=== PATIENT | male | born 1995 | race American Indian/Alaskan Native ===

== ENCOUNTER 2017-07-11 17:33 | Emergency (ER) | payer MEDICAID ==
--- NOTE | 2017-07-11 18:36 | Emergency Department Report ---
- General Chief Complaint: Upper Respiratory Infection Stated Complaint: CONGESTION Source: patient Mode of arrival: Ambulatory Limitations: No Limitations - History of Present Illness Initial Comments: 21 y/o M with a PMHx of schizophrenia and long hx of sinus congestion presents to the ER today with recurrent sinus infection. Pt states that he feels as if this is the 30th sinus infection this year. Pt states that he was seen last 2 months ago at another hospital and was given Prednisone and Hydroxyzine with relief of his symptoms. pt states that this time he has been using flonase that helps some but not much. Pt denies any cough, fever, chills SOB, nausea,or vomtiing. Pt admits to a maxillary headache and reports to yellow nasal congestion. Pt denies any sick contacts. NKDA. CURTIS Complaint: rhinorrhea, nasal congestion, sinus pain -: week(s) (1) Severity: severe Severity scale (0 -10): 7 Consistency: constant Improves With: OTC nasal spray Worsens With: nothing Associated Symptoms: headache, rhinorrhea, nasal congestion Treatments Prior to Arrival: other (flonase) - Related Data Home Medications Medication Instructions Recorded Confirmed Last Taken Loratadine [Claritin] 10 mg PO DAILY PRN 07/26/15 07/26/15 Unknown Paliperidone Palmitate (Nf) 156 mg IM QMONTH 07/26/15 07/26/15 07/14/15 10:00 [Invega Sustenna (Nf)] Previous Rx's Medication Instructions Recorded Last Taken Type Triamcinolone 0.1% [Kenalog 0.1% 1 applic TP TID #1 tube 07/26/15 Unknown Rx CREAM] Amoxicillin/Potassium Clav 1 each PO BID #20 tablet 07/11/17 Unknown Rx [Augmentin 875-125 Tablet] Loratadine [Claritin] 10 mg PO DAILY #30 tablet 07/11/17 Unknown Rx predniSONE [Deltasone] 10 mg PO QDAY #3 tab 07/11/17 Unknown Rx Allergies Allergy/AdvReac Type Severity Reaction Status Date / Time peanut Allergy Swelling Verified 07/26/15 08:47 dairy AdvReac Swelling Uncoded 07/26/15 08:47 ED Review of Systems ROS: Stated complaint: CONGESTION Other details as noted in HPI Constitutional: denies: chills, fever Eyes: denies: eye pain, eye discharge, vision change ENT: congestion, other (nasal congestion, sinus pressure) Respiratory: denies: cough, shortness of breath, wheezing Cardiovascular: denies: chest pain, palpitations Gastrointestinal: denies: abdominal pain, nausea, diarrhea Skin: denies: rash, lesions Neurological: headache (sinus related). denies: weakness, paresthesias Psychiatric: denies: anxiety, depression ED Past Medical Hx - Past Medical History Previous Medical History?: Yes Hx Psychiatric Treatment: Yes (SCHIZOPHRENIA) Hx Asthma: Yes Additional medical history: ECZEMA - Surgical History Past Surgical History?: No - Social History Smoking Status: Never Smoker Substance Use Type: Prescribed - Medications Home Medications: Home Medications Medication Instructions Recorded Confirmed Last Taken Type Loratadine [Claritin] 10 mg PO DAILY PRN 07/26/15 07/26/15 Unknown History Paliperidone Palmitate (Nf) 156 mg IM QMONTH 07/26/15 07/26/15 07/14/15 10:00 History [Invega Sustenna (Nf)] Triamcinolone 0.1% [Kenalog 0.1% 1 applic TP TID #1 tube 07/26/15 Unknown Rx CREAM] Amoxicillin/Potassium Clav 1 each PO BID #20 tablet 07/11/17 Unknown Rx [Augmentin 875-125 Tablet] Loratadine [Claritin] 10 mg PO DAILY #30 tablet 07/11/17 Unknown Rx predniSONE [Deltasone] 10 mg PO QDAY #3 tab 07/11/17 Unknown Rx ED Physical Exam - General Limitations: No Limitations General appearance: alert, in no apparent distress, other (was observed blowing his nose multiple times throughout examination) - Head Head exam: Present: atraumatic, normocephalic, normal inspection (no maxillary or frontal ttp ), other - Eye Eye exam: Present: normal appearance, PERRL, EOMI Pupils: Present: normal accommodation - ENT ENT exam: Present: normal orophraynx (there was mild rhinorrhea note in b/l nostrils), mucous membranes moist, TM's normal bilaterally, other (there is mild PND, no pharyngitis or abscess, no muffled voice) - Expanded ENT Exam Expanded Ear exam: Present: normal external inspection Mouth exam: Present: normal external inspection Teeth exam: Present: normal inspection Throat exam: Positive: other (PND) - Neck Neck exam: Present: normal inspection, full ROM - Respiratory Respiratory exam: Present: normal lung sounds bilaterally. Absent: respiratory distress - Cardiovascular Cardiovascular Exam: Present: regular rate, normal rhythm. Absent: systolic murmur, diastolic murmur, rubs, gallop - Neurological Exam Neurological exam: Present: alert, oriented X3, normal gait - Psychiatric Psychiatric exam: Present: normal affect, normal mood - Skin Skin exam: Present: warm, dry, intact, normal color. Absent: rash ED Course Vital Signs 07/11/17 07/11/17 07/11/17 18:15 20:31 20:48 Temperature 97.5 F L 97.8 F Pulse Rate 96 H 72 Respiratory 20 16 Rate Blood Pressure 122/75 107/74 O2 Sat by Pulse 99 100 Oximetry ED Medical Decision Making - Medical Decision Making Pt has a hx of recurrent sinus infections he has been seen multiple times for this issue. hx seems consistent with sinusitis and some allergies. pt states that he has tolerated steriod shot and prednisone before with no issues with his invega medication, therefore, I have given him a shot of solu-edrol 40 mg in the ER. I have discharged him on prednisone 10 mg for 3 days and claritin daily. Pt was advised continue the flonase nasal spray. He has also been told to hold off on the antibiotic at this time and if symptoms progress or worsen such as: fever, chills, green mucus or other signs of infection/ or prolonging for about 5-7 days he may fill the antibiotic. Pt was also given referrals to an storekeeper steward as this has been a long ongoing issue. Pt was discharged in stable condition: alert and oriented, no resp distress and was speaking in full sentences. Vitals stable at discharge. Critical care attestation.: If time is entered above; I have spent that time in minutes in the direct care of this critically ill patient, excluding procedure time. ED Disposition Clinical Impression: Sinus congestion Disposition: DC-01 TO HOME OR SELFCARE Is pt being admited?: No Does the pt Need Aspirin: No Condition: Stable Instructions: Sinusitis (ED), Cold Symptoms (ED) Additional Instructions: Please start the oral prednisone tomorrow as you had the steriod shot today. Please follow-up with PCP within one week. I would advise nasal Flonase. Claritin during the day time. Please return to the ED immediately if your symptoms acutely worsening or progress. Prescriptions: Amoxicillin/Potassium Clav [Augmentin 875-125 Tablet] 1 each PO BID #20 tablet Loratadine [Claritin] 10 mg PO DAILY #30 tablet predniSONE [Deltasone] 10 mg PO QDAY #3 tab Referrals: [facility] [place] [Outside] - 3-5 Days [facility] [Outside] - 3-5 Days JIMENA WEBSTER MD [Referring] - 3-5 Days PRIMARY CAREMD [Primary Care Provider] - 3-5 Days Forms: Work/School Release Form(ED)
[2017-07-11 20:35] VITALS: BP 107/74
== END 2017-07-11 20:58 | disposition home or self-care (01) ==
LOC: ED 17:33
DX: R09.81 Nasal congestion (principal); J34.89 Other specified disorders of nose and nasal sinuses; R51 Headache; Z91.011 Allergy to milk products; Z91.010 Allergy to peanuts
CPT/HCPCS: 96372; 99282; J2920

== ENCOUNTER 2017-07-18 11:00 | Emergency (ER) | payer MEDICAID ==
[2017-07-18 11:17] VITALS: BP 129/74
--- NOTE | 2017-07-18 11:24 | Emergency Department Report ---
HPI - General Chief Complaint: Upper Respiratory Infection Time Seen by Provider: 07/18/17 11:24 - HPI HPI: Patient here reports stuffy nose mostly on the left side. He states that it's hard for him to breathe out of his nose sometimes. He said this has been ongoing. States that he was here 2 weeks ago and was given prescription medication but he did not finish it because it wasn't working. Patient was here on 07/11/2017 and treated for upper respiratory tract infection with Augmentin, Claritin and Deltasone. He said he stopped taking the medication because it wasn't working. Patient said he thinks he needs a different antibiotic. Patient has a history of asthma but he says that he doesn't take medication for it because it's controlled denies any shortness of breath or wheezing. Denies any coughing. He reports that he has nasal congestion with drainage and feels like his ears are clogged. Patient has a history of eczema and schizophrenia. He said he does have a primary care physician. Denies any fever or chills. Denies any nausea or vomiting. Pain is 0 out of 10 ED Past Medical Hx - Past Medical History Previous Medical History?: Yes Hx Psychiatric Treatment: Yes (SCHIZOPHRENIA) Hx Asthma: Yes Additional medical history: ECZEMA - Surgical History Past Surgical History?: No - Family History Family history: no significant - Social History Smoking Status: Never Smoker Substance Use Type: None Other Social History: single - Medications Home Medications: Home Medications Medication Instructions Recorded Confirmed Last Taken Type Loratadine [Claritin] 10 mg PO DAILY PRN 07/26/15 07/26/15 Unknown History Paliperidone Palmitate (Nf) 156 mg IM QMONTH 07/26/15 07/26/15 07/14/15 10:00 History [Invega Sustenna (Nf)] Triamcinolone 0.1% [Kenalog 0.1% 1 applic TP TID #1 tube 07/26/15 Unknown Rx CREAM] Amoxicillin/Potassium Clav 1 each PO BID #20 tablet 07/11/17 Unknown Rx [Augmentin 875-125 Tablet] Loratadine [Claritin] 10 mg PO DAILY #30 tablet 07/11/17 Unknown Rx predniSONE [Deltasone] 10 mg PO QDAY #3 tab 07/11/17 Unknown Rx Cefdinir 300 mg PO Q12H #20 capsule 07/18/17 Unknown Rx Cetirizine HCl [Zyrtec] 10 mg PO QAM #14 tablet 07/18/17 Unknown Rx ED Review of Systems ROS: Stated complaint: FLU LIKE SYMPTOMS Other details as noted in HPI Comment: All other systems reviewed and negative Constitutional: no symptoms reported ENT: congestion (congestion and drainage). denies: ear pain, throat pain, dental pain Respiratory: no symptoms reported Cardiovascular: denies: chest pain, palpitations, edema, syncope Gastrointestinal: denies: nausea, vomiting, diarrhea Musculoskeletal: denies: back pain, joint swelling, arthralgia, myalgia Skin: denies: rash Neurological: denies: headache, weakness, numbness, paresthesias, confusion, abnormal gait, vertigo Physical Exam - Physical Exam Vital Signs: Vital Signs 07/18/17 11:14 Temperature 98 F Pulse Rate 95 H Respiratory 16 Rate Blood Pressure 129/74 O2 Sat by Pulse 99 Oximetry General: This is a 21-year-old male well-nourished well-developed in no acute distress. Physical Exam: Head: Normocephalic atraumatic Ears: BIateral TM congested without erythema. [place] EAC without redness or swelling .NO DRAINAGE. No mastoid bone tenderness. Mouth: Moist, no pharyngeal erythema or exudates . . No tonsillar erythema or exudate. UVULA midline and oral airways patent. Tongue is normal Neck: Nontender to palpate, supple, normal range of motion. No adenopathy. No c- spine tenderness. Nose: Bilateral nasal mucosa congested with erythema and clear drainage. Maxillary and frontal sinuses nontender to palpate. Eyes: Sclerae and conjunctiva without injection. Bilateral pupils equal and reactive to light. Bilateral lids are normal. Normal accommodation.BEOMI Lungs: Clear to auscultate bilaterally, no rhonchi wheezes or rales. Normal work of breathing and no chest wall tenderness CV: S1, S2. Regular rate and rhythm negative murmur. Capillary refill is less than 3 seconds Skin: Clean dry and intact, no rashes or lesions PSYCH: Normal mood and behavior ED Course Vital Signs 07/18/17 11:14 Temperature 98 F Pulse Rate 95 H Respiratory 16 Rate Blood Pressure 129/74 O2 Sat by Pulse 99 Oximetry - Reevaluation(s) Reevaluation #1: 07/18/17 11:46 had uneventful ED stay ED Medical Decision Making - Medical Decision Making ED course: Patient reports that he is having nasal congestion and drainage and it's been ongoing for over 2 weeks. He was here on 07/11/2017 and was given Augmentin, Claritin and prednisone but he said that he did not need antibiotics because it wasn't working. Patient has Flonase at home that he is using any said that's not working. He did not follow-up with primary care physician as was instructed. Thus the patient that in order for antibiotic to work he will have to take all of the antibiotic prescribed and use nasal Flonase and Zyrtec for at least 14 days. She didn't report that he would like to try new antibiotic because he didn't think that one was strong enough. I discussed the patient that he has nasal sinusitis and it's been going on for over 2 weeks and will put him on Ceftin by headache, Zyrtec that he needs to take for 14 days once a day and he should continue Flonase as prescribed previously. I also instructed him that if he is having problems with recurrent nasal congestion and sinus issues that he needs to follow up with ear nose and throat which his primary care physician will refer him to. I told him that I will refer him back to his primary care physician on also to ENT doctor and that he should call and Thursday to schedule an appointment but if D do not take his insurance then he will need to call his insurance company to be referred to ENT doctor this covered by his insurance.Patient voiced understand of discharge instruction and treatment plan and discharged home with prescription for Zyrtec , Cefdinir to continue taking an Flonase. Critical care attestation.: If time is entered above; I have spent that time in minutes in the direct care of this critically ill patient, excluding procedure time. ED Disposition Clinical Impression: Sinusitis nasal Qualifiers: Sinusitis location: unspecified location Chronicity: subacute Qualified Code(s) : J01.90 - Acute sinusitis, unspecified Disposition: - TO HOME OR SELFCARE Is pt being admited?: No Does the pt Need Aspirin: No Condition: Stable Instructions: Sinusitis (ED) Additional Instructions: Please increase her fluid intake Flush nostrils with saline nasal saline wash take antibiotic as prescribed. He will need to take antibiotic as prescribed and completed your antibiotic. Take antibiotic with yogurt to prevent diarrhea F/U with primary care physician as instructed Follow-up with ENT doctor and referred discharge instruction paperwork for details Take Zyrtec and Flonase as instructed Prescriptions: Cefdinir 300 mg PO Q12H #20 capsule Cetirizine HCl [Zyrtec] 10 mg PO QAM #14 tablet Referrals: PAULINA CUETO MD [Staff Physician] - 3-5 Days your, primary care physician [Other] - 3-5 Days Forms: Work/School Release Form(ED)
== END 2017-07-18 11:59 | disposition home or self-care (01) ==
LOC: ED 11:00
DX: J01.90 Acute sinusitis, unspecified (principal); F20.9 Schizophrenia, unspecified; J45.909 Unspecified asthma, uncomplicated; Z91.013 Allergy to seafood
CPT/HCPCS: 99282

== ENCOUNTER 2017-08-18 15:52 | Emergency (ER) | payer MEDICARE, MEDICAID ==
--- NOTE | 2017-08-18 20:10 | Emergency Department Report ---
- General Chief Complaint: Upper Respiratory Infection Stated Complaint: NASAL CONGESTION Time Seen by Provider: 08/18/17 19:43 Source: patient Mode of arrival: Ambulatory Limitations: No Limitations - History of Present Illness Initial Comments: pt presents for recurrent sinusitis seeing ENT Dr. Brothers for same recently finished augmentin ni jun 2017, presents today for left maxillary sinus pressure yellow green discharge, post nasal drip, for past 2 weeks pt states unable to get in to ENT offfice, currently taking flonase and zyrtec without improvement, pt state noc fever last pm of 101 there is no ear pain no sore throat, MD Complaint: fever, rhinorrhea, nasal congestion, sinus pain Onset/Timin -: week(s) Severity: moderate Severity scale (0 -10): 5 Quality: other (pressure ) Consistency: intermittent Improves With: nothing Worsens With: activity, other (bending activity ) Context: other (chronic sinusitis) Associated Symptoms: fever, rhinorrhea, nasal congestion. denies: sore throat, stiff neck, cough, chest pain, shortness of breath, abdominal pain, nausea, vomiting, diarrhea, dysuria, rash, confusion, right sweats, weight loss, epistaxis, hoarseness, ear pain Treatments Prior to Arrival: none - Related Data Home Medications Medication Instructions Recorded Confirmed Last Taken Loratadine [Claritin] 10 mg PO DAILY PRN 07/26/15 07/26/15 Unknown Paliperidone Palmitate (Nf) 156 mg IM QMONTH 07/26/15 07/26/15 07/14/15 10:00 [Invega Sustenna (Nf)] Previous Rx's Medication Instructions Recorded Last Taken Type Triamcinolone 0.1% [Kenalog 0.1% 1 applic TP TID #1 tube 07/26/15 Unknown Rx CREAM] Amoxicillin/Potassium Clav 1 each PO BID #20 tablet 07/11/17 Unknown Rx [Augmentin 875-125 Tablet] Loratadine [Claritin] 10 mg PO DAILY #30 tablet 07/11/17 Unknown Rx predniSONE [Deltasone] 10 mg PO QDAY #3 tab 07/11/17 Unknown Rx Cefdinir 300 mg PO Q12H #20 capsule 07/18/17 Unknown Rx Cetirizine HCl [Zyrtec] 10 mg PO QAM #14 tablet 07/18/17 Unknown Rx Clindamycin [Clindamycin CAP] 300 mg PO Q6H #40 capsule 08/18/17 Unknown Rx Ibuprofen 800 mg PO QID PRN #30 tablet 08/18/17 Unknown Rx predniSONE [Deltasone] 20 mg PO QDAY #5 tab 08/18/17 Unknown Rx Allergies Allergy/AdvReac Type Severity Reaction Status Date / Time Fish Containing Products Allergy Rash Verified 07/18/17 11:14 peanut Allergy Swelling Verified 07/26/15 08:47 mometasone furoate AdvReac Unknown Verified 07/18/17 11:14 [From Nasonex] dairy AdvReac Swelling Uncoded 07/26/15 08:47 ED Review of Systems ROS: Stated complaint: NASAL CONGESTION Other details as noted in HPI Constitutional: fever. denies: chills, weakness Eyes: denies: eye pain, eye discharge, vision change ENT: congestion Respiratory: denies: cough, shortness of breath, wheezing Cardiovascular: denies: chest pain, palpitations Endocrine: no symptoms reported Gastrointestinal: denies: abdominal pain, nausea, diarrhea Genitourinary: denies: urgency, dysuria Musculoskeletal: denies: back pain, joint swelling, arthralgia Skin: denies: rash, lesions Neurological: denies: headache, weakness, paresthesias Psychiatric: denies: anxiety, depression Hematological/Lymphatic: denies: easy bleeding, easy bruising ED Past Medical Hx - Past Medical History Previous Medical History?: Yes Hx Psychiatric Treatment: Yes (SCHIZOPHRENIA) Hx Asthma: Yes Additional medical history: ECZEMA - Surgical History Past Surgical History?: No - Social History Smoking Status: Never Smoker Substance Use Type: Prescribed - Medications Home Medications: Home Medications Medication Instructions Recorded Confirmed Last Taken Type Loratadine [Claritin] 10 mg PO DAILY PRN 07/26/15 07/26/15 Unknown History Paliperidone Palmitate (Nf) 156 mg IM QMONTH 07/26/15 07/26/15 07/14/15 10:00 History [Invega Sustenna (Nf)] Triamcinolone 0.1% [Kenalog 0.1% 1 applic TP TID #1 tube 07/26/15 Unknown Rx CREAM] Amoxicillin/Potassium Clav 1 each PO BID #20 tablet 07/11/17 Unknown Rx [Augmentin 875-125 Tablet] Loratadine [Claritin] 10 mg PO DAILY #30 tablet 07/11/17 Unknown Rx predniSONE [Deltasone] 10 mg PO QDAY #3 tab 07/11/17 Unknown Rx Cefdinir 300 mg PO Q12H #20 capsule 07/18/17 Unknown Rx Cetirizine HCl [Zyrtec] 10 mg PO QAM #14 tablet 07/18/17 Unknown Rx Clindamycin [Clindamycin CAP] 300 mg PO Q6H #40 capsule 08/18/17 Unknown Rx Ibuprofen 800 mg PO QID PRN #30 tablet 08/18/17 Unknown Rx predniSONE [Deltasone] 20 mg PO QDAY #5 tab 08/18/17 Unknown Rx ED Physical Exam - General Limitations: No Limitations General appearance: alert, in no apparent distress - Head Head exam: Present: atraumatic - Eye Eye exam: Present: PERRL, EOMI Pupils: Present: normal accommodation - ENT ENT exam: Present: mucous membranes moist, TM's normal bilaterally, normal external ear exam - Expanded ENT Exam Expanded Ear exam: Present: normal external inspection, other (tms clear bilat ) Mouth exam: Present: other (pharynx eryrthema no exudate no lesions no stridor uvula midline , ) Throat exam: Positive: other (nose: bilat turbinate erythema no polyps no obstruction ). Negative: tonsillar erythema, tonsillomegaly, tonsillar exudate , R peritonsillar mass, L peritonsillar mass - Neck Neck exam: Present: normal inspection, full ROM. Absent: tenderness, lymphadenopathy, thyromegaly - Respiratory Respiratory exam: Present: normal lung sounds bilaterally. Absent: respiratory distress, wheezes, stridor, chest wall tenderness - Cardiovascular Cardiovascular Exam: Present: regular rate, normal rhythm, normal heart sounds. Absent: systolic murmur, diastolic murmur, rubs, gallop - GI/Abdominal GI/Abdominal exam: Present: soft, normal bowel sounds - Rectal Rectal exam: Present: deferred - Extremities Exam Extremities exam: Present: normal inspection, full ROM, normal capillary refill. Absent: tenderness, calf tenderness - Back Exam Back exam: Present: normal inspection, full ROM. Absent: tenderness - Neurological Exam Neurological exam: Present: alert, oriented X3 - Psychiatric Psychiatric exam: Present: normal affect, normal mood - Skin Skin exam: Present: warm, dry, intact, normal color. Absent: rash ED Course Vital Signs 08/18/17 15:53 Temperature 97.7 F Pulse Rate 108 H Respiratory 20 Rate Blood Pressure 115/65 O2 Sat by Pulse 95 Oximetry ED Medical Decision Making - Medical Decision Making pt presents for recurrent sinusitis seeing ENT Dr. Brothers for same recently finished augmentin ni jun 2017, presents today for left maxillary sinus pressure yellow green discharge, post nasal drip, for past 2 weeks pt states unable to get in to ENT offfice, currently taking flonase and zyrtec without improvement, pt state noc fever last pm of 101 there is no ear pain no sore throat, TMs clear bilat, nose: boggy yellow post nasal drip bilat maxillary tenderness, throat: no erythema no exudate no lesions, non stridor uvula midline , plan: clindamycin, ibuprofen, prednisone, continue flonase and zyrtec follow up with ENT in 2-3 days pt verbalized agreement and understanding with discharge plan. Critical care attestation.: If time is entered above; I have spent that time in minutes in the direct care of this critically ill patient, excluding procedure time. ED Disposition Clinical Impression: Sinusitis Qualifiers: Sinusitis location: maxillary Chronicity: acute Recurrence: recurrent Qualified Code(s): J01.01 - Acute recurrent maxillary sinusitis Disposition: TO HOME OR SELFCARE Is pt being admited?: No Does the pt Need Aspirin: No Condition: Good Instructions: Sinusitis (ED) Prescriptions: Clindamycin [Clindamycin CAP] 300 mg PO Q6H #40 capsule Ibuprofen 800 mg PO QID PRN #30 tablet PRN Reason: pain / fever predniSONE [Deltasone] 20 mg PO QDAY #5 tab Referrals: ALINA NUNEZ MD [Primary Care Provider] - 3-5 Days JAQUAN BROTHERS MD [Staff Physician] - 3-5 Days Forms: Work/School Release Form(ED) Time of Disposition: 20:23
[2017-08-19 01:01] VITALS: BP 117/69
== END 2017-08-18 20:37 | disposition home or self-care (01) ==
LOC: ED 15:52
DX: J01.01 Acute recurrent maxillary sinusitis (principal); F20.9 Schizophrenia, unspecified; J45.909 Unspecified asthma, uncomplicated; Z91.013 Allergy to seafood; Z91.010 Allergy to peanuts
CPT/HCPCS: 99282

== ENCOUNTER 2017-09-11 19:06 | Outpatient (CLI) | payer MEDICARE ==
--- NOTE | 2017-09-11 19:55 | Cat Scan Report ---
FINAL REPORT EXAM: CT SINUSES WO CON HISTORY: POLYP OF NASAL CAVITY TECHNIQUE: CT of the paranasal sinuses PRIORS: None. FINDINGS: There is complete opacification with mixed density present left maxillary sinus. Soft tissue density obstructs the ostiomeatal complex. There is marked opacity within the left anterior and posterior ethmoid air cells. There is opacity within left frontal sinus air cell. Mild right maxillary sinus mucosal thickening noted. There is some mild mucosal thickening at the antrum of the right ostiomeatal complex. Bony nasal septum is approximately midline there is some minimal deviation toward the right. No bony destructive changes are observed. IMPRESSION: Marked opacity with complete opacification left maxillary sinus extending throughout the left ethmoid air cells and into the frontal sinus on the left
== END 2017-09-11 19:07 | disposition home or self-care (01) ==
LOC: CT 19:06
PROVIDERS: ATTEND Otolaryngology
DX: J33.0 Polyp of nasal cavity (principal); J34.2 Deviated nasal septum; J34.89 Other specified disorders of nose and nasal sinuses; J45.909 Unspecified asthma, uncomplicated; F20.9 Schizophrenia, unspecified
CPT/HCPCS: 70486

== ENCOUNTER 2017-09-23 16:30 | Emergency (ER) | payer MEDICARE ==
[2017-09-23 17:12] VITALS: BP 105/72
--- NOTE | 2017-09-23 22:09 | Emergency Department Report ---
- General Chief Complaint: Upper Respiratory Infection Stated Complaint: CONGESTION Time Seen by Provider: 09/23/17 21:19 Source: patient Mode of arrival: Ambulatory Limitations: No Limitations - History of Present Illness Initial Comments: Patient is a 22-year-old -[place] male who presents today for recurrent sinusitis symptoms include sinus pain and pressure yellow-green postnasal drip intermittent cough and bilateral ear pain patient denies shortness of breath chest pain. MD Complaint: cough, rhinorrhea, nasal congestion, sinus pain Onset/Timin -: week(s) (is) Severity: moderate (G) Severity scale (0 -10): 4 Quality: aching, other (pressure ) Consistency: intermittent Worsens With: changing head position Context: sick contacts Associated Symptoms: myalgias, rhinorrhea, nasal congestion, cough, ear pain. denies: fever, chills, shortness of breath, nausea, vomiting, diarrhea, dysuria , rash, confusion, right sweats, weight loss, epistaxis, hoarseness Treatments Prior to Arrival: none - Related Data Home Medications Medication Instructions Recorded Confirmed Last Taken Loratadine [Claritin] 10 mg PO DAILY PRN 07/26/15 07/26/15 Unknown Paliperidone Palmitate (Nf) 156 mg IM QMONTH 07/26/15 07/26/15 07/14/15 10:00 [Invega Sustenna (Nf)] Previous Rx's Medication Instructions Recorded Last Taken Type Triamcinolone 0.1% [Kenalog 0.1% 1 applic TP TID #1 tube 07/26/15 Unknown Rx CREAM] Amoxicillin/Potassium Clav 1 each PO BID #20 tablet 07/11/17 Unknown Rx [Augmentin 875-125 Tablet] Loratadine [Claritin] 10 mg PO DAILY #30 tablet 07/11/17 Unknown Rx predniSONE [Deltasone] 10 mg PO QDAY #3 tab 07/11/17 Unknown Rx Cefdinir 300 mg PO Q12H #20 capsule 07/18/17 Unknown Rx Cetirizine HCl [Zyrtec] 10 mg PO QAM #14 tablet 07/18/17 Unknown Rx Clindamycin [Clindamycin CAP] 300 mg PO Q6H #40 capsule 08/18/17 Unknown Rx Ibuprofen 800 mg PO QID PRN #30 tablet 08/18/17 Unknown Rx predniSONE [Deltasone] 20 mg PO QDAY #5 tab 08/18/17 Unknown Rx Amoxicillin/Potassium Clav 1 each PO BID #20 tablet 09/23/17 Unknown Rx [Augmentin 875-125 Tablet] Guaifenesin/Pseudoephedrne HCl 1 tab PO BID #24 tab 09/23/17 Unknown Rx [Mucinex D ER 1,200-120 mg Tab] Ibuprofen 800 mg PO TID PRN #30 tablet 09/23/17 Unknown Rx Allergies Allergy/AdvReac Type Severity Reaction Status Date / Time Fish Containing Products Allergy Rash Verified 07/18/17 11:14 peanut Allergy Swelling Verified 07/26/15 08:47 mometasone furoate AdvReac Unknown Verified 07/18/17 11:14 [From Nasonex] dairy AdvReac Swelling Uncoded 07/26/15 08:47 ED Review of Systems ROS: Stated complaint: CONGESTION Other details as noted in HPI Constitutional: denies: chills, fever Eyes: denies: eye pain, eye discharge, vision change ENT: ear pain (it is alive), congestion Respiratory: cough. denies: orthopnea, shortness of breath, SOB with exertion, SOB at rest, wheezing Cardiovascular: denies: chest pain, palpitations Endocrine: no symptoms reported Gastrointestinal: denies: abdominal pain, nausea, diarrhea Genitourinary: denies: urgency, dysuria Musculoskeletal: denies: back pain, joint swelling, arthralgia Skin: denies: rash, lesions Neurological: denies: headache, weakness, paresthesias Psychiatric: denies: anxiety, depression Hematological/Lymphatic: denies: easy bleeding, easy bruising ED Past Medical Hx - Past Medical History Hx Psychiatric Treatment: Yes (SCHIZOPHRENIA) Hx Asthma: Yes Additional medical history: ECZEMA - Social History Smoking Status: Never Smoker Substance Use Type: Other - Medications Home Medications: Home Medications Medication Instructions Recorded Confirmed Last Taken Type Loratadine [Claritin] 10 mg PO DAILY PRN 07/26/15 07/26/15 Unknown History Paliperidone Palmitate (Nf) 156 mg IM QMONTH 07/26/15 07/26/15 07/14/15 10:00 History [Invega Sustenna (Nf)] Triamcinolone 0.1% [Kenalog 0.1% 1 applic TP TID #1 tube 07/26/15 Unknown Rx CREAM] Amoxicillin/Potassium Clav 1 each PO BID #20 tablet 07/11/17 Unknown Rx [Augmentin 875-125 Tablet] Loratadine [Claritin] 10 mg PO DAILY #30 tablet 07/11/17 Unknown Rx predniSONE [Deltasone] 10 mg PO QDAY #3 tab 07/11/17 Unknown Rx Cefdinir 300 mg PO Q12H #20 capsule 07/18/17 Unknown Rx Cetirizine HCl [Zyrtec] 10 mg PO QAM #14 tablet 07/18/17 Unknown Rx Clindamycin [Clindamycin CAP] 300 mg PO Q6H #40 capsule 08/18/17 Unknown Rx Ibuprofen 800 mg PO QID PRN #30 tablet 08/18/17 Unknown Rx predniSONE [Deltasone] 20 mg PO QDAY #5 tab 08/18/17 Unknown Rx Amoxicillin/Potassium Clav 1 each PO BID #20 tablet 09/23/17 Unknown Rx [Augmentin 875-125 Tablet] Guaifenesin/Pseudoephedrne HCl 1 tab PO BID #24 tab 09/23/17 Unknown Rx [Mucinex D ER 1,200-120 mg Tab] Ibuprofen 800 mg PO TID PRN #30 tablet 09/23/17 Unknown Rx ED Physical Exam - General Limitations: No Limitations General appearance: alert, in no apparent distress - Head Head exam: Present: atraumatic, normocephalic - Eye Eye exam: Present: normal appearance, PERRL, EOMI Pupils: Present: normal accommodation - ENT ENT exam: Present: mucous membranes moist - Expanded ENT Exam Expanded TM/Canal exam: Erythema: Right TM, Left TM, Canal Tenderness: Right TM, Left TM Mouth exam: Present: tongue normal, other (bilat maxillary sinus tendernes yellow post nasal drip bilat turbinater erythema edema boggy no polyps no obstruction ). Absent: trismus Throat exam: Positive: tonsillar erythema, tonsillomegaly. Negative: normal inspection, tonsillar exudate, R peritonsillar mass, L peritonsillar mass - Neck Neck exam: Present: normal inspection, full ROM. Absent: lymphadenopathy, thyromegaly - Respiratory Respiratory exam: Present: normal lung sounds bilaterally. Absent: respiratory distress, wheezes, rhonchi, chest wall tenderness, accessory muscle use - Cardiovascular Cardiovascular Exam: Present: regular rate, normal rhythm. Absent: systolic murmur, diastolic murmur, rubs, gallop - GI/Abdominal GI/Abdominal exam: Present: soft, normal bowel sounds. Absent: distended, tenderness, rebound, mass, bruit, pulsatile mass, hernia - Rectal Rectal exam: Present: deferred - Extremities Exam Extremities exam: Present: normal inspection, full ROM - Back Exam Back exam: Present: normal inspection, full ROM - Neurological Exam Neurological exam: Present: alert, oriented X3, CN II-XII intact, normal gait, reflexes normal - Psychiatric Psychiatric exam: Present: normal affect, normal mood - Skin Skin exam: Present: warm, dry, intact, normal color. Absent: rash ED Course Vital Signs 09/23/17 17:10 Temperature 98.5 F Pulse Rate 72 Respiratory 14 Rate Blood Pressure 105/72 O2 Sat by Pulse 100 Oximetry ED Medical Decision Making - Medical Decision Making pt is a 22 y/o aam who presents for recurrent sinusitis seen in ed for same x 3 this yr, pt has not follow up with primary care or ent as directed exam: bilat tm erythema , pain, sinus: bilat maxillary pain no swelling no erythema, pharynx : moderate erythema no lesions no exudate bilat tonsillarmegally no abscess no stridor, lungs clear bilat no wheezing. plan: tx for sinusitis, follow up with pcp in 2-3 days pt dirctected to follow up and take mediations as prescribed pt verbalized agreement and understanding of same. Critical care attestation.: If time is entered above; I have spent that time in minutes in the direct care of this critically ill patient, excluding procedure time. ED Disposition Clinical Impression: Sinusitis Qualifiers: Sinusitis location: maxillary Chronicity: acute Recurrence: non-recurrent Qualified Code(s): J01.00 - Acute maxillary sinusitis, unspecified Disposition: DC- TO HOME OR SELFCARE Is pt being admited?: No Does the pt Need Aspirin: No Condition: Good Instructions: Sinusitis (ED), Upper Respiratory Infection (ED) Prescriptions: Amoxicillin/Potassium Clav [Augmentin 875-125 Tablet] 1 each PO BID #20 tablet Guaifenesin/Pseudoephedrne HCl [Mucinex D ER 1,200-120 mg Tab] 1 tab PO BID #24 tab Ibuprofen 800 mg PO TID PRN #30 tablet PRN Reason: pain / fever Referrals: EVITA DICKINSON MD [Primary Care Provider] - 3-5 Days Forms: Work/School Release Form(ED) Time of Disposition: 22:20
== END 2017-09-23 22:25 | disposition home or self-care (01) ==
LOC: ED 16:30
DX: J01.00 Acute maxillary sinusitis, unspecified (principal); F20.9 Schizophrenia, unspecified; J45.909 Unspecified asthma, uncomplicated; Z91.013 Allergy to seafood; Z91.010 Allergy to peanuts; Z88.8 Allergy status to other drugs, medicaments and biological substances
CPT/HCPCS: 99282

== ENCOUNTER 2018-01-08 20:46 | Emergency (ER) | payer MEDICAID, MEDICARE ==
[2018-01-08] MEDS ORDERED: PROVENTIL IH ONE ×2 (21:37→21:49)
[2018-01-08 21:46] VITALS: BP 112/74
[2018-01-08] MEDS ORDERED: DELTASONE PO ONE (22:43)
--- NOTE | 2018-01-08 22:54 | Emergency Department Report ---
HPI - General Chief Complaint: Adult Asthma Time Seen by Provider: 01/08/18 22:23 - HPI HPI: 22-year-old male presents today stating that he has some tightness in the chest and thinks his asthma is flaring up. He states to some medications or inhaler for his asthma. He denies fever assess shows sinus nausea or vomiting shortness of breath, chest pain or any other symptoms. ED Past Medical Hx - Past Medical History Hx Psychiatric Treatment: Yes (SCHIZOPHRENIA) Hx Asthma: Yes Additional medical history: ECZEMA - Surgical History Past Surgical History?: No - Social History Smoking Status: Never Smoker Substance Use Type: None - Medications Home Medications: Home Medications Medication Instructions Recorded Confirmed Last Taken Type Loratadine [Claritin] 10 mg PO DAILY PRN 07/26/15 07/26/15 Unknown History Paliperidone Palmitate (Nf) 156 mg IM QMONTH 07/26/15 07/26/15 07/14/15 10:00 History [Minh Hatch (Nf)] Triamcinolone 0.1% [Kenalog 0.1% 1 applic TP TID #1 tube 07/26/15 Unknown Rx CREAM] Amoxicillin/Potassium Clav 1 each PO BID #20 tablet 07/11/17 Unknown Rx [Augmentin 875-125 Tablet] predniSONE [Deltasone] 10 mg PO QDAY #3 tab 07/11/17 Unknown Rx Cefdinir 300 mg PO Q12H #20 capsule 07/18/17 Unknown Rx Cetirizine HCl [Zyrtec] 10 mg PO QAM #14 tablet 07/18/17 Unknown Rx Clindamycin [Clindamycin CAP] 300 mg PO Q6H #40 capsule 08/18/17 Unknown Rx Ibuprofen 800 mg PO QID PRN #30 tablet 08/18/17 Unknown Rx predniSONE [Deltasone] 20 mg PO QDAY #5 tab 08/18/17 Unknown Rx Amoxicillin/Potassium Clav 1 each PO BID #20 tablet 09/23/17 Unknown Rx [Augmentin 875-125 Tablet] Guaifenesin/Pseudoephedrne HCl 1 tab PO BID #24 tab 09/23/17 Unknown Rx [Mucinex D ER 1,200-120 mg Tab] Ibuprofen 800 mg PO TID PRN #30 tablet 09/23/17 Unknown Rx ALBUTEROL Inhaler [ProAir HFA 2 puff IH QID PRN #1 inhalation 01/08/18 Unknown Rx Inhaler] Loratadine [Claritin] 10 mg PO DAILY #30 tablet 01/08/18 Unknown Rx ED Review of Systems ROS: Stated complaint: BREATHING PROBLEMS Other details as noted in HPI Constitutional: denies: chills, fever Eyes: denies: eye pain, eye discharge, vision change ENT: denies: ear pain, throat pain Respiratory: denies: cough, shortness of breath, wheezing Cardiovascular: denies: chest pain, palpitations Endocrine: no symptoms reported Gastrointestinal: denies: abdominal pain, nausea, diarrhea Genitourinary: denies: urgency, dysuria Musculoskeletal: denies: back pain, joint swelling, arthralgia Skin: denies: rash, lesions Neurological: denies: headache, weakness, paresthesias Psychiatric: denies: anxiety, depression Hematological/Lymphatic: denies: easy bleeding, easy bruising Physical Exam - Physical Exam Vital Signs: Vital Signs 01/08/18 21:33 Temperature 99.3 F Pulse Rate 108 H Respiratory 16 Rate Blood Pressure 112/74 O2 Sat by Pulse 99 Oximetry Physical Exam: GENERAL: Alert and oriented x3, no apparent distress, Normal Gait, atraumatic. HEAD: Head is normocephalic and a-traumatic. NOSE: Nose symetrical, Nontender,Nares appeared normal. MOUTH:Mouth is well hydrated and without lesions. Tonsils nonerythematous or swollen, Uvula midline, Tongue not elevated. Mucous membranes are moist. Posterior pharynx clear, no exudate or lesions. Patent airways. NECK: Supple. Non edematous, No carotid bruits. No lymphadenopathy or thyromegaly. No C-spine tenderness LUNGS: Symetrical with respiration, No wheezing, no rales or crackles, CTAB. HEART: S1, S2 present, regular rate and rhythm without murmur, no rubs, no gallops. Non tender to palpation BACK: Full range of motion, no spinal tenderness, nontender to palpation. SKIN: Warm and dry, No lesions, No ulceration or induration present. ED Course Vital Signs 01/08/18 21:33 Temperature 99.3 F Pulse Rate 108 H Respiratory 16 Rate Blood Pressure 112/74 O2 Sat by Pulse 99 Oximetry ED Medical Decision Making - Medical Decision Making 22-year-old male presents with asthma exacerbation ED course: Patient received breathing treatment and prednisone in the ED Post evaluation patient showed no sign of respiratory distress, no wheezing Resting comfortably needed. I discussed the patient will follow up with primary care physician Vital signs are normal patient is satting 99% oxygen on room air Critical care attestation.: If time is entered above; I have spent that time in minutes in the direct care of this critically ill patient, excluding procedure time. ED Disposition Clinical Impression: Asthma Qualifiers: Asthma severity: mild Asthma persistence: intermittent Asthma complication type : unspecified Qualified Code(s): J45.20 - Mild intermittent asthma, uncomplicated Disposition: - TO HOME OR SELFCARE Is pt being admited?: No Does the pt Need Aspirin: No Condition: Stable Instructions: Asthma (ED) Additional Instructions: Make sure to follow up with the primary care physician as discussed. Take all your medications as you've been prescribed. If you have any worsening symptoms or develop new symptoms please return to ED immediately. Prescriptions: ALBUTEROL Inhaler [ProAir HFA Inhaler] 2 puff IH QID PRN #1 inhalation PRN Reason: Shortness Of Breath Loratadine [Claritin] 10 mg PO DAILY #30 tablet Referrals: EVITA DICKINSON MD [Primary Care Provider] - 3-5 Days [facility] [Outside] - 3-5 Days [facility] [Outside] - 3-5 Days [facility] [Outside] - 3-5 Days Forms: Accompanied Note, Work/School Release Form(ED) Time of Disposition: 22:53
== END 2018-01-08 23:16 | disposition home or self-care (01) ==
LOC: ED 20:46
DX: J45.909 Unspecified asthma, uncomplicated (principal)
CPT/HCPCS: 99283; J7512

== ENCOUNTER 2018-01-09 09:13 | Emergency (ER) | payer MEDICARE ==
[2018-01-09 09:46] LABS: Basophils % (Auto) 0.2 % (0.0-1.8); Hematocrit 43.9 % (35.5-45.6); Hemoglobin 14.3 gm/dl (11.8-15.2); Lymphocytes # (Auto) 0.6 K/mm3 (1.2-5.4); Lymphocytes % (Auto) 17.3 % (13.4-35.0); Mean Corpuscular HGB Conc 33 % (32-34); Mean Corpuscular Hemoglobin 28 pg (28-32); Mean Corpuscular Volume 87 fl (84-94); Monocytes # (Auto) 0.1 K/mm3 (0.0-0.8); Monocytes % (Auto) 3.9 % (0.0-7.3); Platelet Count 248 K/mm3 (140-440); Red Blood Count 5.06 M/mm3 (3.65-5.03); Red Cell Distribution Width 13.7 % (13.2-15.2)
[2018-01-09 09:49] LABS: Bilirubin,Urine NEG (Negative); Blood,Urine NEG (Negative); Color,Urine Yellow (Yellow); Mucus,Urine FEW /HPF; Protein,Urine <15 mg/dL mg/dL (Negative); Urobilinogen,Urine < 2.0 mg/dL (<2.0)
[2018-01-09 09:50] LABS: WBC,Urine < 1.0 /HPF (0.0-6.0)
[2018-01-09 10:05] LABS: BUN/Creatinine Ratio 15; Blood Urea Nitrogen 12 mg/dL (9-20); Calcium 9.9 mg/dL (8.4-10.2); Hemolysis Index 13
[2018-01-09 10:16] LABS: Amphetamine Screen,Urine PRESUMPTIVE NEGATIVE; Benzodiazepines Screen,Urine PRESUMPTIVE NEGATIVE; Cannabinoid Screen,Urine PRESUMPTIVE NEGATIVE; Cocaine Screen,Urine PRESUMPTIVE NEGATIVE; Methadone Screen,Urine PRESUMPTIVE NEGATIVE; Opiate Screen,Urine PRESUMPTIVE NEGATIVE
--- NOTE | 2018-01-09 11:08 | Emergency Department Report ---
HPI - General Chief Complaint: Psych Time Seen by Provider: 01/09/18 09:47 - HPI HPI: The patient is a 22-year-old male who presents for evaluation of mental health. The patient reports constant severe sadness since last night, associated with suicidal ideations and homicidal ideations. He states that he has experienced on and off depression and thoughts of suicide for many months. The patient denies fever, headache, unexplained weight loss or weight gain, heat or cold intolerance, skin, hair, or nail changes, neuro deficits, or auditory or visual hallucinations. ED Past Medical Hx - Past Medical History Hx Psychiatric Treatment: Yes (SCHIZOPHRENIA) Hx Asthma: Yes Additional medical history: ECZEMA - Social History Smoking Status: Never Smoker Substance Use Type: None - Medications Home Medications: Home Medications Medication Instructions Recorded Confirmed Last Taken Type Loratadine [Claritin] 10 mg PO DAILY PRN 07/26/15 07/26/15 Unknown History Paliperidone Palmitate (Nf) 156 mg IM QMONTH 07/26/15 07/26/15 07/14/15 10:00 History [Invega Sustenna (Nf)] Triamcinolone 0.1% [Kenalog 0.1% 1 applic TP TID #1 tube 07/26/15 Unknown Rx CREAM] Amoxicillin/Potassium Clav 1 each PO BID #20 tablet 07/11/17 Unknown Rx [Augmentin 875-125 Tablet] predniSONE [Deltasone] 10 mg PO QDAY #3 tab 07/11/17 Unknown Rx Cefdinir 300 mg PO Q12H #20 capsule 07/18/17 Unknown Rx Cetirizine HCl [Zyrtec] 10 mg PO QAM #14 tablet 07/18/17 Unknown Rx Clindamycin [Clindamycin CAP] 300 mg PO Q6H #40 capsule 08/18/17 Unknown Rx Ibuprofen 800 mg PO QID PRN #30 tablet 08/18/17 Unknown Rx predniSONE [Deltasone] 20 mg PO QDAY #5 tab 08/18/17 Unknown Rx Amoxicillin/Potassium Clav 1 each PO BID #20 tablet 09/23/17 Unknown Rx [Augmentin 875-125 Tablet] Guaifenesin/Pseudoephedrne HCl 1 tab PO BID #24 tab 09/23/17 Unknown Rx [Mucinex D ER 1,200-120 mg Tab] Ibuprofen 800 mg PO TID PRN #30 tablet 09/23/17 Unknown Rx ALBUTEROL Inhaler [ProAir HFA 2 puff IH QID PRN #1 inhalation 01/08/18 Unknown Rx Inhaler] Loratadine [Claritin] 10 mg PO DAILY #30 tablet 01/08/18 Unknown Rx ED Review of Systems ROS: Stated complaint: MENTAL HEALTH EVALUATION Other details as noted in HPI Constitutional: denies: fever ENT: denies: throat or neck pain Respiratory: denies: cough, shortness of breath Cardiovascular: denies: chest pain Endocrine: denies unexplained weight loss or gain Gastrointestinal: denies: abdominal pain, nausea Genitourinary: denies: dysuria Musculoskeletal: denies: leg swelling Skin: denies: rash Neurological: denies: headache Hematological/Lymphatic: denies: easy bleeding or easy bruising Psych: reports sadness or hopelessness Physical Exam - Physical Exam Vital Signs: Vital Signs 01/09/18 09:16 Temperature 97.5 F L Pulse Rate 98 H Respiratory 16 Rate Blood Pressure 133/73 O2 Sat by Pulse 99 Oximetry Physical Exam: General: well-nourished, well-developed, no acute distress Head: Normocephalic, atraumatic Eyes: normal sclera ENT: Mucous membranes are pink and moist Neck: trachea midline, neck supple, No neck stiffness, no cervical adenopathy Respiratory: Breath sounds equal bilaterally, no wheezing, rales, or rhonchi Cardio: S1 and S2 present, no murmurs, rubs, gallops, capillary refill is brisk Abdomen: Normoactive bowel sounds, soft abdomen, no rigidity, no guarding or rebound tenderness Musc: No pitting edema Skin: No rash Neuro: no facial drooping, normal speech Psych: Flat affect, poor insight, depressed mood, positive suicidal ideation ED Course Vital Signs 01/09/18 09:16 Temperature 97.5 F L Pulse Rate 98 H Respiratory 16 Rate Blood Pressure 133/73 O2 Sat by Pulse 99 Oximetry ED Medical Decision Making - Lab Data Result diagrams: 01/09/18 09:29 01/09/18 09:29 - Medical Decision Making The patient was seen and examined by myself. The patient is placed on a nurse monitoring and continuous pulse ox. On initial evaluation, the patient was found to be in no distress. Labs are obtained. Lab results are grossly unremarkable. The patient is medically clear. Mental health is consulted. Mental health evaluates the patient and agrees that the patient is at risk of harm to self. A 1013 is completed. The patient will be admitted to a psychiatric facility once bed placement is obtained. Critical care attestation.: If time is entered above; I have spent that time in minutes in the direct care of this critically ill patient, excluding procedure time. ED Disposition Clinical Impression: Suicidal ideations Disposition: [id number]/TX-[id number] PS[facility] HOSP/PSY UNIT Is pt being admited?: No Does the pt Need Aspirin: No Condition: Stable Time of Disposition: 16:15
[2018-01-09] MEDS ORDERED: CLARITIN PO PRN (18:12)
[2018-01-09] MEDS ORDERED: TYLENOL PO PRN (18:12)
[2018-01-09] MEDS ORDERED: PROAIR IH PRN (18:12)
[2018-01-09] MEDS ORDERED: ALUM-MAG HYDROX-SIMETH 200-200-20MG/5ML PO PRN (18:12)
[2018-01-09] MEDS ORDERED: MILK OF MAGNESIA PO PRN (18:12)
[2018-01-09] MEDS ORDERED: HALDOL ONE (20:00)
[2018-01-09] MEDS ORDERED: HALDOL IM ONE (20:00)
[2018-01-09] MEDS ORDERED: ATIVAN ONE (20:00)
[2018-01-09] MEDS ORDERED: BENADRYL IM ONE (20:01)
[2018-01-09] MEDS ORDERED: ATIVAN IM ONE (20:05)
[2018-01-09 20:24] VITALS: BP 133/72
== END 2018-01-09 23:13 ==
LOC: ED 09:13
DX: R45.851 Suicidal ideations (principal); R45.850 Homicidal ideations; J45.909 Unspecified asthma, uncomplicated; F20.9 Schizophrenia, unspecified
CPT/HCPCS: 36415; 80048; 80307; 81001; 85025; 96372; 99285; G0480; J1630; J2060; 80320

== ENCOUNTER 2018-02-07 23:47 | Emergency (ER) | payer MEDICARE ==
[2018-02-08 00:04] VITALS: BP 123/81
--- NOTE | 2018-02-08 02:29 | Emergency Department Report ---
ED Rash HPI - HPI Chief Complaint: Skin Rash Stated Complaint: RASH Time Seen by Provider: 02/08/18 00:24 Duration: 1 week Location: Upper Extremities (bilateral upper extremities) Suspected Cause: Other (history of eczema) Rash Symptoms: Yes Itching, No Facial Swelling, No Tongue/Oral Swelling, No Breathing Difficulties, No Choking Sensation, No Wheezing/Dyspnea, No Peeling, No Blistering, No Fever, No Lightheaded, No Malaise, No Myalgias Severity: mild Other History: This is a 22-year-old -[place] male who presents with rash to bilateral arms for one week. Patient has a history of eczema, asthma, and schizophrenia. He is currently out triamcinolone cream. Dr. Ko Nunez is his primary care doctor and he is unsure of new location. He is requesting refills of triamcinolone cream. Denies difficulty swallowing, fever, redness, discharge, or recent injury. ED Review of Systems ROS: Stated complaint: RASH Other details as noted in HPI Constitutional: denies: chills, fever Respiratory: denies: cough, shortness of breath, wheezing Cardiovascular: denies: chest pain, palpitations Gastrointestinal: denies: abdominal pain, nausea, diarrhea Skin: lesions (rash to bilateral crease of arms.). denies: rash Neurological: denies: headache, weakness, numbness, paresthesias Psychiatric: as per HPI ED Past Medical Hx - Past Medical History Previous Medical History?: Yes Hx Psychiatric Treatment: Yes (SCHIZOPHRENIA) Hx Asthma: Yes Additional medical history: ECZEMA - Surgical History Past Surgical History?: No - Social History Smoking Status: Never Smoker Substance Use Type: None - Medications Home Medications: Home Medications Medication Instructions Recorded Confirmed Last Taken Type Cariprazine HCl [Vraylar] 3 mg PO DAILY 01/09/18 01/09/18 01/08/18 History Propranolol HCl 20 mg PO PRN PRN 01/09/18 01/09/18 01/08/18 History Triamcinolone 0.1% [Kenalog 0.1% 1 applic TP BID #60 gram 02/08/18 Unknown Rx CREAM] Rash Exam - Exam General: Vital signs noted. No distress. Alert and acting appropriately. HEENT: No Periorbital Edema, No Conjuctival Injection, No Chemosis, No Perioral Edema, No Tongue Edema, No Uvular Edema, No Compromised Airway, No Drooling Lungs: Yes Good Air Exchange (Normal Breath Sounds), No Wheezes, No Ronchi, No Stridor, No Cough, No Labored Respirations, No Retractions, No Use of Accessory Muscles, No Other Abnormal Lung Sounds Heart: Yes Regular, No Murmur Skin: Yes Maculopapular Rash (multiple 1 to 2 cm erthematous bilateral antecubital), No Urticarial Rash, No Morbilliform rash, No Bulla(e), No Excoriations, No Weeping, No Tenderness, No Erythema, No Edema, No Encrustations , No Other ED Course Vital Signs 02/07/18 23:58 Temperature 98.1 F Pulse Rate 101 H Respiratory 18 Rate Blood Pressure 123/81 O2 Sat by Pulse 99 Oximetry ED Medical Decision Making - Medical Decision Making This is a 22-year-old -[place] male who presents with rash to bilateral antecubital area. History of asthma, eczema, and schizophrenia. Patient examined by me. No distress noted. Vitals stable. Patient ran out of triamcinolone cream and requested refills. Refilled triamcinolone cream and f/ u with primary care provider in one week. Discussed plan with patient and he agreed to plan. Critical care attestation.: If time is entered above; I have spent that time in minutes in the direct care of this critically ill patient, excluding procedure time. ED Disposition Clinical Impression: Eczema of both upper extremities Disposition: - TO HOME OR SELFCARE Is pt being admited?: No Does the pt Need Aspirin: No Condition: Stable Instructions: Eczema (ED) Additional Instructions: Apply a thin layer of triamcinolone cream twice a day for 5-10 days. Wash area with soap and water daily. Follow up with primary care provider in one week. Prescriptions: Triamcinolone 0.1% [Kenalog 0.1% CREAM] 1 applic TP BID #60 gram Referrals: EVITA DICKINSON MD [Primary Care Provider] - 3-5 Days KO NUNEZ MD [Staff Physician] - 3-5 Days [facility] [Outside] - 3-5 Days Time of Disposition: 02:38 Print Language: BULGARIAN
== END 2018-02-08 02:45 | disposition home or self-care (01) ==
LOC: ED 23:47
DX: L30.9 Dermatitis, unspecified (principal); Z76.0 Encounter for issue of repeat prescription; F20.9 Schizophrenia, unspecified; J45.909 Unspecified asthma, uncomplicated; Z79.899 Other long term (current) drug therapy; Z91.010 Allergy to peanuts; Z88.8 Allergy status to other drugs, medicaments and biological substances; Z91.011 Allergy to milk products
CPT/HCPCS: 99282

== ENCOUNTER 2018-03-01 15:56 | Emergency (ER) | payer MEDICARE ==
[2018-03-01 16:26] VITALS: BP 102/74
[2018-03-01] MEDS ORDERED: DUONEB *Not for PRN Use IH ONE (19:49)
[2018-03-01] MEDS ORDERED: DELTASONE PO ONE (19:49)
--- NOTE | 2018-03-01 19:49 | Emergency Department Report ---
ED Asthma HPI - General Chief Complaint: Adult Asthma Stated Complaint: CHEST TIGHTNESS/ASTHMA Time Seen by Provider: 03/01/18 19:31 Source: patient Mode of arrival: Ambulatory Limitations: No Limitations - History of Present Illness Initial Comments: Patient reported that he is having some wheezing then and cough and runny nose and congestion over the last few days and he ran out of his asthma medication which is albuterol. Denies any fever or chills. Denies any chest pain. Denies any shortness of breath. Pain is 0-10. He doesn't have a primary care at present. Triage noted says the patient was having chest tightness with patient reports that he is wheezing. No medication taken prior to coming to the emergency room. MD Complaint: "asthma attack", wheezing, other (cough) Onset/Timin -: days(s) Asthma History: childhood onset, history of prior ED visit Severity: mild Context: recent URI, ran out of meds Associated Symptoms: dry cough Treatments Prior to Arrival: other (none, patient states that he ran out of his medication) - Related Data Current Asthma Therapy: inhaled bronchodilator Home Medications Medication Instructions Recorded Confirmed Last Taken Cariprazine HCl [Vraylar] 3 mg PO DAILY 01/09/18 01/09/18 01/08/18 Propranolol HCl 20 mg PO PRN PRN 01/09/18 01/09/18 01/08/18 Previous Rx's Medication Instructions Recorded Last Taken Type Triamcinolone 0.1% [Kenalog 0.1% 1 applic TP BID #60 gram 02/08/18 Unknown Rx CREAM] ALBUTEROL Inhaler [ProAir HFA 2 puff IH QID PRN #1 inhalation 03/01/18 Unknown Rx Inhaler] Cetirizine HCl [ZyrTEC] 10 mg PO QDAY 14 Days #14 capsule 03/01/18 Unknown Rx Prednisone [predniSONE 10 mg 10 mg PO .TAPER 6 Days #1 tab.ds.pk 03/01/18 Unknown Rx (6-Day Pack, 21 Tabs)] Allergies Allergy/AdvReac Type Severity Reaction Status Date / Time Fish Containing Products Allergy Rash Verified 01/09/18 09:16 peanut Allergy Swelling Verified 01/09/18 09:16 mometasone furoate AdvReac Unknown Verified 01/09/18 09:16 [From Nasonex] dairy AdvReac Swelling Uncoded 07/26/15 08:47 ED Review of Systems ROS: Stated complaint: CHEST TIGHTNESS/ASTHMA Other details as noted in HPI Constitutional: denies: chills, fever Eyes: denies: eye pain, eye discharge, vision change ENT: congestion. denies: ear pain, throat pain Respiratory: cough, wheezing. denies: orthopnea, shortness of breath, stridor Cardiovascular: denies: chest pain, palpitations, dyspnea on exertion, edema, syncope Gastrointestinal: diarrhea. denies: abdominal pain, nausea, vomiting Musculoskeletal: denies: back pain, joint swelling, arthralgia Skin: denies: rash, lesions Neurological: denies: headache, weakness ED Past Medical Hx - Past Medical History Previous Medical History?: Yes Hx Psychiatric Treatment: Yes (SCHIZOPHRENIA) Hx Asthma: Yes Additional medical history: ECZEMA - Surgical History Past Surgical History?: No - Family History Family history: hypertension - Social History Smoking Status: Never Smoker Substance Use Type: None - Medications Home Medications: Home Medications Medication Instructions Recorded Confirmed Last Taken Type Cariprazine HCl [Vraylar] 3 mg PO DAILY 01/09/18 01/09/18 01/08/18 History Propranolol HCl 20 mg PO PRN PRN 01/09/18 01/09/18 01/08/18 History Triamcinolone 0.1% [Kenalog 0.1% 1 applic TP BID #60 gram 02/08/18 Unknown Rx CREAM] ALBUTEROL Inhaler [ProAir HFA 2 puff IH QID PRN #1 inhalation 03/01/18 Unknown Rx Inhaler] Cetirizine HCl [ZyrTEC] 10 mg PO QDAY 14 Days #14 capsule 03/01/18 Unknown Rx Prednisone [predniSONE 10 mg 10 mg PO .TAPER 6 Days #1 tab.ds.pk 03/01/18 Unknown Rx (6-Day Pack, 21 Tabs)] ED Physical Exam - General Limitations: No Limitations General appearance: alert, in no apparent distress - Head Head exam: Present: atraumatic, normocephalic, normal inspection - Eye Eye exam: Present: normal appearance, PERRL, EOMI Pupils: Present: normal accommodation - ENT ENT exam: Present: normal orophraynx, mucous membranes moist, normal external ear exam, other (the lateral nasal mucosa pale and boggy with clear drainage). Absent: TM's normal bilaterally (bilateral TM congested without erythema) - Neck Neck exam: Present: normal inspection, full ROM. Absent: tenderness, lymphadenopathy - Respiratory Respiratory exam: Present: wheezes (scattered wheezes and upper lung real), other (dry cough). Absent: normal lung sounds bilaterally, respiratory distress , rales, rhonchi, stridor, chest wall tenderness, accessory muscle use, decreased breath sounds, prolonged expiratory - Cardiovascular Cardiovascular Exam: Present: regular rate, normal rhythm, normal heart sounds. Absent: systolic murmur, diastolic murmur - GI/Abdominal GI/Abdominal exam: Present: soft, normal bowel sounds. Absent: tenderness - Extremities Exam Extremities exam: Present: normal inspection, full ROM, normal capillary refill , other (no clubbing, cyanosis or edema. +2 pulses all extremities and no neurovascular compromise). Absent: tenderness, pedal edema, joint swelling, calf tenderness - Back Exam Back exam: Present: normal inspection, full ROM. Absent: tenderness - Neurological Exam Neurological exam: Present: alert, oriented X3, normal gait - Psychiatric Psychiatric exam: Present: normal affect, normal mood - Skin Skin exam: Present: warm, dry, intact, normal color. Absent: rash ED Course Vital Signs 03/01/18 16:22 Temperature 98.5 F Pulse Rate 80 Respiratory 18 Rate Blood Pressure 102/74 O2 Sat by Pulse 99 Oximetry - Reevaluation(s) Reevaluation #1: 03/01/18 21:07 She given Deltasone 60 mg by mouth and DuoNeb one nebulizer in emergency room. He said he felt better. Status post nebulizer treatment ,lung sounds reevaluated and lungs are clear. ED Medical Decision Making - Medical Decision Making ED course: This is a 22-year-old male here for asthma exacerbation which she said started off as upper respiratory now he is wheezing and coughing. He said he ran out of his medication and here to see if he can get refill. Patient was seen by myself and examined and he is stable after nebulizer treatments and steroid. Patient states that he is feeling better. I discussed diagnosis and treatment plan the patient and he voiced understanding. A/P 1: Acute exacerbation of asthma, mild-nebulizer treatment in emergency room to include DuoNeb 1 and prednisone 60 mg by mouth and will discharge home and prednisone and refill his albuterol 2: Upper respiratory with cough and congestion-sent home in Zyrtec Patient given prescription for Zyrtec, prednisone Dosepak and albuterol. Pt educated on diagnosis, medication, need to follow-up, and since he does not have a primary care physician and has access I will refer him to Dr. Aguilar primary care provider management of his chronic asthma Patient discharged home in stable condition to follow-up with primary care as referred. His vital signs are stable he's afebrile. He said he is feeling much better. I discussed with them to return to the emergency room if his symptoms turns and/or worsens and he voiced understanding Critical care attestation.: If time is entered above; I have spent that time in minutes in the direct care of this critically ill patient, excluding procedure time. ED Disposition Clinical Impression: URI with cough and congestion Acute asthma flare Qualifiers: Asthma severity: mild Asthma persistence: intermittent Qualified Code(s): J45.21 - Mild intermittent asthma with (acute) exacerbation Disposition: TO HOME OR SELFCARE Is pt being admited?: No Condition: Fair Instructions: Asthma (ED), Upper Respiratory Infection (ED) Additional Instructions: Please of a medication as prescribed The primary care referral in discharge instruction paperwork If Symptoms return please return and is not controlled by meds, return to the emergency room [facility] Prescriptions: ALBUTEROL Inhaler [ProAir HFA Inhaler] 2 puff IH QID PRN #1 inhalation PRN Reason: cough and wheezing Cetirizine HCl [ZyrTEC] 10 mg PO QDAY 14 Days #14 capsule Prednisone [predniSONE 10 mg (6-Day Pack, 21 Tabs)] 10 mg PO .TAPER 6 Days #1 tab.ds.pk Referrals: PRIMARY CAREMD [Primary Care Provider] - 2-3 Days [facility] [Outside] - 2-3 Days BHASKAR AGUILAR MD [Staff Physician] - 2-3 Days Forms: Work/School Release Form(ED)
== END 2018-03-01 21:30 | disposition home or self-care (01) ==
LOC: ED 15:56
DX: J45.901 Unspecified asthma with (acute) exacerbation (principal); J06.9 Acute upper respiratory infection, unspecified; F20.9 Schizophrenia, unspecified; Z91.013 Allergy to seafood; Z91.010 Allergy to peanuts; Z91.011 Allergy to milk products
CPT/HCPCS: 94640; 99283; J7512

== ENCOUNTER 2018-03-03 00:20 | Emergency (ER) | payer MEDICARE ==
[2018-03-03 01:17] VITALS: BP 117/87
[2018-03-03] MEDS ORDERED: ASPIRIN PO ONE (01:17)
[2018-03-03 03:00] LABS: BUN/Creatinine Ratio 14; Blood Urea Nitrogen 14 mg/dL (9-20); Calcium 10.1 mg/dL (8.4-10.2); Hemolysis Index 10
[2018-03-03 03:32] LABS: Basophils % (Auto) 0.5 % (0.0-1.8); Eosinophils % (Auto) 0.2 % (0.0-4.3); Hematocrit 45.9 % (35.5-45.6); Lymphocytes # (Auto) 2.4 K/mm3 (1.2-5.4); Lymphocytes % (Auto) 35.3 % (13.4-35.0); Mean Corpuscular HGB Conc 33 % (32-34); Mean Corpuscular Hemoglobin 28 pg (28-32); Mean Corpuscular Volume 86 fl (84-94); Monocytes # (Auto) 0.4 K/mm3 (0.0-0.8); Monocytes % (Auto) 6.1 % (0.0-7.3); Platelet Count 238 K/mm3 (140-440); Red Blood Count 5.36 M/mm3 (3.65-5.03)
== END 2018-03-03 02:30 | disposition left against medical advice (07) ==
LOC: ED 00:20
DX: R07.89 Other chest pain (principal); Z53.21 Procedure and treatment not carried out due to patient leaving prior to being seen by health care provider
CPT/HCPCS: 36415; 80048; 84484; 85025; 93005; 93010

== ENCOUNTER 2018-03-24 07:07 | Emergency (ER) | payer MEDICARE ==
[2018-03-24 07:25] VITALS: BP 120/88
--- NOTE | 2018-03-24 08:10 | Emergency Department Report ---
ED Chest Pain HPI - General Chief Complaint: Medical Clearance Stated Complaint: RUDY,CHEST TIGHTNESS Time Seen by Provider: 03/24/18 07:29 Source: patient Mode of arrival: Ambulatory Limitations: No Limitations - History of Present Illness Initial Comments: This is a 22-year-old male nontoxic, well nourished in appearance, no acute signs of distress presents to the ED with c/o of chest tightness and intermittent difficulty breathing. Patient stated he needs his medication refill of prednisone and albuterol as this helps his symptoms. Patient stated she does not want to be medically treated and just wants his medication refill only. Patient denies any radiation of pain. Patient describes pain as aching intermittently. Patient denies any upper respiratory symptoms. Patient denies any shortness of breath, hemoptysis, fever, chills, nausea, vomiting, headache, stiff neck, numbness, tingling, abdominal pain. Patient denies pleuritic chest pain. Patient denies any recent travels or long car rides. Patient denies any recent surgeries or any sick contacts. Patient denies any drug allergies. MD Complaint: chest pain Onset: during exertion Pain Location: substernal Pain Radiation: none Severity: mild Severity scale (0 -10): 8 Quality: tightness Improves With: nothing Worsens With: nothing re: denies: nausea, vomting, diaphoresis, dyspnea, sense of impending doom Other Symptoms: denies: cough, syncope, rash, acid taste in mouth, leg swelling , palpitations, burping Treatments Prior to Arrival: none Aspirin use within the Past 7 Days: (0) No - Related Data On Oral Contraceptives: No Home Medications Medication Instructions Recorded Confirmed Last Taken Cariprazine HCl [Vraylar] 3 mg PO DAILY 01/09/18 01/09/18 01/08/18 Propranolol HCl 20 mg PO PRN PRN 01/09/18 01/09/18 01/08/18 Previous Rx's Medication Instructions Recorded Last Taken Type Triamcinolone 0.1% [Kenalog 0.1% 1 applic TP BID #60 gram 02/08/18 Unknown Rx CREAM] ALBUTEROL Inhaler [ProAir HFA 2 puff IH QID PRN #1 inhalation 03/01/18 Unknown Rx Inhaler] Cetirizine HCl [ZyrTEC] 10 mg PO QDAY 14 Days #14 capsule 03/01/18 Unknown Rx Prednisone [predniSONE 10 mg 10 mg PO .TAPER 6 Days #1 tab.ds.pk 03/01/18 Unknown Rx (6-Day Pack, 21 Tabs)] ALBUTEROL Inhaler [ProAir HFA 2 puff IH QID PRN #1 inhalation 03/24/18 Unknown Rx Inhaler] Prednisone [predniSONE 10 mg 10 mg PO .TAPER #1 tab.ds.pk 03/24/18 Unknown Rx (6-Day Pack, 21 Tabs)] Allergies Allergy/AdvReac Type Severity Reaction Status Date / Time Fish Containing Products Allergy Rash Verified 01/09/18 09:16 peanut Allergy Swelling Verified 01/09/18 09:16 mometasone furoate AdvReac Unknown Verified 01/09/18 09:16 [From Nasonex] dairy AdvReac Swelling Uncoded 07/26/15 08:47 Heart Score - HEART Score History: Slightly suspicious EKG: Normal Age: < 45 Risk factors: No known risk factors Troponin: < normal limit HEART Score: 0 ED Review of Systems ROS: Stated complaint: RUDY,CHEST TIGHTNESS Other details as noted in HPI Constitutional: denies: chills, fever Eyes: denies: eye pain, eye discharge, vision change ENT: denies: ear pain, throat pain Respiratory: denies: cough, shortness of breath, wheezing Cardiovascular: denies: chest pain, palpitations Endocrine: no symptoms reported Gastrointestinal: denies: abdominal pain, nausea, diarrhea Genitourinary: denies: urgency, dysuria Musculoskeletal: denies: back pain, joint swelling, arthralgia Skin: denies: rash, lesions Neurological: denies: headache, weakness, paresthesias Psychiatric: denies: anxiety, depression Hematological/Lymphatic: denies: easy bleeding, easy bruising ED Past Medical Hx - Past Medical History Previous Medical History?: Yes Hx Psychiatric Treatment: Yes (SCHIZOPHRENIA) Hx Asthma: Yes Additional medical history: ECZEMA - Surgical History Past Surgical History?: No - Social History Smoking Status: Never Smoker Substance Use Type: Prescribed - Medications Home Medications: Home Medications Medication Instructions Recorded Confirmed Last Taken Type Cariprazine HCl [Vraylar] 3 mg PO DAILY 01/09/18 01/09/18 01/08/18 History Propranolol HCl 20 mg PO PRN PRN 01/09/18 01/09/18 01/08/18 History Triamcinolone 0.1% [Kenalog 0.1% 1 applic TP BID #60 gram 02/08/18 Unknown Rx CREAM] ALBUTEROL Inhaler [ProAir HFA 2 puff IH QID PRN #1 inhalation 03/01/18 Unknown Rx Inhaler] Cetirizine HCl [ZyrTEC] 10 mg PO QDAY 14 Days #14 capsule 03/01/18 Unknown Rx Prednisone [predniSONE 10 mg 10 mg PO .TAPER 6 Days #1 tab.ds.pk 03/01/18 Unknown Rx (6-Day Pack, 21 Tabs)] ALBUTEROL Inhaler [ProAir HFA 2 puff IH QID PRN #1 inhalation 03/24/18 Unknown Rx Inhaler] Prednisone [predniSONE 10 mg 10 mg PO .TAPER #1 tab.ds.pk 03/24/18 Unknown Rx (6-Day Pack, 21 Tabs)] ED Physical Exam - General Limitations: No Limitations General appearance: alert, in no apparent distress - Head Head exam: Present: atraumatic, normocephalic - Eye Eye exam: Present: normal appearance Pupils: Present: normal accommodation - ENT ENT exam: Present: normal exam, mucous membranes moist - Neck Neck exam: Present: normal inspection, full ROM - Respiratory Respiratory exam: Present: normal lung sounds bilaterally. Absent: respiratory distress, wheezes, rales, rhonchi, stridor, chest wall tenderness, accessory muscle use, decreased breath sounds, prolonged expiratory - Cardiovascular Cardiovascular Exam: Present: regular rate, normal rhythm, normal heart sounds. Absent: irregular rhythm, systolic murmur, diastolic murmur, rubs, gallop - GI/Abdominal GI/Abdominal exam: Present: soft, normal bowel sounds - Rectal Rectal exam: Present: deferred - Extremities Exam Extremities exam: Present: normal inspection, full ROM, normal capillary refill - Back Exam Back exam: Present: normal inspection, full ROM - Neurological Exam Neurological exam: Present: alert, oriented X3 - Psychiatric Psychiatric exam: Present: normal affect, normal mood - Skin Skin exam: Present: warm, dry, intact, normal color. Absent: rash ED Course Vital Signs 03/24/18 07:21 Temperature 98.1 F Pulse Rate 55 L Respiratory 20 Rate Blood Pressure 120/88 O2 Sat by Pulse 98 Oximetry - Reevaluation(s) Reevaluation #1: 06/27/18 08:07 Patient is speaking in full sentences with no signs of distress noted. ALEK score - Alek Score Age > 65: (0) No Aspirin use within the Past 7 Days: (0) No 3 or more CAD Risk Factors: (0) No 2 or more Angina events in past 24 hrs: (0) No Known CAD with more than 50% Stenosis: (0) No Elevated Cardiac Markers: (0) No ST Deviation Greater than 0.5mm: (0) No ALEK Score: 0 ED Medical Decision Making - Medical Decision Making This is a 22-year-old male that presents with chest pain. Patient is stable and was examined by me. ALEK and HEART score 0 pints. Wells criteria for DVT/ SVT/PE 0 points. Patient refused all labs, EKG, and chest x-ray. Patient stated he just wanted to be treated with prednisone and albuterol. Patient signed AMA form. Patient was educated of my concerns with chest pain and shortness of breath but patient still refused. Patient was instructed to Follow -up with a primary care/adventure guide doctor in 3-5 days or if symptoms worsen and continue return to emergency room as soon as possible. At time of signing AMA, the patient does not seem toxic or ill in appearance. No acute signs of distress noted. Patient agrees to treatment plan of care. No further questions noted by the patient. Critical care attestation.: If time is entered above; I have spent that time in minutes in the direct care of this critically ill patient, excluding procedure time. ED Disposition Clinical Impression: Shortness of breath Chest pain Qualifiers: Chest pain type: unspecified Qualified Code(s): R07.9 - Chest pain, unspecified Disposition: -07 LEFT AGAINST MED ADVICE Is pt being admited?: No Does the pt Need Aspirin: No Condition: Stable Instructions: Chest Pain (ED) Additional Instructions: Follow-up with a primary care/adventure guide doctor in 3-5 days or if symptoms worsen and continue return to emergency room as soon as possible. Prescriptions: ALBUTEROL Inhaler [ProAir HFA Inhaler] 2 puff IH QID PRN #1 inhalation PRN Reason: Shortness Of Breath Prednisone [predniSONE 10 mg (6-Day Pack, 21 Tabs)] 10 mg PO .TAPER #1 tab.ds.pk Referrals: PRIMARY CARE, [Primary Care Provider] - 3-5 Days BHASKAR AGUILAR MD [Staff Physician] - 3-5 Days GUILLE NARAYANAN MD [Staff Physician] - 3-5 Days [facility] [Outside] - 3-5 Days Forms: Work/School Release Form(ED), AMA Form
== END 2018-03-24 08:18 | disposition left against medical advice (07) ==
LOC: ED 07:07
DX: R07.89 Other chest pain (principal); R06.02 Shortness of breath; F20.9 Schizophrenia, unspecified; J45.909 Unspecified asthma, uncomplicated; Z91.013 Allergy to seafood; Z91.011 Allergy to milk products; Z91.010 Allergy to peanuts
CPT/HCPCS: 99282

== ENCOUNTER 2018-03-28 18:01 | Emergency (ER) | payer MEDICARE ==
[2018-03-28 18:12] VITALS: BP 111/87
--- NOTE | 2018-03-28 19:50 | Emergency Department Report ---
<CARLA GARCIA - Last Filed: 03/28/18 19:46> ED General Adult HPI - General Chief complaint: Dyspnea/Respdistress Stated complaint: CHEST TIGHTNESS Time Seen by Provider: 03/28/18 19:45 Source: patient Mode of arrival: Ambulatory Limitations: No Limitations - History of Present Illness Initial comments: Patient 22-year-old Afro-[place] male with history of asthma current treatment regimen is albuterol when necessary shortness breath prednisone Therapy on 03/01 and Again on 03/24 patient signed in today stating shortness of breath however he denies shortness of breath states he needed another prescription for prednisone as he will run out tomorrow he will not see his PCP for another week denies shortness of breath denies wheezing I have explained that he does not need oral prednisone daily and that he needs to follow up with his PCP for pulmonary function test for evaluation for long-term Laba versus po or inhailed steroid therapy such as Singulair Flovent. Again patient denies shortness of breath at this time Severity scale (0 -10): 0 Quality: other (intermittent sob ) Consistency: intermittent Improves with: none (prn albuterol ) Worsens with: none (environmental exposure ) Associated Symptoms: other (none at this time ) Treatments Prior to Arrival: none - Related Data Home Medications Medication Instructions Recorded Confirmed Last Taken Cariprazine HCl [Vraylar] 3 mg PO DAILY 01/09/18 01/09/18 01/08/18 Propranolol HCl 20 mg PO PRN PRN 01/09/18 01/09/18 01/08/18 Previous Rx's Medication Instructions Recorded Last Taken Type Triamcinolone 0.1% [Kenalog 0.1% 1 applic TP BID #60 gram 02/08/18 Unknown Rx CREAM] ALBUTEROL Inhaler [ProAir HFA 2 puff IH QID PRN #1 inhalation 03/01/18 Unknown Rx Inhaler] Cetirizine HCl [ZyrTEC] 10 mg PO QDAY 14 Days #14 capsule 03/01/18 Unknown Rx Prednisone [predniSONE 10 mg 10 mg PO .TAPER 6 Days #1 tab.ds.pk 03/01/18 Unknown Rx (6-Day Pack, 21 Tabs)] ALBUTEROL Inhaler [ProAir HFA 2 puff IH QID PRN #1 inhalation 03/24/18 Unknown Rx Inhaler] Prednisone [predniSONE 10 mg 10 mg PO .TAPER #1 tab.ds.pk 03/24/18 Unknown Rx (6-Day Pack, 21 Tabs)] Fluticasone [Flonase] 1 spray NS QDAY #1 bottle 03/28/18 Unknown Rx Loratadine 10 mg PO DAILY 30 Days #30 tablet 03/28/18 Unknown Rx Allergies Allergy/AdvReac Type Severity Reaction Status Date / Time Fish Containing Products Allergy Rash Verified 01/09/18 09:16 peanut Allergy Swelling Verified 01/09/18 09:16 mometasone furoate AdvReac Unknown Verified 01/09/18 09:16 [From Nasonex] dairy AdvReac Swelling Uncoded 07/26/15 08:47 ED Review of Systems ROS: Stated complaint: CHEST TIGHTNESS Other details as noted in HPI Constitutional: denies: chills, fever Eyes: denies: eye pain, eye discharge, vision change ENT: denies: ear pain, throat pain Respiratory: denies: cough, shortness of breath, wheezing Cardiovascular: denies: chest pain, palpitations Endocrine: no symptoms reported Gastrointestinal: denies: abdominal pain, nausea, diarrhea Genitourinary: denies: urgency, dysuria Musculoskeletal: denies: back pain, joint swelling, arthralgia Skin: denies: rash, lesions Neurological: denies: headache, weakness, paresthesias Psychiatric: denies: anxiety, depression Hematological/Lymphatic: denies: easy bleeding, easy bruising ED Past Medical Hx - Past Medical History Hx Psychiatric Treatment: Yes (SCHIZOPHRENIA) Hx Asthma: Yes Additional medical history: ECZEMA - Social History Smoking Status: Never Smoker Substance Use Type: None - Medications Home Medications: Home Medications Medication Instructions Recorded Confirmed Last Taken Type Cariprazine HCl [Vraylar] 3 mg PO DAILY 01/09/18 01/09/18 01/08/18 History Propranolol HCl 20 mg PO PRN PRN 01/09/18 01/09/18 01/08/18 History Triamcinolone 0.1% [Kenalog 0.1% 1 applic TP BID #60 gram 02/08/18 Unknown Rx CREAM] ALBUTEROL Inhaler [ProAir HFA 2 puff IH QID PRN #1 inhalation 03/01/18 Unknown Rx Inhaler] Cetirizine HCl [ZyrTEC] 10 mg PO QDAY 14 Days #14 capsule 03/01/18 Unknown Rx Prednisone [predniSONE 10 mg 10 mg PO .TAPER 6 Days #1 tab.ds.pk 03/01/18 Unknown Rx (6-Day Pack, 21 Tabs)] ALBUTEROL Inhaler [ProAir HFA 2 puff IH QID PRN #1 inhalation 03/24/18 Unknown Rx Inhaler] Prednisone [predniSONE 10 mg 10 mg PO .TAPER #1 tab.ds.pk 03/24/18 Unknown Rx (6-Day Pack, 21 Tabs)] Fluticasone [Flonase] 1 spray NS QDAY #1 bottle 03/28/18 Unknown Rx Loratadine 10 mg PO DAILY 30 Days #30 tablet 03/28/18 Unknown Rx ED Physical Exam - General Limitations: No Limitations General appearance: alert, in no apparent distress - Head Head exam: Present: atraumatic, normocephalic - Eye Eye exam: Present: normal appearance - ENT ENT exam: Present: normal exam, normal orophraynx, mucous membranes moist, TM's normal bilaterally, normal external ear exam - Expanded ENT Exam Expanded Mouth exam: Present: normal external inspection Throat exam: Positive: normal inspection - Neck Neck exam: Present: normal inspection - Respiratory Respiratory exam: Present: normal lung sounds bilaterally. Absent: respiratory distress, wheezes, rhonchi, stridor, chest wall tenderness, prolonged expiratory - Cardiovascular Cardiovascular Exam: Present: regular rate, normal rhythm. Absent: systolic murmur, diastolic murmur, rubs, gallop - GI/Abdominal GI/Abdominal exam: Present: soft, normal bowel sounds - Rectal Rectal exam: Present: deferred - Extremities Exam Extremities exam: Present: normal inspection - Back Exam Back exam: Present: normal inspection - Neurological Exam Neurological exam: Present: alert, oriented X3 - Psychiatric Psychiatric exam: Present: normal affect, normal mood - Skin Skin exam: Present: warm, dry, intact, normal color. Absent: rash ED Course Vital Signs 03/28/18 18:07 Temperature 98.2 F Pulse Rate 82 Respiratory 16 Rate Blood Pressure 111/87 O2 Sat by Pulse 97 Oximetry ED Medical Decision Making - Medical Decision Making Patient with no symptoms of acute asthma exacerbation at this time lung sounds are clear throughout wheezing or stridor no rhonchi no cough patient related from going around 80 and Bactrim without shortness of breath no wheezing patient appears well hydrated well-nourished with no acute distress plan Flonase and loratadine continue albuterol when necessary follow-up as such in the clinic as scheduled and return to ED if symptoms of shortness of breath or wheezing occur patient verbalizes understanding and agreement with discharge plan will be DC'd to home in stable condition at this time. Critical care attestation.: If time is entered above; I have spent that time in minutes in the direct care of this critically ill patient, excluding procedure time. ED Disposition Disposition: DC-01 TO HOME OR SELFCARE Is pt being admited?: No Does the pt Need Aspirin: No Condition: Good Instructions: Albuterol (By breathing), Asthma (ED) Prescriptions: Fluticasone [Flonase] 1 spray NS QDAY #1 bottle Loratadine 10 mg PO DAILY 30 Days #30 tablet Referrals: [facility] [Outside] - 3-5 Days Forms: Work/School Release Form(ED) Time of Disposition: 20:14 <ANA TOMLINSON - Last Filed: 03/29/18 12:24> ED Medical Decision Making - Medical Decision Making I was available for consultations at all times during the patient stay. I did not personally see and was not involved in the care of the patient.
== END 2018-03-28 20:19 | disposition home or self-care (01) ==
LOC: ED 18:01
DX: J45.909 Unspecified asthma, uncomplicated (principal); F20.9 Schizophrenia, unspecified; Z91.010 Allergy to peanuts; Z88.8 Allergy status to other drugs, medicaments and biological substances; Z91.011 Allergy to milk products; Z91.013 Allergy to seafood; Z76.0 Encounter for issue of repeat prescription
CPT/HCPCS: 99282

== ENCOUNTER 2018-03-29 23:41 | Emergency (ER) | payer MEDICARE ==
[2018-03-29 23:57] VITALS: BP 121/72
== END 2018-03-30 02:55 | disposition left against medical advice (07) ==
LOC: ED 23:41
DX: R07.89 Other chest pain (principal); Z53.21 Procedure and treatment not carried out due to patient leaving prior to being seen by health care provider

== ENCOUNTER 2018-03-31 18:28 | Emergency (ER) | payer MEDICARE ==
[2018-03-31 18:35] VITALS: BP 116/74
--- NOTE | 2018-03-31 19:11 | Emergency Department Report ---
<SOCORRO BLACKMAN - Last Filed: 03/31/18 19:06> ED Recheck HPI - General Chief Complaint: Medical Clearance Stated Complaint: CHEST TIGHTNESS/ASTHMA Time Seen by Provider: 03/31/18 18:46 Source: patient Mode of arrival: Ambulatory Limitations: No Limitations - History of Present Illness Initial Comments: This is a 22-year-old male nontoxic, well nourished in appearance, no acute signs of distress presents to the ED for a refill on prednisone. Patient stated that he wants "steroids" handy when he develops wheezing. Patient held in the ED is asymptomatic. Patient stated that "I feel great abdomen or I'm here but I want a prescription for prednisone". Patient denies any chest pain, short of breath, fever, chills, nausea, vomiting, headache, stiff neck, numbness or tingling. Patient denies any drug allergies us and give past medical history. MD Complaint: medication refill request Returns Today for: request for prescription Symptoms Since Prior Visit: no new symptoms Associated Symptoms: none. denies: fever, chills, chest pain, shortness of breath, rash, malaise, nasuea, abdominal pain - Related Data Home Medications Medication Instructions Recorded Confirmed Last Taken Cariprazine HCl [Vraylar] 3 mg PO DAILY 01/09/18 01/09/18 01/08/18 Propranolol HCl 20 mg PO PRN PRN 01/09/18 01/09/18 01/08/18 Previous Rx's Medication Instructions Recorded Last Taken Type Triamcinolone 0.1% [Kenalog 0.1% 1 applic TP BID #60 gram 02/08/18 Unknown Rx CREAM] ALBUTEROL Inhaler [ProAir HFA 2 puff IH QID PRN #1 inhalation 03/01/18 Unknown Rx Inhaler] Cetirizine HCl [ZyrTEC] 10 mg PO QDAY 14 Days #14 capsule 03/01/18 Unknown Rx Prednisone [predniSONE 10 mg 10 mg PO .TAPER 6 Days #1 tab.ds.pk 03/01/18 Unknown Rx (6-Day Pack, 21 Tabs)] ALBUTEROL Inhaler [ProAir HFA 2 puff IH QID PRN #1 inhalation 03/24/18 Unknown Rx Inhaler] Prednisone [predniSONE 10 mg 10 mg PO .TAPER #1 tab.ds.pk 03/24/18 Unknown Rx (6-Day Pack, 21 Tabs)] Fluticasone [Flonase] 1 spray NS QDAY #1 bottle 03/28/18 Unknown Rx Loratadine 10 mg PO DAILY 30 Days #30 tablet 03/28/18 Unknown Rx Allergies Allergy/AdvReac Type Severity Reaction Status Date / Time Fish Containing Products Allergy Rash Verified 03/29/18 23:49 peanut Allergy Swelling Verified 03/29/18 23:49 mometasone furoate AdvReac Unknown Verified 03/29/18 23:49 [From Nasonex] dairy AdvReac Swelling Uncoded 03/29/18 23:49 ED Review of Systems ROS: Stated complaint: CHEST TIGHTNESS/ASTHMA Other details as noted in HPI Constitutional: denies: chills, fever Eyes: denies: eye pain, eye discharge, vision change ENT: denies: ear pain, throat pain Respiratory: denies: cough, shortness of breath, wheezing Cardiovascular: denies: chest pain, palpitations Endocrine: no symptoms reported Gastrointestinal: denies: abdominal pain, nausea, diarrhea Genitourinary: denies: urgency, dysuria Musculoskeletal: denies: back pain, joint swelling, arthralgia Skin: denies: rash, lesions Neurological: denies: headache, weakness, paresthesias Psychiatric: denies: anxiety, depression Hematological/Lymphatic: denies: easy bleeding, easy bruising ED Past Medical Hx - Past Medical History Previous Medical History?: Yes Hx Psychiatric Treatment: Yes (SCHIZOPHRENIA) Hx Asthma: Yes Additional medical history: ECZEMA - Surgical History Past Surgical History?: No - Social History Smoking Status: Never Smoker Substance Use Type: None - Medications Home Medications: Home Medications Medication Instructions Recorded Confirmed Last Taken Type Cariprazine HCl [Vraylar] 3 mg PO DAILY 01/09/18 01/09/18 01/08/18 History Propranolol HCl 20 mg PO PRN PRN 01/09/18 01/09/18 01/08/18 History Triamcinolone 0.1% [Kenalog 0.1% 1 applic TP BID #60 gram 02/08/18 Unknown Rx CREAM] ALBUTEROL Inhaler [ProAir HFA 2 puff IH QID PRN #1 inhalation 03/01/18 Unknown Rx Inhaler] Cetirizine HCl [ZyrTEC] 10 mg PO QDAY 14 Days #14 capsule 03/01/18 Unknown Rx Prednisone [predniSONE 10 mg 10 mg PO .TAPER 6 Days #1 tab.ds.pk 03/01/18 Unknown Rx (6-Day Pack, 21 Tabs)] ALBUTEROL Inhaler [ProAir HFA 2 puff IH QID PRN #1 inhalation 03/24/18 Unknown Rx Inhaler] Prednisone [predniSONE 10 mg 10 mg PO .TAPER #1 tab.ds.pk 03/24/18 Unknown Rx (6-Day Pack, 21 Tabs)] Fluticasone [Flonase] 1 spray NS QDAY #1 bottle 03/28/18 Unknown Rx Loratadine 10 mg PO DAILY 30 Days #30 tablet 03/28/18 Unknown Rx ED Physical Exam - General Limitations: No Limitations General appearance: alert, in no apparent distress - Head Head exam: Present: atraumatic, normocephalic - Eye Eye exam: Present: normal appearance Pupils: Present: normal accommodation - ENT ENT exam: Present: normal exam, mucous membranes moist - Neck Neck exam: Present: normal inspection, full ROM. Absent: tenderness, meningismus, lymphadenopathy - Respiratory Respiratory exam: Present: normal lung sounds bilaterally. Absent: respiratory distress, wheezes, rales, rhonchi, stridor, chest wall tenderness, accessory muscle use, decreased breath sounds, prolonged expiratory - Cardiovascular Cardiovascular Exam: Present: regular rate, normal rhythm, normal heart sounds. Absent: bradycardia, tachycardia, irregular rhythm, systolic murmur, diastolic murmur, rubs, gallop - GI/Abdominal GI/Abdominal exam: Present: soft, normal bowel sounds. Absent: distended, tenderness, guarding, rebound, rigid, diminished bowel sounds - Rectal Rectal exam: Present: deferred - Extremities Exam Extremities exam: Present: normal inspection, full ROM, normal capillary refill. Absent: tenderness - Back Exam Back exam: Present: normal inspection, full ROM. Absent: tenderness, CVA tenderness (R), CVA tenderness (L), muscle spasm, paraspinal tenderness, vertebral tenderness, rash noted - Neurological Exam Neurological exam: Present: alert, oriented X3, normal gait - Psychiatric Psychiatric exam: Present: normal affect, normal mood - Skin Skin exam: Present: warm, dry, intact, normal color. Absent: rash ED Course Vital Signs 03/31/18 18:33 Temperature 97.8 F Pulse Rate 71 Respiratory 18 Rate Blood Pressure 116/74 O2 Sat by Pulse 97 Oximetry - Reevaluation(s) Reevaluation #1: 03/31/18 19:12 Patient is speaking in full sentences with no signs of distress noted. ED Recheck MDM - Medical Decision Making Patient was instructed that taking prednisone for asymptomatic patients there is contraindicated and could cause side effects. I think the patient that if he develops any symptoms of wheezing or short of breath and he must come to the emergency room for further evaluation and treatment. Patient stated that he still has a refill of his albuterol and does not need any refills on that. Patient was instructed to Follow-up with a primary care doctor in 3-5 days or if symptoms worsen and continue return to emergency room as soon as possible. At time of discharge, the patient does not seem toxic or ill in appearance. No acute signs of distress noted. Patient agrees to discharge treatment plan of care. No further questions noted by the patient. Critical care attestation.: If time is entered above; I have spent that time in minutes in the direct care of this critically ill patient, excluding procedure time. ED Disposition Disposition: DC-01 TO HOME OR SELFCARE Is pt being admited?: No Does the pt Need Aspirin: No Condition: Stable Instructions: Asthma (ED) Additional Instructions: Follow-up with a primary care doctor in 3-5 days or if symptoms worsen and continue return to emergency room as soon as possible. Referrals: PRIMARY CARE, [Primary Care Provider] - 3-5 Days BHASKAR AGUILAR MD [Staff Physician] - 3-[address] [facility] [Outside] - 3-5 Days [facility] [Outside] - 3-5 Days <ANA TOMLINSON - Last Filed: 04/01/18 19:11> ED Recheck MDM - Medical Decision Making I was available for consultations at all times during the patient stay. I did not personally see and was not involved in the care of the patient.
== END 2018-03-31 19:23 | disposition home or self-care (01) ==
LOC: ED 18:28
DX: Z76.0 Encounter for issue of repeat prescription (principal); F20.9 Schizophrenia, unspecified; J45.909 Unspecified asthma, uncomplicated; Z91.013 Allergy to seafood; Z91.010 Allergy to peanuts; Z91.011 Allergy to milk products
CPT/HCPCS: 99282

== ENCOUNTER 2018-04-14 03:09 | Emergency (ER) | payer MEDICARE ==
[2018-04-14 03:18] VITALS: BP 116/64
== END 2018-04-14 04:23 | disposition left against medical advice (07) ==
LOC: ED 03:09
DX: S61.411A Laceration without foreign body of right hand, initial encounter (principal); Z53.21 Procedure and treatment not carried out due to patient leaving prior to being seen by health care provider; W26.8XXA Contact with other sharp object(s), not elsewhere classified, initial encounter; Y93.89 Activity, other specified; Y92.89 Other specified places as the place of occurrence of the external cause; Y99.8 Other external cause status

== ENCOUNTER 2018-05-03 18:27 | Emergency (ER) | payer MEDICARE ==
[2018-05-03 19:00] VITALS: BP 118/71
[2018-05-03 20:28] LABS: Bilirubin,Urine NEG (Negative); Blood,Urine NEG (Negative); Color,Urine Yellow (Yellow); Mucus,Urine FEW /HPF; Protein,Urine <15 mg/dL mg/dL (Negative); Urobilinogen,Urine < 2.0 mg/dL (<2.0); WBC,Urine < 1.0 /HPF (0.0-6.0)
== END 2018-05-03 20:35 | disposition left against medical advice (07) ==
LOC: ED 18:27
DX: R35.0 Frequency of micturition (principal); Z53.21 Procedure and treatment not carried out due to patient leaving prior to being seen by health care provider
CPT/HCPCS: 81001

== ENCOUNTER 2018-05-04 21:32 | Emergency (ER) | payer MEDICARE ==
[2018-05-04 22:06] VITALS: BP 124/71
== END 2018-05-05 03:26 | disposition left against medical advice (07) ==
LOC: ED 21:32
DX: L30.9 Dermatitis, unspecified (principal); Z53.21 Procedure and treatment not carried out due to patient leaving prior to being seen by health care provider

== ENCOUNTER 2018-05-20 10:40 | Emergency (ER) | payer MEDICARE ==
[2018-05-20 12:09] LABS: Basophils % (Auto) 0.6 % (0.0-1.8); Eosinophils # (Auto) 0.1 K/mm3 (0.0-0.4); Eosinophils % (Auto) 0.8 % (0.0-4.3); Hematocrit 43.1 % (35.5-45.6); Hemoglobin 14.8 gm/dl (11.8-15.2); Lymphocytes # (Auto) 1.6 K/mm3 (1.2-5.4); Lymphocytes % (Auto) 23.5 % (13.4-35.0); Mean Corpuscular HGB Conc 35 % (32-34); Mean Corpuscular Hemoglobin 29 pg (28-32); Mean Corpuscular Volume 85 fl (84-94); Monocytes # (Auto) 0.4 K/mm3 (0.0-0.8); Monocytes % (Auto) 5.9 % (0.0-7.3); Platelet Count 243 K/mm3 (140-440); Red Blood Count 5.09 M/mm3 (3.65-5.03); Red Cell Distribution Width 14.6 % (13.2-15.2)
[2018-05-20 12:24] LABS: BUN/Creatinine Ratio 12; Blood Urea Nitrogen 13 mg/dL (9-20); Calcium 9.7 mg/dL (8.4-10.2); Hemolysis Index 3
[2018-05-20 12:45] LABS: Bilirubin,Urine NEG (Negative); Blood,Urine NEG (Negative); Calcium Oxalate Crystals,Urine 1+; Color,Urine Amber (Yellow); Mucus,Urine FEW /HPF; Protein,Urine <15 mg/dL mg/dL (Negative); Urobilinogen,Urine < 2.0 mg/dL (<2.0)
[2018-05-20 12:53] LABS: Amphetamine Screen,Urine PRESUMPTIVE NEGATIVE; Benzodiazepines Screen,Urine PRESUMPTIVE NEGATIVE; Cannabinoid Screen,Urine PRESUMPTIVE NEGATIVE; Cocaine Screen,Urine PRESUMPTIVE NEGATIVE; Methadone Screen,Urine PRESUMPTIVE NEGATIVE; Opiate Screen,Urine PRESUMPTIVE NEGATIVE
--- NOTE | 2018-05-20 14:44 | Emergency Department Report ---
ED Psych HPI - General Chief Complaint: Medical Clearance Stated Complaint: MENTAL EVALUATION Time Seen by Provider: 05/20/18 14:06 Source: patient Mode of arrival: Ambulatory - History of Present Illness Initial Comments: Patient is 22 years old male with history of schizophrenia. Patient stated that I just need some more to go. Patient reported goingg to [place] before coming to the ER. Patient reports he needs to be medically cleared so he can be admitted over there. Patient is currently denying any suicidal, homicidal ideation. No visual or auditory hallucination. - Related Data Home Medications Medication Instructions Recorded Confirmed Last Taken Cariprazine HCl [Vraylar] 3 mg PO DAILY 01/09/18 01/09/18 01/08/18 Propranolol HCl 20 mg PO PRN PRN 01/09/18 01/09/18 01/08/18 Previous Rx's Medication Instructions Recorded Last Taken Type Triamcinolone 0.1% [Kenalog 0.1% 1 applic TP BID #60 gram 02/08/18 Unknown Rx CREAM] ALBUTEROL Inhaler [ProAir HFA 2 puff IH QID PRN #1 inhalation 03/01/18 Unknown Rx Inhaler] Cetirizine HCl [ZyrTEC] 10 mg PO QDAY 14 Days #14 capsule 03/01/18 Unknown Rx Prednisone [predniSONE 10 mg 10 mg PO .TAPER 6 Days #1 tab.ds.pk 03/01/18 Unknown Rx (6-Day Pack, 21 Tabs)] ALBUTEROL Inhaler [ProAir HFA 2 puff IH QID PRN #1 inhalation 03/24/18 Unknown Rx Inhaler] Prednisone [predniSONE 10 mg 10 mg PO .TAPER #1 tab.ds.pk 03/24/18 Unknown Rx (6-Day Pack, 21 Tabs)] Fluticasone [Flonase] 1 spray NS QDAY #1 bottle 03/28/18 Unknown Rx Loratadine 10 mg PO DAILY 30 Days #30 tablet 03/28/18 Unknown Rx Allergies Allergy/AdvReac Type Severity Reaction Status Date / Time Fish Containing Products Allergy Rash Verified 03/29/18 23:49 peanut Allergy Swelling Verified 03/29/18 23:49 mometasone furoate AdvReac Unknown Verified 03/29/18 23:49 [From Nasonex] dairy AdvReac Swelling Uncoded 03/29/18 23:49 ED Review of Systems ROS: Stated complaint: MENTAL EVALUATION Other details as noted in HPI Comment: All other systems reviewed and negative Constitutional: denies: chills, fever Respiratory: denies: cough, orthopnea, shortness of breath, SOB with exertion, wheezing Cardiovascular: denies: chest pain, palpitations Gastrointestinal: denies: abdominal pain, nausea Genitourinary: denies: as per HPI ED Past Medical Hx - Past Medical History Previous Medical History?: Yes Hx Psychiatric Treatment: Yes (SCHIZOPHRENIA) Hx Asthma: Yes Additional medical history: ECZEMA - Surgical History Past Surgical History?: No - Social History Smoking Status: Never Smoker Substance Use Type: None - Medications Home Medications: Home Medications Medication Instructions Recorded Confirmed Last Taken Type Cariprazine HCl [Vraylar] 3 mg PO DAILY 01/09/18 01/09/18 01/08/18 History Propranolol HCl 20 mg PO PRN PRN 01/09/18 01/09/18 01/08/18 History Triamcinolone 0.1% [Kenalog 0.1% 1 applic TP BID #60 gram 02/08/18 Unknown Rx CREAM] ALBUTEROL Inhaler [ProAir HFA 2 puff IH QID PRN #1 inhalation 03/01/18 Unknown Rx Inhaler] Cetirizine HCl [ZyrTEC] 10 mg PO QDAY 14 Days #14 capsule 03/01/18 Unknown Rx Prednisone [predniSONE 10 mg 10 mg PO .TAPER 6 Days #1 tab.ds.pk 03/01/18 Unknown Rx (6-Day Pack, 21 Tabs)] ALBUTEROL Inhaler [ProAir HFA 2 puff IH QID PRN #1 inhalation 03/24/18 Unknown Rx Inhaler] Prednisone [predniSONE 10 mg 10 mg PO .TAPER #1 tab.ds.pk 03/24/18 Unknown Rx (6-Day Pack, 21 Tabs)] Fluticasone [Flonase] 1 spray NS QDAY #1 bottle 03/28/18 Unknown Rx Loratadine 10 mg PO DAILY 30 Days #30 tablet 03/28/18 Unknown Rx ED Physical Exam - General Limitations: No Limitations General appearance: alert, in no apparent distress - Head Head exam: Present: atraumatic, normocephalic, normal inspection - Eye Eye exam: Present: normal appearance, PERRL - ENT ENT exam: Present: normal exam, normal orophraynx, mucous membranes moist - Neck Neck exam: Present: normal inspection, full ROM. Absent: tenderness, meningismus, lymphadenopathy, thyromegaly - Respiratory Respiratory exam: Present: normal lung sounds bilaterally. Absent: respiratory distress, chest wall tenderness - Cardiovascular Cardiovascular Exam: Present: regular rate, normal rhythm, normal heart sounds - GI/Abdominal GI/Abdominal exam: Present: soft, normal bowel sounds. Absent: distended, tenderness, guarding, rebound, rigid, organomegaly, mass, bruit, pulsatile mass , hernia - Extremities Exam Extremities exam: Present: normal inspection, full ROM, normal capillary refill. Absent: pedal edema, calf tenderness - Back Exam Back exam: Present: normal inspection, full ROM. Absent: tenderness, CVA tenderness (R), CVA tenderness (L), muscle spasm, paraspinal tenderness, vertebral tenderness, rash noted - Neurological Exam Neurological exam: Present: alert, oriented X3, CN II-XII intact, normal gait, reflexes normal - Psychiatric Psychiatric exam: Present: normal mood, anxious. Absent: depressed, agitated, flat affect, manic, homicidal ideation, suicidal ideation - Skin Skin exam: Present: warm, intact, normal color ED Course Vital Signs 05/20/18 10:50 Temperature 97.5 F L Pulse Rate 101 H Respiratory 14 Rate Blood Pressure 130/82 O2 Sat by Pulse 97 Oximetry - Reevaluation(s) Reevaluation #1: 05/20/18 15:06 Patient informed the mental health care aide that evening he have to leave on the street he will start killing people. Patient immediately begun 1013 for inpatient psychiatric admission. ED Medical Decision Making - Lab Data Result diagrams: 05/20/18 11:32 05/20/18 11:32 Critical care attestation.: If time is entered above; I have spent that time in minutes in the direct care of this critically ill patient, excluding procedure time. ED Disposition Clinical Impression: Schizophrenia, Homicidal ideation Disposition: DC/TX-65 PSY HOSP/PSY UNIT Is pt being admited?: No Condition: Stable Instructions: Schizophrenia (ED) Referrals: PRIMARY CARE, [Primary Care Provider] - 3-5 Days
--- NOTE | 2018-05-21 15:20 | Consultation ---
History of Present Illness - Reason for Consult Consult date: 05/21/18 Reason for consult: Mental Health Evaluation Requesting physician: DUANE MAK - Chief Complaint Chief complaint: "I don't need to be homeless" - History of Present Psychiatric Illness 22 y.o. AA male presenting to the ER because he state that he is homeless. Today the patient is calm and cooperative, but disorganized during the assessment. He stated that he went the lodge locally, but was told that he must be medically cleared. He stated that he may hurt someone if he isn't placed. He was asked to elaborate more about his threat, he refused. He was asked about his mental health, the patient starter rambling about insignificant things that had nothing to do with the questions asked of him. He stated something like " [facility] [employer] runs this hospital." He denies SI's and AVH's. He acknowledged that he haven't gotten much sleep lately. He denies recreational drug use and alcohol consumption (etoh). Medications and Allergies Allergies Allergy/AdvReac Type Severity Reaction Status Date / Time Fish Containing Products Allergy Rash Verified 03/29/18 23:49 peanut Allergy Swelling Verified 03/29/18 23:49 mometasone furoate AdvReac Unknown Verified 03/29/18 23:49 [From Nasonex] dairy AdvReac Swelling Uncoded 03/29/18 23:49 Home Medications Medication Instructions Recorded Confirmed Last Taken Type Cariprazine HCl [Vraylar] 3 mg PO DAILY 01/09/18 01/09/18 01/08/18 History Propranolol HCl 20 mg PO PRN PRN 01/09/18 01/09/18 01/08/18 History Triamcinolone 0.1% [Kenalog 0.1% 1 applic TP BID #60 gram 02/08/18 Unknown Rx CREAM] ALBUTEROL Inhaler [ProAir HFA 2 puff IH QID PRN #1 inhalation 03/01/18 Unknown Rx Inhaler] Cetirizine HCl [ZyrTEC] 10 mg PO QDAY 14 Days #14 capsule 03/01/18 Unknown Rx Prednisone [predniSONE 10 mg 10 mg PO .TAPER 6 Days #1 tab.ds.pk 03/01/18 Unknown Rx (6-Day Pack, 21 Tabs)] ALBUTEROL Inhaler [ProAir HFA 2 puff IH QID PRN #1 inhalation 03/24/18 Unknown Rx Inhaler] Prednisone [predniSONE 10 mg 10 mg PO .TAPER #1 tab.ds.pk 03/24/18 Unknown Rx (6-Day Pack, 21 Tabs)] Fluticasone [Flonase] 1 spray NS QDAY #1 bottle 03/28/18 Unknown Rx Loratadine 10 mg PO DAILY 30 Days #30 tablet 03/28/18 Unknown Rx Past psychiatric history - Past Medical History Past Medical History: No medical history Past Surgical History: No surgical history - past Psychiatric treatment and history psychiatric treatment history: Several inpatient psy settings. Denies a fam psy hx. Mental Status Exam - Vital signs Last Vital Signs Temp 98.4 F 05/21/18 10:21 Pulse 95 H 05/21/18 10:21 Resp 14 05/21/18 10:21 BP 101/55 05/21/18 10:21 Pulse Ox 95 05/21/18 10:21 - Exam Narrative exam: MSE: Appearance: calm, cooperative Behavior: regular eye contact Speech: regular rate and tone Mood: "okay" Affect: congruent to mood Thought Process: tangential, disorganized Thought Content: denies SI/HI's and AVH's, delusional Motor Activity: ambulatory Cognition: A/O x 3 Insight: poor Judgment: poor Results Result Diagrams: 05/20/18 11:32 05/20/18 11:32 All other labs normal. Assessment and Plan Assessment and plan: Impression: Unspecified Mood DO with psy features. Today the patient is calm and cooperative, but disorganized during the assessment. UDS is negative. DDx: Bipolar DO with psychosis, R/O Schizophrenia Recommendation/Plan: Continue 1013 with placement to inpatient psy services. Start Zyprexa 5 mg PO HS for psychosis and Benadryl 25 mg PO HS PRN for sleep. Discussed possible metabolic side effects of Zyprexa with patient.
[2018-05-21] MEDS ORDERED: BENADRYL PO PRN (15:29)
[2018-05-21] MEDS ORDERED: TORADOL ONE (18:27)
[2018-05-21 20:54] VITALS: BP 113/67
== END 2018-05-22 04:18 ==
LOC: ED 10:40
DX: F20.9 Schizophrenia, unspecified (principal); R45.850 Homicidal ideations; J45.909 Unspecified asthma, uncomplicated; Z91.010 Allergy to peanuts; Z91.013 Allergy to seafood; Z88.8 Allergy status to other drugs, medicaments and biological substances
CPT/HCPCS: 36415; 80048; 80307; 81001; 85025; 99285; G0480; J1885; 80320

== ENCOUNTER 2018-07-19 17:15 | Emergency (ER) | payer MEDICARE ==
[2018-07-19 17:29] VITALS: BP 122/77
== END 2018-07-19 20:00 ==
LOC: ED 17:15
DX: L29.9 Pruritus, unspecified (principal); Z53.21 Procedure and treatment not carried out due to patient leaving prior to being seen by health care provider

== ENCOUNTER 2019-03-02 18:11 | Emergency (ER) | payer MEDICARE ==
[2019-03-02 18:17] VITALS: BP 105/65
--- NOTE | 2019-03-02 18:18 | Emergency Department Report ---
ED Rash HPI - HPI Chief Complaint: Skin Rash Stated Complaint: ECZEMA Time Seen by Provider: 03/02/19 18:14 Duration: 2 Days Location: Other (arms and legs) Suspected Cause: Unknown (exzema flare up) Rash Symptoms: Yes Itching, No Tongue/Oral Swelling, No Choking Sensation, No Peeling, No Blistering, No Lightheaded, No Malaise, No Myalgias Severity: mild ED Review of Systems ROS: Stated complaint: ECZEMA Other details as noted in HPI Constitutional: denies: chills, fever Eyes: denies: eye pain, eye discharge, vision change ENT: denies: ear pain, throat pain Respiratory: denies: cough, shortness of breath, wheezing Cardiovascular: denies: chest pain, palpitations Endocrine: no symptoms reported Gastrointestinal: denies: abdominal pain, nausea, diarrhea Genitourinary: denies: urgency, dysuria Musculoskeletal: denies: back pain, joint swelling, arthralgia Skin: rash. denies: lesions Neurological: denies: headache, weakness, paresthesias Psychiatric: denies: anxiety, depression Hematological/Lymphatic: denies: easy bleeding, easy bruising ED Past Medical Hx - Past Medical History Hx Psychiatric Treatment: Yes (SCHIZOPHRENIA) Hx Asthma: Yes Additional medical history: ECZEMA - Social History Smoking Status: Never Smoker Substance Use Type: None - Medications Home Medications: Home Medications Medication Instructions Recorded Confirmed Last Taken Type Cariprazine HCl [Vraylar] 3 mg PO DAILY 01/09/18 05/21/18 01/08/18 History Propranolol HCl 20 mg PO PRN PRN 01/09/18 05/21/18 01/08/18 History ALBUTEROL Inhaler (OR & NICU) 2 puff IH QID PRN #1 inhalation 03/24/18 05/21/18 Unknown Rx [ProAir HFA Inhaler] Fluticasone [Flonase] 1 spray NS QDAY #1 bottle 03/28/18 05/21/18 Unknown Rx Loratadine 10 mg PO DAILY 30 Days #30 tablet 03/28/18 05/21/18 Unknown Rx Triamcinolone 0.5% [Kenalog 0.5% 1 applic TP TID #3 tube 11/09/18 Unknown Rx CREAM] Prednisone [predniSONE 10 mg 10 mg PO .TAPER #1 tab.ds.pk 02/02/19 Unknown Rx (6-Day Pack, 21 Tabs)] Triamcinolone Aceton 0.1% (Nf) 1 applic TP BID 14 Days #1 tube 02/02/19 Unknown Rx [Kenalog (NF)] diphenhydrAMINE [Benadryl CAP] 25 mg PO Q6HR PRN #30 capsule 02/02/19 Unknown Rx Mometasone Furoate [Elocon] 45 gm TP BID #1 cream..g. 03/02/19 Unknown Rx predniSONE [Deltasone] 50 mg PO QDAY #5 tab 03/02/19 Unknown Rx Rash Exam - Exam General: Vital signs noted. No distress. Alert and acting appropriately. HEENT: No Periorbital Edema, No Conjuctival Injection, No Chemosis, No Perioral Edema, No Tongue Edema, No Uvular Edema, No Compromised Airway, No Drooling Lungs: Yes Good Air Exchange (Normal Breath Sounds), No Wheezes, No Ronchi, No Stridor, No Cough, No Labored Respirations, No Retractions, No Use of Accessory Muscles, No Other Abnormal Lung Sounds Heart: Yes Regular, No Murmur Skin: Yes Other (eczema rash to arms and legs. no bleeding or discharge) Other: Positive: Abdomen Normal, Neurologic Normal, Musculoskeletal Normal ED Course Vital Signs 03/02/19 18:15 Temperature 98.5 F Pulse Rate 94 H Respiratory 16 Rate Blood Pressure 105/65 [Left] O2 Sat by Pulse 98 Oximetry Critical care attestation.: If time is entered above; I have spent that time in minutes in the direct care of this critically ill patient, excluding procedure time. ED Disposition Clinical Impression: Eczema Disposition: DC- TO HOME OR SELFCARE Is pt being admited?: No Does the pt Need Aspirin: No Condition: Stable Instructions: Eczema (ED) Prescriptions: predniSONE [Deltasone] 50 mg PO QDAY #5 tab Mometasone Furoate [Elocon] 45 gm TP BID #1 cream..g. Referrals: [facility] [Provider Group] - 3-5 Days
== END 2019-03-02 18:30 | disposition home or self-care (01) ==
LOC: ED 18:11
DX: L30.9 Dermatitis, unspecified (principal); J45.909 Unspecified asthma, uncomplicated; F20.9 Schizophrenia, unspecified
CPT/HCPCS: 99281

== ENCOUNTER 2019-05-11 00:54 | Emergency (ER) | payer MEDICARE ==
--- NOTE | 2019-05-11 04:21 | Emergency Department Report ---
ED General Adult HPI - General Chief complaint: Medical Clearance Stated complaint: ECZEMA Source: patient Mode of arrival: Ambulatory Limitations: No Limitations - History of Present Illness Initial comments: Patient is a 23-year-old Russian male with a history of chronic eczema present to the ED with acute exacerbation of his chronic eczematous rashes diffusely for the last 1 week. Patient states that he ran out of his terms in a dream like a refill of the same. Patient denies fever, chills, nausea, vomiting, chest pain, shortness of breath, dizziness, cough, nasal and sinus congestion, abdominal pain or headache. MD Complaint: itching; chronic eczema -: month(s) (3) Location: chest, upper extremity, lower extremity Radiation: non-radiation Severity scale (0 -10): 3 Quality: burning, aching, other (itching) Consistency: intermittent Improves with: none Worsens with: none Associated Symptoms: denies other symptoms, rash. denies: confusion, chest pain, cough, fever/chills, headaches, malaise, nausea/vomiting, seizure, shortness of breath, syncope, weakness Treatments Prior to Arrival: none - Related Data Home Medications Medication Instructions Recorded Confirmed Last Taken Cariprazine HCl [Vraylar] 3 mg PO DAILY 01/09/18 05/21/18 01/08/18 Propranolol HCl 20 mg PO PRN PRN 01/09/18 05/21/18 01/08/18 Previous Rx's Medication Instructions Recorded Last Taken Type ALBUTEROL Inhaler (OR & NICU) 2 puff IH QID PRN #1 inhalation 03/24/18 Unknown Rx [ProAir HFA Inhaler] Fluticasone [Flonase] 1 spray NS QDAY #1 bottle 03/28/18 Unknown Rx Loratadine 10 mg PO DAILY 30 Days #30 tablet 03/28/18 Unknown Rx Prednisone [predniSONE 10 mg 10 mg PO .TAPER #1 tab.ds.pk 02/02/19 Unknown Rx (6-Day Pack, 21 Tabs)] Triamcinolone Aceton 0.1% (Nf) 1 applic TP BID 14 Days #1 tube 02/02/19 Unknown Rx [Kenalog (NF)] diphenhydrAMINE [Benadryl CAP] 25 mg PO Q6HR PRN #30 capsule 02/02/19 Unknown Rx Mometasone Furoate [Elocon] 45 gm TP BID #1 cream..g. 03/02/19 Unknown Rx predniSONE [Deltasone] 50 mg PO QDAY #5 tab 03/02/19 Unknown Rx Triamcinolone 0.5% [Kenalog 0.5% 1 applic TP TID #3 tube 05/11/19 Unknown Rx CREAM] diphenhydrAMINE [Benadryl CAP] 25 mg PO QHS PRN #30 capsule 05/11/19 Unknown Rx Allergies Allergy/AdvReac Type Severity Reaction Status Date / Time Fish Containing Products Allergy Rash Verified 03/02/19 18:13 peanut Allergy Swelling Verified 03/02/19 18:13 mometasone furoate AdvReac Unknown Verified 03/02/19 18:13 [From Nasonex] dairy AdvReac Swelling Uncoded 03/29/18 23:49 ED Review of Systems ROS: Stated complaint: ECZEMA Other details as noted in HPI Constitutional: denies: chills, fever Eyes: denies: eye pain, eye discharge, vision change ENT: denies: ear pain, throat pain Respiratory: denies: cough, shortness of breath, wheezing Cardiovascular: denies: chest pain, palpitations Endocrine: no symptoms reported Gastrointestinal: denies: abdominal pain, nausea, diarrhea Genitourinary: denies: urgency, dysuria Musculoskeletal: denies: back pain, joint swelling, arthralgia Skin: rash (diffuse itchy dry scaly erythematous rashes), change in color, pruritus. denies: lesions Neurological: denies: headache, weakness, paresthesias Psychiatric: denies: anxiety, depression Hematological/Lymphatic: denies: easy bleeding, easy bruising ED Past Medical Hx - Past Medical History Hx Psychiatric Treatment: Yes (SCHIZOPHRENIA) Hx Asthma: Yes Additional medical history: ECZEMA - Social History Smoking Status: Never Smoker Substance Use Type: None - Medications Home Medications: Home Medications Medication Instructions Recorded Confirmed Last Taken Type Cariprazine HCl [Vraylar] 3 mg PO DAILY 01/09/18 05/21/18 01/08/18 History Propranolol HCl 20 mg PO PRN PRN 01/09/18 05/21/18 01/08/18 History ALBUTEROL Inhaler (OR & NICU) 2 puff IH QID PRN #1 inhalation 03/24/18 05/21/18 Unknown Rx [ProAir HFA Inhaler] Fluticasone [Flonase] 1 spray NS QDAY #1 bottle 03/28/18 05/21/18 Unknown Rx Loratadine 10 mg PO DAILY 30 Days #30 tablet 03/28/18 05/21/18 Unknown Rx Prednisone [predniSONE 10 mg 10 mg PO .TAPER #1 tab.ds.pk 02/02/19 Unknown Rx (6-Day Pack, 21 Tabs)] Triamcinolone Aceton 0.1% (Nf) 1 applic TP BID 14 Days #1 tube 02/02/19 Unknown Rx [Kenalog (NF)] diphenhydrAMINE [Benadryl CAP] 25 mg PO Q6HR PRN #30 capsule 02/02/19 Unknown Rx Mometasone Furoate [Elocon] 45 gm TP BID #1 cream..g. 03/02/19 Unknown Rx predniSONE [Deltasone] 50 mg PO QDAY #5 tab 03/02/19 Unknown Rx Triamcinolone 0.5% [Kenalog 0.5% 1 applic TP TID #3 tube 05/11/19 Unknown Rx CREAM] diphenhydrAMINE [Benadryl CAP] 25 mg PO QHS PRN #30 capsule 05/11/19 Unknown Rx ED Physical Exam - General Limitations: No Limitations General appearance: alert, in no apparent distress - Head Head exam: Present: atraumatic, normocephalic, normal inspection - Eye Eye exam: Present: normal appearance, PERRL, EOMI Pupils: Present: normal accommodation - ENT ENT exam: Present: normal exam, normal orophraynx, mucous membranes moist, TM's normal bilaterally, normal external ear exam - Neck Neck exam: Present: normal inspection, full ROM - Respiratory Respiratory exam: Present: normal lung sounds bilaterally. Absent: respiratory distress, wheezes, rales, rhonchi, chest wall tenderness, accessory muscle use, decreased breath sounds - Cardiovascular Cardiovascular Exam: Present: regular rate, normal rhythm, normal heart sounds. Absent: systolic murmur, diastolic murmur, rubs, gallop - GI/Abdominal GI/Abdominal exam: Present: soft, normal bowel sounds. Absent: tenderness, guarding, rebound, hyperactive bowel sounds, hypoactive bowel sounds, organomegaly, mass - Rectal Rectal exam: Present: deferred - Extremities Exam Extremities exam: Present: normal inspection, full ROM, normal capillary refill - Back Exam Back exam: Present: normal inspection, full ROM. Absent: tenderness, CVA tenderness (R), CVA tenderness (L), muscle spasm, paraspinal tenderness, vertebral tenderness - Neurological Exam Neurological exam: Present: alert, oriented X3, CN II-XII intact, normal gait, reflexes normal - Psychiatric Psychiatric exam: Present: normal affect, normal mood - Skin Skin exam: Present: warm, dry, intact, normal color, rash (diffuse mildly erythematous dry scaly rashes) ED Course Vital Signs 05/11/19 01:01 Temperature 98.4 F Pulse Rate 75 Respiratory 18 Rate Blood Pressure 109/57 O2 Sat by Pulse 98 Oximetry - Reevaluation(s) Reevaluation #1: 05/11/19 04:25 This is a 23-year-old -Russian male with a history of chronic eczema presents to the ED with acute exacerbation of eczematous rashes. In the ED, patient is alert and oriented 3 and is not in distress with normal vital signs. Patient was discharged home on prescription for triamcinolone and Benadryl and advised to follow-up with his primary care physician in 7-10 days for reevaluation or return to the ED immediately if symptoms get worse. ED Medical Decision Making - Medical Decision Making This is a 23-year-old -Russian male with a history of chronic eczema presents to the ED with acute exacerbation of eczematous rashes. In the ED, patient is alert and oriented 3 and is not in distress with normal vital signs. Patient was discharged home on prescription for triamcinolone and Benadryl and advised to follow-up with his primary care physician in 7-10 days for reevaluation or return to the ED immediately if symptoms get worse. - Differential Diagnosis chronic eczema; itching with irritation Critical care attestation.: If time is entered above; I have spent that time in minutes in the direct care of this critically ill patient, excluding procedure time. ED Disposition Clinical Impression: Chronic eczema, Itching with irritation Disposition: -01 TO HOME OR SELFCARE Is pt being admited?: No Does the pt Need Aspirin: No Condition: Stable Instructions: Eczema (ED), Itchy Skin (ED) Additional Instructions: Take medications with food, drink plenty of fluids and follow-up with your primary care physician in 7-10 days for reevaluation. Return to the ED immediately if symptoms worsen. Prescriptions: diphenhydrAMINE [Benadryl CAP] 25 mg PO QHS PRN #30 capsule PRN Reason: Itching Triamcinolone 0.5% [Kenalog 0.5% CREAM] 1 applic TP TID #3 tube Referrals: VIPIN WU MD [Primary Care Provider] - 3-5 Days Time of Disposition: 04:20 Print Language: [place]
[2019-05-11 04:41] VITALS: BP 110/55
== END 2019-05-11 04:41 | disposition home or self-care (01) ==
LOC: ED 00:54
DX: L30.9 Dermatitis, unspecified (principal); F20.9 Schizophrenia, unspecified; J45.909 Unspecified asthma, uncomplicated; Z79.899 Other long term (current) drug therapy; Z88.8 Allergy status to other drugs, medicaments and biological substances; Z91.011 Allergy to milk products; Z91.010 Allergy to peanuts; Z91.013 Allergy to seafood
CPT/HCPCS: 99282

== ENCOUNTER 2019-07-09 04:45 | Emergency (ER) | payer MEDICARE ==
[2019-07-09 04:56] VITALS: BP 122/75
--- NOTE | 2019-07-09 06:02 | Emergency Department Report ---
ED General Adult HPI - General Chief complaint: Extremity Injury, Upper Stated complaint: ARM PAIN Source: patient Mode of arrival: Ambulatory Limitations: No Limitations - History of Present Illness Initial comments: Patient is a 23-year-old -[place] male with a history of schizophrenia who presents to the ED with complaint of "my right forearm feels funny" for the last 2 days. Patient denies chest pain, shortness of breath, traumatic injury, fall, heavy lifting, chest pain, shortness of breath, dizziness, headache, fever, chills, abdominal pain, or neck pain. MD Complaint: right forearm pain -: Sudden, days(s) (2) Location: upper extremity (right forearm) Radiation: non-radiation Quality: aching, dull Consistency: intermittent Improves with: none Worsens with: none Associated Symptoms: denies other symptoms. denies: confusion, chest pain, cough, diaphoresis, fever/chills, headaches, malaise, nausea/vomiting, seizure, shortness of breath, syncope, weakness Treatments Prior to Arrival: none - Related Data Home Medications Medication Instructions Recorded Confirmed Last Taken Cariprazine HCl [Vraylar] 3 mg PO DAILY 01/09/18 05/21/18 01/08/18 Propranolol HCl 20 mg PO PRN PRN 01/09/18 05/21/18 01/08/18 Previous Rx's Medication Instructions Recorded Last Taken Type ALBUTEROL Inhaler (OR & NICU) 2 puff IH QID PRN #1 inhalation 03/24/18 Unknown Rx [ProAir HFA Inhaler] Fluticasone [Flonase] 1 spray NS QDAY #1 bottle 03/28/18 Unknown Rx Loratadine 10 mg PO DAILY 30 Days #30 tablet 03/28/18 Unknown Rx Prednisone [predniSONE 10 mg 10 mg PO .TAPER #1 tab.ds.pk 02/02/19 Unknown Rx (6-Day Pack, 21 Tabs)] Triamcinolone Aceton 0.1% (Nf) 1 applic TP BID 14 Days #1 tube 02/02/19 Unknown Rx [Kenalog (NF)] diphenhydrAMINE [Benadryl CAP] 25 mg PO Q6HR PRN #30 capsule 02/02/19 Unknown Rx Mometasone Furoate [Elocon] 45 gm TP BID #1 cream..g. 03/02/19 Unknown Rx predniSONE [Deltasone] 50 mg PO QDAY #5 tab 03/02/19 Unknown Rx Triamcinolone 0.5% [Kenalog 0.5% 1 applic TP TID #3 tube 05/11/19 Unknown Rx CREAM] diphenhydrAMINE [Benadryl CAP] 25 mg PO QHS PRN #30 capsule 05/11/19 Unknown Rx Allergies Allergy/AdvReac Type Severity Reaction Status Date / Time Fish Containing Products Allergy Rash Verified 03/02/19 18:13 peanut Allergy Swelling Verified 03/02/19 18:13 mometasone furoate AdvReac Unknown Verified 03/02/19 18:13 [From Nasonex] dairy AdvReac Swelling Uncoded 03/29/18 23:49 ED Review of Systems ROS: Stated complaint: ARM PAIN Other details as noted in HPI Constitutional: denies: chills, fever Eyes: denies: eye pain, eye discharge, vision change ENT: denies: ear pain, throat pain Respiratory: denies: cough, shortness of breath, wheezing Cardiovascular: denies: chest pain, palpitations Endocrine: no symptoms reported Gastrointestinal: denies: abdominal pain, nausea, diarrhea Genitourinary: denies: urgency, dysuria Musculoskeletal: arthralgia (right arm discomfort). denies: back pain, joint swelling Skin: denies: rash, lesions Neurological: denies: headache, weakness, paresthesias Psychiatric: denies: anxiety, depression Hematological/Lymphatic: denies: easy bleeding, easy bruising ED Past Medical Hx - Past Medical History Previous Medical History?: Yes Hx Psychiatric Treatment: Yes (SCHIZOPHRENIA) Hx Asthma: Yes Additional medical history: ECZEMA - Surgical History Past Surgical History?: No - Social History Smoking Status: Never Smoker Substance Use Type: None - Medications Home Medications: Home Medications Medication Instructions Recorded Confirmed Last Taken Type Cariprazine HCl [Vraylar] 3 mg PO DAILY 01/09/18 05/21/18 01/08/18 History Propranolol HCl 20 mg PO PRN PRN 01/09/18 05/21/18 01/08/18 History ALBUTEROL Inhaler (OR & NICU) 2 puff IH QID PRN #1 inhalation 03/24/18 05/21/18 Unknown Rx [ProAir HFA Inhaler] Fluticasone [Flonase] 1 spray NS QDAY #1 bottle 03/28/18 05/21/18 Unknown Rx Loratadine 10 mg PO DAILY 30 Days #30 tablet 03/28/18 05/21/18 Unknown Rx Prednisone [predniSONE 10 mg 10 mg PO .TAPER #1 tab.ds.pk 02/02/19 Unknown Rx (6-Day Pack, 21 Tabs)] Triamcinolone Aceton 0.1% (Nf) 1 applic TP BID 14 Days #1 tube 02/02/19 Unknown Rx [Kenalog (NF)] diphenhydrAMINE [Benadryl CAP] 25 mg PO Q6HR PRN #30 capsule 02/02/19 Unknown Rx Mometasone Furoate [Elocon] 45 gm TP BID #1 cream..g. 03/02/19 Unknown Rx predniSONE [Deltasone] 50 mg PO QDAY #5 tab 03/02/19 Unknown Rx Triamcinolone 0.5% [Kenalog 0.5% 1 applic TP TID #3 tube 05/11/19 Unknown Rx CREAM] diphenhydrAMINE [Benadryl CAP] 25 mg PO QHS PRN #30 capsule 05/11/19 Unknown Rx ED Physical Exam - General Limitations: No Limitations General appearance: alert, in no apparent distress - Head Head exam: Present: atraumatic, normocephalic, normal inspection - Eye Eye exam: Present: normal appearance, PERRL, EOMI Pupils: Present: normal accommodation - ENT ENT exam: Present: normal exam, normal orophraynx, mucous membranes moist, TM's normal bilaterally, normal external ear exam - Neck Neck exam: Present: normal inspection, full ROM - Respiratory Respiratory exam: Present: normal lung sounds bilaterally. Absent: respiratory distress, wheezes, rales, rhonchi, chest wall tenderness, accessory muscle use, decreased breath sounds, prolonged expiratory - Cardiovascular Cardiovascular Exam: Present: regular rate, normal rhythm, normal heart sounds. Absent: systolic murmur, diastolic murmur, rubs, gallop - GI/Abdominal GI/Abdominal exam: Present: soft, normal bowel sounds. Absent: tenderness, guarding, rebound - Rectal Rectal exam: Present: deferred - Extremities Exam Extremities exam: Present: normal inspection, full ROM, normal capillary refill - Back Exam Back exam: Present: normal inspection, full ROM. Absent: tenderness, CVA tenderness (L), muscle spasm, paraspinal tenderness, vertebral tenderness - Neurological Exam Neurological exam: Present: alert, oriented X3, CN II-XII intact, normal gait, reflexes normal - Psychiatric Psychiatric exam: Present: normal affect, normal mood - Skin Skin exam: Present: warm, dry, intact, normal color. Absent: rash ED Course Vital Signs 07/09/19 04:52 Temperature 98.1 F Pulse Rate 76 Respiratory 18 Rate Blood Pressure 122/75 O2 Sat by Pulse 98 Oximetry - Reevaluation(s) Reevaluation #1: 07/09/19 05:59 This is a 23-year-old male who presented to the ED with right arm discomfort for 2 days. In the ED, patient is alert and oriented 3 and is not in any distress. Physical exam is unremarkable. Patient was discharged home and advised to follow-up with his primary care physician in 7-10 days for reevaluation or return to the ED immediately if symptoms get worse. ED Medical Decision Making - Medical Decision Making This is a 23-year-old male who presented to the ED with right arm discomfort for 2 days. In the ED, patient is alert and oriented 3 and is not in any distress. Physical exam is unremarkable. Patient was discharged home and advised to follow-up with his primary care physician in 7-10 days for reevaluation or return to the ED immediately if symptoms get worse. - Differential Diagnosis arm muscle spasm; muscle strain Critical care attestation.: If time is entered above; I have spent that time in minutes in the direct care of this critically ill patient, excluding procedure time. ED Disposition Clinical Impression: Muscle strain of right forearm Qualifiers: Encounter type: initial encounter Qualified Code(s): S56.911A - Strain of unspecified muscles, fascia and tendons at forearm level, right arm, initial encounter Disposition: - TO HOME OR SELFCARE Is pt being admited?: No Does the pt Need Aspirin: No Condition: Stable Instructions: Muscle Strain (ED) Additional Instructions: Follow-up with your primary care physician in 7-10 days for reevaluation or return to the ED immediately if symptoms get worse. Take [id number] pain medication as needed. Time of Disposition: 06:02 Print Language: [id number]
== END 2019-07-09 06:19 | disposition home or self-care (01) ==
LOC: ED 04:45
DX: S56.911A Strain of unspecified muscles, fascia and tendons at forearm level, right arm, initial encounter (principal); F20.9 Schizophrenia, unspecified; J45.909 Unspecified asthma, uncomplicated; Z91.013 Allergy to seafood; Z91.010 Allergy to peanuts; Z88.8 Allergy status to other drugs, medicaments and biological substances; Z91.011 Allergy to milk products; X58.XXXA Exposure to other specified factors, initial encounter; Y93.89 Activity, other specified; Y92.89 Other specified places as the place of occurrence of the external cause; Y99.8 Other external cause status

== ENCOUNTER 2019-08-16 21:08 | Emergency (ER) | payer MEDICARE ==
[2019-08-16 22:43] VITALS: BP 104/55
--- NOTE | 2019-08-16 22:48 | Emergency Department Report ---
Chief Complaint: Skin Rash Stated Complaint: RASH Time Seen by Provider: 08/16/19 22:44 - HPI History of Present Illness: 23 y/o male comes in refill for his triamcinolone cream for his eczema. He has been out for several weeks. - Exam Vital Signs: Vital Signs 08/16/19 21:54 Temperature 98.3 F Pulse Rate 93 H Respiratory 18 Rate Blood Pressure 104/55 O2 Sat by Pulse 98 Oximetry Physical Exam: AxO times 3 skin hyperpigment area at the bend of both arms. MSE screening note: Focused history and physical exam performed. Due to findings the following was ordered: 23 y/o male comes in refill for his triamcinolone cream for his eczema. He has been out for several weeks. Recommend to f/o with a primary care provider or cco. ED Disposition for MSE Condition: Stable
== END 2019-08-16 23:42 | disposition left against medical advice (07) ==
LOC: ED 21:08
DX: R21 Rash and other nonspecific skin eruption (principal); Z53.21 Procedure and treatment not carried out due to patient leaving prior to being seen by health care provider

== ENCOUNTER 2019-12-26 20:38 | Emergency (ER) | payer MEDICARE | END 2019-12-26 20:39 | disposition left against medical advice (07) | LOC: ED 20:38 | DX: L30.9 Dermatitis, unspecified (principal); Z53.21 Procedure and treatment not carried out due to patient leaving prior to being seen by health care provider ==

== ENCOUNTER 2019-12-28 13:58 | Emergency (ER) | payer MEDICARE ==
[2019-12-28 14:15] VITALS: BP 103/76
[2019-12-28 15:20] LABS: BUN/Creatinine Ratio 12; Blood Urea Nitrogen 11 mg/dL (9-20); Calcium 9.8 mg/dL (8.4-10.2); Hemolysis Index 14
[2019-12-28 15:24] LABS: Hematocrit 41.6 % (35.5-45.6); Hemoglobin 13.6 gm/dl (11.8-15.2); Mean Corpuscular HGB Conc 33 % (32-34); Mean Corpuscular Volume 89 fl (84-94); Platelet Count 186 K/mm3 (140-440); Red Blood Count 4.69 M/mm3 (3.65-5.03); Red Cell Distribution Width 14.1 % (13.2-15.2)
[2019-12-28 15:25] LABS: Basophils % (Auto) 0.7 % (0.0-1.8); Eosinophils % (Auto) 8.8 % (0.0-4.3); Lymphocytes % (Auto) 40.9 % (13.4-35.0); Monocytes % (Auto) 5.7 % (0.0-7.3)
[2019-12-28 15:26] LABS: Lymphocytes # (Auto) 1.3 K/mm3 (1.2-5.4); Monocytes # (Auto) 0.2 K/mm3 (0.0-0.8)
[2019-12-28 15:27] LABS: Eosinophils # (Auto) 0.3 K/mm3 (0.0-0.4)
--- NOTE | 2019-12-28 16:41 | Emergency Department Report ---
ED Psych HPI - General Chief Complaint: Psych Stated Complaint: SUICIDAL THOUGHTS Time Seen by Provider: 12/28/19 14:50 Source: patient Mode of arrival: Ambulatory - History of Present Illness Initial Comments: 24-year-old male with a past medical history of schizophrenia and eczema presents to the hospital planing of chronic eczema and suicidal ideation. Patient has been feeling suicidal because he has not taken his medications. He has a prescription but states he cannot afford it. He denies previous suicide attempt or having an active plan currently. He denies auditory visual hallucinations. He denies pain. Denies homicidal ideation - Related Data Home Medications Medication Instructions Recorded Confirmed Last Taken Cariprazine HCl [Vraylar] 3 mg PO DAILY 01/09/18 05/21/18 01/08/18 Propranolol HCl 20 mg PO PRN PRN 01/09/18 05/21/18 01/08/18 Previous Rx's Medication Instructions Recorded Last Taken Type Albuterol INH(or & Nicu Only) 2 puff IH QID PRN #1 inhalation 03/24/18 Unknown R x [ProAir HFA Inhaler] Fluticasone [Flonase] 1 spray NS QDAY #1 bottle 03/28/18 Unknown Rx Loratadine 10 mg PO DAILY 30 Days #30 tablet 03/28/18 Unknown Rx Prednisone [predniSONE 10 mg 10 mg PO .TAPER #1 tab.ds.pk 02/02/19 Unknown Rx (6-Day Pack, 21 Tabs)] Triamcinolone Aceton 0.1% (Nf) 1 applic TP BID 14 Days #1 tube 02/02/19 Unknown Rx [Kenalog (NF)] diphenhydrAMINE [Benadryl CAP] 25 mg PO Q6HR PRN #30 capsule 02/02/19 Unknown Rx Mometasone Furoate [Elocon] 45 gm TP BID #1 cream..g. 03/02/19 Unknown Rx predniSONE [Deltasone] 50 mg PO QDAY #5 tab 03/02/19 Unknown Rx Triamcinolone 0.5% [Kenalog 0.5% 1 applic TP TID #3 tube 05/11/19 Unknown Rx CREAM] diphenhydrAMINE [Benadryl CAP] 25 mg PO QHS PRN #30 capsule 05/11/19 Unknown Rx Mineral Oil/Hydrophil Petrolat 1 applicatio TP BID #1 tube 12/28/19 Unknown Rx [Aquaphor Healing Ointment] Allergies Allergy/AdvReac Type Severity Reaction Status Date / Time Fish Containing Products Allergy Rash Verified 12/28/19 14:09 peanut Allergy Swelling Verified 12/28/19 14:09 pork derived (porcine) Allergy Hives Verified 12/28/19 14:09 mometasone furoate AdvReac Unknown Verified 12/28/19 14:09 [From Nasonex] dairy AdvReac Swelling Uncoded 12/28/19 14:09 ED Review of Systems ROS: Stated complaint: SUICIDAL THOUGHTS Other details as noted in HPI Comment: All other systems reviewed and negative ED Past Medical Hx - Past Medical History Hx Psychiatric Treatment: Yes (SCHIZOPHRENIA) Hx Asthma: Yes Additional medical history: ECZEMA - Surgical History Past Surgical History?: No - Social History Smoking Status: Never Smoker Substance Use Type: None - Medications Home Medications: Home Medications Medication Instructions Recorded Confirmed Last Taken Type Cariprazine HCl [Vraylar] 3 mg PO DAILY 01/09/18 05/21/18 01/08/18 History Propranolol HCl 20 mg PO PRN PRN 01/09/18 05/21/18 01/08/18 History Albuterol INH(or & Nicu Only) 2 puff IH QID PRN #1 inhalation 03/24/18 05/21/18 Unknown Rx [ProAir HFA Inhaler] Fluticasone [Flonase] 1 spray NS QDAY #1 bottle 03/28/18 05/21/18 Unknown Rx Loratadine 10 mg PO DAILY 30 Days #30 tablet 03/28/18 05/21/18 Unknown Rx Prednisone [predniSONE 10 mg 10 mg PO .TAPER #1 tab.ds.pk 02/02/19 Unknown Rx (6-Day Pack, 21 Tabs)] Triamcinolone Aceton 0.1% (Nf) 1 applic TP BID 14 Days #1 tube 02/02/19 Unknown Rx [Kenalog (NF)] diphenhydrAMINE [Benadryl CAP] 25 mg PO Q6HR PRN #30 capsule 02/02/19 Unknown Rx Mometasone Furoate [Elocon] 45 gm TP BID #1 cream..g. 03/02/19 Unknown Rx predniSONE [Deltasone] 50 mg PO QDAY #5 tab 03/02/19 Unknown Rx Triamcinolone 0.5% [Kenalog 0.5% 1 applic TP TID #3 tube 05/11/19 Unknown Rx CREAM] diphenhydrAMINE [Benadryl CAP] 25 mg PO QHS PRN #30 capsule 05/11/19 Unknown Rx Mineral Oil/Hydrophil Petrolat 1 applicatio TP BID #1 tube 12/28/19 Unknown Rx [Aquaphor Healing Ointment] ED Physical Exam - General Limitations: No Limitations - Other Other exam information: General: No acute distress Head: Atraumatic Eyes: normal appearance ENT: Moist mucous membranes Neck: Normal appearance, no midline tenderness Chest: Clear to auscultation bilaterally CV: Regular rate and rhythm Abdomen: Soft, normal bowel sounds, nontender, nondistended, no rebound or guarding Back: Normal inspection Extremity: Normal inspection, full range of motion Neuro: Alert O x 3, no facial asymmetry, speech clear, no gross motor sensory deficit Psych: Appropriate behavior Skin: Mild eczematous rash to volar surface of wrist ED Course Vital Signs 12/28/19 14:09 Temperature 97.8 F Pulse Rate 76 Respiratory 18 Rate Blood Pressure 103/76 O2 Sat by Pulse 96 Oximetry - Consultations Consultation #1: 12/28/19 18:32 As per mental health protective signal operator note Pt is a 24 yo AA male presenting to ED for initial complaints of a rash, then reported SI. During ax, pt presented as cooperative, with calm mood and lucid thought process. Pt is alert and oriented x 4. Pt reports that he was suicidal because he could not get his prescription. Pt is denying active SI and plan. Pt denies hx of attempts. Pt informed protective signal operator that prescription cost is $3, and his family will not assist with purchasing. Pt denies HI. Pt denies A/V H. Pt reports a dx of Schizophrenia with hx of frequent IP hospitalizations, with last admission being 2 weeks ago. Pt reports connection to Ko Nunez MD for OP tx and compliance with tx. Recommendations: Home Service Demonstrator recommending discharge with f/u OP, as pt does not present in acute crisis and appears to have primary concerns of finances for medication prescription. Home Service Demonstrator attempted to explore solutions for identified barrier of purchasing medication. Per pt, he can go to his fathers home and ask for the money for prescription. ED Medical Decision Making - Lab Data Result diagrams: 12/28/19 14:18 12/28/19 14:18 Lab Results 12/28/19 12/28/19 12/28/19 Range/Units 14:18 14:18 14:18 WBC (4.5-11.0) K/mm3 RBC (3.65-5.03) M/mm3 Hgb (11.8-15.2) gm/dl Hct (35.5-45.6) % MCV (84-94) fl MCH (28-32) pg MCHC (32-34) % RDW (13.2-15.2) % Plt Count (140-440) K/mm3 Lymph % (Auto) (13.4-35.0) % [place] % (Auto) (0.0-7.3) % Eos % (Auto) (0.0-4.3) % Baso % (Auto) (0.0-1.8) % Lymph # (1.2-5.4) K/mm3 [place] # (0.0-0.8) K/mm3 Eos # (0.0-0.4) K/mm3 Baso # (0.0-0.1) K/mm3 Seg Neutrophils % (40.0-70.0) % Seg Neutrophils # (1.8-7.7) K/mm3 Sodium 139 (137-145) mmol/L Potassium 4.2 (3.6-5.0) mmol/L Chloride 101.6 (98-107) mmol/L Carbon Dioxide 24 (22-30) mmol/L Anion Gap 18 mmol/L BUN 11 (9-20) mg/dL Creatinine 0.9 (0.8-1.5) mg/dL Estimated GFR > 60 ml/min BUN/Creatinine Ratio 12 % Glucose 84 (75-100) mg/dL Calcium 9.8 (8.4-10.2) mg/dL Salicylates < 0.3 L (2.8-20.0) mg/dL Acetaminophen < 5.0 L (10.0-30.0) ug/mL Plasma/Serum Alcohol (0-0.07) % 12/28/19 12/28/19 Range/Units 14:18 14:18 WBC 3.2 L (4.5-11.0) K/mm3 RBC 4.69 (3.65-5.03) M/mm3 Hgb 13.6 (11.8-15.2) gm/dl Hct 41.6 (35.5-45.6) % MCV 89 (84-94) fl MCH 29 (28-32) pg MCHC 33 (32-34) % RDW 14.1 (13.2-15.2) % Plt Count 186 (140-440) K/mm3 Lymph % (Auto) 40.9 H (13.4-35.0) % [place] % (Auto) 5.7 (0.0-7.3) % Eos % (Auto) 8.8 H (0.0-4.3) % Baso % (Auto) 0.7 (0.0-1.8) % Lymph # 1.3 (1.2-5.4) K/mm3 [place] # 0.2 (0.0-0.8) K/mm3 Eos # 0.3 (0.0-0.4) K/mm3 Baso # 0.0 (0.0-0.1) K/mm3 Seg Neutrophils % 43.9 (40.0-70.0) % Seg Neutrophils # 1.4 L (1.8-7.7) K/mm3 Sodium (137-145) mmol/L Potassium (3.6-5.0) mmol/L Chloride (98-107) mmol/L Carbon Dioxide (22-30) mmol/L Anion Gap mmol/L BUN (9-20) mg/dL Creatinine (0.8-1.5) mg/dL Estimated GFR ml/min BUN/Creatinine Ratio % Glucose (75-100) mg/dL Calcium (8.4-10.2) mg/dL Salicylates (2.8-20.0) mg/dL Acetaminophen (10.0-30.0) ug/mL Plasma/Serum Alcohol < 0.01 (0-0.07) % - Medical Decision Making pt was seen by and deemed low risk cleared for d/c his meds cost $3. . . pt was asking for free meds. Informed to ask friends and family to assist with costs. I informed pt we do not give out meds pt will be d/catalina back with family cream will also be prescribed for chronic eczema - Differential Diagnosis noncompliance, hi, si, schizophrenia Critical Care Time: No Critical care attestation.: If time is entered above; I have spent that time in minutes in the direct care of this critically ill patient, excluding procedure time. ED Disposition Clinical Impression: Schizophrenia, Eczema Disposition: - TO HOME OR SELFCARE Is pt being admited?: No Does the pt Need Aspirin: No Condition: Stable Instructions: Schizophrenia (ED), Eczema (ED) Additional Instructions: Take the medication as prescribed. Follow-up with your doctor or doctor/clinic provided. Return if symptoms worsen as indicated by your discharge instructions. Prescriptions: Mineral Oil/Hydrophil Petrolat [Aquaphor Healing Ointment] 1 applicatio TP BID #1 tube Referrals: PRIMARY CAREMD [Primary Care Provider] - 3-5 Days KO NUNEZ MD [Staff Physician] - 3-5 Days [facility] [Outside] - 3-5 Days Time of Disposition: 18:44
== END 2019-12-28 19:10 | disposition home or self-care (01) ==
LOC: ED 13:58
DX: F20.9 Schizophrenia, unspecified (principal); L30.9 Dermatitis, unspecified; J45.909 Unspecified asthma, uncomplicated
CPT/HCPCS: 36415; 80048; 80320; 85025; 99284; G0480

== ENCOUNTER 2019-12-31 04:08 | Emergency (ER) | payer MEDICARE ==
[2019-12-31 05:09] LABS: Bilirubin,Urine NEG (Negative); Blood,Urine NEG (Negative); Color,Urine Straw (Yellow); Mucus,Urine FEW /HPF; Protein,Urine <15 mg/dL mg/dL (Negative); Urobilinogen,Urine < 2.0 mg/dL (<2.0); WBC,Urine < 1.0 /HPF (0.0-6.0)
[2019-12-31 05:15] LABS: Amphetamine Screen,Urine PRESUMPTIVE NEGATIVE; Benzodiazepines Screen,Urine PRESUMPTIVE NEGATIVE; Cannabinoid Screen,Urine PRESUMPTIVE NEGATIVE; Cocaine Screen,Urine PRESUMPTIVE NEGATIVE; Methadone Screen,Urine PRESUMPTIVE NEGATIVE; Opiate Screen,Urine PRESUMPTIVE NEGATIVE
[2019-12-31 05:55] LABS: Basophils % (Auto) 0.6 % (0.0-1.8); Eosinophils # (Auto) 0.3 K/mm3 (0.0-0.4); Eosinophils % (Auto) 7.1 % (0.0-4.3); Hematocrit 40.6 % (35.5-45.6); Hemoglobin 13.5 gm/dl (11.8-15.2); Lymphocytes # (Auto) 1.7 K/mm3 (1.2-5.4); Lymphocytes % (Auto) 39.7 % (13.4-35.0); Mean Corpuscular HGB Conc 33 % (32-34); Mean Corpuscular Volume 86 fl (84-94); Monocytes # (Auto) 0.3 K/mm3 (0.0-0.8); Monocytes % (Auto) 7.4 % (0.0-7.3); Platelet Count 187 K/mm3 (140-440); Red Blood Count 4.73 M/mm3 (3.65-5.03); Red Cell Distribution Width 13.7 % (13.2-15.2)
[2019-12-31 06:07] LABS: BUN/Creatinine Ratio 12; Blood Urea Nitrogen 14 mg/dL (9-20); Calcium 9.3 mg/dL (8.4-10.2); Hemolysis Index 11
[2019-12-31 07:42] VITALS: BP 127/73
--- NOTE | 2019-12-31 09:15 | Emergency Department Report ---
ED General Adult HPI - General Chief complaint: Psych Stated complaint: NASAL CONGESTION SUICIDAL THOUGHTS Time Seen by Provider: 12/31/19 08:56 Source: patient Mode of arrival: Ambulatory Limitations: No Limitations - History of Present Illness Initial comments: This is a 24-year-old male who states that he just wants an antibiotic because he has nasal congestion. He states that he was placed on an antibiotic "a while ago" but has not taken any medication [id number]. He states he is living with his grandmother and he is not homeless. He states he can go back to reside with his grandmother. He denies fever. He complains of nasal congestion and clear runny nose. He denied any psychiatric history. However he must have a history of bipolar 1 disorder as he has been treated with respective medication. He states there is no reason why he did not go to the supermarket to attempt to get any medication. He states he is here just to get an antibiotic. I asked the patient multiple times if he did not get any medication for his nasal congestion would he kill himself. His answer was repeatedly no. He is not having any suicidal ideation at this time. He did tell triage she had "suicidal thoughts". He denies this to me now. He does not meet criteria for involuntary confinement. -: Gradual, days(s) Severity scale (0 -10): 0 Consistency: intermittent Improves with: none Worsens with: none Associated Symptoms: denies other symptoms Treatments Prior to Arrival: none - Related Data Home Medications Medication Instructions Recorded Confirmed Last Taken Cariprazine HCl [Vraylar] 3 mg PO DAILY 01/09/18 05/21/18 01/08/18 Propranolol HCl 20 mg PO PRN PRN 01/09/18 05/21/18 01/08/18 Previous Rx's Medication Instructions Recorded Last Taken Type Albuterol INH(or & Nicu Only) 2 puff IH QID PRN #1 inhalation 03/24/18 Unknown Rx [ProAir HFA Inhaler] Fluticasone [Flonase] 1 spray NS QDAY #1 bottle 03/28/18 Unknown Rx Prednisone [predniSONE 10 mg 10 mg PO .TAPER #1 tab.ds.pk 02/02/19 Unknown Rx (6-Day Pack, 21 Tabs)] Triamcinolone Aceton 0.1% (Nf) 1 applic TP BID 14 Days #1 tube 02/02/19 Unknown Rx [Kenalog (NF)] diphenhydrAMINE [Benadryl CAP] 25 mg PO Q6HR PRN #30 capsule 02/02/19 Unknown Rx Mometasone Furoate [Elocon] 45 gm TP BID #1 cream..g. 03/02/19 Unknown Rx predniSONE [Deltasone] 50 mg PO QDAY #5 tab 03/02/19 Unknown Rx Triamcinolone 0.5% [Kenalog 0.5% 1 applic TP TID #3 tube 05/11/19 Unknown Rx CREAM] diphenhydrAMINE [Benadryl CAP] 25 mg PO QHS PRN #30 capsule 05/11/19 Unknown Rx Mineral Oil/Hydrophil Petrolat 1 applicatio TP BID #1 tube 12/28/19 Unknown Rx [Aquaphor Healing Ointment] Amoxicillin [Trimox CAP] 500 mg PO Q8H #30 capsule 12/31/19 Unknown Rx Loratadine 10 mg PO DAILY 30 Days #30 tablet 12/31/19 Unknown Rx Allergies Allergy/AdvReac Type Severity Reaction Status Date / Time Fish Containing Products Allergy Rash Verified 12/28/19 14:09 peanut Allergy Swelling Verified 12/28/19 14:09 pork derived (porcine) Allergy Hives Verified 12/28/19 14:09 mometasone furoate AdvReac Unknown Verified 12/28/19 14:09 [From Nasonex] dairy AdvReac Swelling Uncoded 12/28/19 14:09 ED Review of Systems ROS: Stated complaint: NASAL CONGESTION SUICIDAL THOUGHTS Other details as noted in HPI Constitutional: denies: chills, fever Eyes: denies: eye pain, eye discharge, vision change ENT: as per HPI, congestion. denies: ear pain, throat pain Respiratory: denies: cough, shortness of breath, wheezing Cardiovascular: denies: chest pain, palpitations Endocrine: no symptoms reported Gastrointestinal: denies: abdominal pain, nausea, diarrhea Genitourinary: denies: urgency, dysuria Musculoskeletal: denies: back pain, joint swelling, arthralgia Skin: denies: rash, lesions Neurological: denies: headache, weakness, paresthesias Psychiatric: denies: anxiety, depression Hematological/Lymphatic: denies: easy bleeding, easy bruising ED Past Medical Hx - Past Medical History Previous Medical History?: Yes Hx Psychiatric Treatment: Yes (SCHIZOPHRENIA) Hx Asthma: Yes Additional medical history: ECZEMA - Surgical History Past Surgical History?: Yes - Social History Smoking Status: Never Smoker Substance Use Type: None - Medications Home Medications: Home Medications Medication Instructions Recorded Confirmed Last Taken Type Cariprazine HCl [Vraylar] 3 mg PO DAILY 01/09/18 05/21/18 01/08/18 History Propranolol HCl 20 mg PO PRN PRN 01/09/18 05/21/18 01/08/18 History Albuterol INH(or & Nicu Only) 2 puff IH QID PRN #1 inhalation 03/24/18 05/21/18 Unknown Rx [ProAir HFA Inhaler] Fluticasone [Flonase] 1 spray NS QDAY #1 bottle 03/28/18 05/21/18 Unknown Rx Prednisone [predniSONE 10 mg 10 mg PO .TAPER #1 tab.ds.pk 02/02/19 Unknown Rx (6-Day Pack, 21 Tabs)] Triamcinolone Aceton 0.1% (Nf) 1 applic TP BID 14 Days #1 tube 02/02/19 Unknown Rx [Kenalog (NF)] diphenhydrAMINE [Benadryl CAP] 25 mg PO Q6HR PRN #30 capsule 02/02/19 Unknown Rx Mometasone Furoate [Elocon] 45 gm TP BID #1 cream..g. 03/02/19 Unknown Rx predniSONE [Deltasone] 50 mg PO QDAY #5 tab 03/02/19 Unknown Rx Triamcinolone 0.5% [Kenalog 0.5% 1 applic TP TID #3 tube 05/11/19 Unknown Rx CREAM] diphenhydrAMINE [Benadryl CAP] 25 mg PO QHS PRN #30 capsule 05/11/19 Unknown Rx Mineral Oil/Hydrophil Petrolat 1 applicatio TP BID #1 tube 12/28/19 Unknown Rx [Aquaphor Healing Ointment] Amoxicillin [Trimox CAP] 500 mg PO Q8H #30 capsule 12/31/19 Unknown Rx Loratadine 10 mg PO DAILY 30 Days #30 tablet 12/31/19 Unknown Rx ED Physical Exam - General Limitations: No Limitations General appearance: alert, in no apparent distress - Head Head exam: Present: atraumatic, normocephalic - Eye Eye exam: Present: normal appearance, conjunctival injection, other (No sinus pressure on palpation or tenderness. No gross nasal discharge). Absent: scleral icterus - ENT ENT exam: Present: mucous membranes moist - Neck Neck exam: Present: normal inspection - Respiratory Respiratory exam: Present: normal lung sounds bilaterally. Absent: respiratory distress - Cardiovascular Cardiovascular Exam: Present: regular rate, normal rhythm. Absent: systolic murmur, diastolic murmur, rubs, gallop - GI/Abdominal GI/Abdominal exam: Present: soft, normal bowel sounds. Absent: distended, tenderness, guarding, rebound, rigid - Rectal Rectal exam: Present: deferred - Extremities Exam Extremities exam: Present: normal inspection - Back Exam Back exam: Present: normal inspection - Neurological Exam Neurological exam: Present: alert, oriented X3 - Psychiatric Psychiatric exam: Present: normal affect, normal mood - Skin Skin exam: Present: warm, dry, intact, normal color. Absent: rash ED Course Vital Signs 12/31/19 12/31/19 04:29 07:41 Temperature 97.7 F 97.6 F Pulse Rate 73 83 Respiratory 18 20 Rate Blood Pressure 99/53 Blood Pressure 127/73 [Right] O2 Sat by Pulse 97 99 Oximetry - Reevaluation(s) Reevaluation #1: Apparently this patient has a history of schizophrenia/bipolar disorder. He does not meet criteria for involuntary confinement. He states quite clearly he is here for his ENT problem. He has been treated for this before. I do not see the value of further psychiatric evaluation at this time. He is apparently noncompliant with his medication. He will be referred to [facility] and the [place] [facility]. He is quite able to perform his activities of daily living. He is not hallucinating. He is not delusional. His behavior at triage was inappropriate RE: Suicidal ideation which he does repeatedly deny. However, this is not criteria for involuntary confinement. 12/31/19 09:17 ED Medical Decision Making - Lab Data Result diagrams: 12/31/19 05:35 12/31/19 05:35 Critical care attestation.: If time is entered above; I have spent that time in minutes in the direct care of this critically ill patient, excluding procedure time. ED Disposition Clinical Impression: Sinusitis Qualifiers: Sinusitis location: unspecified location Chronicity: acute Recurrence: recurrent Qualified Code(s): J01.91 - Acute recurrent sinusitis, unspecified Bipolar disorder Qualifiers: Active/Remission status: remission status unspecified Qualified Code(s): F31.9 - Bipolar disorder, unspecified Disposition: DC-01 TO HOME OR SELFCARE Is pt being admited?: No Does the pt Need Aspirin: No Condition: Stable Instructions: Sinusitis (ED), Bipolar Disorder (ED), Suicide Prevention for Adults (ED) Additional Instructions: Follow-up on your mental health problem. See referral. Rx as directed for your sinus problem. Prescriptions: Loratadine 10 mg PO DAILY 30 Days #30 tablet Amoxicillin [Trimox CAP] 500 mg PO Q8H #30 capsule Referrals: PRIMARY CARE, [Primary Care Provider] - 3-5 Days Time of Disposition: 09:20
== END 2019-12-31 10:23 | disposition home or self-care (01) ==
LOC: EEVIPCON 04:08 → ED 04:08
DX: J32.9 Chronic sinusitis, unspecified (principal); F31.9 Bipolar disorder, unspecified; F20.9 Schizophrenia, unspecified; J45.909 Unspecified asthma, uncomplicated
CPT/HCPCS: 36415; 80048; 80307; 80320; 81001; 85025; 99284; G0480

== ENCOUNTER 2020-01-12 01:08 | Emergency (ER) | payer MEDICARE ==
[2020-01-12] MEDS ORDERED: ACETAMINOPHEN 325 MG TAB PO ONE (01:42)
--- NOTE | 2020-01-12 01:45 | Emergency Department Report ---
ED Psych HPI - General Chief Complaint: Psych Stated Complaint: SUICIDAL Time Seen by Provider: 01/12/20 01:42 Source: patient Mode of arrival: Ambulatory - History of Present Illness Initial Comments: Patient is a 24-year-old male presents emergency room with complaints of SI that began yesterday. He denies any specific plan. He denies ever harming himself in the past. He states that he has been to multiple psychiatric facilities before. He denies any HI or visual or auditory hallucinations. He states that he also has a headache since yesterday. He states that somebody distracted him while he was walking and he accidentally hit his head against the wall. He denies any loss of consciousness, vomiting, numbness, weakness, bowel or bladder incontinence, vision changes, neck pain, any other injury. He has been ambulatory without any difficulty. He has not taken anything for his headache. He states he has a past medical history of eczema, asthma and anxiety. He states that he takes propanolol for anxiety per patient. He denies any allergies to medications. - Related Data Home Medications Medication Instructions Recorded Confirmed Last Taken Cariprazine HCl [Vraylar] 3 mg PO DAILY 01/09/18 01/12/20 01/08/18 Propranolol HCl 20 mg PO PRN PRN 01/09/18 01/12/20 01/08/18 Previous Rx's Medication Instructions Recorded Last Taken Type Mometasone Furoate [Elocon] 45 gm TP BID #1 cream..g. 03/02/19 Unknown Rx Allergies Allergy/AdvReac Type Severity Reaction Status Date / Time Fish Containing Products Allergy Rash Verified 12/28/19 14:09 peanut Allergy Swelling Verified 12/28/19 14:09 pork derived (porcine) Allergy Hives Verified 12/28/19 14:09 mometasone furoate AdvReac Unknown Verified 12/28/19 14:09 [From Nasonex] dairy AdvReac Swelling Uncoded 12/28/19 14:09 ED Review of Systems ROS: Stated complaint: SUICIDAL Other details as noted in HPI Comment: All other systems reviewed and negative ED Past Medical Hx - Past Medical History Hx Psychiatric Treatment: Yes (SCHIZOPHRENIA/anxiety) Hx Asthma: Yes Additional medical history: ECZEMA - Social History Smoking Status: Current Every Day Smoker Substance Use Type: None - Medications Home Medications: Home Medications Medication Instructions Recorded Confirmed Last Taken Type Cariprazine HCl [Vraylar] 3 mg PO DAILY 01/09/18 01/12/20 01/08/18 History Propranolol HCl 20 mg PO PRN PRN 01/09/18 01/12/20 01/08/18 History Mometasone Furoate [Elocon] 45 gm TP BID #1 cream..g. 03/02/19 01/12/20 Unknown Rx ED Physical Exam - General Limitations: No Limitations General appearance: alert, in no apparent distress - Head Head exam: Present: atraumatic, normocephalic - Eye Eye exam: Present: normal appearance, PERRL, EOMI - ENT ENT exam: Present: mucous membranes moist - Neck Neck exam: Present: normal inspection, full ROM. Absent: tenderness - Respiratory Respiratory exam: Present: normal lung sounds bilaterally. Absent: respiratory distress, wheezes, rales, rhonchi, stridor, chest wall tenderness, accessory muscle use, decreased breath sounds, prolonged expiratory - Cardiovascular Cardiovascular Exam: Present: regular rate, normal rhythm, normal heart sounds. Absent: systolic murmur, diastolic murmur, rubs, gallop - Neurological Exam Neurological exam: Present: alert, oriented X3, CN II-XII intact, normal gait. Absent: motor sensory deficit - Psychiatric Psychiatric exam: Present: suicidal ideation - Skin Skin exam: Present: warm, dry ED Course Vital Signs 01/12/20 01/12/20 01/12/20 01:12 01:46 02:27 Temperature 97.6 F 98.0 F Pulse Rate 84 73 Respiratory 18 18 18 Rate Blood Pressure 106/69 Blood Pressure 95/55 [Left] O2 Sat by Pulse 96 98 98 Oximetry 01/12/20 03:38 Temperature Pulse Rate Respiratory 18 Rate Blood Pressure Blood Pressure [Left] O2 Sat by Pulse Oximetry ED Medical Decision Making - Lab Data Result diagrams: 01/12/20 01:41 01/12/20 01:41 Lab Results 01/12/20 01/12/20 01/12/20 Range/Units 01:41 01:41 01:41 WBC 4.3 L (4.5-11.0) K/mm3 RBC 4.73 (3.65-5.03) M/mm3 Hgb 13.6 (11.8-15.2) gm/dl Hct 40.8 (35.5-45.6) % MCV 86 (84-94) fl MCH 29 (28-32) pg MCHC 33 (32-34) % RDW 13.5 (13.2-15.2) % Plt Count 215 (140-440) K/mm3 Lymph % (Auto) 42.3 H (13.4-35.0) % [place] % (Auto) 6.7 (0.0-7.3) % Eos % (Auto) 3.1 (0.0-4.3) % Baso % (Auto) 0.8 (0.0-1.8) % Lymph # 1.8 (1.2-5.4) K/mm3 [place] # 0.3 (0.0-0.8) K/mm3 Eos # 0.1 (0.0-0.4) K/mm3 Baso # 0.0 (0.0-0.1) K/mm3 Seg Neutrophils % 47.1 (40.0-70.0) % Seg Neutrophils # 2.0 (1.8-7.7) K/mm3 Sodium (137-145) mmol/L Potassium (3.6-5.0) mmol/L Chloride (98-107) mmol/L Carbon Dioxide (22-30) mmol/L Anion Gap mmol/L BUN (9-20) mg/dL Creatinine (0.8-1.5) mg/dL Estimated GFR ml/min BUN/Creatinine Ratio % Glucose (75-100) mg/dL Calcium (8.4-10.2) mg/dL Total Bilirubin (0.1-1.2) mg/dL AST (5-40) units/L ALT (7-56) units/L Alkaline Phosphatase (35-129) units/L Total Creatine Kinase (55-170) units/L Total Protein (6.3-8.2) g/dL Albumin (3.9-5) g/dL Albumin/Globulin Ratio % Urine Color (Yellow) Urine Turbidity (Clear) Urine pH (5.0-7.0) Ur Specific [place] (1.003-1.030) Urine Protein (Negative) mg/dL Urine Glucose (UA) (Negative) mg/dL Urine Ketones (Negative) mg/dL Urine Blood (Negative) Urine Nitrite (Negative) Urine Bilirubin (Negative) Urine Urobilinogen (<2.0) mg/dL Ur Leukocyte Esterase (Negative) Urine WBC (Auto) (0.0-6.0) /HPF Urine RBC (Auto) (0.0-6.0) /HPF Urine Mucus /HPF Salicylates < 0.3 L (2.8-20.0) mg/dL Urine Opiates Screen Urine Methadone Screen Acetaminophen < 5.0 L (10.0-30.0) ug/mL Ur Barbiturates Screen Ur Phencyclidine Scrn Ur Amphetamines Screen U Benzodiazepines Scrn Urine Cocaine Screen U Marijuana (THC) Screen Drugs of Abuse Note Plasma/Serum Alcohol (0-0.07) % 01/12/20 01/12/20 01/12/20 Range/Units 01:41 01:41 03:30 WBC (4.5-11.0) K/mm3 RBC (3.65-5.03) M/mm3 Hgb (11.8-15.2) gm/dl Hct (35.5-45.6) % MCV (84-94) fl MCH (28-32) pg MCHC (32-34) % RDW (13.2-15.2) % Plt Count (140-440) K/mm3 Lymph % (Auto) (13.4-35.0) % [place] % (Auto) (0.0-7.3) % Eos % (Auto) (0.0-4.3) % Baso % (Auto) (0.0-1.8) % Lymph # (1.2-5.4) K/mm3 [place] # (0.0-0.8) K/mm3 Eos # (0.0-0.4) K/mm3 Baso # (0.0-0.1) K/mm3 Seg Neutrophils % (40.0-70.0) % Seg Neutrophils # (1.8-7.7) K/mm3 Sodium 136 L (137-145) mmol/L Potassium 3.5 L (3.6-5.0) mmol/L Chloride 102.7 (98-107) mmol/L Carbon Dioxide 24 (22-30) mmol/L Anion Gap 13 mmol/L BUN 11 (9-20) mg/dL Creatinine 0.9 (0.8-1.5) mg/dL Estimated GFR > 60 ml/min BUN/Creatinine Ratio 12 % Glucose 150 H (75-100) mg/dL Calcium 9.3 (8.4-10.2) mg/dL Total Bilirubin 0.40 (0.1-1.2) mg/dL AST 16 (5-40) units/L ALT 14 (7-56) units/L Alkaline Phosphatase 66 (35-129) units/L Total Creatine Kinase 222 H (55-170) units/L Total Protein 7.5 (6.3-8.2) g/dL Albumin 4.6 (3.9-5) g/dL Albumin/Globulin Ratio 1.6 % Urine Color Yellow (Yellow) Urine Turbidity Clear (Clear) Urine pH 5.0 (5.0-7.0) Ur Specific [place] 1.030 (1.003-1.030) Urine Protein <15 mg/dl (Negative) mg/dL Urine Glucose (UA) Neg (Negative) mg/dL Urine Ketones Neg (Negative) mg/dL Urine Blood Neg (Negative) Urine Nitrite Neg (Negative) Urine Bilirubin Neg (Negative) Urine Urobilinogen 2.0 (<2.0) mg/dL Ur Leukocyte Esterase Neg (Negative) Urine WBC (Auto) < 1.0 (0.0-6.0) /HPF Urine RBC (Auto) 5.0 (0.0-6.0) /HPF Urine Mucus 3+ /HPF Salicylates (2.8-20.0) mg/dL Urine Opiates Screen Urine Methadone Screen Acetaminophen (10.0-30.0) ug/mL Ur Barbiturates Screen Ur Phencyclidine Scrn Ur Amphetamines Screen U Benzodiazepines Scrn Urine Cocaine Screen U Marijuana (THC) Screen Drugs of Abuse Note Plasma/Serum Alcohol < 0.01 (0-0.07) % 01/12/20 Range/Units 03:30 WBC (4.5-11.0) K/mm3 RBC (3.65-5.03) M/mm3 Hgb (11.8-15.2) gm/dl Hct (35.5-45.6) % MCV (84-94) fl MCH (28-32) pg MCHC (32-34) % RDW (13.2-15.2) % Plt Count (140-440) K/mm3 Lymph % (Auto) (13.4-35.0) % [place] % (Auto) (0.0-7.3) % Eos % (Auto) (0.0-4.3) % Baso % (Auto) (0.0-1.8) % Lymph # (1.2-5.4) K/mm3 [place] # (0.0-0.8) K/mm3 Eos # (0.0-0.4) K/mm3 Baso # (0.0-0.1) K/mm3 Seg Neutrophils % (40.0-70.0) % Seg Neutrophils # (1.8-7.7) K/mm3 Sodium (137-145) mmol/L Potassium (3.6-5.0) mmol/L Chloride (98-107) mmol/L Carbon Dioxide (22-30) mmol/L Anion Gap mmol/L BUN (9-20) mg/dL Creatinine (0.8-1.5) mg/dL Estimated GFR ml/min BUN/Creatinine Ratio % Glucose (75-100) mg/dL Calcium (8.4-10.2) mg/dL Total Bilirubin (0.1-1.2) mg/dL AST (5-40) units/L ALT (7-56) units/L Alkaline Phosphatase (35-129) units/L Total Creatine Kinase (55-170) units/L Total Protein (6.3-8.2) g/dL Albumin (3.9-5) g/dL Albumin/Globulin Ratio % Urine Color (Yellow) Urine Turbidity (Clear) Urine pH (5.0-7.0) Ur Specific [place] (1.003-1.030) Urine Protein (Negative) mg/dL Urine Glucose (UA) (Negative) mg/dL Urine Ketones (Negative) mg/dL Urine Blood (Negative) Urine Nitrite (Negative) Urine Bilirubin (Negative) Urine Urobilinogen (<2.0) mg/dL Ur Leukocyte Esterase (Negative) Urine WBC (Auto) (0.0-6.0) /HPF Urine RBC (Auto) (0.0-6.0) /HPF Urine Mucus /HPF Salicylates (2.8-20.0) mg/dL Urine Opiates Screen Presumptive negative Urine Methadone Screen Presumptive negative Acetaminophen (10.0-30.0) ug/mL Ur Barbiturates Screen Presumptive negative Ur Phencyclidine Scrn Presumptive negative Ur Amphetamines Screen Presumptive negative U Benzodiazepines Scrn Presumptive negative Urine Cocaine Screen Presumptive negative U Marijuana (THC) Screen Presumptive negative Drugs of Abuse Note Disclamer Plasma/Serum Alcohol (0-0.07) % - Medical Decision Making Patient is a 24-year-old male presents emergency room with complaints of SI that began yesterday. He denies any specific plan. He denies ever harming himself in the past. He states that he has been to multiple psychiatric facilities before. He denies any HI or visual or auditory hallucinations. He states that he also has a headache since yesterday. He states that somebody distracted him while he was walking and he accidentally hit his head against the wall. He denies any loss of consciousness, vomiting, numbness, weakness, bowel or bladder incontinence, vision changes, neck pain, any other injury. He has been a mbulatory without any difficulty. He has not taken anything for his headache. He states he has a past medical history of eczema, asthma and anxiety. He states that he takes propanolol for anxiety per patient. He denies any allergies to medications. Vitals are normal. Labs are stable. UDS is n egative. UA is within normal limits. Patient given Tylenol for headache and improved. Tatums CT head rule is 0, CT head imaging is not recommended. Patient does not have a medical emergency at this time preventing psychiatric consultation and/or transfer to a psychiatric facility as deemed appropriate by mental health personnel Critical care attestation.: If time is entered above; I have spent that time in minutes in the direct care of this critically ill patient, excluding procedure time. ED Disposition Clinical Impression: Suicidal ideation Headache Qualifiers: Headache type: unspecified Headache chronicity pattern: acute headache Intractability: not intractable Qualified Code(s): R51 - Headache Condition: Stable Referrals: PRIMARY CARE, [Primary Care Provider] - 3-5 Days
[2020-01-12 01:57] LABS: Basophils % (Auto) 0.8 % (0.0-1.8); Eosinophils # (Auto) 0.1 K/mm3 (0.0-0.4); Eosinophils % (Auto) 3.1 % (0.0-4.3); Hematocrit 40.8 % (35.5-45.6); Hemoglobin 13.6 gm/dl (11.8-15.2); Lymphocytes # (Auto) 1.8 K/mm3 (1.2-5.4); Lymphocytes % (Auto) 42.3 % (13.4-35.0); Mean Corpuscular HGB Conc 33 % (32-34); Mean Corpuscular Volume 86 fl (84-94); Monocytes # (Auto) 0.3 K/mm3 (0.0-0.8); Monocytes % (Auto) 6.7 % (0.0-7.3); Platelet Count 215 K/mm3 (140-440); Red Blood Count 4.73 M/mm3 (3.65-5.03); Red Cell Distribution Width 13.5 % (13.2-15.2)
[2020-01-12 02:14] LABS: Alanine Aminotransferase 14 units/L (7-56); Albumin 4.6 g/dL (3.9-5); BUN/Creatinine Ratio 12; Blood Urea Nitrogen 11 mg/dL (9-20); Calcium 9.3 mg/dL (8.4-10.2); Hemolysis Index 5
[2020-01-12 04:00] LABS: Bilirubin,Urine NEG (Negative); Blood,Urine NEG (Negative); Color,Urine Yellow (Yellow); Mucus,Urine 3+ /HPF; Protein,Urine <15 mg/dL mg/dL (Negative); WBC,Urine < 1.0 /HPF (0.0-6.0)
[2020-01-12 04:11] LABS: Amphetamine Screen,Urine PRESUMPTIVE NEGATIVE; Benzodiazepines Screen,Urine PRESUMPTIVE NEGATIVE; Cannabinoid Screen,Urine PRESUMPTIVE NEGATIVE; Cocaine Screen,Urine PRESUMPTIVE NEGATIVE; Methadone Screen,Urine PRESUMPTIVE NEGATIVE; Opiate Screen,Urine PRESUMPTIVE NEGATIVE
[2020-01-12 07:49] VITALS: BP 111/64
== END 2020-01-12 13:30 ==
LOC: ED 01:08 → EEVIPCON 01:08 → ED 13:30
DX: R45.851 Suicidal ideations (principal); R51 Headache; F17.200 Nicotine dependence, unspecified, uncomplicated; J45.909 Unspecified asthma, uncomplicated; Z79.899 Other long term (current) drug therapy; Z91.013 Allergy to seafood; Z91.010 Allergy to peanuts; Z91.018 Allergy to other foods
CPT/HCPCS: 36415; 80053; 80307; 80320; 81001; 82550; 85025; G0480

== ENCOUNTER 2020-01-22 21:28 | Emergency (ER) | payer MEDICARE ==
[2020-01-22 22:34] LABS: Basophils % (Auto) 0.4 % (0.0-1.8); Eosinophils # (Auto) 0.3 K/mm3 (0.0-0.4); Eosinophils % (Auto) 5.1 % (0.0-4.3); Hematocrit 41.3 % (35.5-45.6); Hemoglobin 13.7 gm/dl (11.8-15.2); Lymphocytes # (Auto) 1.9 K/mm3 (1.2-5.4); Lymphocytes % (Auto) 33.9 % (13.4-35.0); Mean Corpuscular HGB Conc 33 % (32-34); Mean Corpuscular Volume 87 fl (84-94); Monocytes # (Auto) 0.4 K/mm3 (0.0-0.8); Monocytes % (Auto) 6.5 % (0.0-7.3); Platelet Count 201 K/mm3 (140-440); Red Blood Count 4.76 M/mm3 (3.65-5.03); Red Cell Distribution Width 13.3 % (13.2-15.2)
[2020-01-22] MEDS ORDERED: HALOPERIDOL LACTATE 5 MG/1 ML INJ IM PRN (22:49)
[2020-01-22] MEDS ORDERED: ALPRAZolam 0.5 MG TAB PO PRN (22:49)
[2020-01-22] MEDS ORDERED: LORazepam 2 MG/ML VIAL IM PRN (22:49)
--- NOTE | 2020-01-22 22:50 | Emergency Department Report ---
<EVITA LANDON - Last Filed: 01/23/20 00:37> ED General Adult HPI - General Chief complaint: Psych Stated complaint: MH Time Seen by Provider: 01/22/20 22:26 Source: patient, RN notes reviewed, old records reviewed Mode of arrival: Ambulatory Limitations: No Limitations - History of Present Illness Initial comments: Patient is a 24-year-old gentleman with a history of psychiatric disease, who presents to the ER today with a complaint of painless suicidality. He denies fever, cough, exposure to coronavirus, denies overdose, denies physical pain. He has no additional complaints at this time. 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 " Patient indicates no exacerbating or relieving factors and he denies radiation. No additional complaints at this time. Quality: other Consistency: other Improves with: other Worsens with: other Associated Symptoms: other - Related Data Home Medications Medication Instructions Recorded Confirmed Last Taken Cariprazine HCl [Vraylar] 3 mg PO DAILY 01/09/18 01/12/20 01/08/18 Propranolol HCl 20 mg PO PRN PRN 01/09/18 01/12/20 01/08/18 Previous Rx's Medication Instructions Recorded Last Taken Type Mometasone Furoate [Elocon] 45 gm TP BID #1 cream..g. 03/02/19 Unknown Rx Allergies Allergy/AdvReac Type Severity Reaction Status Date / Time Fish Containing Products Allergy Rash Verified 12/28/19 14:09 peanut Allergy Swelling Verified 12/28/19 14:09 pork derived (porcine) Allergy Hives Verified 12/28/19 14:09 mometasone furoate AdvReac Unknown Verified 12/28/19 14:09 [From Nasonex] dairy AdvReac Swelling Uncoded 12/28/19 14:09 ED Review of Systems Comment: See history of present illness for review of systems. Patient endorses no additional complaints. ED Past Medical Hx - Past Medical History Previous Medical History?: Yes Hx Psychiatric Treatment: Yes (SCHIZOPHRENIA/anxiety) Hx Asthma: Yes Additional medical history: ECZEMA - Surgical History Past Surgical History?: No - Social History Smoking Status: Never Smoker Substance Use Type: None - Medications Home Medications: Home Medications Medication Instructions Recorded Confirmed Last Taken Type Cariprazine HCl [Vraylar] 3 mg PO DAILY 01/09/18 01/12/20 01/08/18 History Propranolol HCl 20 mg PO PRN PRN 01/09/18 01/12/20 01/08/18 History Mometasone Furoate [Elocon] 45 gm TP BID #1 cream..g. 03/02/19 01/12/20 Unknown Rx ED Physical Exam - General Limitations: No Limitations General appearance: alert, in no apparent distress - Head Head exam: Present: atraumatic, normocephalic - Eye Eye exam: Present: normal appearance, PERRL, EOMI, other (Visual acuity intact to finger counting, color perception, reading at a close distance). Absent: nystagmus - ENT ENT exam: Present: normal exam (Visual acuity intact to finger counting, color perception, reading at a close distance), normal orophraynx, mucous membranes moist, other - Neck Neck exam: Present: normal inspection, full ROM. Absent: tenderness, meningismus - Respiratory Respiratory exam: Present: normal lung sounds bilaterally. Absent: respiratory distress - Cardiovascular Cardiovascular Exam: Present: regular rate, normal rhythm, normal heart sounds. Absent: bradycardia, tachycardia, irregular rhythm, systolic murmur, diastolic murmur, rubs, gallop - GI/Abdominal GI/Abdominal exam: Present: soft. Absent: distended, tenderness, guarding, rebound, rigid, pulsatile mass - Rectal Rectal exam: Present: deferred - Extremities Exam Extremities exam: Present: normal inspection, full ROM, other (2+ pulses noted in the bilateral upper and lower extremities. There is no palpable cord. negative Homans sign. Muscular compartments are soft. The pelvis is stable.). Absent: pedal edema, calf tenderness - Back Exam Back exam: Present: normal inspection, full ROM. Absent: tenderness, CVA tenderness (R), CVA tenderness (L), paraspinal tenderness, vertebral tenderness - Neurological Exam Neurological exam: Present: alert, oriented X3, normal gait, other (No facial droop. Tongue midline. Extraocular movements intact bilaterally. Facial sensation intact to light touch in V1, V2, V3 distribution bilaterally. 5 and a 5 strength in 4 extremities. Sensation intact to light touch in 4 extremities.). Absent: motor sensory deficit - Psychiatric Psychiatric exam: Present: flat affect, suicidal ideation - Skin Skin exam: Present: warm, dry, intact, normal color. Absent: rash ED Course - Reevaluation(s) Reevaluation #1: 01/23/20 00:41 Differential diagnosis, including but not limited to: Suicidality, depression, dysthymia, psychosis, medical clearance for psychiatric placement Assessment and plan: 24-year-old gentleman, who is pleasant, calm and cooperative, in no acute distress, with an unremarkable physical examination, unremarkable neurologic examination, denies fever, cough, coronavirus exposure, presenting with suicidality and depression. He is placed on emergency room hold. Psychiatric consultation is requested. At this point in time, the patient does not appear to have an immediate medical contraindication to psychiatric admission, evaluation, consultation and placement. Vital Signs 01/22/20 01/22/20 21:57 22:55 Temperature 98.2 F Pulse Rate 99 H Respiratory 18 18 Rate Blood Pressure 134/74 O2 Sat by Pulse 98 98 Oximetry ED Medical Decision Making - Lab Data Result diagrams: 01/22/20 22:16 01/22/20 22:16 Vital Signs 01/22/20 22:55 Respiratory 18 Rate O2 Sat by Pulse 98 Oximetry Lab Results 01/22/20 01/22/20 01/22/20 Range/Units 22:16 22:16 22:16 WBC (4.5-11.0) K/mm3 RBC (3.65-5.03) M/mm3 Hgb (11.8-15.2) gm/dl Hct (35.5-45.6) % MCV (84-94) fl MCH (28-32) pg MCHC (32-34) % RDW (13.2-15.2) % Plt Count (140-440) K/mm3 Lymph % (Auto) (13.4-35.0) % [place] % (Auto) (0.0-7.3) % Eos % (Auto) (0.0-4.3) % Baso % (Auto) (0.0-1.8) % Lymph # (1.2-5.4) K/mm3 [place] # (0.0-0.8) K/mm3 Eos # (0.0-0.4) K/mm3 Baso # (0.0-0.1) K/mm3 Seg Neutrophils % (40.0-70.0) % Seg Neutrophils # (1.8-7.7) K/mm3 Sodium 138 (137-145) mmol/L Potassium 3.8 (3.6-5.0) mmol/L Chloride 102.1 (98-107) mmol/L Carbon Dioxide 23 (22-30) mmol/L Anion Gap 17 mmol/L BUN 16 (9-20) mg/dL Creatinine 1.0 (0.8-1.5) mg/dL Estimated GFR > 60 ml/min BUN/Creatinine Ratio 16 % Glucose 83 (75-100) mg/dL Calcium 9.3 (8.4-10.2) mg/dL Magnesium (1.7-2.3) mg/dL Total Creatine Kinase (55-170) units/L Urine Color (Yellow) Urine Turbidity (Clear) Urine pH (5.0-7.0) Ur Specific [place] (1.003-1.030) Urine Protein (Negative) mg/dL Urine Glucose (UA) (Negative) mg/dL Urine Ketones (Negative) mg/dL Urine Blood (Negative) Urine Nitrite (Negative) Urine Bilirubin (Negative) Urine Urobilinogen (<2.0) mg/dL Ur Leukocyte Esterase (Negative) Urine WBC (Auto) (0.0-6.0) /HPF Urine RBC (Auto) (0.0-6.0) /HPF Salicylates < 0.3 L (2.8-20.0) mg/dL Urine Opiates Screen Urine Methadone Screen Acetaminophen < 5.0 L (10.0-30.0) ug/mL Ur Barbiturates Screen Ur Phencyclidine Scrn Ur Amphetamines Screen U Benzodiazepines Scrn Urine Cocaine Screen U Marijuana (THC) Screen Drugs of Abuse Note Plasma/Serum Alcohol (0-0.07) % 01/22/20 01/22/20 01/22/20 Range/Units 22:16 22:16 22:16 WBC 5.6 (4.5-11.0) K/mm3 RBC 4.76 (3.65-5.03) M/mm3 Hgb 13.7 (11.8-15.2) gm/dl Hct 41.3 (35.5-45.6) % MCV 87 (84-94) fl MCH 29 (28-32) pg MCHC 33 (32-34) % RDW 13.3 (13.2-15.2) % Plt Count 201 (140-440) K/mm3 Lymph % (Auto) 33.9 (13.4-35.0) % [place] % (Auto) 6.5 (0.0-7.3) % Eos % (Auto) 5.1 H (0.0-4.3) % Baso % (Auto) 0.4 (0.0-1.8) % Lymph # 1.9 (1.2-5.4) K/mm3 [place] # 0.4 (0.0-0.8) K/mm3 Eos # 0.3 (0.0-0.4) K/mm3 Baso # 0.0 (0.0-0.1) K/mm3 Seg Neutrophils % 54.1 (40.0-70.0) % Seg Neutrophils # 3.0 (1.8-7.7) K/mm3 Sodium (137-145) mmol/L Potassium (3.6-5.0) mmol/L Chloride (98-107) mmol/L Carbon Dioxide (22-30) mmol/L Anion Gap mmol/L BUN (9-20) mg/dL Creatinine (0.8-1.5) mg/dL Estimated GFR ml/min BUN/Creatinine Ratio % Glucose (75-100) mg/dL Calcium (8.4-10.2) mg/dL Magnesium 2.00 (1.7-2.3) mg/dL Total Creatine Kinase 320 H (55-170) units/L Urine Color (Yellow) Urine Turbidity (Clear) Urine pH (5.0-7.0) Ur Specific [place] (1.003-1.030) Urine Protein (Negative) mg/dL Urine Glucose (UA) (Negative) mg/dL Urine Ketones (Negative) mg/dL Urine Blood (Negative) Urine Nitrite (Negative) Urine Bilirubin (Negative) Urine Urobilinogen (<2.0) mg/dL Ur Leukocyte Esterase (Negative) Urine WBC (Auto) (0.0-6.0) /HPF Urine RBC (Auto) (0.0-6.0) /HPF Salicylates (2.8-20.0) mg/dL Urine Opiates Screen Urine Methadone Screen Acetaminophen (10.0-30.0) ug/mL Ur Barbiturates Screen Ur Phencyclidine Scrn Ur Amphetamines Screen U Benzodiazepines Scrn Urine Cocaine Screen U Marijuana (THC) Screen Drugs of Abuse Note Plasma/Serum Alcohol < 0.01 (0-0.07) % 01/22/20 01/22/20 Range/Units 23:00 23:00 WBC (4.5-11.0) K/mm3 RBC (3.65-5.03) M/mm3 Hgb (11.8-15.2) gm/dl Hct (35.5-45.6) % MCV (84-94) fl MCH (28-32) pg MCHC (32-34) % RDW (13.2-15.2) % Plt Count (140-440) K/mm3 Lymph % (Auto) (13.4-35.0) % [place] % (Auto) (0.0-7.3) % Eos % (Auto) (0.0-4.3) % Baso % (Auto) (0.0-1.8) % Lymph # (1.2-5.4) K/mm3 [place] # (0.0-0.8) K/mm3 Eos # (0.0-0.4) K/mm3 Baso # (0.0-0.1) K/mm3 Seg Neutrophils % (40.0-70.0) % Seg Neutrophils # (1.8-7.7) K/mm3 Sodium (137-145) mmol/L Potassium (3.6-5.0) mmol/L Chloride (98-107) mmol/L Carbon Dioxide (22-30) mmol/L Anion Gap mmol/L BUN (9-20) mg/dL Creatinine (0.8-1.5) mg/dL Estimated GFR ml/min BUN/Creatinine Ratio % Glucose (75-100) mg/dL Calcium (8.4-10.2) mg/dL Magnesium (1.7-2.3) mg/dL Total Creatine Kinase (55-170) units/L Urine Color Yellow (Yellow) Urine Turbidity Clear (Clear) Urine pH 6.0 (5.0-7.0) Ur Specific [place] 1.019 (1.003-1.030) Urine Protein <15 mg/dl (Negative) mg/dL Urine Glucose (UA) Neg (Negative) mg/dL Urine Ketones Neg (Negative) mg/dL Urine Blood Neg (Negative) Urine Nitrite Neg (Negative) Urine Bilirubin Neg (Negative) Urine Urobilinogen 4.0 (<2.0) mg/dL Ur Leukocyte Esterase Neg (Negative) Urine WBC (Auto) 0.0 (0.0-6.0) /HPF Urine RBC (Auto) 2.0 (0.0-6.0) /HPF Salicylates (2.8-20.0) mg/dL Urine Opiates Screen Presumptive negative Urine Methadone Screen Presumptive negative Acetaminophen (10.0-30.0) ug/mL Ur Barbiturates Screen Presumptive negative Ur Phencyclidine Scrn Presumptive negative Ur Amphetamines Screen Presumptive negative U Benzodiazepines Scrn Presumptive negative Urine Cocaine Screen Presumptive negative U Marijuana (THC) Screen Presumptive negative Drugs of Abuse Note Disclamer Plasma/Serum Alcohol (0-0.07) % ED Disposition Clinical Impression: Schizophrenia Qualifiers: Schizophrenia type: other Qualified Code(s): F20.89 - Other schizophrenia; F20.8 - Other schizophrenia Disposition: DC-01 TO HOME OR SELFCARE Is pt being admited?: No Does the pt Need Aspirin: No Condition: Good Referrals: PRIMARY CAREMD [Primary Care Provider] - 3-5 Days <ROMIE TAPIA - Last Filed: 01/23/20 13:00> ED Review of Systems ROS: Stated complaint: MH Other details as noted in HPI ED Course Vital Signs 01/22/20 01/22/20 01/23/20 21:57 22:55 07:35 Temperature 98.2 F 97.5 F L Pulse Rate 99 H 70 Respiratory 18 18 20 Rate Blood Pressure 134/74 Blood Pressure 114/83 [Left] O2 Sat by Pulse 98 98 100 Oximetry 01/23/20 08:00 Temperature Pulse Rate Respiratory 20 Rate Blood Pressure Blood Pressure [Left] O2 Sat by Pulse 100 Oximetry - Reevaluation(s) Reevaluation #2: 01/23/20 13:00 IAN SAL Male : 1995 MedRec# [id number] 01/23/20 11:40 - Property Field Adjuster's Note by RADHAMES QUEVEDO Acct Num: [id number] : 1995 Patient Age: 24 Pt is a 24 yo AA male presenting to ED for reported SI with no plan. Pt is known to [facility] ED and was last seen 01/11 with an admission to [facility] for acute psychosis stabilization. During ax, pt presented as anxious, with congruent affect and exit seeking behaviors. Pt presents as grandiose, informing warehouse specialist that he does not have an emergency contact because no one is as intelligent or can speak as well as him. Pt appears to be in denial, as he is informing warehouse specialist that he no longer has Schizophrenia and that medication is not effective. Pt was recently stabilized and discharged from [facility] within the past 7 days. Pt is denying SI/HI and A/V H. Pt reports coming to the hospital because he had a conflict with "light skinned [place]." Pt then informed warehouse specialist that he is no longer upset and plans to discharge back home to [place]. Pt reports residing with grandmother. Pt receives monthly disability for Schizophrenia. Pt reports pending legal issues for assault. Pt denies issues with sleep and appetite. Recommendations: Pt is denying SI/HI and was recently discharged from stabilization within the past 7 days. Property Field Adjuster is recommending discharge, with f/u OP tx. Initialized on 01/23/20 11:40 - END OF NOTE Reevaluation #3: 01/23/20 13:00 Patient was seen by our mental health assessors and myself. Patient states he is no longer having any suicidal thoughts. He states he has a breeze card and is going to go to his grandmother's house in [place]. Patient was discharged home. ED Medical Decision Making - Lab Data Result diagrams: 01/22/20 22:16 01/22/20 22:16 Critical care attestation.: If time is entered above; I have spent that time in minutes in the direct care of this critically ill patient, excluding procedure time. ED Disposition Is pt being admited?: No Does the pt Need Aspirin: No Time of Disposition: 13:00
[2020-01-22 22:51] LABS: BUN/Creatinine Ratio 16; Blood Urea Nitrogen 16 mg/dL (9-20); Calcium 9.3 mg/dL (8.4-10.2); Hemolysis Index 10
[2020-01-22 23:17] LABS: Bilirubin,Urine NEG (Negative); Blood,Urine NEG (Negative); Color,Urine Yellow (Yellow); Protein,Urine <15 mg/dL mg/dL (Negative)
[2020-01-22 23:25] LABS: Amphetamine Screen,Urine PRESUMPTIVE NEGATIVE; Benzodiazepines Screen,Urine PRESUMPTIVE NEGATIVE; Cannabinoid Screen,Urine PRESUMPTIVE NEGATIVE; Cocaine Screen,Urine PRESUMPTIVE NEGATIVE; Methadone Screen,Urine PRESUMPTIVE NEGATIVE; Opiate Screen,Urine PRESUMPTIVE NEGATIVE
[2020-01-23 07:37] VITALS: BP 114/83
== END 2020-01-23 13:34 | disposition home or self-care (01) ==
LOC: ED 21:28 → EEVIPCON 21:28 → ED 01-23 13:34
DX: F20.9 Schizophrenia, unspecified (principal); R45.851 Suicidal ideations; J45.909 Unspecified asthma, uncomplicated
CPT/HCPCS: 36415; 80048; 80307; 80320; 81001; 82550; 83735; 85025; G0480

== ENCOUNTER 2020-03-15 00:03 | Emergency (ER) | payer MEDICARE ==
[2020-03-15] MEDS ORDERED: IBUPROFEN 600 MG TAB PO ONE (03:44)
--- NOTE | 2020-03-15 04:05 | Emergency Department Report ---
ED General Adult HPI - General Chief complaint: Headache Stated complaint: HEAD PAIN Time Seen by Provider: 03/15/20 03:29 Source: patient Mode of arrival: Ambulatory Limitations: No Limitations - History of Present Illness Initial comments: Patient is a 24-year-old male who presents emergency room with complaints of "left-sided head pain" that began tonight. He has not taken anything for the discomfort. he states he does not "have a headache just mild head pain." he denies any fall or injury or hitting his head. He denies any nausea, vomiting, diarrhea, vision changes, numbness, weakness, fever, neck stiffness. He states the pain is just mild. He denies any medication allergies. - Related Data Home Medications Medication Instructions Recorded Confirmed Last Taken Cariprazine HCl [Vraylar] 3 mg PO DAILY 01/09/18 01/12/20 01/08/18 Propranolol HCl 20 mg PO PRN PRN 01/09/18 01/12/20 01/08/18 Previous Rx's Medication Instructions Recorded Last Taken Type Mometasone Furoate [Elocon] 45 gm TP BID #1 cream..g. 03/02/19 Unknown Rx Allergies Allergy/AdvReac Type Severity Reaction Status Date / Time Fish Containing Products Allergy Rash Verified 12/28/19 14:09 peanut Allergy Swelling Verified 12/28/19 14:09 pork derived (porcine) Allergy Hives Verified 12/28/19 14:09 mometasone furoate AdvReac Unknown Verified 12/28/19 14:09 [From Nasonex] dairy AdvReac Swelling Uncoded 12/28/19 14:09 ED Review of Systems ROS: Stated complaint: HEAD PAIN Other details as noted in HPI Comment: All other systems reviewed and negative ED Past Medical Hx - Past Medical History Previous Medical History?: Yes Hx Psychiatric Treatment: Yes (SCHIZOPHRENIA/anxiety) Hx Asthma: Yes Additional medical history: ECZEMA - Surgical History Past Surgical History?: No - Social History Smoking Status: Never Smoker Substance Use Type: None - Medications Home Medications: Home Medications Medication Instructions Recorded Confirmed Last Taken Type Cariprazine HCl [Vraylar] 3 mg PO DAILY 01/09/18 01/12/20 01/08/18 History Propranolol HCl 20 mg PO PRN PRN 01/09/18 01/12/20 01/08/18 History Mometasone Furoate [Elocon] 45 gm TP BID #1 cream..g. 03/02/19 01/12/20 Unknown Rx ED Physical Exam - General Limitations: No Limitations General appearance: alert, in no apparent distress - Head Head exam: Present: atraumatic, normocephalic - Eye Eye exam: Present: normal appearance, PERRL, EOMI. Absent: periorbital swelling, periorbital tenderness Pupils: Present: normal accommodation - ENT ENT exam: Present: mucous membranes moist - Respiratory Respiratory exam: Present: normal lung sounds bilaterally. Absent: respiratory distress, wheezes, rales, rhonchi, stridor, chest wall tenderness, accessory muscle use, decreased breath sounds, prolonged expiratory - Cardiovascular Cardiovascular Exam: Present: regular rate, normal rhythm, normal heart sounds. Absent: systolic murmur, diastolic murmur, rubs, gallop - Neurological Exam Neurological exam: Present: alert, oriented X3, CN II-XII intact, normal gait. Absent: motor sensory deficit - Psychiatric Psychiatric exam: Present: normal affect, normal mood - Skin Skin exam: Present: warm, dry, intact ED Course Vital Signs 03/15/20 03/15/20 00:45 01:15 Temperature 99 F 98.7 F Pulse Rate 76 89 Respiratory 18 17 Rate Blood Pressure 132/77 105/59 [Right] O2 Sat by Pulse 98 97 Oximetry ED Medical Decision Making - Medical Decision Making Patient is a 24-year-old male who presents emergency room with complaints of "left-sided head pain" that began tonight. He has not taken anything for the discomfort. he states he does not "have a headache just mild head pain." he denies any fall or injury or hitting his head. He denies any nausea, vomiting, diarrhea, vision changes, numbness, weakness, fever, neck stiffness. He states the pain is just mild. He denies any medication allergies. Vitals are stable. No neurological deficits on exam. Patient given ibuprofen and he states that his pain is better and he is ready to go home. Patient is walking through the emergency department hallway. Advised patient strict return precautions. Advised patient to return to emergency room for any new or worsening symptoms. Patient is alert and oriented x4, no focal neuro deficits, no meningismus, vitals are stable He does not have any clinical signs of emergent intracranial condition his mucous membranes are moist, he appears well-hydrated Patient states he was feeling better after ibuprofen Medical screening examination performed and there is no threat to life or limb at this time Critical care attestation.: If time is entered above; I have spent that time in minutes in the direct care of this critically ill patient, excluding procedure time. ED Disposition Clinical Impression: Headache Qualifiers: Headache type: unspecified Headache chronicity pattern: acute headache Intractability: not intractable Qualified Code(s): R51 - Headache Disposition: MED SCREENING EXAM-LEFT Is pt being admited?: No Does the pt Need Aspirin: No Condition: Stable Instructions: Acute Headache (ED) Referrals: VIPIN WU MD [Staff Physician] - 3-5 Days [facility] [Provider Group] - 3-5 Days [facility] [Outside] - 3-5 Days Time of Disposition: 04:33 Print Language: SOUTH KOREAN
[2020-03-15 04:45] VITALS: BP 105/59
== END 2020-03-15 04:04 | disposition left against medical advice (07) ==
LOC: ED 00:03
DX: R05 Cough (principal); F20.9 Schizophrenia, unspecified; J45.909 Unspecified asthma, uncomplicated; Z79.899 Other long term (current) drug therapy; Z88.0 Allergy status to penicillin; Z91.010 Allergy to peanuts; Z91.013 Allergy to seafood; Z88.8 Allergy status to other drugs, medicaments and biological substances; Z53.21 Procedure and treatment not carried out due to patient leaving prior to being seen by health care provider

== ENCOUNTER 2020-03-27 01:06 | Emergency (ER) | payer MEDICARE ==
[2020-03-27 01:41] VITALS: BP 113/67
--- NOTE | 2020-03-27 04:05 | Emergency Department Report ---
Chief Complaint: Pain General Stated Complaint: BODY PAIN Time Seen by Provider: 03/27/20 03:53 - HPI History of Present Illness: 24-year-old -[place] male with a past medical history of schizophrenia anxiety and eczema presents to the emergency room for generalized body pains started several hours ago. Patient is taken nothing for his pain denies any cough fever no chills. - Exam Vital Signs: Vital Signs 03/27/20 01:10 Temperature 97.8 F Pulse Rate 87 Respiratory 18 Rate Blood Pressure 113/67 O2 Sat by Pulse 98 Oximetry Physical Exam: Patient is alert and oriented x3 no acute distress nontoxic in appearance Patient's vital signs are stable Amatory without difficulty MSE screening note: Focused history and physical exam performed. Due to findings the following was ordered: 24-year-old -[place]is[place] male with a past medical history of schizophrenia anxiety and eczema presents to the emergency room for generalized body pains st arted several hours ago. Patient is taken nothing for his pain denies any cough fever no chills. Recommend to take [id number] Tylenol or ibuprofen for pain management. Follow-up with the primary care provider. ED Disposition for [facility] [place] Disposition: Z-07 MED SCREENING EXAM-LEFT Is pt being admited?: No Does the pt Need Aspirin: No Condition: Stable Additional Instructions: Recommend to take [id number] Tylenol or ibuprofen for pain management. Follow-up with the primary care provider. Referrals: PRIMARY MD CELIA [Primary Care Provider] - 3-5 Days [facility] [Provider Group] - 3-5 Days
== END 2020-03-27 04:39 | disposition left against medical advice (07) ==
LOC: ED 01:06
DX: M79.10 Myalgia, unspecified site (principal); Z53.21 Procedure and treatment not carried out due to patient leaving prior to being seen by health care provider

== ENCOUNTER 2020-04-03 02:32 | Emergency (ER) | payer MEDICARE ==
[2020-04-03 03:25] LABS: Basophils % (Auto) 0.6 % (0.0-1.8); Eosinophils # (Auto) 0.3 K/mm3 (0.0-0.4); Eosinophils % (Auto) 6.5 % (0.0-4.3); Hematocrit 37.9 % (35.5-45.6); Hemoglobin 12.7 gm/dl (11.8-15.2); Lymphocytes # (Auto) 1.7 K/mm3 (1.2-5.4); Lymphocytes % (Auto) 40.9 % (13.4-35.0); Mean Corpuscular HGB Conc 33 % (32-34); Mean Corpuscular Volume 87 fl (84-94); Monocytes # (Auto) 0.2 K/mm3 (0.0-0.8); Monocytes % (Auto) 5.5 % (0.0-7.3); Platelet Count 196 K/mm3 (140-440); Red Blood Count 4.33 M/mm3 (3.65-5.03); Red Cell Distribution Width 13.4 % (13.2-15.2)
[2020-04-03 03:41] LABS: BUN/Creatinine Ratio 13; Blood Urea Nitrogen 10 mg/dL (9-20); Calcium 8.9 mg/dL (8.4-10.2); Hemolysis Index 5
[2020-04-03 03:53] LABS: Bilirubin,Urine NEG (Negative); Blood,Urine NEG (Negative); Color,Urine Yellow (Yellow); Mucus,Urine FEW /HPF; Protein,Urine <15 mg/dL mg/dL (Negative)
[2020-04-03 04:03] LABS: Amphetamine Screen,Urine PRESUMPTIVE NEGATIVE; Benzodiazepines Screen,Urine PRESUMPTIVE NEGATIVE; Cannabinoid Screen,Urine PRESUMPTIVE NEGATIVE; Cocaine Screen,Urine PRESUMPTIVE NEGATIVE; Methadone Screen,Urine PRESUMPTIVE NEGATIVE; Opiate Screen,Urine PRESUMPTIVE NEGATIVE
--- NOTE | 2020-04-03 05:14 | Emergency Department Report ---
<SANAM LUJANJim - Last Filed: 04/03/20 05:11> ED Psych HPI - General Chief Complaint: Psych Stated Complaint: ECZEMA Time Seen by Provider: 04/03/20 03:22 Source: patient Mode of arrival: Ambulatory - History of Present Illness Initial Comments: 24-year-old male with history of schizophrenia initially presented to ED requesting medication for his eczema. Patient then informed the triage nurse that he was having suicidal ideations while sitting in the waiting room. Patient denies any homicidal ideations or hallucinations. Patient does not have a plan for suicide. MD Complaint: suicidal ideation -: This morning Associated Psychiatric Symptoms: suicidal ideation History of same: Yes Improves With: none Worsens With: none Associated Symptoms: denies other symptoms Treatments Prior to Arrival: none If Self Harm: admits thoughts of - Related Data Home Medications Medication Instructions Recorded Confirmed Last Taken Cariprazine HCl [Vraylar] 3 mg PO DAILY 01/09/18 01/12/20 01/08/18 Propranolol HCl 20 mg PO PRN PRN 01/09/18 01/12/20 01/08/18 Previous Rx's Medication Instructions Recorded Last Taken Type Mometasone Furoate [Elocon] 45 gm TP BID #1 cream..g. 03/02/19 Unknown Rx Famotidine [Pepcid] 20 mg PO BID #20 tablet 03/23/20 Unknown Rx Ondansetron [Zofran ODT TAB] 8 mg PO Q8HR #10 tab.rapdis 03/23/20 Unknown Rx Allergies Allergy/AdvReac Type Severity Reaction Status Date / Time Fish Containing Products Allergy Rash Verified 12/28/19 14:09 peanut Allergy Swelling Verified 12/28/19 14:09 pork derived (porcine) Allergy Hives Verified 12/28/19 14:09 dairy AdvReac Swelling Uncoded 12/28/19 14:09 ED Review of Systems Comment: All other systems reviewed and negative Skin: rash Psychiatric: suicidal thoughts. denies: auditory hallucinations, visual hallucinations, homicidal thoughts ED Past Medical Hx - Past Medical History Previous Medical History?: Yes Hx Psychiatric Treatment: Yes (SCHIZOPHRENIA/anxiety) Hx Asthma: Yes Additional medical history: ECZEMA - Surgical History Past Surgical History?: No - Social History Smoking Status: Never Smoker Substance Use Type: None - Medications Home Medications: Home Medications Medication Instructions Recorded Confirmed Last Taken Type Cariprazine HCl [Vraylar] 3 mg PO DAILY 01/09/18 01/12/20 01/08/18 History Propranolol HCl 20 mg PO PRN PRN 01/09/18 01/12/20 01/08/18 History Mometasone Furoate [Elocon] 45 gm TP BID #1 cream..g. 03/02/19 01/12/20 Unknown Rx Famotidine [Pepcid] 20 mg PO BID #20 tablet 03/23/20 Unknown Rx Ondansetron [Zofran ODT TAB] 8 mg PO Q8HR #10 tab.rapdis 03/23/20 Unknown Rx ED Physical Exam - General Limitations: No Limitations General appearance: alert, in no apparent distress - Head Head exam: Present: atraumatic, normocephalic - Eye Eye exam: Present: normal appearance, EOMI - ENT ENT exam: Present: mucous membranes moist - Neck Neck exam: Present: normal inspection - Respiratory Respiratory exam: Present: normal lung sounds bilaterally. Absent: respiratory distress - Cardiovascular Cardiovascular Exam: Present: regular rate, normal rhythm - GI/Abdominal GI/Abdominal exam: Absent: distended - Extremities Exam Extremities exam: Present: normal inspection - Neurological Exam Neurological exam: Present: alert, oriented X3 - Psychiatric Psychiatric exam: Present: suicidal ideation - Skin Skin exam: Present: warm, dry, intact, normal color. Absent: rash ED Medical Decision Making - Lab Data Result diagrams: 04/03/20 03:06 04/03/20 03:06 ED Disposition Clinical Impression: Schizophrenia, Suicidal ideation Disposition: DC-01 TO HOME OR SELFCARE Condition: Stable Instructions: Suicide Prevention for Adults (ED) Additional Instructions: OUTPATIENT MENTAL HEALTH RESOURCES [facility], [facility] David French MD: [address] [place] [address] [place], [place] [id number] [facility]: [facility] [address] [place] [address] [place] [address] [phone] [facility]: [facility] Healthcare: [address] [place] [address] [address] [place] [address] [place] [address] [place] [address] [facility]: Lokesh Gutierrez MD: [address] [place], [place] [id number] [facility]: [address] [place] [address] [phone] IN CRISIS AND ACCESS LINE: Referrals: PRIMARY CARE, [Primary Care Provider] - 3-5 Days <DUANE MAK - Last Filed: 04/03/20 15:45> ED Review of Systems ROS: Stated complaint: ECZEMA Other details as noted in HPI ED Course Vital Signs 04/03/20 04/03/20 04/03/20 02:37 07:00 07:51 Temperature 98.3 F 98.3 F Pulse Rate 74 70 Respiratory 16 16 16 Rate Blood Pressure 107/68 Blood Pressure 125/76 [Left] O2 Sat by Pulse 98 98 98 Oximetry ED Medical Decision Making - Lab Data Result diagrams: 04/03/20 03:06 04/03/20 03:06 - Medical Decision Making Patient has been assessed by our psychiatric team. Psychiatric team advised patient to be discharged and follow-up as an outpatient. Patient currently denying any suicidal or homicidal ideation. No visual auditory hallucination. Patient is medically and psychiatrically stable for discharge. Critical care attestation.: If time is entered above; I have spent that time in minutes in the direct care of this critically ill patient, excluding procedure time. ED Disposition Is pt being admited?: No
[2020-04-03 11:13] VITALS: BP 125/76
== END 2020-04-03 16:11 | disposition home or self-care (01) ==
LOC: ED 02:32
DX: F20.9 Schizophrenia, unspecified (principal); F41.9 Anxiety disorder, unspecified; J45.909 Unspecified asthma, uncomplicated; Z79.899 Other long term (current) drug therapy; Z91.013 Allergy to seafood; Z91.010 Allergy to peanuts; Z91.011 Allergy to milk products; Z91.018 Allergy to other foods
CPT/HCPCS: 36415; 80048; 80307; 80320; 81001; 85025; G0480

== ENCOUNTER 2020-05-12 00:27 | Emergency (ER) | payer MEDICARE ==
[2020-05-12 00:32] VITALS: BP 97/58
== END 2020-05-12 05:10 | disposition left against medical advice (07) ==
LOC: ED 00:27
DX: M79.10 Myalgia, unspecified site (principal); Z53.21 Procedure and treatment not carried out due to patient leaving prior to being seen by health care provider

== ENCOUNTER 2020-05-23 09:36 | Emergency (ER) | payer MEDICARE ==
--- NOTE | 2020-05-23 11:14 | Emergency Department Report ---
HPI - General Chief Complaint: Psych Time Seen by Provider: 05/23/20 11:08 - [facility] HPI: Room 12 The patient is a 24-year-old male present with a chief complaint of suicidal ideation. The patient states since yesterday he is felt suicidal and has had auditory and visual hallucinations. The patient denies having a plan to harm himself or making any attempt. The patient states he has been off his psychiatric medications for several months. Patient states his auditory hallucinations are voices telling him to hurt people and his visual hallucinations include seeing things that are "annoying" to him. The patient will not go into details about these visual hallucinations. ED Past Medical Hx - Past Medical History Hx Psychiatric Treatment: Yes (SCHIZOPHRENIA/anxiety) Hx Asthma: Yes Additional medical history: ECZEMA - Surgical History Past Surgical History?: No - Family History Family history: no significant - Social History Smoking Status: Never Smoker Substance Use Type: None (Denies illicit drug use) - Medications Home Medications: Home Medications Medication Instructions Recorded Confirmed Last Taken Type Propranolol HCl 20 mg PO PRN PRN 01/09/18 05/23/20 01/08/18 History Famotidine [Pepcid] 20 mg PO BID #20 tablet 03/23/20 05/23/20 Unknown Rx ED Review of Systems ROS: Stated complaint: SUICIDAL THOUGHTS Other details as noted in HPI Constitutional: no symptoms reported Respiratory: no symptoms reported Endocrine: no symptoms reported Psychiatric: auditory hallucinations, visual hallucinations, suicidal thoughts Physical Exam - Physical Exam Vital Signs: Vital Signs 05/23/20 10:38 Temperature 97.5 F L Pulse Rate 69 Respiratory 16 Rate Blood Pressure 113/78 O2 Sat by Pulse 100 Oximetry Physical Exam: GENERAL: The patient is well-developed well-nourished male lying on chair not appearing to be in acute distress. [] HEENT: Normocephalic. Atraumatic. Extraocular motions are intact. Patient has moist mucous membranes. NECK: Supple. Trachea midline CHEST/LUNGS: Clear to auscultation. There is no respiratory distress noted. HEART/CARDIOVASCULAR: Regular. There is no tachycardia. There is no gallop rub or murmur. ABDOMEN: Abdomen is soft, nontender. Patient has normal bowel sounds. There is no abdominal distention. SKIN: There is no rash. There is no diaphoresis. NEURO: The patient is awake, alert, and oriented. The patient is cooperative. The patient has normal speech MUSCULOSKELETAL: There is no evidence of acute injury. ED Course Vital Signs 05/23/20 10:38 Temperature 97.5 F L Pulse Rate 69 Respiratory 16 Rate Blood Pressure 113/78 O2 Sat by Pulse 100 Oximetry ED Medical Decision Making - Lab Data Result diagrams: 05/23/20 12:03 05/23/20 12:03 Laboratory Tests 05/23/20 05/23/20 05/23/20 12:00 12:00 12:03 WBC RBC Hgb Hct MCV MCH MCHC RDW Plt Count Lymph % (Auto) [place] % (Auto) Eos % (Auto) Baso % (Auto) Lymph # [place] # Eos # Baso # Seg Neutrophils % Seg Neutrophils # Sodium Potassium Chloride Carbon Dioxide Anion Gap BUN Creatinine Estimated GFR BUN/Creatinine Ratio Glucose Calcium Urine Color Yellow Urine Turbidity Clear Urine pH 5.0 Ur Specific [place] 1.030 Urine Protein <15 mg/dl Urine Glucose (UA) Neg Urine Ketones Neg Urine Blood Neg Urine Nitrite Neg Urine Bilirubin Neg Urine Urobilinogen < 2.0 Ur Leukocyte Esterase Neg Urine WBC (Auto) 1.0 Urine RBC (Auto) 4.0 U Epithel Cells (Auto) < 1.0 Calcium Oxalate Crystal 1+ Urine Mucus 1+ Salicylates < 0.3 L Urine Opiates Screen Negative Urine Methadone Screen Negative Acetaminophen Ur Barbiturates Screen Negative Ur Phencyclidine Scrn Negative Ur Amphetamines Screen Negative U Benzodiazepines Scrn Negative Urine Cocaine Screen Negative U Marijuana (THC) Screen Negative Drugs of Abuse Note Disclamer Plasma/Serum Alcohol 05/23/20 05/23/20 05/23/20 12:03 12:03 12:03 WBC RBC Hgb Hct MCV MCH MCHC RDW Plt Count Lymph % (Auto) [place] % (Auto) Eos % (Auto) Baso % (Auto) Lymph # [place] # Eos # Baso # Seg Neutrophils % Seg Neutrophils # Sodium 140 Potassium 4.4 Chloride 102.0 Carbon Dioxide 25 Anion Gap 17 BUN 16 Creatinine 1.0 Estimated GFR > 60 BUN/Creatinine Ratio 16 Glucose 87 Calcium 9.6 Urine Color Urine Turbidity Urine pH Ur Specific [place] Urine Protein Urine Glucose (UA) Urine Ketones Urine Blood Urine Nitrite Urine Bilirubin Urine Urobilinogen Ur Leukocyte Esterase Urine WBC (Auto) Urine RBC (Auto) U Epithel Cells (Auto) Calcium Oxalate Crystal Urine Mucus Salicylates Urine Opiates Screen Urine Methadone Screen Acetaminophen < 5.0 L Ur Barbiturates Screen Ur Phencyclidine Scrn Ur Amphetamines Screen U Benzodiazepines Scrn Urine Cocaine Screen U Marijuana (THC) Screen Drugs of Abuse Note Plasma/Serum Alcohol < 0.01 05/23/20 12:03 WBC 3.7 L RBC 5.12 H Hgb 14.7 Hct 45.6 MCV 89 MCH 29 MCHC 32 RDW 13.7 Plt Count 167 Lymph % (Auto) Perianesthesia Rn [place] % (Auto) Perianesthesia Rn Eos % (Auto) Perianesthesia Rn Baso % (Auto) Perianesthesia Rn Lymph # Perianesthesia Rn [place] # Perianesthesia Rn Eos # Perianesthesia Rn Baso # Perianesthesia Rn Seg Neutrophils % Perianesthesia Rn Seg Neutrophils # Perianesthesia Rn Sodium Potassium Chloride Carbon Dioxide Anion Gap BUN Creatinine Estimated GFR BUN/Creatinine Ratio Glucose Calcium Urine Color Urine Turbidity Urine pH Ur Specific Pand[place] Urine Protein Urine Glucose (UA) Urine Ketones Urine Blood Urine Nitrite Urine Bilirubin Urine Urobilinogen Ur Leukocyte Esterase Urine WBC (Auto) Urine RBC (Auto) U Epithel Cells (Auto) Calcium Oxalate Crystal Urine Mucus Salicylates Urine Opiates Screen Urine Methadone Screen Acetaminophen Ur Barbiturates Screen Ur Phencyclidine Scrn Ur Amphetamines Screen U Benzodiazepines Scrn Urine Cocaine Screen U Marijuana (THC) Screen Drugs of Abuse Note Plasma/Serum Alcohol - Differential Diagnosis Suicidal ideation, schizophrenia Critical care attestation.: If time is entered above; I have spent that time in minutes in the direct care of this critically ill patient, excluding procedure time. ED Disposition Clinical Impression: Schizophrenia, Suicidal ideation Disposition: DC/TX-65 PSY HOSP/PSY UNIT Is pt being admited?: No Does the pt Need Aspirin: No Condition: Stable Referrals: PRIMARY CARE, [Primary Care Provider] - 3-5 Days Time of Disposition: 15:27 (Awaiting placement)
[2020-05-23 12:18] LABS: Bilirubin,Urine NEG (Negative); Blood,Urine NEG (Negative); Calcium Oxalate Crystals,Urine 1+; Color,Urine Yellow (Yellow); Mucus,Urine 1+ /HPF; Protein,Urine <15 mg/dL mg/dL (Negative); Urobilinogen,Urine < 2.0 mg/dL (<2.0)
[2020-05-23 12:27] LABS: Amphetamine Screen,Urine Negative; Benzodiazepines Screen,Urine Negative; Cannabinoid Screen,Urine Negative; Cocaine Screen,Urine Negative; Methadone Screen,Urine Negative; Opiate Screen,Urine Negative
[2020-05-23 12:31] LABS: Hematocrit 45.6 % (35.5-45.6); Hemoglobin 14.7 gm/dl (11.8-15.2); Mean Corpuscular HGB Conc 32 % (32-34); Mean Corpuscular Volume 89 fl (84-94); Platelet Count 167 K/mm3 (140-440); Red Blood Count 5.12 M/mm3 (3.65-5.03); Red Cell Distribution Width 13.7 % (13.2-15.2)
[2020-05-23 12:39] LABS: BUN/Creatinine Ratio 16; Blood Urea Nitrogen 16 mg/dL (9-20); Calcium 9.6 mg/dL (8.4-10.2); Hemolysis Index 39
[2020-05-24 08:38] VITALS: BP 110/61
== END 2020-05-24 18:08 ==
LOC: ED 09:36
DX: F20.9 Schizophrenia, unspecified (principal); Z79.899 Other long term (current) drug therapy; Z91.013 Allergy to seafood; Z88.8 Allergy status to other drugs, medicaments and biological substances
CPT/HCPCS: 36415; 80048; 80307; 80320; 81001; 85025; G0480

== ENCOUNTER 2020-06-05 00:41 | Emergency (ER) | payer MEDICARE ==
[2020-06-05] MEDS ORDERED: ACETAMINOPHEN 500 MG TAB PO ONE (01:59)
[2020-06-05 02:36] VITALS: BP 124/83
--- NOTE | 2020-06-05 02:39 | Emergency Department Report ---
ED General Adult HPI - General Chief complaint: Pain General Stated complaint: BODY PAIN Source: patient Mode of arrival: Ambulatory Limitations: No Limitations - History of Present Illness Initial comments: Patient is a 24-year-old -Irish male with a history of asthma and schizophrenia, anxiety and depression who presents to the ED with complaint of diffuse body aches and pains with joint pains for the last 12 hours after walking for a long time and a long distance. Patient states that he has not taken any medication before coming to the ED and would like to take some medication for pain. Patient denies fall, traumatic injury, headache, dizziness, syncope, chest pain, lightheadedness, nausea and vomiting, shortness of breath, fever and chills or traumatic injury and heavy lifting. MD Complaint: diffuse joint and body aches -: Sudden, hour(s) (12) Location: back, upper extremity, lower extremity Radiation: non-radiation Severity scale (0 -10): 5 Quality: aching, sharp Consistency: constant Improves with: none Worsens with: movement Associated Symptoms: denies: denies other symptoms, confusion, chest pain, cough, diaphoresis, headaches, loss of appetite, malaise, nausea/vomiting, rash, shortness of breath, syncope, weakness Treatments Prior to Arrival: none - Related Data Home Medications Medication Instructions Recorded Confirmed Last Taken Propranolol HCl 20 mg PO PRN PRN 01/09/18 05/23/20 01/08/18 Previous Rx's Medication Instructions Recorded Last Taken Type Famotidine [Pepcid] 20 mg PO BID #20 tablet 03/23/20 Unknown Rx Ketorolac [Toradol] 10 mg PO Q6H PRN #20 tablet 06/01/20 Unknown Rx Acetaminophen [Tylenol] 500 mg PO Q6HR PRN #20 tablet 06/05/20 Unknown Rx Allergies Allergy/AdvReac Type Severity Reaction Status Date / Time Fish Containing Products Allergy Rash Verified 05/23/20 12:04 peanut Allergy Swelling Verified 05/23/20 12:04 pork derived (porcine) Allergy Hives Verified 05/23/20 12:04 dairy AdvReac Swelling Uncoded 05/23/20 12:04 ED Review of Systems ROS: Stated complaint: BODY PAIN Other details as noted in HPI Constitutional: denies: chills, fever Eyes: denies: eye pain, eye discharge, vision change ENT: denies: ear pain, throat pain Respiratory: denies: cough, shortness of breath, wheezing Cardiovascular: denies: chest pain, palpitations Endocrine: no symptoms reported Gastrointestinal: denies: abdominal pain, nausea, diarrhea Genitourinary: denies: urgency, dysuria Musculoskeletal: back pain, arthralgia, myalgia. denies: joint swelling Skin: denies: rash, lesions Neurological: denies: headache, weakness, paresthesias Psychiatric: denies: anxiety, depression Hematological/Lymphatic: denies: easy bleeding, easy bruising ED Past Medical Hx - Past Medical History Previous Medical History?: Yes Hx Psychiatric Treatment: Yes (SCHIZOPHRENIA/anxiety) Hx Asthma: Yes Additional medical history: ECZEMA - Surgical History Past Surgical History?: No - Social History Smoking Status: Never Smoker Substance Use Type: None - Medications Home Medications: Home Medications Medication Instructions Recorded Confirmed Last Taken Type Propranolol HCl 20 mg PO PRN PRN 01/09/18 05/23/20 01/08/18 History Famotidine [Pepcid] 20 mg PO BID #20 tablet 03/23/20 05/23/20 Unknown Rx Ketorolac [Toradol] 10 mg PO Q6H PRN #20 tablet 06/01/20 Unknown Rx Acetaminophen [Tylenol] 500 mg PO Q6HR PRN #20 tablet 06/05/20 Unknown Rx ED Physical Exam - General Limitations: No Limitations General appearance: alert, in no apparent distress - Head Head exam: Present: atraumatic, normocephalic, normal inspection - Eye Eye exam: Present: normal appearance, PERRL, EOMI Pupils: Present: normal accommodation - ENT ENT exam: Present: normal exam, normal orophraynx, mucous membranes moist, TM's normal bilaterally, normal external ear exam - Neck Neck exam: Present: normal inspection, full ROM - Respiratory Respiratory exam: Present: normal lung sounds bilaterally. Absent: respiratory distress, wheezes, rales, chest wall tenderness, accessory muscle use, decreased breath sounds - Cardiovascular Cardiovascular Exam: Present: normal rhythm, tachycardia, normal heart sounds. Absent: systolic murmur, diastolic murmur, rubs, gallop - GI/Abdominal GI/Abdominal exam: Present: soft, normal bowel sounds. Absent: tenderness, guarding, rebound, hyperactive bowel sounds, hypoactive bowel sounds - Extremities Exam Extremities exam: Present: normal inspection, full ROM, normal capillary refill - Back Exam Back exam: Present: normal inspection, full ROM. Absent: tenderness, CVA tenderness (R), CVA tenderness (L), muscle spasm, vertebral tenderness - Neurological Exam Neurological exam: Present: alert, oriented X3, CN II-XII intact, normal gait, reflexes normal - Psychiatric Psychiatric exam: Present: normal affect, normal mood - Skin Skin exam: Present: warm, dry, intact, normal color. Absent: rash ED Medical Decision Making - Medical Decision Making This is a 24-year-old -Irish male with a history of asthma and schizophrenia, anxiety and depression who presents to the ED with complaint of diffuse body aches and pains with joint pains for the last 12 hours after walking for a long time and a long distance. Patient states that he has not taken any medication before coming to the ED and would like to take some medication for pain. In the ED, patient is alert and oriented x3 and is not in distress. Patient was treated for pain in the ED and discharged home on medications for pain as needed. Patient was advised to take ibuprofen as needed for pain. Patient was advised return to the ED immediately if symptoms get worse, otherwise follow-up with his primary care physician as needed. - Differential Diagnosis Muscle spasm; muscle strains; Muscle aches Critical care attestation.: If time is entered above; I have spent that time in minutes in the direct care of this critically ill patient, excluding procedure time. ED Disposition Clinical Impression: Muscle strain, Generalized muscle ache Disposition: DC-01 TO HOME OR SELFCARE Is pt being admited?: No Does the pt Need Aspirin: No Condition: Stable Instructions: Muscle Strain (ED), Arthralgia (ED) Additional Instructions: Take stis-you-sdtxccb pain medications like ibuprofen or Tylenol as needed. Follow-up with your primary care physician as needed. Return to the ED immediately if symptoms get worse. Prescriptions: Acetaminophen [Tylenol] 500 mg PO Q6HR PRN #20 tablet PRN Reason: Pain , Severe (7-10) Referrals: [facility] [Outside] - 3-5 Days Time of Disposition: 02:39 Print Language: JORDANIAN
== END 2020-06-05 03:10 | disposition home or self-care (01) ==
LOC: ED 00:41
DX: T14.8XXA Other injury of unspecified body region, initial encounter (principal); F20.9 Schizophrenia, unspecified; J45.909 Unspecified asthma, uncomplicated; Z98.890 Other specified postprocedural states; Z79.899 Other long term (current) drug therapy; Z91.013 Allergy to seafood; Z91.010 Allergy to peanuts; Z88.8 Allergy status to other drugs, medicaments and biological substances; X58.XXXA Exposure to other specified factors, initial encounter; Y93.89 Activity, other specified; Y92.89 Other specified places as the place of occurrence of the external cause; Y99.8 Other external cause status
CPT/HCPCS: 99282

== ENCOUNTER 2020-06-06 23:50 | Emergency (ER) | payer MEDICARE ==
[2020-06-07 05:55] VITALS: BP 113/60
== END 2020-06-07 08:20 | disposition left against medical advice (07) ==
LOC: ED 23:50
DX: R52 Pain, unspecified (principal); Z53.21 Procedure and treatment not carried out due to patient leaving prior to being seen by health care provider

== ENCOUNTER 2020-06-28 09:36 | Emergency (ER) | payer MEDICARE ==
[2020-06-28 10:50] LABS: Bilirubin,Urine NEG (Negative); Blood,Urine NEG (Negative); Color,Urine Yellow (Yellow); Mucus,Urine FEW /HPF; Protein,Urine <15 mg/dL mg/dL (Negative); RBC,Urine < 1.0 /HPF (0.0-6.0); Urobilinogen,Urine < 2.0 mg/dL (<2.0)
[2020-06-28 10:56] LABS: WBC,Urine < 1.0 /HPF (0.0-6.0)
[2020-06-28 10:58] LABS: Amphetamine Screen,Urine Negative; Benzodiazepines Screen,Urine Negative; Cannabinoid Screen,Urine Negative; Cocaine Screen,Urine Negative; Methadone Screen,Urine Negative; Opiate Screen,Urine Negative
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
[2020-06-28 11:08] LABS: Basophils % (Auto) 0.2 % (0.0-1.8); Eosinophils % (Auto) 0.5 % (0.0-4.3); Hematocrit 42.5 % (35.5-45.6); Hemoglobin 14.1 gm/dl (11.8-15.2); Lymphocytes # (Auto) 0.9 K/mm3 (1.2-5.4); Lymphocytes % (Auto) 15.6 % (13.4-35.0); Mean Corpuscular HGB Conc 33 % (32-34); Mean Corpuscular Volume 88 fl (84-94); Monocytes # (Auto) 0.2 K/mm3 (0.0-0.8); Monocytes % (Auto) 3.4 % (0.0-7.3); Platelet Count 190 K/mm3 (140-440); Red Blood Count 4.84 M/mm3 (3.65-5.03); Red Cell Distribution Width 13.5 % (13.2-15.2)
[2020-06-28 11:21] LABS: BUN/Creatinine Ratio 12; Blood Urea Nitrogen 11 mg/dL (9-20); Calcium 10.2 mg/dL (8.4-10.2); Hemolysis Index 1
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
[2020-06-29 08:09] VITALS: BP 103/63
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
== END 2020-06-29 10:03 ==
LOC: ED 09:36
DX: R45.851 Suicidal ideations (principal); R45.850 Homicidal ideations; F20.9 Schizophrenia, unspecified; J45.909 Unspecified asthma, uncomplicated; S09.90XA Unspecified injury of head, initial encounter; Z79.899 Other long term (current) drug therapy; Z91.013 Allergy to seafood; Z91.010 Allergy to peanuts; Z91.011 Allergy to milk products; Z91.018 Allergy to other foods; Z20.828 Contact with and (suspected) exposure to other viral communicable diseases
CPT/HCPCS: 36415; 70450; 80048; 80307; 81001; 85025; 99285; U0003; 80320; G0480

== ENCOUNTER 2020-07-06 21:55 | Emergency (ER) | payer MEDICARE ==
[2020-07-06 23:15] LABS: Hematocrit 41.9 % (35.5-45.6); Hemoglobin 14.1 gm/dl (11.8-15.2); Mean Corpuscular HGB Conc 34 % (32-34); Mean Corpuscular Volume 87 fl (84-94); Platelet Count 206 K/mm3 (140-440); Red Blood Count 4.83 M/mm3 (3.65-5.03); Red Cell Distribution Width 13.6 % (13.2-15.2)
--- NOTE | 2020-07-06 23:30 | Emergency Department Report ---
ED Psych HPI - General Chief Complaint: Psych Stated Complaint: SI Time Seen by Provider: 07/06/20 23:19 Source: patient Mode of arrival: Ambulatory Limitations: No Limitations - History of Present Illness Initial Comments: 24-year old male with a past medical history of schizophrenia, anxiety, and asthma presents to the hospital with complains of suicidal homicidal ideation x1 day. Patient states people are getting on his nerves but does not mention anyone in particular. Currently is at his grandmother. Patient has a plan to shoot himself and others. He denies plan to kill his grandmother. He has hearing voices telling him to shoot himself and other people. Denies history of previous suicidal attempt. Denies access to a gun. He has been noncompliant with his psychiatric medications x1 to 2 weeks because they "do not work". Denies physical complaints. He denies alcohol or drug abuse - Related Data Home Medications Medication Instructions Recorded Confirmed Last Taken Propranolol HCl 20 mg PO PRN PRN 01/09/18 06/16/20 01/08/18 traZODone [Desyrel] 50 mg PO QHS 06/16/20 06/16/20 Unknown Allergies Allergy/AdvReac Type Severity Reaction Status Date / Time Fish Containing Products Allergy Rash Verified 05/23/20 12:04 peanut Allergy Swelling Verified 05/23/20 12:04 pork derived (porcine) Allergy Hives Verified 05/23/20 12:04 dairy AdvReac Swelling Uncoded 05/23/20 12:04 ED Review of Systems ROS: Stated complaint: SI Other details as noted in HPI Comment: All other systems reviewed and negative ED Past Medical Hx - Past Medical History Previous Medical History?: Yes Hx Psychiatric Treatment: Yes (SCHIZOPHRENIA/anxiety) Hx Asthma: Yes Additional medical history: ECZEMA - Surgical History Past Surgical History?: No - Social History Smoking Status: Never Smoker Substance Use Type: None - Medications Home Medications: Home Medications Medication Instructions Recorded Confirmed Last Taken Type Propranolol HCl 20 mg PO PRN PRN 01/09/18 06/16/20 01/08/18 History traZODone [Desyrel] 50 mg PO QHS 06/16/20 06/16/20 Unknown History ED Physical Exam - General Limitations: No Limitations - Other Other exam information: General: No acute distress Head: Atraumatic Eyes: normal appearance ENT: Moist mucous membranes Neck: Normal appearance, no midline tenderness Chest: Clear to auscultation bilaterally CV: Regular rate and rhythm Abdomen: Soft, normal bowel sounds, nontender, nondistended, no rebound or guarding Back: Normal inspection Extremity: Normal inspection, full range of motion Neuro: Alert O x 3, no facial asymmetry, speech clear, no gross motor sensory d eficit Psych: Appropriate behavior Skin: No rash ED Course Vital Signs 07/06/20 07/06/20 07/07/20 22:51 22:56 02:44 Temperature 98.4 F 97.4 F L Pulse Rate 102 H 84 Respiratory 16 18 Rate Blood Pressure 106/70 Blood Pressure 100/48 [Left] O2 Sat by Pulse 96 100 Oximetry ED Medical Decision Making - Lab Data Result diagrams: 07/06/20 23:00 07/06/20 23:00 Lab Results 07/06/20 07/06/20 07/06/20 Range/Units 23:00 23:00 23:00 WBC (4.5-11.0) K/mm3 RBC (3.65-5.03) M/mm3 Hgb (11.8-15.2) gm/dl Hct (35.5-45.6) % MCV (84-94) fl MCH (28-32) pg MCHC (32-34) % RDW (13.2-15.2) % Plt Count (140-440) K/mm3 Add Manual Diff Total Counted Seg Neuts % (Manual) (40.0-70.0) % Band Neutrophils % % Lymphocytes % (Manual) (13.4-35.0) % Reactive Lymphs % (Man) % Monocytes % (Manual) (0.0-7.3) % Eosinophils % (Manual) (0.0-4.3) % Basophils % (Manual) (0.0-1.8) % Metamyelocytes % % Myelocytes % % Promyelocytes % % Blast Cells % % Nucleated RBC % Seg Neutrophils # Man (1.8-7.7) K/mm3 Band Neutrophils # K/mm3 Lymphocytes # (Manual) (1.2-5.4) K/mm3 Abs React Lymphs (Man) K/mm3 Monocytes # (Manual) (0.0-0.8) K/mm3 Eosinophils # (Manual) (0.0-0.4) K/mm3 Basophils # (Manual) (0.0-0.1) K/mm3 Metamyelocytes # K/mm3 Myelocytes # K/mm3 Promyelocytes # K/mm3 Blast Cells # K/mm3 WBC Morphology Hypersegmented Neuts Hyposegmented Neuts Hypogranular Neuts Smudge Cells Toxic Granulation Toxic Vacuolation Dohle Bodies Pelger-Huet Anomaly [place] Rods Platelet Estimate Clumped Platelets Plt Clumps, EDTA Large Platelets Giant Platelets Platelet Satelliting Plt Morphology Comment RBC Morphology Dimorphic RBCs Polychromasia Hypochromasia Poikilocytosis Anisocytosis Microcytosis Macrocytosis Spherocytes Pappenheimer Bodies Sickle Cells Target Cells Tear Drop Cells Ovalocytes Helmet Cells [place] Bodies [place] Rings Crista Cells Bite Cells Crenated Cell Elliptocytes Acanthocytes (Spur) Rouleaux Hemoglobin C Crystals Schistocytes Malaria parasites [place] Bodies Hem Pathologist Commnt Sodium 139 (137-145) mmol/L Potassium 3.7 (3.6-5.0) mmol/L Chloride 96.8 L (98-107) mmol/L Carbon Dioxide 26 (22-30) mmol/L Anion Gap 20 mmol/L BUN 16 (9-20) mg/dL Creatinine 0.9 (0.8-1.3) mg/dL Estimated GFR > 60 ml/min BUN/Creatinine Ratio 18 % Glucose 140 H (75-100) mg/dL Calcium 9.7 (8.4-10.2) mg/dL Urine Color (Yellow) Urine Turbidity (Clear) Urine pH (5.0-7.0) Ur Specific [place] (1.003-1.030) Urine Protein (Negative) mg/dL Urine Glucose (UA) (Negative) mg/dL Urine Ketones (Negative) mg/dL Urine Blood (Negative) Urine Nitrite (Negative) Urine Bilirubin (Negative) Urine Urobilinogen (<2.0) mg/dL Ur Leukocyte Esterase (Negative) Urine WBC (Auto) (0.0-6.0) /HPF Urine RBC (Auto) (0.0-6.0) /HPF Urine Mucus /HPF Salicylates < 0.3 L (2.8-20.0) mg/dL Urine Opiates Screen Urine Methadone Screen Acetaminophen 5.0 L (10.0-30.0) ug/mL Ur Barbiturates Screen Ur Phencyclidine Scrn Ur Amphetamines Screen U Benzodiazepines Scrn Urine Cocaine Screen U Marijuana (THC) Screen Drugs of Abuse Note Plasma/Serum Alcohol (0-0.07) % 07/06/20 07/06/20 07/06/20 Range/Units 23:00 23:00 23:05 WBC 5.8 (4.5-11.0) K/mm3 RBC 4.83 (3.65-5.03) M/mm3 Hgb 14.1 (11.8-15.2) gm/dl Hct 41.9 (35.5-45.6) % MCV 87 (84-94) fl MCH 29 (28-32) pg MCHC 34 (32-34) % RDW 13.6 (13.2-15.2) % Plt Count 206 (140-440) K/mm3 Add Manual Diff Complete Total Counted 100 Seg Neuts % (Manual) 81.0 H (40.0-70.0) % Band Neutrophils % 0 % Lymphocytes % (Manual) 9.0 L (13.4-35.0) % Reactive Lymphs % (Man) 0 % Monocytes % (Manual) 3.0 (0.0-7.3) % Eosinophils % (Manual) 7.0 H (0.0-4.3) % Basophils % (Manual) 0 (0.0-1.8) % Metamyelocytes % 0 % Myelocytes % 0 % Promyelocytes % 0 % Blast Cells % 0 % Nucleated RBC % Not Reportable Seg Neutrophils # Man 4.7 (1.8-7.7) K/mm3 Band Neutrophils # 0.0 K/mm3 Lymphocytes # (Manual) 0.5 L (1.2-5.4) K/mm3 Abs React Lymphs (Man) 0.0 K/mm3 Monocytes # (Manual) 0.2 (0.0-0.8) K/mm3 Eosinophils # (Manual) 0.4 (0.0-0.4) K/mm3 Basophils # (Manual) 0.0 (0.0-0.1) K/mm3 Metamyelocytes # 0.0 K/mm3 Myelocytes # 0.0 K/mm3 Promyelocytes # 0.0 K/mm3 Blast Cells # 0.0 K/mm3 WBC Morphology Not Reportable Hypersegmented Neuts Not Reportable Hyposegmented Neuts Not Reportable Hypogranular Neuts Not Reportable Smudge Cells Not Reportable Toxic Granulation Not Reportable Toxic Vacuolation Not Reportable Dohle Bodies Not Reportable Pelger-Huet Anomaly Not Reportable [place] Rods Not Reportable Platelet Estimate Consistent w auto Clumped Platelets Not Reportable Plt Clumps, EDTA Not Reportable Large Platelets Not Reportable Giant Platelets Not Reportable Platelet Satelliting Not Reportable Plt Morphology Comment Not Reportable RBC Morphology Not Reportable Dimorphic RBCs Not Reportable Polychromasia Not Reportable Hypochromasia Not Reportable Poikilocytosis Not Reportable Anisocytosis Not Reportable Microcytosis Not Reportable Macrocytosis Not Reportable Spherocytes Not Reportable Pappenheimer Bodies Not Reportable Sickle Cells Not Reportable Target Cells Not Reportable Tear Drop Cells Not Reportable Ovalocytes Not Reportable Helmet Cells Not Reportable [place] Bodies Not Reportable [place] Rings Not Reportable Crista Cells Not Reportable Bite Cells Not Reportable Crenated Cell Not Reportable Elliptocytes Not Reportable Acanthocytes (Spur) Not Reportable Rouleaux Not Reportable Hemoglobin C Crystals Not Reportable Schistocytes Not Reportable Malaria parasites Not Reportable [place] Bodies Not Reportable Hem Pathologist Commnt No Sodium (137-145) mmol/L Potassium (3.6-5.0) mmol/L Chloride (98-107) mmol/L Carbon Dioxide (22-30) mmol/L Anion Gap mmol/L BUN (9-20) mg/dL Creatinine (0.8-1.3) mg/dL Estimated GFR ml/min BUN/Creatinine Ratio % Glucose (75-100) mg/dL Calcium (8.4-10.2) mg/dL Urine Color Yellow (Yellow) Urine Turbidity Clear (Clear) Urine pH 5.0 (5.0-7.0) Ur Specific [place] 1.028 (1.003-1.030) Urine Protein <15 mg/dl (Negative) mg/dL Urine Glucose (UA) Neg (Negative) mg/dL Urine Ketones Neg (Negative) mg/dL Urine Blood Neg (Negative) Urine Nitrite Neg (Negative) Urine Bilirubin Neg (Negative) Urine Urobilinogen < 2.0 (<2.0) mg/dL Ur Leukocyte Esterase Neg (Negative) Urine WBC (Auto) 1.0 (0.0-6.0) /HPF Urine RBC (Auto) 1.0 (0.0-6.0) /HPF Urine Mucus 1+ /HPF Salicylates (2.8-20.0) mg/dL Urine Opiates Screen Urine Methadone Screen Acetaminophen (10.0-30.0) ug/mL Ur Barbiturates Screen Ur Phencyclidine Scrn Ur Amphetamines Screen U Benzodiazepines Scrn Urine Cocaine Screen U Marijuana (THC) Screen Drugs of Abuse Note Plasma/Serum Alcohol < 0.01 (0-0.07) % 07/06/20 Range/Units 23:05 WBC (4.5-11.0) K/mm3 RBC (3.65-5.03) M/mm3 Hgb (11.8-15.2) gm/dl Hct (35.5-45.6) % MCV (84-94) fl MCH (28-32) pg MCHC (32-34) % RDW (13.2-15.2) % Plt Count (140-440) K/mm3 Add Manual Diff Total Counted Seg Neuts % (Manual) (40.0-70.0) % Band Neutrophils % % Lymphocytes % (Manual) (13.4-35.0) % Reactive Lymphs % (Man) % Monocytes % (Manual) (0.0-7.3) % Eosinophils % (Manual) (0.0-4.3) % Basophils % (Manual) (0.0-1.8) % Metamyelocytes % % Myelocytes % % Promyelocytes % % Blast Cells % % Nucleated RBC % Seg Neutrophils # Man (1.8-7.7) K/mm3 Band Neutrophils # K/mm3 Lymphocytes # (Manual) (1.2-5.4) K/mm3 Abs React Lymphs (Man) K/mm3 Monocytes # (Manual) (0.0-0.8) K/mm3 Eosinophils # (Manual) (0.0-0.4) K/mm3 Basophils # (Manual) (0.0-0.1) K/mm3 Metamyelocytes # K/mm3 Myelocytes # K/mm3 Promyelocytes # K/mm3 Blast Cells # K/mm3 WBC Morphology Hypersegmented Neuts Hyposegmented Neuts Hypogranular Neuts Smudge Cells Toxic Granulation Toxic Vacuolation Dohle Bodies Pelger-Huet Anomaly [place] Rods Platelet Estimate Clumped Platelets Plt Clumps, EDTA Large Platelets Giant Platelets Platelet Satelliting Plt Morphology Comment RBC Morphology Dimorphic RBCs Polychromasia Hypochromasia Poikilocytosis Anisocytosis Microcytosis Macrocytosis Spherocytes Pappenheimer Bodies Sickle Cells Target Cells Tear Drop Cells Ovalocytes Helmet Cells [place] Bodies [place] Rings [place] Cells Bite Cells Crenated Cell Elliptocytes Acanthocytes (Spur) Rouleaux Hemoglobin C Crystals Schistocytes Malaria parasites [place] Bodies Hem Pathologist Commnt Sodium (137-145) mmol/L Potassium (3.6-5.0) mmol/L Chloride (98-107) mmol/L Carbon Dioxide (22-30) mmol/L Anion Gap mmol/L BUN (9-20) mg/dL Creatinine (0.8-1.3) mg/dL Estimated GFR ml/min BUN/Creatinine Ratio % Glucose (75-100) mg/dL Calcium (8.4-10.2) mg/dL Urine Color (Yellow) Urine Turbidity (Clear) Urine pH (5.0-7.0) Ur Specific [place] (1.003-1.030) Urine Protein (Negative) mg/dL Urine Glucose (UA) (Negative) mg/dL Urine Ketones (Negative) mg/dL Urine Blood (Negative) Urine Nitrite (Negative) Urine Bilirubin (Negative) Urine Urobilinogen (<2.0) mg/dL Ur Leukocyte Esterase (Negative) Urine WBC (Auto) (0.0-6.0) /HPF Urine RBC (Auto) (0.0-6.0) /HPF Urine Mucus /HPF Salicylates (2.8-20.0) mg/dL Urine Opiates Screen Presumptive negative Urine Methadone Screen Presumptive negative Acetaminophen (10.0-30.0) ug/mL Ur Barbiturates Screen Presumptive negative Ur Phencyclidine Scrn Presumptive negative Ur Amphetamines Screen Presumptive negative U Benzodiazepines Scrn Presumptive negative Urine Cocaine Screen Presumptive negative U Marijuana (THC) Screen Presumptive negative Drugs of Abuse Note Disclamer Plasma/Serum Alcohol (0-0.07) % - Medical Decision Making Patient with a history of schizophrenia presents to the hospital with complaints of psychosis medication noncompliance, and suicidal ideation with plan. 1013 signed. Patient medically cleared. Awaiting psychiatric consultation Critical Care Time: No Critical care attestation.: If time is entered above; I have spent that time in minutes in the direct care of this critically ill patient, excluding procedure time. ED Disposition Clinical Impression: Schizophrenia, Suicidal ideation, Noncompliance with medication regimen, Medical clearance for psychiatric admission Disposition: [id number]/[id number] PSY HOSP/PSY UNIT Is pt being admited?: No Condition: Stable
[2020-07-06 23:37] LABS: BUN/Creatinine Ratio 18; Blood Urea Nitrogen 16 mg/dL (9-20); Calcium 9.7 mg/dL (8.4-10.2); Hemolysis Index 6
[2020-07-06 23:44] LABS: Amphetamine Screen,Urine PRESUMPTIVE NEGATIVE; Benzodiazepines Screen,Urine PRESUMPTIVE NEGATIVE; Bilirubin,Urine NEG (Negative); Blood,Urine NEG (Negative); Cannabinoid Screen,Urine PRESUMPTIVE NEGATIVE; Cocaine Screen,Urine PRESUMPTIVE NEGATIVE; Color,Urine Yellow (Yellow); Methadone Screen,Urine PRESUMPTIVE NEGATIVE; Mucus,Urine 1+ /HPF; Opiate Screen,Urine PRESUMPTIVE NEGATIVE; Protein,Urine <15 mg/dL mg/dL (Negative); Urobilinogen,Urine < 2.0 mg/dL (<2.0)
[2020-07-07 02:45] VITALS: BP 100/48
[2020-07-07 03:02] LABS: Basophils % (Manual) 0 % (0.0-1.8); Platelet Estimate Consistent w Auto; Total Cells Counted 100
--- NOTE | 2020-07-07 10:58 | Consultation ---
History of Present Illness - Reason for Consult Consult date: 07/07/20 Reason for consult: MHE Requesting physician: RAMÓN TOMLINSON - History of Present Psychiatric Illness Per ED Provider: 24-year old male with a past medical history of schizophrenia, anxiety, and asthma presents to the hospital with complains of suicidal homicid al ideation x1 day. Patient states people are getting on his nerves but does not mention anyone in particular. Currently is at his grandmother. Patient has a plan to shoot himself and others. He denies plan to kill his grandmother. He has hearing voices telling him to shoot himself and other people. Denies history of previous suicidal attempt. Denies access to a gun. He has been noncompliant with his psychiatric medications x1 to 2 weeks because they "do not work". Denies physical complaints. He denies alcohol or drug abuse PSYCH HPI Patient is a 24 year old unemployed, single and homeless Male with Past Medical Histoy of Schizophrenia who presents today with complaints of Suicidal accompanied by command hallucination who is well known me from multiple . Patient reports he has problem staying outside and that triggers is mental health. This patient has had mutilpe ED visits with subsequent placement to mental health facility as shown in records, he contniues to be non complaint with meds, no outpt psychiatrist and no personal motivation to beecome stable outside mental health facility PAST PSYCHIATRIC HISTORY Diagnoses: Schizophrenia Suicide attempts or Self-harm behavior: None reported Prior psychiatric hospitalizations: yes Substance Abuse history: none reported Previous psychiatric medications tried: yes Outpatient treatment: none reported PAST MEDICAL HISTORY: unknown Family Psychiatric History: None reported or documented SOCIAL HISTORY Marital Status: single Living Arrangements: homeless partially Employment Status: unemployed Access to guns/weapons: none reported Education: High school History of Abuse: none Legal History: none reported REVIEW OF SYSTEMS Constitutional: Negative for weight loss ENT: Negative for stridor Respiratory: Negative for cough or hemoptysis All other systems reviewed and are negative MENTAL STATUS EXAMINATION General Appearance and Behavior: Age appropriate, good hygiene, wearing appropriate clothes,, good eye contact, cooperative polite with questioning. Cooperation: Participating/engaged, Psychomotor Behavior: unremarkable and within normal limits Mood: so-so Affect and affective range: constricted, decreased range Thought Process: Illogical, Thought Content: illofical Speech: Normal volume, Regular rate and rhythm, Intellectual Functioning: Average Suicidal Ideation: Suicidal Homicidal Ideation: Homicidal Impulse Control: Impaired Insight and Judgment: Limited insight and judgment Memory: Normal Attention: Normal, Distractible, Sustained attention intact, Sustained attention impaired, Divided attention intact and Divided attention impaired Orientation: Alert, oriented, Assessment and Plan - Psychiatric problem (1) Malingering Current Visit: Yes Status: Acute (2) History of schizoaffective disorder Current Visit: Yes Status: Acute (3) Medication nonadherence due to psychosocial problem Current Visit: Yes Status: Acute This patient has had mutilpe ED visits with subsequent placement to mental health facility as shown in records, he contniues to be non complaint with meds, no outpt psychiatrist and no personal motivation to become stable outside mental health facility. This patient was laced to mental health facility on 05/24, again on 06/17 and again on 06/29 barely a week ago. In my professional opinion, patient has achieved the maximum benefit of inpatient management at this time, given history, continuing this recommendation behavior would reinforce maladaptive behavior has patient is homeless and seeking inpatient for assisted and food. Post inpatient facility discharge, patient has yet to follow up outpt with his psychiatrist Treatment Plan Accepted at facility MEDICATIONS: Patient has multiple rx scripts from inpt visits Risks, benefits and alternatives of medications discussed with the patient, questions answered and consent obtained from patient. PSYCHOTHERAPY: Supportive psychotherapy provided MEDICAL: Per primary team DELIRIUM PRECAUTIONS: Please re-orient patient frequently, keep lights on during the day, and minimize benzodiazepines and opiates as these medications could worsen patient's confusion. LOAN REPRESENTATIVE: DISPOSITION: DO not ecommend acute inpatient psychiatric hospitalization at this time. Safety discharge LEGAL STATUS: 1013 rescinded FOLLOW-UP: Will sign off Thank you for the consult. Please contact with any questions and/or concerns. Medications and Allergies Allergies Allergy/AdvReac Type Severity Reaction Status Date / Time Fish Containing Products Allergy Rash Verified 05/23/20 12:04 peanut Allergy Swelling Verified 05/23/20 12:04 pork derived (porcine) Allergy Hives Verified 05/23/20 12:04 dairy AdvReac Swelling Uncoded 05/23/20 12:04 Home Medications Medication Instructions Recorded Confirmed Last Taken Type Propranolol HCl 20 mg PO PRN PRN 01/09/18 06/16/20 01/08/18 History traZODone [Desyrel] 50 mg PO QHS 06/16/20 06/16/20 Unknown History Mental Status Exam - Vital signs Last Vital Signs Temp 97.4 F L 07/07/20 02:44 Pulse 84 07/07/20 02:44 Resp 18 07/07/20 02:44 BP 100/48 07/07/20 02:44 Pulse Ox 100 07/07/20 02:44 Results Result Diagrams: 07/06/20 23:00 07/06/20 23:00 Abnormal lab results 07/06/20 07/06/20 07/06/20 Range/Units 23:00 23:00 23:00 Seg Neuts % (Manual) (40.0-70.0) % Lymphocytes % (Manual) (13.4-35.0) % Eosinophils % (Manual) (0.0-4.3) % Lymphocytes # (Manual) (1.2-5.4) K/mm3 Chloride 96.8 L (98-107) mmol/L Glucose 140 H (75-100) mg/dL Salicylates < 0.3 L (2.8-20.0) mg/dL Acetaminophen 5.0 L (10.0-30.0) ug/mL 07/06/20 Range/Units 23:00 Seg Neuts % (Manual) 81.0 H (40.0-70.0) % Lymphocytes % (Manual) 9.0 L (13.4-35.0) % Eosinophils % (Manual) 7.0 H (0.0-4.3) % Lymphocytes # (Manual) 0.5 L (1.2-5.4) K/mm3 Chloride (98-107) mmol/L Glucose (75-100) mg/dL Salicylates (2.8-20.0) mg/dL Acetaminophen (10.0-30.0) ug/mL All other labs normal. Assessment and Plan - Psychiatric problem (1) Malingering Current Visit: Yes Status: Acute (2) History of schizoaffective disorder Current Visit: Yes Status: Acute (3) Medication nonadherence due to psychosocial problem Current Visit: Yes Status: Acute
== END 2020-07-07 12:02 ==
LOC: ED 21:55
DX: F20.89 Other schizophrenia (principal); J45.909 Unspecified asthma, uncomplicated; Z91.018 Allergy to other foods; Z91.010 Allergy to peanuts; Z91.013 Allergy to seafood
CPT/HCPCS: 36415; 80048; 80307; 80320; 81001; 85007; 85025; G0480

== ENCOUNTER 2020-08-29 19:01 | Emergency (ER) | payer MEDICARE ==
--- NOTE | 2020-08-29 20:15 | Emergency Department Report ---
HPI - General Chief Complaint: Psych Time Seen by Provider: 08/29/20 19:30 - HPI HPI: This is a 24-year-old male who presents to the emergency department with a complaint of depression, suicidal ideations and "my mind aint right." Patient says that he has a history of schizophrenia but is not necessarily compliant with his medications. He does not have any particular plan as to how he would harm himself. He has been feeling depressed and suicidal over the past week because "life just seems to be rough." He denies any auditory or visual hallucinations, or any homicidal ideations. He denies any past medical history. He denies any tobacco, illicit drug use, or alcohol abuse. ED Past Medical Hx - Past Medical History Previous Medical History?: Yes Hx Psychiatric Treatment: Yes (SCHIZOPHRENIA/anxiety) Hx Asthma: Yes Additional medical history: ECZEMA - Surgical History Past Surgical History?: No - Social History Smoking Status: Never Smoker Substance Use Type: None - Medications Home Medications: Home Medications Medication Instructions Recorded Confirmed Last Taken Type Propranolol HCl 20 mg PO PRN PRN 01/09/18 06/16/20 01/08/18 History traZODone [Desyrel] 50 mg PO QHS 06/16/20 06/16/20 Unknown History ED Review of Systems ROS: Stated complaint: SI Other details as noted in HPI Comment: All other systems reviewed and negative Constitutional: denies: chills, fever Respiratory: denies: cough, shortness of breath Cardiovascular: denies: chest pain, palpitations Gastrointestinal: denies: abdominal pain Musculoskeletal: denies: back pain, arthralgia Neurological: denies: headache, weakness Psychiatric: depression, suicidal thoughts. denies: auditory hallucinations, visual hallucinations, homicidal thoughts Physical Exam - Physical Exam Vital Signs: Vital Signs 08/29/20 19:20 Temperature 98.1 F Pulse Rate 100 H Respiratory 18 Rate Blood Pressure 127/71 Blood Pressure 127/71 [Left] O2 Sat by Pulse 99 Oximetry Physical Exam: GENERAL: The patient is well-developed well-nourished. HENT: Normocephalic. Atraumatic. Patient has moist mucous membranes. EYES: Extraocular motions are intact. NECK: Supple. Trachea is midline. CHEST/LUNGS: Clear to auscultation. There is no respiratory distress noted. HEART/CARDIOVASCULAR: Regular. There is no tachycardia. There is no murmur. ABDOMEN: Abdomen is soft, nontender. Patient has normal bowel sounds. SKIN: Skin is warm and dry. NEURO: The patient is awake, alert, and oriented. The patient is cooperative. Normal speech. MUSCULOSKELETAL: There is no tenderness or deformity. There is no limitation range of motion. ED Course Vital Signs 08/29/20 19:20 Temperature 98.1 F Pulse Rate 100 H Respiratory 18 Rate Blood Pressure 127/71 Blood Pressure 127/71 [Left] O2 Sat by Pulse 99 Oximetry - Reevaluation(s) Reevaluation #1: 08/29/20 23:37 Lab Results 08/29/20 08/29/20 08/29/20 Range/Units 20:17 20:17 20:25 WBC 4.9 (4.5-11.0) K/mm3 RBC 4.60 (3.65-5.03) M/mm3 Hgb 13.0 (11.8-15.2) gm/dl Hct 39.7 (35.5-45.6) % MCV 86 (84-94) fl MCH 28 (28-32) pg MCHC 33 (32-34) % RDW 14.1 (13.2-15.2) % Plt Count 229 (140-440) K/mm3 Lymph % (Auto) 33.0 (13.4-35.0) % [place] % (Auto) 8.9 H (0.0-7.3) % Eos % (Auto) 4.4 H (0.0-4.3) % Baso % (Auto) 0.8 (0.0-1.8) % Lymph # (Auto) 1.6 (1.2-5.4) K/mm3 [place] # (Auto) 0.4 (0.0-0.8) K/mm3 Eos # (Auto) 0.2 (0.0-0.4) K/mm3 Baso # (Auto) 0.0 (0.0-0.1) K/mm3 Seg Neutrophils % 52.9 (40.0-70.0) % Seg Neutrophils # 2.6 (1.8-7.7) K/mm3 Sodium (137-145) mmol/L Potassium (3.6-5.0) mmol/L Chloride (98-107) mmol/L Carbon Dioxide (22-30) mmol/L Anion Gap mmol/L BUN (9-20) mg/dL Creatinine (0.8-1.3) mg/dL Estimated GFR ml/min BUN/Creatinine Ratio % Glucose (75-100) mg/dL Calcium (8.4-10.2) mg/dL Urine Color Yellow (Yellow) Urine Turbidity Clear (Clear) Urine pH 7.0 (5.0-7.0) Ur Specific [place] 1.019 (1.003-1.030) Urine Protein <15 mg/dl (Negative) mg/dL Urine Glucose (UA) Neg (Negative) mg/dL Urine Ketones Neg (Negative) mg/dL Urine Blood Neg (Negative) Urine Nitrite Neg (Negative) Urine Bilirubin Neg (Negative) Urine Urobilinogen < 2.0 (<2.0) mg/dL Ur Leukocyte Esterase Neg (Negative) Urine WBC (Auto) 1.0 (0.0-6.0) /HPF Urine RBC (Auto) 4.0 (0.0-6.0) /HPF Urine Mucus Few /HPF Urine Yeast (Budding) 1+ /HPF Urine Opiates Screen Presumptive negative Urine Methadone Screen Presumptive negative Ur Barbiturates Screen Presumptive negative Ur Phencyclidine Scrn Presumptive negative Ur Amphetamines Screen Presumptive negative U Benzodiazepines Scrn Presumptive negative Urine Cocaine Screen Presumptive negative U Marijuana (THC) Screen Presumptive negative Drugs of Abuse Note Disclamer Plasma/Serum Alcohol (0-0.07) % 08/29/20 08/29/20 Range/Units 20:25 20:25 WBC (4.5-11.0) K/mm3 RBC (3.65-5.03) M/mm3 Hgb (11.8-15.2) gm/dl Hct (35.5-45.6) % MCV (84-94) fl MCH (28-32) pg MCHC (32-34) % RDW (13.2-15.2) % Plt Count (140-440) K/mm3 Lymph % (Auto) (13.4-35.0) % [place] % (Auto) (0.0-7.3) % Eos % (Auto) (0.0-4.3) % Baso % (Auto) (0.0-1.8) % Lymph # (Auto) (1.2-5.4) K/mm3 [place] # (Auto) (0.0-0.8) K/mm3 Eos # (Auto) (0.0-0.4) K/mm3 Baso # (Auto) (0.0-0.1) K/mm3 Seg Neutrophils % (40.0-70.0) % Seg Neutrophils # (1.8-7.7) K/mm3 Sodium 138 (137-145) mmol/L Potassium 4.2 (3.6-5.0) mmol/L Chloride 100.3 (98-107) mmol/L Carbon Dioxide 27 (22-30) mmol/L Anion Gap 15 mmol/L BUN 10 (9-20) mg/dL Creatinine 0.9 (0.8-1.3) mg/dL Estimated GFR > 60 ml/min BUN/Creatinine Ratio 11 % Glucose 95 (75-100) mg/dL Calcium 9.8 (8.4-10.2) mg/dL Urine Color (Yellow) Urine Turbidity (Clear) Urine pH (5.0-7.0) Ur Specific [place] (1.003-1.030) Urine Protein (Negative) mg/dL Urine Glucose (UA) (Negative) mg/dL Urine Ketones (Negative) mg/dL Urine Blood (Negative) Urine Nitrite (Negative) Urine Bilirubin (Negative) Urine Urobilinogen (<2.0) mg/dL Ur Leukocyte Esterase (Negative) Urine WBC (Auto) (0.0-6.0) /HPF Urine RBC (Auto) (0.0-6.0) /HPF Urine Mucus /HPF Urine Yeast (Budding) /HPF Urine Opiates Screen Urine Methadone Screen Ur Barbiturates Screen Ur Phencyclidine Scrn Ur Amphetamines Screen U Benzodiazepines Scrn Urine Cocaine Screen U Marijuana (THC) Screen Drugs of Abuse Note Plasma/Serum Alcohol < 0.01 (0-0.07) % ED Medical Decision Making - Lab Data Result diagrams: 08/29/20 20:25 08/29/20 20:25 - Medical Decision Making This patient presents to the emergency department with a complaint of depression, suicidal ideations without a plan. For this reason he has been made a 1013. It appears that the patient has been noncompliant with his medication for the past few days. Vital signs have been reassuring throughout his ED course thus far. Labs have been unremarkable including CBC, metabolic panel, blood alcohol level, urinalysis and UDS. He was seen by the psychiatric it technical specialist who agrees with the plan for a 1013 and inpatient stabilization. Patient is medically cleared for psychiatric placement. Critical Care Time: No Critical care attestation.: If time is entered above; I have spent that time in minutes in the direct care of this critically ill patient, excluding procedure time. ED Disposition Clinical Impression: Suicidal ideations Disposition: DC/TX-65 PSY HOSP/PSY UNIT Is pt being admited?: No Condition: Stable Time of Disposition: 23:38
[2020-08-29 20:54] LABS: BUN/Creatinine Ratio 11; Blood Urea Nitrogen 10 mg/dL (9-20); Calcium 9.8 mg/dL (8.4-10.2); Hemolysis Index 10
[2020-08-29 21:09] LABS: Basophils % (Auto) 0.8 % (0.0-1.8); Eosinophils # (Auto) 0.2 K/mm3 (0.0-0.4); Eosinophils % (Auto) 4.4 % (0.0-4.3); Hematocrit 39.7 % (35.5-45.6); Lymphocytes # (Auto) 1.6 K/mm3 (1.2-5.4); Mean Corpuscular HGB Conc 33 % (32-34); Mean Corpuscular Volume 86 fl (84-94); Monocytes # (Auto) 0.4 K/mm3 (0.0-0.8); Monocytes % (Auto) 8.9 % (0.0-7.3); Platelet Count 229 K/mm3 (140-440); Red Cell Distribution Width 14.1 % (13.2-15.2)
[2020-08-29 23:04] LABS: Bilirubin,Urine NEG (Negative); Blood,Urine NEG (Negative); Color,Urine Yellow (Yellow); Mucus,Urine FEW /HPF; Protein,Urine <15 mg/dL mg/dL (Negative); Urobilinogen,Urine < 2.0 mg/dL (<2.0)
[2020-08-29 23:07] LABS: Amphetamine Screen,Urine PRESUMPTIVE NEGATIVE; Benzodiazepines Screen,Urine PRESUMPTIVE NEGATIVE; Cannabinoid Screen,Urine PRESUMPTIVE NEGATIVE; Cocaine Screen,Urine PRESUMPTIVE NEGATIVE; Methadone Screen,Urine PRESUMPTIVE NEGATIVE; Opiate Screen,Urine PRESUMPTIVE NEGATIVE
[2020-08-30] MEDS ORDERED: DEXTROSE 50% IN WATER (25GM) 50 ML SYRINGE IV ONE (04:07)
--- NOTE | 2020-08-30 08:58 | Consultation ---
History of Present Illness - Reason for Consult Consult date: 08/30/20 Reason for consult: MHE Requesting physician: NESSA MAHAN - History of Present Psychiatric Illness PSYCH HPI Patient is a 24 year old unemployed currently on SSI, single Male who currently resides with grandma with Past psychiatric history of Schizophrenia who presents to ED with complaints of Suicidal accompanied by HI and hallucinations. Patient is known to me from prior encounters, today patient reported he has been out of his medication, yesterday he was feeling very weak feeling SI HI and when the system started becoming worse he decided to come to the ER for medical evaluation and to be restarted on his medication. Patient reports since being here it feels so much better, denies SI HI auditory visual estimation at this moment. Patient also wishes to be sent home with his medication that he currently takes Risperdal and Cogentin. PAST PSYCHIATRIC HISTORY Diagnoses: Schizophrenia Suicide attempts or Self-harm behavior: None reported Prior psychiatric hospitalizations: yes Substance Abuse history: none reported Previous psychiatric medications tried: yes Outpatient treatment: none reported PAST MEDICAL HISTORY: unknown Family Psychiatric History: None reported or documented SOCIAL HISTORY Marital Status: single Living Arrangements: Lives with grandma Employment Status: On [employer] Access to guns/weapons: none reported Education: High school History of Abuse: none Legal History: none reported REVIEW OF SYSTEMS Constitutional: Negative for weight loss ENT: Negative for stridor Respiratory: Negative for cough or hemoptysis All other systems reviewed and are negative MENTAL STATUS EXAMINATION General Appearance and Behavior: Age appropriate, good hygiene, wearing approp riate clothes, good eye contact, cooperative polite with questioning. Cooperation: Participating/engaged Psychomotor Behavior: unremarkable and within normal limits Mood: Good Affect and affective range: congruent with mood Thought Process: Fluent/Logical, Thought Content: Within reality, Speech: Normal volume, Regular rate and rhythm, Intellectual Functioning: Average Suicidal Ideation: Denies SI Homicidal Ideation: Denies HI Impulse Control: Unimpaired Insight and Judgment: Normal insight and judgment, Memory: Normal, Attention: Normal, Orientation: Alert, oriented, Assessment and Plan - Psychiatric problem (1) History of schizoaffective disorder Current Visit: Yes Status: Acute (2) Medication nonadherence due to psychosocial problem Current Visit: Yes Status: Acute Treatment Plan We will renew patient current medications. She denies any acute symptoms at this time. MEDICATIONS: Risks, benefits and alternatives of medications discussed with the patient, questions answered and consent obtained from patient. PSYCHOTHERAPY: Supportive psychotherapy provided MEDICAL: Per primary team DELIRIUM PRECAUTIONS: Please re-orient patient frequently, keep lights on during the day, and minimize benzodiazepines and opiates as these medications could worsen patient's confusion. VISUAL EDUCATION DIRECTOR: DISPOSITION: DO not recommend acute inpatient psychiatric hospitalization at this time. Safety discharge LEGAL STATUS: 1013 rescinded FOLLOW-UP: Will sign off Thank you for the consult. Please contact with any questions and/or concerns. Medications and Allergies Allergies Allergy/AdvReac Type Severity Reaction Status Date / Time Fish Containing Products Allergy Rash Verified 05/23/20 12:04 peanut Allergy Swelling Verified 05/23/20 12:04 pork derived (porcine) Allergy Hives Verified 05/23/20 12:04 dairy AdvReac Swelling Uncoded 05/23/20 12:04 Home Medications Medication Instructions Recorded Confirmed Last Taken Type Propranolol HCl 20 mg PO PRN PRN 01/09/18 06/16/20 01/08/18 History traZODone [Desyrel] 50 mg PO QHS 06/16/20 06/16/20 Unknown History Benztropine [Cogentin] 0.5 mg PO DAILY #30 tab 08/30/20 Unknown Rx risperiDONE [RisperDAL] 3 mg PO BID #60 tablet 08/30/20 Unknown Rx Mental Status Exam - Vital signs Last Vital Signs Temp 98.6 F 08/30/20 02:36 Pulse 88 08/30/20 02:36 Resp 18 08/30/20 02:36 BP 127/69 08/30/20 02:36 Pulse Ox 98 08/30/20 02:36 Results Result Diagrams: 08/29/20 20:25 08/29/20 20:25 Abnormal lab results 08/29/20 Range/Units 20:25 [place] % (Auto) 8.9 H (0.0-7.3) % Eos % (Auto) 4.4 H (0.0-4.3) % All other labs normal.
[2020-08-30 09:17] VITALS: BP 116/65
--- NOTE | 2020-08-30 13:46 | Event Note ---
Date: 08/30/20 The patient was evaluated in the emergency department for symptoms described in the history of present illness. He/she was evaluated in the context of the global COVID-19 pandemic, which necessitated consideration that the patient might be at risk for infection with the virus that causes COVID-19. Institutional protocols and algorithms that pertain to the evaluation of patients at risk for COVID-19 are in a state of rapid change based on information released by regulatory bodies including the CDC and federal and state organizations. These policies and algorithms were followed during the patient's care in the emergency department. Please note that these policies, procedures and recommendations changed on a rapid basis. This patient was medically cleared yesterday. His 1013 was discontinued by the psychiatry team yesterday. His laboratory studies and vital signs are reviewed appreciated. He does not appear to be in any acute distress at this time. We will discharge with outpatient follow-up. Vital Signs 08/29/20 08/30/20 08/30/20 19:20 02:36 09:16 Temperature 98.1 F 98.6 F 98.3 F Pulse Rate 100 H 88 91 H Respiratory 18 18 19 Rate Blood Pressure 127/71 Blood Pressure 127/71 127/69 116/65 [Left] O2 Sat by Pulse 99 98 100 Oximetry Lab Results 08/29/20 08/29/20 08/29/20 Range/Units 20:17 20:17 20:25 WBC 4.9 (4.5-11.0) K/mm3 RBC 4.60 (3.65-5.03) M/mm3 Hgb 13.0 (11.8-15.2) gm/dl Hct 39.7 (35.5-45.6) % MCV 86 (84-94) fl MCH 28 (28-32) pg MCHC 33 (32-34) % RDW 14.1 (13.2-15.2) % Plt Count 229 (140-440) K/mm3 Lymph % (Auto) 33.0 (13.4-35.0) % [place] % (Auto) 8.9 H (0.0-7.3) % Eos % (Auto) 4.4 H (0.0-4.3) % Baso % (Auto) 0.8 (0.0-1.8) % Lymph # (Auto) 1.6 (1.2-5.4) K/mm3 [place] # (Auto) 0.4 (0.0-0.8) K/mm3 Eos # (Auto) 0.2 (0.0-0.4) K/mm3 Baso # (Auto) 0.0 (0.0-0.1) K/mm3 Seg Neutrophils % 52.9 (40.0-70.0) % Seg Neutrophils # 2.6 (1.8-7.7) K/mm3 Sodium (137-145) mmol/L Potassium (3.6-5.0) mmol/L Chloride (98-107) mmol/L Carbon Dioxide (22-30) mmol/L Anion Gap mmol/L BUN (9-20) mg/dL Creatinine (0.8-1.3) mg/dL Estimated GFR ml/min BUN/Creatinine Ratio % Glucose (75-100) mg/dL Calcium (8.4-10.2) mg/dL Urine Color Yellow (Yellow) Urine Turbidity Clear (Clear) Urine pH 7.0 (5.0-7.0) Ur Specific [place] 1.019 (1.003-1.030) Urine Protein <15 mg/dl (Negative) mg/dL Urine Glucose (UA) Neg (Negative) mg/dL Urine Ketones Neg (Negative) mg/dL Urine Blood Neg (Negative) Urine Nitrite Neg (Negative) Urine Bilirubin Neg (Negative) Urine Urobilinogen < 2.0 (<2.0) mg/dL Ur Leukocyte Esterase Neg (Negative) Urine WBC (Auto) 1.0 (0.0-6.0) /HPF Urine RBC (Auto) 4.0 (0.0-6.0) /HPF Urine Mucus Few /HPF Urine Yeast (Budding) 1+ /HPF Urine Opiates Screen Presumptive negative Urine Methadone Screen Presumptive negative Ur Barbiturates Screen Presumptive negative Ur Phencyclidine Scrn Presumptive negative Ur Amphetamines Screen Presumptive negative U Benzodiazepines Scrn Presumptive negative Urine Cocaine Screen Presumptive negative U Marijuana (THC) Screen Presumptive negative Drugs of Abuse Note Disclamer Plasma/Serum Alcohol (0-0.07) % 08/29/20 08/29/20 Range/Units 20:25 20:25 WBC (4.5-11.0) K/mm3 RBC (3.65-5.03) M/mm3 Hgb (11.8-15.2) gm/dl Hct (35.5-45.6) % MCV (84-94) fl MCH (28-32) pg MCHC (32-34) % RDW (13.2-15.2) % Plt Count (140-440) K/mm3 Lymph % (Auto) (13.4-35.0) % [place] % (Auto) (0.0-7.3) % Eos % (Auto) (0.0-4.3) % Baso % (Auto) (0.0-1.8) % Lymph # (Auto) (1.2-5.4) K/mm3 [place] # (Auto) (0.0-0.8) K/mm3 Eos # (Auto) (0.0-0.4) K/mm3 Baso # (Auto) (0.0-0.1) K/mm3 Seg Neutrophils % (40.0-70.0) % Seg Neutrophils # (1.8-7.7) K/mm3 Sodium 138 (137-145) mmol/L Potassium 4.2 (3.6-5.0) mmol/L Chloride 100.3 (98-107) mmol/L Carbon Dioxide 27 (22-30) mmol/L Anion Gap 15 mmol/L BUN 10 (9-20) mg/dL Creatinine 0.9 (0.8-1.3) mg/dL Estimated GFR > 60 ml/min BUN/Creatinine Ratio 11 % Glucose 95 (75-100) mg/dL Calcium 9.8 (8.4-10.2) mg/dL Urine Color (Yellow) Urine Turbidity (Clear) Urine pH (5.0-7.0) Ur Specific [place] (1.003-1.030) Urine Protein (Negative) mg/dL Urine Glucose (UA) (Negative) mg/dL Urine Ketones (Negative) mg/dL Urine Blood (Negative) Urine Nitrite (Negative) Urine Bilirubin (Negative) Urine Urobilinogen (<2.0) mg/dL Ur Leukocyte Esterase (Negative) Urine WBC (Auto) (0.0-6.0) /HPF Urine RBC (Auto) (0.0-6.0) /HPF Urine Mucus /HPF Urine Yeast (Budding) /HPF Urine Opiates Screen Urine Methadone Screen Ur Barbiturates Screen Ur Phencyclidine Scrn Ur Amphetamines Screen U Benzodiazepines Scrn Urine Cocaine Screen U Marijuana (THC) Screen Drugs of Abuse Note Plasma/Serum Alcohol < 0.01 (0-0.07) %
== END 2020-08-30 14:13 | disposition home or self-care (01) ==
LOC: EEVIPCON 19:01 → ED 19:01
DX: R45.851 Suicidal ideations (principal); F32.9 Major depressive disorder, single episode, unspecified; F20.9 Schizophrenia, unspecified; J45.909 Unspecified asthma, uncomplicated; Z79.899 Other long term (current) drug therapy; Z91.010 Allergy to peanuts; Z91.013 Allergy to seafood; Z91.018 Allergy to other foods; Z91.011 Allergy to milk products
CPT/HCPCS: 36415; 80048; 80307; 80320; 81001; 85025; G0480

== ENCOUNTER 2021-01-08 20:53 | Emergency (ER) | payer MEDICARE ==
[2021-01-08 22:35] VITALS: BP 125/70
== END 2021-01-08 23:35 | disposition left against medical advice (07) ==
LOC: ED 20:53
DX: R09.81 Nasal congestion (principal); Z53.21 Procedure and treatment not carried out due to patient leaving prior to being seen by health care provider

== ENCOUNTER 2021-01-12 23:03 | Emergency (ER) | payer MEDICARE ==
[2021-01-13 00:43] LABS: Basophils % (Auto) 0.6 % (0.0-1.8); Eosinophils # (Auto) 0.1 K/mm3 (0.0-0.4); Eosinophils % (Auto) 2.8 % (0.0-4.3); Hematocrit 38.5 % (35.5-45.6); Hemoglobin 12.8 gm/dl (11.8-15.2); Lymphocytes # (Auto) 1.3 K/mm3 (1.2-5.4); Mean Corpuscular HGB Conc 33 % (32-34); Mean Corpuscular Volume 87 fl (84-94); Monocytes # (Auto) 0.2 K/mm3 (0.0-0.8); Monocytes % (Auto) 5.3 % (0.0-7.3); Platelet Count 229 K/mm3 (140-440); Red Blood Count 4.45 M/mm3 (3.65-5.03); Red Cell Distribution Width 13.9 % (13.2-15.2)
[2021-01-13] MEDS ORDERED: MAGNESIUM HYDROXIDE (MOM) ORAL LIQD UDC PO PRN (00:55)
[2021-01-13] MEDS ORDERED: ALUM-MAG HYDROXIDE-SIMETHICONE 200-200-20MG/5ML ORAL LIQD 30 ML PO PRN (00:55)
[2021-01-13] MEDS ORDERED: ACETAMINOPHEN 325 MG TAB PO PRN (00:55)
[2021-01-13 01:01] LABS: Bilirubin,Urine NEG (Negative); Blood,Urine NEG (Negative); Color,Urine Yellow (Yellow); Mucus,Urine FEW /HPF; Protein,Urine <15 mg/dL mg/dL (Negative); RBC,Urine < 1.0 /HPF (0.0-6.0)
[2021-01-13 01:19] LABS: BUN/Creatinine Ratio 11; Blood Urea Nitrogen 12 mg/dL (9-20); Calcium 8.9 mg/dL (8.4-10.2); Hemolysis Index 5
[2021-01-13 01:22] LABS: Amphetamine Screen,Urine PRESUMPTIVE NEGATIVE; Benzodiazepines Screen,Urine PRESUMPTIVE NEGATIVE; Cannabinoid Screen,Urine PRESUMPTIVE NEGATIVE; Cocaine Screen,Urine PRESUMPTIVE NEGATIVE; Methadone Screen,Urine PRESUMPTIVE NEGATIVE; Opiate Screen,Urine PRESUMPTIVE NEGATIVE
--- NOTE | 2021-01-13 02:27 | Emergency Department Report ---
ED Psych HPI - General Chief Complaint: Psych Stated Complaint: PYSCH EVALUATION Time Seen by Provider: 01/13/21 00:45 Source: patient Mode of arrival: Ambulatory - History of Present Illness Initial Comments: CC: verbal argument with sister, not taking medications HPI: Saadia is a 25 yo male with hx of schizophrenia and asthma who presents to the ED for mental health evaluation. Mr. Hanley does not take his psychiatric medications because he explains "they do not work for me". He denies SI/HI/hallucinations. He denies physical complaints. MD Complaint: other (verbal altercation toward sister) -: This afternoon Associated Psychiatric Symptoms: other (verbal altercation with sister) Quality: resolved prior to arrival Context: not taking psychiatric Associated Symptoms: denies other symptoms Treatments Prior to Arrival: none - Related Data Home Medications Medication Instructions Recorded Confirmed Last Taken Propranolol HCl 20 mg PO PRN PRN 01/09/18 01/14/21 01/08/18 traZODone [Desyrel] 50 mg PO QHS 06/16/20 01/14/21 Unknown Previous Rx's Medication Instructions Recorded Last Taken Type Benztropine [Cogentin] 0.5 mg PO DAILY #30 tab 08/30/20 Unknown Rx risperiDONE [RisperDAL] 3 mg PO BID #60 tablet 08/30/20 Unknown Rx Allergies Allergy/AdvReac Type Severity Reaction Status Date / Time Fish Containing Products Allergy Rash Verified 05/23/20 12:04 peanut Allergy Swelling Verified 05/23/20 12:04 pork derived (porcine) Allergy Hives Verified 05/23/20 12:04 dairy AdvReac Swelling Uncoded 05/23/20 12:04 ED Review of Systems ROS: Stated complaint: PYSCH EVALUATION Other details as noted in HPI Comment: All other systems reviewed and negative Constitutional: denies: fever, malaise Respiratory: denies: cough, shortness of breath Gastrointestinal: denies: abdominal pain, nausea, vomiting Neurological: denies: headache Psychiatric: denies: anxiety, depression, auditory hallucinations, visual hallucinations, homicidal thoughts, suicidal thoughts ED Past Medical Hx - Past Medical History Previous Medical History?: Yes Hx Psychiatric Treatment: Yes (SCHIZOPHRENIA/anxiety) Hx Asthma: Yes Additional medical history: ECZEMA - Surgical History Past Surgical History?: No - Social History Smoking Status: Never Smoker Substance Use Type: None - Medications Home Medications: Home Medications Medication Instructions Recorded Confirmed Last Taken Type Propranolol HCl 20 mg PO PRN PRN 01/09/18 01/14/21 01/08/18 History traZODone [Desyrel] 50 mg PO QHS 06/16/20 01/14/21 Unknown History Benztropine [Cogentin] 0.5 mg PO DAILY #30 tab 08/30/20 01/14/21 Unknown Rx risperiDONE [RisperDAL] 3 mg PO BID #60 tablet 08/30/20 01/14/21 Unknown Rx ED Physical Exam - General Limitations: No Limitations General appearance: alert, in no apparent distress, other (calm cooperative) - Head Head exam: Present: atraumatic, normocephalic - Eye Eye exam: Present: normal appearance - ENT ENT exam: Present: mucous membranes moist - Neck Neck exam: Present: normal inspection, full ROM - Respiratory Respiratory exam: Present: normal lung sounds bilaterally. Absent: respiratory distress, wheezes, rales, rhonchi - Cardiovascular Cardiovascular Exam: Present: regular rate, normal rhythm, normal heart sounds. Absent: systolic murmur, diastolic murmur, rubs, gallop - GI/Abdominal GI/Abdominal exam: Present: soft, normal bowel sounds. Absent: distended, tenderness, guarding, rebound - Rectal Rectal exam: Present: deferred - Extremities Exam Extremities exam: Present: normal inspection - Back Exam Back exam: Present: normal inspection - Neurological Exam Neurological exam: Present: alert, oriented X3 - Psychiatric Psychiatric exam: Present: normal mood, flat affect. Absent: anxious, manic, homicidal ideation, suicidal ideation - Skin Skin exam: Present: warm, dry, intact, normal color. Absent: rash ED Course Vital Signs 01/12/21 01/13/21 01/13/21 23:53 02:46 09:58 Temperature 97.9 F 97.9 F 97.8 F Pulse Rate 86 75 100 H Respiratory 20 16 20 Rate Blood Pressure 98/57 Blood Pressure 92/58 96/50 [Right] O2 Sat by Pulse 99 99 100 Oximetry 01/13/21 01/13/21 01/14/21 17:04 20:30 09:04 Temperature 97.8 F 97 F L 98.3 F Pulse Rate 67 65 60 Respiratory 18 16 18 Rate Blood Pressure Blood Pressure 96/50 106/63 98/60 [Right] O2 Sat by Pulse 99 100 99 Oximetry ED Medical Decision Making - Lab Data Result diagrams: 01/13/21 00:21 01/13/21 00:21 Laboratory Results - last 24 hr 01/13/21 01/13/21 01/13/21 00:21 00:21 00:21 WBC RBC Hgb Hct MCV MCH MCHC RDW Plt Count Lymph % (Auto) [place] % (Auto) Eos % (Auto) Baso % (Auto) Lymph # (Auto) [place] # (Auto) Eos # (Auto) Baso # (Auto) Seg Neutrophils % Seg Neutrophils # Sodium 140 Potassium 3.6 Chloride 104.7 Carbon Dioxide 27 Anion Gap 12 BUN 12 Creatinine 1.1 Estimated GFR > 60 BUN/Creatinine Ratio 11 Glucose 96 Calcium 8.9 Urine Color Urine Turbidity Urine pH Ur Specific [place] Urine Protein Urine Glucose (UA) Urine Ketones Urine Blood Urine Nitrite Urine Bilirubin Urine Urobilinogen Ur Leukocyte Esterase Urine WBC (Auto) Urine RBC (Auto) Urine Mucus Salicylates < 0.3 L Urine Opiates Screen Urine Methadone Screen Acetaminophen 5.0 L Ur Barbiturates Screen Ur Phencyclidine Scrn Ur Amphetamines Screen U Benzodiazepines Scrn Urine Cocaine Screen U Marijuana (THC) Screen Drugs of Abuse Note Plasma/Serum Alcohol 01/13/21 01/13/21 01/13/21 00:21 00:21 00:40 WBC 4.4 L RBC 4.45 Hgb 12.8 Hct 38.5 MCV 87 MCH 29 MCHC 33 RDW 13.9 Plt Count 229 Lymph % (Auto) 30.0 [place] % (Auto) 5.3 Eos % (Auto) 2.8 Baso % (Auto) 0.6 Lymph # (Auto) 1.3 [place] # (Auto) 0.2 Eos # (Auto) 0.1 Baso # (Auto) 0.0 Seg Neutrophils % 61.3 Seg Neutrophils # 2.7 Sodium Potassium Chloride Carbon Dioxide Anion Gap BUN Creatinine Estimated GFR BUN/Creatinine Ratio Glucose Calcium Urine Color Yellow Urine Turbidity Clear Urine pH 6.0 Ur Specific [place] 1.028 Urine Protein <15 mg/dl Urine Glucose (UA) Neg Urine Ketones Neg Urine Blood Neg Urine Nitrite Neg Urine Bilirubin Neg Urine Urobilinogen 4.0 Ur Leukocyte Esterase Neg Urine WBC (Auto) 1.0 Urine RBC (Auto) < 1.0 Urine Mucus Few Salicylates Urine Opiates Screen Urine Methadone Screen Acetaminophen Ur Barbiturates Screen Ur Phencyclidine Scrn Ur Amphetamines Screen U Benzodiazepines Scrn Urine Cocaine Screen U Marijuana (THC) Screen Drugs of Abuse Note Plasma/Serum Alcohol < 0.01 01/13/21 00:40 WBC RBC Hgb Hct MCV MCH MCHC RDW Plt Count Lymph % (Auto) [place] % (Auto) Eos % (Auto) Baso % (Auto) Lymph # (Auto) [place] # (Auto) Eos # (Auto) Baso # (Auto) Seg Neutrophils % Seg Neutrophils # Sodium Potassium Chloride Carbon Dioxide Anion Gap BUN Creatinine Estimated GFR BUN/Creatinine Ratio Glucose Calcium Urine Color Urine Turbidity Urine pH Ur Specific [place] Urine Protein Urine Glucose (UA) Urine Ketones Urine Blood Urine Nitrite Urine Bilirubin Urine Urobilinogen Ur Leukocyte Esterase Urine WBC (Auto) Urine RBC (Auto) Urine Mucus Salicylates Urine Opiates Screen Presumptive negative Urine Methadone Screen Presumptive negative Acetaminophen Ur Barbiturates Screen Presumptive negative Ur Phencyclidine Scrn Presumptive negative Ur Amphetamines Screen Presumptive negative U Benzodiazepines Scrn Presumptive negative Urine Cocaine Screen Presumptive negative U Marijuana (THC) Screen Presumptive negative Drugs of Abuse Note Disclamer Plasma/Serum Alcohol - Radiology Data Radiology results: report reviewed - Medical Decision Making Mr. Hanley is a 25 yo male with hx of schizophrenia who presents after verbal altercation with sisters. Mr. Hanley denies SI/HI/hallucinations. He does admit to noncompliance with psychiatric medications because "they do not work". I have reviewed labs. All labs are within normal limits including negative UDS. Mr. Hanley is medically clear. ED hold order in place until Mr. Hanley is evaluated by MH team. He does not appear to be a harm to himself or others at this time. Patient transferred to [facility]. Critical care attestation.: If time is entered above; I have spent that time in minutes in the direct care of this critically ill patient, excluding procedure time. ED Disposition Clinical Impression: Schizophrenia Disposition: [id number]/TX-65 PSY HOSP/PSY UNIT Is pt being admited?: No Does the pt Need Aspirin: No Condition: Stable
--- NOTE | 2021-01-13 11:46 | Consultation ---
History of Present Illness - Reason for Consult Consult date: 01/13/21 Reason for consult: MHE Requesting physician: BINDU TAPIA - History of Present Psychiatric Illness Per ED Provider: HPI: Saadia is a 25 yo male with hx of schizophrenia and asthma who presents to the ED for mental health evaluation. Mr. Hanley does not take his psychiatric medications because he explains "they do not work for me". He denies SI/HI/hallucinations. He denies physical complaints. PSYCH HPI Patient is a 24 year old unemployed currently on SSI, single Male who currently resides with grandma with Past psychiatric history of Schizophrenia who presents to ED with complaints of Suicidal accompanied by HI and hallucinations. Patient is known to me from prior encounters, was brought to the ED due to verbal altercation with sister. Patient states he does not have mental health history and does not need to take medications. PAST PSYCHIATRIC HISTORY Diagnoses: Schizophrenia Suicide attempts or Self-harm behavior: None reported Prior psychiatric hospitalizations: yes Substance Abuse history: none reported Previous psychiatric medications tried: yes Outpatient treatment: none reported PAST MEDICAL HISTORY: unknown Family Psychiatric History: None reported or documented SOCIAL HISTORY Marital Status: single Living Arrangements: Lives with grandma Employment Status: On SSI Access to guns/weapons: none reported Education: High school History of Abuse: none Legal History: none reported REVIEW OF SYSTEMS Constitutional: Negative for weight loss ENT: Negative for stridor Respiratory: Negative for cough or hemoptysis All other systems reviewed and are negative MENTAL STATUS EXAMINATION General Appearance and Behavior: Age appropriate, good hygiene, wearing appropriate clothes, good eye contact, cooperative polite with questioning. Cooperation: Participating/engaged Psychomotor Behavior: unremarkable and within normal limits Mood: Good Affect and affective range: congruent with mood Thought Process: Fluent/Logical, Thought Content: Within reality, Speech: Normal volume, Regular rate and rhythm, Intellectual Functioning: Average Suicidal Ideation: Denies SI Homicidal Ideation: Denies HI Impulse Control: Unimpaired Insight and Judgment: Normal insight and judgment, Memory: Normal, Attention: Normal, Orientation: Alert, oriented, Assessment and Plan - Psychiatric problem (1) History of schizoaffective disorder Current Visit: Yes Status: Acute (2) Medication nonadherence due to psychosocial problem Current Visit: Yes Status: Acute Treatment Plan Patient noncompliant with outpatient treatment, increase aggressive behavior recommended patient. Med restarted MEDICATIONS: Risks, benefits and alternatives of medications discussed with the patient, questions answered and consent obtained from patient. PSYCHOTHERAPY: Supportive psychotherapy provided MEDICAL: Per primary team DELIRIUM PRECAUTIONS: Please re-orient patient frequently, keep lights on during the day, and minimize benzodiazepines and opiates as these medications could worsen patient's confusion. PASTE MIXER LIQUID: DISPOSITION: DO recommend acute inpatient psychiatric hospitalization at this time. Safety discharge LEGAL STATUS: 1013 FOLLOW-UP: Will follow Thank you for the consult. Please contact with any questions and/or concerns. Medications and Allergies Allergies Allergy/AdvReac Type Severity Reaction Status Date / Time Fish Containing Products Allergy Rash Verified 05/23/20 12:04 peanut Allergy Swelling Verified 05/23/20 12:04 pork derived (porcine) Allergy Hives Verified 05/23/20 12:04 dairy AdvReac Swelling Uncoded 05/23/20 12:04 Home Medications Medication Instructions Recorded Confirmed Last Taken Type Propranolol HCl 20 mg PO PRN PRN 01/09/18 06/16/20 01/08/18 History traZODone [Desyrel] 50 mg PO QHS 06/16/20 06/16/20 Unknown History Benztropine [Cogentin] 0.5 mg PO DAILY #30 tab 08/30/20 Unknown Rx risperiDONE [RisperDAL] 3 mg PO BID #60 tablet 08/30/20 Unknown Rx Active Meds: Active Medications Acetaminophen (Acetaminophen 325 Mg Tab) 650 mg PO Q4HR PRN PRN Reason: Pain MILD(1-3)/Fever >100.5/LANZA Al Hydrox/Mg Hydrox/Simethicone (Alum-Mag Hydroxide-Simethicone 535-068-45we/5ml Oral Liqd 30 Ml) 30 ml PO Q4HR PRN PRN Reason: Indigestion Magnesium Hydroxide (Magnesium Hydroxide (Mom) Oral Liqd Udc) 30 ml PO Q12HR PRN PRN Reason: Constipation Mental Status Exam - Vital signs Last Vital Signs Temp 97.8 F 01/13/21 09:58 Pulse 100 H 01/13/21 09:58 Resp 20 01/13/21 09:58 BP 96/50 01/13/21 09:58 Pulse Ox 100 01/13/21 09:58 Results Result Diagrams: 01/13/21 00:21 01/13/21 00:21 Abnormal lab results 01/13/21 01/13/21 01/13/21 Range/Units 00:21 00:21 00:21 WBC 4.4 L (4.5-11.0) K/mm3 Salicylates < 0.3 L (2.8-20.0) mg/dL Acetaminophen 5.0 L (10.0-30.0) ug/mL All other labs normal.
[2021-01-13] MEDS: risperiDONE 3 MG TAB PO SCH ×2 (12:29→22:48)
[2021-01-13] MEDS: BENZTROPINE 0.5 MG TAB PO SCH (12:29)
[2021-01-13] MEDS ORDERED: traZODone 50 MG TAB PO SCH (22:00)
[2021-01-14 09:06] VITALS: BP 98/60
--- NOTE | 2021-01-14 09:11 | Progress Note ---
Subjective Date of service: 01/14/21 Principal diagnosis: schizoaffective disorder Subjective Comment: Psych Progress REVIEW OF SYSTEMS Constitutional: Negative for weight loss ENT: Negative for stridor Respiratory: Negative for cough or hemoptysis All other systems reviewed and are negative MENTAL STATUS EXAMINATION General Appearance and Behavior: Age appropriate, good hygiene, wearing appropriate clothes, good eye contact, cooperative polite with questioning. Cooperation: Participating/engaged Psychomotor Behavior: unremarkable and within normal limits Mood: Good Affect and affective range: congruent with mood Thought Process: Fluent/Logical, Thought Content: Within reality, Speech: Normal volume, Regular rate and rhythm, Intellectual Functioning: Average Suicidal Ideation: Denies SI Homicidal Ideation: Denies HI Impulse Control: Unimpaired Insight and Judgment: Normal insight and judgment, Memory: Normal, Attention: Normal, Orientation: Alert, oriented, Assessment and Plan - Psychiatric problem (1) History of schizoaffective disorder Current Visit: Yes Status: Acute (2) Medication nonadherence due to psychosocial problem Current Visit: Yes Status: Acute Treatment Plan Patient noncompliant with outpatient treatment, increase aggressive behavior recommended patient. Med restarted MEDICATIONS: Risks, benefits and alternatives of medications discussed with the patient, questions answered and consent obtained from patient. PSYCHOTHERAPY: Supportive psychotherapy provided MEDICAL: Per primary team DELIRIUM PRECAUTIONS: Please re-orient patient frequently, keep lights on during the day, and minimize benzodiazepines and opiates as these medications could worsen patient's confusion. HEALTH SERVICES RN: DISPOSITION: DO recommend acute inpatient psychiatric hospitalization at this time. Safety discharge LEGAL STATUS: 1013 FOLLOW-UP: Will follow Thank you for the consult. Please contact with any questions and/or concerns. Medications and Allergies Allergies Allergy/AdvReac Type Severity Reaction Status Date / Time Fish Containing Products Allergy Rash Verified 05/23/20 12:04 peanut Allergy Swelling Verified 05/23/20 12:04 pork derived (porcine) Allergy Hives Verified 05/23/20 12:04 dairy AdvReac Swelling Uncoded 05/23/20 12:04 Home Medications Medication Instructions Recorded Confirmed Last Taken Type Propranolol HCl 20 mg PO PRN PRN 01/09/18 06/16/20 01/08/18 History traZODone [Desyrel] 50 mg PO QHS 06/16/20 06/16/20 Unknown History Benztropine [Cogentin] 0.5 mg PO DAILY #30 tab 08/30/20 Unknown Rx risperiDONE [RisperDAL] 3 mg PO BID #60 tablet 08/30/20 Unknown Rx Active Meds: Active Medications Acetaminophen (Acetaminophen 325 Mg Tab) 650 mg PO Q4HR PRN PRN Reason: Pain MILD(1-3)/Fever >100.5/LANZA Al Hydrox/Mg Hydrox/Simethicone (Alum-Mag Hydroxide-Simethicone [phone]/5ml Oral Liqd 30 Ml) 30 ml PO Q4HR PRN PRN Reason: Indigestion Benztropine Mesylate (Benztropine 0.5 Mg Tab) 0.5 mg PO DAILY [facility] Last Admin: 01/13/21 12:29 Dose: Not Given Documented by: Magnesium Hydroxide (Magnesium Hydroxide (Mom) Oral Liqd Udc) 30 ml PO Q12HR PRN PRN Reason: Constipation Risperidone (Risperidone 3 Mg Tab) 3 mg PO BID [facility] Last Admin: 01/13/21 22:48 Dose: Not Given Documented by: Trazodone HCl (Trazodone 50 Mg Tab) 50 mg PO QHS [facility] Last Admin: 01/13/21 22:48 Dose: 50 mg Documented by: Results - Results Labs/Vitals: Laboratory Last Values WBC 4.4 K/mm3 (4.5-11.0) L 01/13/21 00:21 RBC 4.45 M/mm3 (3.65-5.03) 01/13/21 00:21 Hgb 12.8 gm/dl (11.8-15.2) 01/13/21 00:21 Hct 38.5 % (35.5-45.6) 01/13/21 00:21 MCV 87 fl (84-94) 01/13/21 00:21 MCH 29 pg (28-32) 01/13/21 00:21 MCHC 33 % (32-34) 01/13/21 00:21 RDW 13.9 % (13.2-15.2) 01/13/21 00:21 Plt Count 229 K/mm3 (140-440) 01/13/21 00:21 Lymph % (Auto) 30.0 % (13.4-35.0) 01/13/21 00:21 [place] % (Auto) 5.3 % (0.0-7.3) 01/13/21 00:21 Eos % (Auto) 2.8 % (0.0-4.3) 01/13/21 00:21 Baso % (Auto) 0.6 % (0.0-1.8) 01/13/21 00:21 Lymph # (Auto) 1.3 K/mm3 (1.2-5.4) 01/13/21 00:21 [place] # (Auto) 0.2 K/mm3 (0.0-0.8) 01/13/21 00:21 Eos # (Auto) 0.1 K/mm3 (0.0-0.4) 01/13/21 00:21 Baso # (Auto) 0.0 K/mm3 (0.0-0.1) 01/13/21 00:21 Seg Neutrophils % 61.3 % (40.0-70.0) 01/13/21 00: Seg Neutrophils # 2.7 K/mm3 (1.8-7.7) 01/13/21 00:21 Sodium 140 mmol/L (137-145) 01/13/21 00:21 Potassium 3.6 mmol/L (3.6-5.0) 01/13/21 00:21 Chloride 104.7 mmol/L (98-107) 01/13/21 00:21 Carbon Dioxide 27 mmol/L (22-30) 01/13/21 00:21 Anion Gap 12 mmol/L 01/13/21 00:21 BUN 12 mg/dL (9-20) 01/13/21 00:21 Creatinine 1.1 mg/dL (0.8-1.3) 01/13/21 00: Estimated GFR > 60 ml/min 01/13/21 00:21 BUN/Creatinine Ratio 11 % 01/13/21 00:21 Glucose 96 mg/dL (75-100) 01/13/21 00:21 Calcium 8.9 mg/dL (8.4-10.2) 01/13/21 00:21 Urine Color Yellow (Yellow) 01/13/21 00:40 Urine Turbidity Clear (Clear) 01/13/21 00:40 Urine pH 6.0 (5.0-7.0) 01/13/21 00:40 Ur Specific [place] 1.028 (1.003-1.030) 01/13/21 00:40 Urine Protein <15 mg/dl mg/dL (Negative) 01/13/21 00:40 Urine Glucose (UA) Neg mg/dL (Negative) 01/13/21 00:40 Urine Ketones Neg mg/dL (Negative) 01/13/21 00:40 Urine Blood Neg (Negative) 01/13/21 00:40 Urine Nitrite Neg (Negative) 01/13/21 00:40 Urine Bilirubin Neg (Negative) 01/13/21 00:40 Urine Urobilinogen 4.0 mg/dL (<2.0) 01/13/21 00:40 Ur Leukocyte Esterase Neg (Negative) 01/13/21 00:40 Urine WBC (Auto) 1.0 /HPF (0.0-6.0) 01/13/21 00:40 Urine RBC (Auto) < 1.0 /HPF (0.0-6.0) 01/13/21 00:40 Urine Mucus Few /HPF 01/13/21 00:40 Salicylates < 0.3 mg/dL (2.8-20.0) L 01/13/21 00:21 Urine Opiates Screen Presumptive negative 01/13/21 00:40 Urine Methadone Screen Presumptive negative 01/13/21 00:40 Acetaminophen 5.0 ug/mL (10.0-30.0) L 01/13/21 00:21 Ur Barbiturates Screen Presumptive negative 01/13/21 00:40 Ur Phencyclidine Scrn Presumptive negative 01/13/21 00:40 Ur Amphetamines Screen Presumptive negative 01/13/21 00:40 U Benzodiazepines Scrn Presumptive negative 01/13/21 00:40 Urine Cocaine Screen Presumptive negative 01/13/21 00:40 U Marijuana (THC) Screen Presumptive negative 01/13/21 00:40 Drugs of Abuse Note Disclamer 01/13/21 00:40 Plasma/Serum Alcohol < 0.01 % (0-0.07) 01/13/21 00:21 Coronavirus (PCR) Negative (Negative) 01/13/21 Unknown Last Vital Signs Temp 98.3 F 01/14/21 09:04 Pulse 60 01/14/21 09:04 Resp 18 01/14/21 09:04 BP 98/60 01/14/21 09:04 Pulse Ox 99 01/14/21 09:04
--- NOTE | 2021-01-14 09:13 | Progress Note ---
Subjective - Reason for Consult Consult date: 01/14/21 Reason for consult: schizoaffective disorder Requesting physician: BINDU TAPIA - Chief Complaint Chief complaint: Psych Progress Patient seen today, states he wont take medications and refused medications because they dont work for him. Patient states he will hurt someone if sent out to a facility because he does not want to go. REVIEW OF SYSTEMS Constitutional: Negative for weight loss ENT: Negative for stridor Respiratory: Negative for cough or hemoptysis All other systems reviewed and are negative MENTAL STATUS EXAMINATION General Appearance and Behavior: Age appropriate, good hygiene, wearing appropriate clothes, good eye contact, cooperative polite with questioning. Cooperation: Participating/engaged Psychomotor Behavior: agitated Mood: not Good Affect and affective range: dysthymic Thought Process:illogical, Thought Content: Within reality, Speech: Normal volume, Regular rate and rhythm, Intellectual Functioning: Average Suicidal Ideation: Denies SI Homicidal Ideation: Denies HI Impulse Control: impaired Insight and Judgment: impaired insight and judgment, Memory: Normal, Attention: Normal, Orientation: Alert, oriented, Assessment and Plan - Psychiatric problem (1) History of schizoaffective disorder Current Visit: Yes Status: Acute (2) Medication nonadherence due to psychosocial problem Current Visit: Yes Status: Acute Treatment Plan Patient noncompliant with outpatient treatment, increase aggressive behavior recommended patient. Med restarted MEDICATIONS: Risks, benefits and alternatives of medications discussed with the patient, questions answered and consent obtained from patient. PSYCHOTHERAPY: Supportive psychotherapy provided MEDICAL: Per primary team DELIRIUM PRECAUTIONS: Please re-orient patient frequently, keep lights on during the day, and minimize benzodiazepines and opiates as these medications could worsen patient's confusion. PULMONARY FUNCTION TECHNICIAN: DISPOSITION: DO recommend acute inpatient psychiatric hospitalization at this time. Safety discharge LEGAL STATUS: 1013 FOLLOW-UP: Will follow Thank you for the consult. Please contact with any questions and/or concerns. Mental Status Exam - Vital signs Last Vital Signs Temp 98.3 F 01/14/21 09:04 Pulse 60 01/14/21 09:04 Resp 18 01/14/21 09:04 BP 98/60 01/14/21 09:04 Pulse Ox 99 01/14/21 09:04
[2021-01-14] MEDS: BENZTROPINE 0.5 MG TAB PO SCH (15:35)
[2021-01-14] MEDS: risperiDONE 3 MG TAB PO SCH (15:35)
== END 2021-01-14 15:30 ==
LOC: ED 23:03
DX: F20.9 Schizophrenia, unspecified (principal); Z20.822 Contact with and (suspected) exposure to COVID-19; J45.909 Unspecified asthma, uncomplicated; Z79.899 Other long term (current) drug therapy; Z91.013 Allergy to seafood; Z91.010 Allergy to peanuts; Z88.8 Allergy status to other drugs, medicaments and biological substances

== ENCOUNTER 2021-02-08 14:40 | Emergency (ER) | payer MEDICARE | END 2021-02-08 15:00 | disposition left against medical advice (07) | LOC: ED 14:40 | DX: L29.9 Pruritus, unspecified (principal); Z53.21 Procedure and treatment not carried out due to patient leaving prior to being seen by health care provider ==

== ENCOUNTER 2021-03-05 00:03 | Emergency (ER) | payer MEDICARE | END 2021-03-05 01:30 | disposition left against medical advice (07) | LOC: ED 00:03 | DX: L29.9 Pruritus, unspecified (principal); Z53.21 Procedure and treatment not carried out due to patient leaving prior to being seen by health care provider ==

== ENCOUNTER 2021-05-19 05:59 | Emergency (ER) | payer MEDICARE | END 2021-05-19 06:30 | LOC: ED 05:59 | DX: L29.9 Pruritus, unspecified (principal); Z53.21 Procedure and treatment not carried out due to patient leaving prior to being seen by health care provider ==

== ENCOUNTER 2021-05-21 14:57 | Emergency (ER) | payer MEDICARE | END 2021-05-21 19:30 | LOC: ED 14:57 | DX: L29.9 Pruritus, unspecified (principal); Z53.21 Procedure and treatment not carried out due to patient leaving prior to being seen by health care provider ==

== ENCOUNTER 2021-05-22 12:02 | Emergency (ER) | payer MEDICARE ==
[2021-05-22 13:01] VITALS: BP 96/58
== END 2021-05-22 14:00 | disposition left against medical advice (07) ==
LOC: ED 12:02
DX: R07.9 Chest pain, unspecified (principal); Z53.21 Procedure and treatment not carried out due to patient leaving prior to being seen by health care provider

== ENCOUNTER 2021-05-26 06:14 | Emergency (ER) | payer MEDICARE | END 2021-05-26 08:16 | disposition left against medical advice (07) | LOC: ED 06:14 | DX: L29.9 Pruritus, unspecified (principal); Z53.21 Procedure and treatment not carried out due to patient leaving prior to being seen by health care provider ==

== ENCOUNTER 2021-05-27 10:41 | Emergency (ER) | payer MEDICARE ==
[2021-05-27 11:04] VITALS: BP 103/59
== END 2021-05-27 12:40 | disposition home or self-care (01) ==
LOC: ED 10:41
DX: L29.9 Pruritus, unspecified (principal); Z53.21 Procedure and treatment not carried out due to patient leaving prior to being seen by health care provider

== ENCOUNTER 2021-06-17 16:24 | Emergency (ER) | payer MEDICARE ==
[2021-06-17] MEDS ORDERED: SODIUM CHLORIDE 0.9% 1000 ML 1,000 ML IV ONE (17:19)
--- NOTE | 2021-06-17 17:24 | Emergency Department Report ---
ED General Adult HPI - General Chief complaint: Arrhythmia/Palpitations Stated complaint: IRREGULAR HEART RATE Time Seen by Provider: 06/17/21 17:05 - History of Present Illness Initial comments: 25-year-old male patient presents to the emergency department with complaints of sudden onset palpitations and diffuse body aches starting approximately 2 hours ago. Patient states he cannot recall exactly what he was doing when his s ymptoms began but he was "not doing anything out of the ordinary." No preceding fall, trauma, or injury. No new medications. No recent drug or alcohol use. No history of similar symptoms. No recent caffeine/energy drink consumption. Denies fever, chills, cough, chest pain, shortness of breath, vomiting, syncope, seizure. Denies all other complaints at this time. - Related Data Home Medications Medication Instructions Recorded Confirmed Last Taken Propranolol HCl 20 mg PO PRN PRN 01/09/18 01/14/21 01/08/18 traZODone [Desyrel] 50 mg PO QHS 06/16/20 01/14/21 Unknown Previous Rx's Medication Instructions Recorded Last Taken Type Benztropine [Cogentin] 0.5 mg PO DAILY #30 tab 08/30/20 Unknown Rx risperiDONE [RisperDAL] 3 mg PO BID #60 tablet 08/30/20 Unknown Rx Allergies Allergy/AdvReac Type Severity Reaction Status Date / Time peanut Allergy Swelling Verified 05/27/21 11:05 pork derived (porcine) Allergy Hives Verified 05/27/21 11:05 shellfish derived AdvReac Unknown Verified 05/27/21 11:05 dairy AdvReac Swelling Uncoded 05/27/21 11:05 ED Review of Systems ROS: Stated complaint: IRREGULAR HEART RATE Other details as noted in HPI Other: GENERAL: Negative for fever, chills, weight change, anorexia, fatigue. ENT: Negative for ear pain, difficulty hearing, sore throat, nasal congestion, epistaxis. CARDIOVASCULAR: Positive for palpitations. PULMONARY: Negative for cough, dyspnea, wheezing, orthopnea, cyanosis. GASTROINTESTINAL: Negative for abdominal pain, nausea, vomiting, diarrhea, constipation. MUSCULOSKELETAL: Positive for body aches. NEUROLOGICAL: Negative for headache, seizure, syncope, paresthesias, weakness. INTEGUMENTARY: Negative for erythema, rash, diaphoresis, laceration, ecchymosis. HEMATOLOGICAL: Negative for hemoptysis, hematemesis, hematochezia, hematuria. PSYCHIATRIC: Negative for hallucinations, suicidal ideation, homicidal ideation, anxiety, depression. ED Past Medical Hx - Past Medical History Hx Psychiatric Treatment: Yes (SCHIZOPHRENIA/anxiety) Hx Asthma: Yes Additional medical history: ECZEMA - Social History Smoking Status: Never Smoker Substance Use Type: None - Medications Home Medications: Home Medications Medication Instructions Recorded Confirmed Last Taken Type Propranolol HCl 20 mg PO PRN PRN 01/09/18 01/14/21 01/08/18 History traZODone [Desyrel] 50 mg PO QHS 06/16/20 01/14/21 Unknown History Benztropine [Cogentin] 0.5 mg PO DAILY #30 tab 08/30/20 01/14/21 Unknown Rx risperiDONE [RisperDAL] 3 mg PO BID #60 tablet 08/30/20 01/14/21 Unknown Rx ED Physical Exam - Other Other exam information: General: Awake and alert. No acute distress. Head: Atraumatic, normocephalic. Eyes: EOMI. Pupils are equal and round, reactive to light, no nystagmus. Normal sclera and conjunctiva. ENT: Oral mucosa is moist. Normal pharyngeal exam. Neck: Supple. No lymphadenopathy. Pulmonary: No respiratory distress. Clear to auscultation bilaterally. Cardiac: Tachycardic. Pulses are palpable and equal bilaterally. No lower extremity cyanosis or edema. Skin: Warm and dry. No rashes. Abdomen: Soft, non-tender, non-protuberant. No guarding, rigidity, or rebound. Bowel sounds are normal. No organomegaly or masses noted. Back: Normal alignment. No CVA tenderness. Extremities: Symmetrical. Full range of motion intact. Neurological: Alert and oriented, appropriately interactive, no focal deficits. Psych: Cooperative. Appropriate mood and affect. Speech is evenly metered. Thoughts are logically construed. ED Course Vital Signs 06/17/21 06/18/21 18:15 00:05 Temperature 97.9 F Pulse Rate 84 78 Respiratory 18 17 Rate Blood Pressure 104/67 O2 Sat by Pulse 99 99 Oximetry ED Medical Decision Making - Lab Data Result diagrams: 06/17/21 18:08 06/17/21 18:08 - EKG Data 06/17/21 17:43 EKG shows normal sinus rhythm with a ventricular rate of 79 bpm. Normal axis. Normal HI interval. Normal QT interval. Good R wave progression. No ST segment changes. Over read by attending emergency physician, who agrees with this interpretation - Medical Decision Making Differential diagnosis including but not limited to: cardiac arrhythmia, dehydration, electrolyte abnormality, hypoglycemia, anemia, toxic ingestion, rhabdomyolysis, thyroid storm, substance withdrawal On reevaluation, patient is resting comfortably. States he is feeling better. EKG without evidence of cardiac arrhythmia. Labs show minimally elevated CPK. Given IV fluids. Care of patient transferred to Jono Andrade PA-C for final disposition pending urinalysis and repeat vital signs. Anticipate discharge home. Critical care attestation.: If time is entered above; I have spent that time in minutes in the direct care of this critically ill patient, excluding procedure time. ED Disposition Clinical Impression: Mild dehydration Disposition: 01 HOME / SELF CARE / HOMELESS Is pt being admited?: No Additional Instructions: Rest. Drink plenty of fluids. Follow-up with primary care provider this week. Call tomorrow to schedule an appointment. See referral information below. Return to the emergency department immediately for new or worsening symptoms. Referrals: VIPIN WU MD [Staff Physician] - 3-5 Days [facility] [Provider Group] - 3-5 Days
--- NOTE | 2021-06-17 17:56 | XRay Report ---
CHEST 2 VIEWS INDICATION / CLINICAL INFORMATION: palpitations. COMPARISON: 04/23/2020 FINDINGS: SUPPORT DEVICES: None. HEART / MEDIASTINUM: No significant abnormality. LUNGS / PLEURA: No significant pulmonary or pleural abnormality. No pneumothorax. ADDITIONAL FINDINGS: No significant additional findings. IMPRESSION: 1. No acute findings. Signer Name: Jeffery Mcguire MD Signed: 06/17/2021 5:52 PM Workstation Name: [id number]
[2021-06-17 18:19] VITALS: BP 104/67
[2021-06-17 18:29] LABS: Basophils % (Auto) 0.3 % (0.0-1.8); Eosinophils % (Auto) 0.6 % (0.0-4.3); Hematocrit 41.3 % (35.5-45.6); Hemoglobin 13.8 gm/dl (11.8-15.2); Lymphocytes # (Auto) 1.2 K/mm3 (1.2-5.4); Lymphocytes % (Auto) 22.4 % (13.4-35.0); Mean Corpuscular HGB Conc 34 % (32-34); Mean Corpuscular Volume 88 fl (84-94); Monocytes # (Auto) 0.2 K/mm3 (0.0-0.8); Monocytes % (Auto) 4.4 % (0.0-7.3); Platelet Count 207 K/mm3 (140-440); Red Blood Count 4.72 M/mm3 (3.65-5.03); Red Cell Distribution Width 14.1 % (13.2-15.2)
[2021-06-17 18:45] LABS: Alanine Aminotransferase 24 units/L (7-56); Albumin 4.7 g/dL (3.9-5); BUN/Creatinine Ratio 10; Blood Urea Nitrogen 11 mg/dL (9-20); Hemolysis Index 6
--- NOTE | 2021-06-18 11:41 | Electrocardiograph Report ---
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
== END 2021-06-18 00:05 | disposition home or self-care (01) ==
LOC: ED 16:24
DX: E86.0 Dehydration (principal); R00.2 Palpitations; M79.18 Myalgia, other site; J45.909 Unspecified asthma, uncomplicated; Z91.013 Allergy to seafood; Z91.018 Allergy to other foods; Z91.011 Allergy to milk products; Z91.010 Allergy to peanuts; Z79.899 Other long term (current) drug therapy
CPT/HCPCS: 36415; 71046; 80053; 82550; 83735; 84443; 85025; 93005; 96360; 99284; J7030

== ENCOUNTER 2021-06-29 01:03 | Emergency (ER) | payer MEDICARE ==
[2021-06-29 01:21] VITALS: BP 109/75
--- NOTE | 2021-06-29 02:21 | Emergency Department Report ---
ED Palpitations HPI - General Chief Complaint: Pain General Stated Complaint: RAPID HEARTBEAT Time Seen by Provider: 06/29/21 01:44 Source: patient Mode of arrival: Ambulatory Limitations: No Limitations - History of Present Illness Initial Comments: Patient is a 25-year-old male who presents emergency room with complaints of palpitations. Patient also complains of muscle cramps. Patient states that his muscle cramps have resolved. Patient states he went on for an hour earlier today at 10 AM. Patient states that his palpitations came approximate hour ago but are resolved. Patient dates he has not noticed any more palpitations. Patient states he want to be checked out. Patient denies chest pain. Patient denies shortness of breath. Patient denies recent travel. Patient denies recent international travel. Patient denies exposure to the novel coronavirus. Patient denies sick contacts. Patient denies fever and chills. Patient denies cough. Patient denies diarrhea. Patient denies coming in contact with anybody with symptoms of the novel coronavirus. MD Complaint: rapid heart beat, palpitations -: Sudden Context: occured during exertion Associated Symptoms: denies other symptoms. denies: chest pain, shortness of breath, syncope, near-syncope, nausea/vomiting, diaphoresis, cough, parasthesias, feeling of impending doom - Related Data Home Medications Medication Instructions Recorded Confirmed Last Taken Propranolol HCl 20 mg PO PRN PRN 01/09/18 01/14/21 01/08/18 traZODone [Desyrel] 50 mg PO QHS 06/16/20 01/14/21 Unknown Previous Rx's Medication Instructions Recorded Last Taken Type Benztropine [Cogentin] 0.5 mg PO DAILY #30 tab 08/30/20 Unknown Rx risperiDONE [RisperDAL] 3 mg PO BID #60 tablet 08/30/20 Unknown Rx Allergies Allergy/AdvReac Type Severity Reaction Status Date / Time peanut Allergy Swelling Verified 05/27/21 11:05 pork derived (porcine) Allergy Hives Verified 05/27/21 11:05 shellfish derived AdvReac Unknown Verified 05/27/21 11:05 dairy AdvReac Swelling Uncoded 05/27/21 11:05 ED Review of Systems ROS: Stated complaint: RAPID HEARTBEAT Other details as noted in HPI Constitutional: denies: chills, fever Eyes: denies: eye pain, eye discharge, vision change ENT: denies: ear pain, throat pain Respiratory: denies: cough, shortness of breath, wheezing Cardiovascular: palpitations. denies: chest pain Endocrine: no symptoms reported Gastrointestinal: denies: abdominal pain, nausea, diarrhea Genitourinary: denies: urgency, dysuria Musculoskeletal: denies: back pain, joint swelling, arthralgia Skin: denies: rash, lesions Neurological: denies: headache, weakness, paresthesias, abnormal gait Psychiatric: denies: anxiety, depression, auditory hallucinations, visual hallucinations, homicidal thoughts, suicidal thoughts Hematological/Lymphatic: denies: easy bleeding, easy bruising ED Past Medical Hx - Past Medical History Previous Medical History?: Yes Hx Psychiatric Treatment: Yes (SCHIZOPHRENIA/anxiety) Hx Asthma: Yes Additional medical history: ECZEMA - Surgical History Past Surgical History?: No - Family History Family history: no significant - Social History Smoking Status: Never Smoker Substance Use Type: None - Medications Home Medications: Home Medications Medication Instructions Recorded Confirmed Last Taken Type Propranolol HCl 20 mg PO PRN PRN 01/09/18 01/14/21 01/08/18 History traZODone [Desyrel] 50 mg PO QHS 06/16/20 01/14/21 Unknown History Benztropine [Cogentin] 0.5 mg PO DAILY #30 tab 08/30/20 01/14/21 Unknown Rx risperiDONE [RisperDAL] 3 mg PO BID #60 tablet 08/30/20 01/14/21 Unknown Rx ED Physical Exam - General Limitations: No Limitations General appearance: alert, in no apparent distress - Head Head exam: Present: atraumatic, normocephalic - Eye Eye exam: Present: normal appearance - ENT ENT exam: Present: mucous membranes moist - Neck Neck exam: Present: normal inspection - Respiratory Respiratory exam: Present: normal lung sounds bilaterally. Absent: respiratory distress, wheezes, rales - Cardiovascular Cardiovascular Exam: Present: regular rate, normal rhythm. Absent: systolic murmur, diastolic murmur, rubs, gallop - GI/Abdominal GI/Abdominal exam: Present: soft, normal bowel sounds. Absent: distended, tenderness, guarding - Rectal Rectal exam: Present: deferred - Extremities Exam Extremities exam: Present: normal inspection, full ROM. Absent: tenderness, normal capillary refill, pedal edema, joint swelling, calf tenderness - Back Exam Back exam: Present: normal inspection, full ROM. Absent: tenderness, CVA tenderness (R), CVA tenderness (L), muscle spasm, paraspinal tenderness, vertebral tenderness - Neurological Exam Neurological exam: Present: alert, oriented X3 - Psychiatric Psychiatric exam: Present: normal affect, normal mood - Skin Skin exam: Present: warm, dry, intact, normal color. Absent: rash ED Course Vital Signs 06/29/21 01:20 Temperature 97.8 F Pulse Rate 85 Respiratory 18 Rate Blood Pressure 109/75 [Right] O2 Sat by Pulse 100 Oximetry - Reevaluation(s) Reevaluation #1: I discussed all results and clinical findings with patient. I discussed plan of care with patient. Patient agrees with plan of care. Patient is stable for discharge. Patient will be discharged home. Patient given discharge instructions. Patient voiced understanding of discharge instructions. 06/29/21 02:23 ED Medical Decision Making - Medical Decision Making Patient is a 25-year-old male who presents emergency room with complaints of palpitations and muscle cramps. Patient palpitations happen 1 time an hour prior to arrival. Patient's muscle cramps have. 10 hours prior to arrival and now resolved. Patient has reassuring vital signs. Patient not require any further emergency medical service. Patient is not tachycardic. Patient not require inpatient service. Patient can be managed as an outpatient. Patient had a medical clearing exam done. Patient stable for discharge. Patient discharged home. Patient referred to a senior business objects developer and back to his primary care. I discussed all results and clinical findings with patient. I discussed plan of care with patient. Patient agrees with plan of care. Patient is stable for discharge. Patient will be discharged home. Patient given discharge instructions. Patient voiced understanding of discharge instructions. - Differential Diagnosis Palpitations, dehydration, Critical care attestation.: If time is entered above; I have spent that time in minutes in the direct care of this critically ill patient, excluding procedure time. ED Disposition Clinical Impression: Palpitations Disposition: 01 HOME / SELF CARE / HOMELESS Is pt being admited?: No Does the pt Need Aspirin: No Condition: Stable Instructions: Palpitations, [facility] Additional Instructions: Patient to follow-up with primary care in 2 to 3 days. Patient to follow-up with senior business objects developer in 2 to 3 days. Patient to rest. Patient to increase water. Patient to avoid strenuous exercise or heavy lifting until cleared by senior business objects developer and primary care. Patient to take Tylenol or ibuprofen as needed for pain. Patient to return to the ER if condition worsens, changes or new symptoms arise. Referrals: VIPIN WU MD [Staff Physician] - 2-3 Days GUILLE NARAYANAN MD [Staff Physician] - 2-3 Days Time of Disposition: 02:27
[2021-06-29] MEDS ORDERED: methylPREDNISolone Sod Succinate 125 MG/2 ML INJ ONE (02:50)
[2021-06-29] MEDS ORDERED: diphenhydrAMINE 50 MG/ML VIAL ONE (02:50)
[2021-06-29] MEDS ORDERED: FAMOTIDINE 20 MG/2 ML INJ IV ONE (02:56)
== END 2021-06-29 03:05 | disposition home or self-care (01) ==
LOC: ED 01:03
DX: R00.2 Palpitations (principal); F20.9 Schizophrenia, unspecified; F41.9 Anxiety disorder, unspecified; L30.9 Dermatitis, unspecified; J45.909 Unspecified asthma, uncomplicated; Z91.010 Allergy to peanuts; Z91.011 Allergy to milk products; Z91.013 Allergy to seafood; Z91.018 Allergy to other foods
CPT/HCPCS: 99282; J1200; J2930

== ENCOUNTER 2021-07-05 16:41 | Emergency (ER) | payer MEDICARE | END 2021-07-05 17:20 | disposition left against medical advice (07) | LOC: ED 16:41 | DX: L29.9 Pruritus, unspecified (principal); Z53.21 Procedure and treatment not carried out due to patient leaving prior to being seen by health care provider ==

== ENCOUNTER 2021-08-05 14:05 | Emergency (ER) | payer MEDICARE ==
[2021-08-05] MEDS ORDERED: ACETAMINOPHEN 500 MG TAB PO ONE (14:49)
--- NOTE | 2021-08-05 14:49 | Emergency Department Report ---
ED General Adult HPI - General Chief complaint: Arrhythmia/Palpitations Stated complaint: HEART ATTACK ISSUES Time Seen by Provider: 08/05/21 14:28 Source: patient Mode of arrival: Ambulatory Limitations: No Limitations - Related Data Home Medications Medication Instructions Recorded Confirmed Last Taken Propranolol HCl 20 mg PO PRN PRN 01/09/18 01/14/21 01/08/18 traZODone [Desyrel] 50 mg PO QHS 06/16/20 01/14/21 Unknown Previous Rx's Medication Instructions Recorded Last Taken Type Benztropine [Cogentin] 0.5 mg PO DAILY #30 tab 08/30/20 Unknown Rx risperiDONE [RisperDAL] 3 mg PO BID #60 tablet 08/30/20 Unknown Rx Allergies Allergy/AdvReac Type Severity Reaction Status Date / Time peanut Allergy Swelling Verified 05/27/21 11:05 pork derived (porcine) Allergy Hives Verified 05/27/21 11:05 shellfish derived AdvReac Unknown Verified 05/27/21 11:05 dairy AdvReac Swelling Uncoded 05/27/21 11:05 ED Review of Systems ROS: Stated complaint: HEART ATTACK ISSUES Other details as noted in HPI Comment: All other systems reviewed and negative ED Past Medical Hx - Past Medical History Previous Medical History?: Yes Hx Psychiatric Treatment: Yes (SCHIZOPHRENIA/anxiety) Hx Asthma: Yes Additional medical history: ECZEMA - Surgical History Past Surgical History?: No - Family History Family history: no significant - Social History Smoking Status: Never Smoker Substance Use Type: None - Medications Home Medications: Home Medications Medication Instructions Recorded Confirmed Last Taken Type Propranolol HCl 20 mg PO PRN PRN 01/09/18 01/14/21 01/08/18 History traZODone [Desyrel] 50 mg PO QHS 06/16/20 01/14/21 Unknown History Benztropine [Cogentin] 0.5 mg PO DAILY #30 tab 08/30/20 01/14/21 Unknown Rx risperiDONE [RisperDAL] 3 mg PO BID #60 tablet 08/30/20 01/14/21 Unknown Rx ED Physical Exam - General Limitations: No Limitations General appearance: alert, in no apparent distress - Head Head exam: Present: atraumatic, normocephalic - Eye Eye exam: Present: normal appearance - ENT ENT exam: Present: mucous membranes moist - Neck Neck exam: Present: normal inspection - Respiratory Respiratory exam: Present: normal lung sounds bilaterally. Absent: respiratory distress - Cardiovascular Cardiovascular Exam: Present: regular rate, normal rhythm. Absent: systolic murmur, diastolic murmur, rubs, gallop - GI/Abdominal GI/Abdominal exam: Present: soft, normal bowel sounds - Rectal Rectal exam: Present: deferred - Extremities Exam Extremities exam: Present: normal inspection - Back Exam Back exam: Present: normal inspection - Neurological Exam Neurological exam: Present: alert, oriented X3 - Psychiatric Psychiatric exam: Present: normal affect, normal mood - Skin Skin exam: Present: warm, dry, intact, normal color. Absent: rash ED Medical Decision Making - EKG Data EKG shows normal: sinus rhythm Rate: normal - EKG Data When compared to previous EKG there are: no significant change Interpretation: no acute changes Critical care attestation.: If time is entered above; I have spent that time in minutes in the direct care of this critically ill patient, excluding procedure time. ED Disposition Clinical Impression: Malingering, Eczema, History of schizoaffective disorder, Medication nonadherence due to psychosocial problem Disposition: 01 HOME / SELF CARE / HOMELESS Is pt being admited?: No Does the pt Need Aspirin: No Condition: Stable Additional Instructions: follow up with MD below Referrals: VIPIN WU MD [Staff Physician] - 3-5 Days GUILLE NARAYANAN MD [Staff Physician] - 3-5 Days Time of Disposition: 14:52
--- NOTE | 2021-08-06 11:19 | Electrocardiograph Report ---
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
== END 2021-08-05 15:26 | disposition home or self-care (01) ==
LOC: ED 14:05
DX: R00.2 Palpitations (principal); F25.9 Schizoaffective disorder, unspecified; Z76.5 Malingerer [conscious simulation]; L30.9 Dermatitis, unspecified; Z91.14 Patient's other noncompliance with medication regimen; J45.909 Unspecified asthma, uncomplicated; Z91.010 Allergy to peanuts; Z91.018 Allergy to other foods; Z91.013 Allergy to seafood; Z91.011 Allergy to milk products
CPT/HCPCS: 93005; 99282

== ENCOUNTER 2021-08-21 08:34 | Emergency (ER) | payer MEDICARE ==
[2021-08-21 08:43] VITALS: BP 118/72
--- NOTE | 2021-08-21 09:24 | Emergency Department Report ---
ED General Adult HPI - General Chief complaint: Psych Stated complaint: I need medication for this body pain of my mine PUI?: No Time Seen by Provider: 08/21/21 09:01 Source: patient, RN notes reviewed, old records reviewed Mode of arrival: Ambulatory Limitations: Other (The patient is psychotic. The patient is disorganized.) - History of Present Illness Initial comments: The patient is a 25-year-old gentleman. He has a history of psychiatric disease. He presents to the ER today with a complaint of total body pain, and homicidality, suicidality. When I interviewed the patient, he tells me that he is not homicidal suicidal. However, he is very hesitant. He told the triage nurse that he was homicidal and suicidal. He also complains of total body pain to myself. He denies headache, neck pain, chest pain, abdominal pain, cough, vomiting, shortness of breath, hallucinations, urinary symptoms. The patient states he is not accompanied by friends or family at this time for collateral information. The patient states he lives with his sister. He does not want to provide contact information for his sister. He is also asking for food to eat. Severity scale (0 -10): 5 - Related Data Home Medications Medication Instructions Recorded Confirmed Last Taken Propranolol HCl 20 mg PO PRN PRN 01/09/18 01/14/21 01/08/18 traZODone [Desyrel] 50 mg PO QHS 06/16/20 01/14/21 Unknown Previous Rx's Medication Instructions Recorded Last Taken Type Benztropine [Cogentin] 0.5 mg PO DAILY #30 tab 08/30/20 Unknown Rx risperiDONE [RisperDAL] 3 mg PO BID #60 tablet 08/30/20 Unknown Rx Allergies Allergy/AdvReac Type Severity Reaction Status Date / Time peanut Allergy Swelling Verified 05/27/21 11:05 pork derived (porcine) Allergy Hives Verified 05/27/21 11:05 shellfish derived AdvReac Unknown Verified 05/27/21 11:05 dairy AdvReac Swelling Uncoded 05/27/21 11:05 ED Review of Systems ROS: Stated complaint: Suicidal/Homicidal Other details as noted in HPI Constitutional: denies: fever Eyes: denies: eye discharge ENT: denies: epistaxis Respiratory: denies: cough Cardiovascular: denies: chest pain Gastrointestinal: denies: abdominal pain Genitourinary: denies: dysuria Musculoskeletal: arthralgia, myalgia Neurological: denies: headache Psychiatric: anxiety, other (First admitted to homicidality and suicidality.). denies: homicidal thoughts, suicidal thoughts ED Past Medical Hx - Past Medical History Hx Psychiatric Treatment: Yes (SCHIZOPHRENIA/anxiety) Hx Asthma: Yes Additional medical history: ECZEMA - Social History Smoking Status: Never Smoker Substance Use Type: None - Medications Home Medications: Home Medications Medication Instructions Recorded Confirmed Last Taken Type Propranolol HCl 20 mg PO PRN PRN 01/09/18 01/14/21 01/08/18 History traZODone [Desyrel] 50 mg PO QHS 06/16/20 01/14/21 Unknown History Benztropine [Cogentin] 0.5 mg PO DAILY #30 tab 08/30/20 01/14/21 Unknown Rx risperiDONE [RisperDAL] 3 mg PO BID #60 tablet 08/30/20 01/14/21 Unknown Rx ED Physical Exam - General Limitations: Other (Patient is psychotic. Appears to responding to internal stimuli) General appearance: alert, anxious - Head Head exam: Present: atraumatic, normocephalic - Eye Eye exam: Present: normal appearance, EOMI. Absent: nystagmus - ENT ENT exam: Present: normal exam, normal orophraynx, mucous membranes moist, norm al external ear exam - Neck Neck exam: Present: normal inspection, full ROM. Absent: tenderness, meningismus - Respiratory Respiratory exam: Present: normal lung sounds bilaterally. Absent: respiratory distress, wheezes, rales, rhonchi, stridor, decreased breath sounds - Cardiovascular Cardiovascular Exam: Present: regular rate, normal rhythm, normal heart sounds. Absent: bradycardia, tachycardia, irregular rhythm, systolic murmur, diastolic murmur, rubs, gallop - GI/Abdominal GI/Abdominal exam: Present: soft. Absent: distended, tenderness, guarding, rebound, rigid, pulsatile mass - Rectal Rectal exam: Present: deferred - Extremities Exam Extremities exam: Present: normal inspection, full ROM, other (2+ pulses noted in the bilateral upper and lower extremities. There is no palpable cord. negative Homans sign. Muscular compartments are soft. The pelvis is stable.). Absent: pedal edema, calf tenderness - Back Exam Back exam: Present: normal inspection, full ROM. Absent: tenderness, CVA tenderness (R), CVA tenderness (L), paraspinal tenderness, vertebral tenderness - Neurological Exam Neurological exam: Present: alert, normal gait, other (No facial droop. Tongue midline. Extraocular movements intact bilaterally. Facial sensation intact to light touch in V1, V2, V3 distribution bilaterally. 5 and a 5 strength in 4 extremities. Sensation intact to light touch in 4 extremities.). Absent: motor sensory deficit - Psychiatric Psychiatric exam: Present: agitated, anxious, flat affect - Skin Skin exam: Present: warm, dry, intact, normal color. Absent: rash ED Course Vital Signs 08/21/21 08:41 Temperature 97.5 F L Pulse Rate 85 Respiratory 15 Rate Blood Pressure 118/72 [Right] O2 Sat by Pulse 100 Oximetry - Reevaluation(s) Reevaluation #1: 08/21/21 10:43 Differential diagnosis, including but not limited to: Psychosis, suicidality, homicidality, elevated CK, electrolyte derangement, medical clearance for psychiatric placement Assessment and plan: 25-year-old gentleman, with an initially articulated complaint of homicidality and suicidality. When I speak to the patient, he is not forthcoming, and hesitates when I asked him questions about whether or not he is feeling homicidal or suicidal. He appears to be responding to internal stimuli, and appears to be psychotic on my examination. He meets criteria for 1013 initiation. As needed medications ordered. Appropriate laboratory studies ordered. Muscular compartments soft. Saturating well on room air. Lung sounds clear. He denies Covid exposure. 08/21/21 14:59 Glucose is acceptable at this time. Psychiatric team have recommended discontinuation of 1013. They have advised that this patient does not meet criteria for 1013 hold or involuntary hold. The patient was medically cleared during his initial ER evaluation. He can take [id number] Tylenol and Motrin for his physical pain. ED Medical Decision Making - Lab Data Result diagrams: 08/21/21 10:11 08/21/21 10:11 Vital Signs 08/21/21 08:41 Temperature 97.5 F L Pulse Rate 85 Respiratory 15 Rate Blood Pressure 118/72 [Right] O2 Sat by Pulse 100 Oximetry Lab Results 08/21/21 08/21/21 08/21/21 Range/Units 10:11 10:11 10:11 Sodium 138 (137-145) mmol/L Potassium 4.0 (3.6-5.0) mmol/L Chloride 101.3 (98-107) mmol/L Carbon Dioxide 25 (22-30) mmol/L Anion Gap 16 mmol/L BUN 15 (9-20) mg/dL Creatinine 0.9 (0.8-1.3) mg/dL Estimated GFR > 60 ml/min BUN/Creatinine Ratio 17 % Glucose 64 L (75-100) mg/dL Calcium 9.2 (8.4-10.2) mg/dL Total Creatine Kinase (55-170) units/L Troponin T (0.00-0.029) ng/mL TSH 1.600 (0.270-4.200) mlU/mL Salicylates < 0.3 L (2.8-20.0) mg/dL Acetaminophen (10.0-30.0) ug/mL Plasma/Serum Alcohol (0-0.07) % 08/21/21 08/21/21 08/21/21 Range/Units 10:11 10:11 10:11 Sodium (137-145) mmol/L Potassium (3.6-5.0) mmol/L Chloride (98-107) mmol/L Carbon Dioxide (22-30) mmol/L Anion Gap mmol/L BUN (9-20) mg/dL Creatinine (0.8-1.3) mg/dL Estimated GFR ml/min BUN/Creatinine Ratio % Glucose (75-100) mg/dL Calcium (8.4-10.2) mg/dL Total Creatine Kinase 657 H (55-170) units/L Troponin T < 0.010 (0.00-0.029) ng/mL TSH (0.270-4.200) mlU/mL Salicylates (2.8-20.0) mg/dL Acetaminophen 5.0 L (10.0-30.0) ug/mL Plasma/Serum Alcohol < 0.01 (0-0.07) % - EKG Data -: EKG Interpreted by Ma EKG shows normal: sinus rhythm Rate: normal - EKG Data 08/21/21 10:43 The EKG is interpreted at 10: 30 Sinus rhythm, 64 bpm. Normal axis. Normal P wave axis. High left ventricular voltage. Motion artifact. Abnormal EKG. Not a STEMI Critical care attestation.: If time is entered above; I have spent that time in minutes in the direct care of this critically ill patient, excluding procedure time. ED Disposition Clinical Impression: Schizophrenia, Myalgia, Medical clearance for psychiatric admission Disposition: HOME / SELF CARE / HOMELESS Is pt being admited?: No Does the pt Need Aspirin: No Condition: Good Additional Instructions: Please continue current outpatient medications. Patient may take [id number] Tylenol and/or Motrin as needed for physical pain. Rest, avoid heavy lifting and strenuous physical activity. Follow-up with outpatient resources that have been provided to the patient. Please return to the emergency room right away with new pain, worsened pain, migration of pain, projectile vomiting, change in mental status, confusion, inability tolerate liquid feeds, new, worsened or different symptoms not present on the initial emergency room evaluation Professional and Agency Contacts To help Resolve Crises(20/04) [place] Crisis Line: Suicide Prevention Line: Crisis Text Line: Text START to 190465 Emergency: 911 Outpatient [facility] Behavioral Health Resources: [facility]: [facility] [address] [place], [place] [address] [facility] [address] [place] [address] [facility] - [address] [place] [address] Thursday thru Thursday - 8am - 5pm [facility] Address: [address] [place] [address] DAY: [facility] Address: [address] [place], [place] [address]Thursday thru Thursday- 7am-2pm [facility] Address: [address] [place] [address] Thursday thru Thursday: 8:30AM-5PM Referrals: [facility] [Provider Group] - 3-5 Days [facility] [Outside] - 3-5 Days [facility] - [facility]-5 Days
[2021-08-21] MEDS ORDERED: LORazepam 2 MG/ML VIAL IM PRN (09:32)
[2021-08-21] MEDS ORDERED: HALOPERIDOL LACTATE 5 MG/1 ML INJ IM PRN (09:32)
[2021-08-21 10:54] LABS: BUN/Creatinine Ratio 17; Blood Urea Nitrogen 15 mg/dL (9-20); Calcium 9.2 mg/dL (8.4-10.2); Hemolysis Index 34
[2021-08-21] MEDS ORDERED: ACETAMINOPHEN 325 MG TAB PO PRN (11:12)
[2021-08-21] MEDS ORDERED: IBUPROFEN 600 MG TAB PO PRN (11:12)
[2021-08-21] MEDS ORDERED: diphenhydrAMINE 25 MG CAP PO PRN (11:12)
[2021-08-21 11:13] LABS: Bilirubin,Urine NEG (Negative); Blood,Urine NEG (Negative); Color,Urine Straw (Yellow); Mucus,Urine FEW /HPF; Protein,Urine <15 mg/dL mg/dL (Negative); Urobilinogen,Urine < 2.0 mg/dL (<2.0)
[2021-08-21 11:21] LABS: Amphetamine Screen,Urine Negative; Benzodiazepines Screen,Urine Negative; Cannabinoid Screen,Urine Negative; Cocaine Screen,Urine Negative; Methadone Screen,Urine Negative; Opiate Screen,Urine Negative
[2021-08-21 11:27] LABS: Basophils % (Auto) 1.1 % (0.0-1.8); Eosinophils # (Auto) 0.1 K/mm3 (0.0-0.4); Eosinophils % (Auto) 4.1 % (0.0-4.3); Hematocrit 44.6 % (35.5-45.6); Hemoglobin 14.2 gm/dl (11.8-15.2); Lymphocytes # (Auto) 1.3 K/mm3 (1.2-5.4); Lymphocytes % (Auto) 44.5 % (13.4-35.0); Mean Corpuscular HGB Conc 32 % (32-34); Mean Corpuscular Volume 89 fl (84-94); Monocytes # (Auto) 0.2 K/mm3 (0.0-0.8); Monocytes % (Auto) 6.1 % (0.0-7.3); Platelet Count 238 K/mm3 (140-440); Red Blood Count 5.02 M/mm3 (3.65-5.03); Red Cell Distribution Width 14.2 % (13.2-15.2)
[2021-08-21 11:27] LABS: WBC,Urine < 1.0 /HPF (0.0-6.0)
--- NOTE | 2021-08-21 11:36 | Consultation ---
History of Present Illness - Reason for Consult Consult date: 08/21/21 Reason for consult: SI/HI - History of Present Psychiatric Illness The patient was seen today. He is a 25y/o male patient who presented to the ER for SI/HI. During my evaluation the patient was lying down with linen over his head. He pulls it down to talk to me. He greets me. He makes good eye contact. The patient says "I'm suicidal and homicidal, but if I can get something for pain it will go away." The patient says "I told the crystal cutter I felt suicidal and homicidal, but I really just need something for pain. I tried to tell them that's what I wanted." The patient says he's "in pain all over." When asking the patient where did the pain come from, he says "I'm just in a lot of pain." He de nies SI/HI at present, and also denies hallucinations of any kind. The patient denies any past psych history, although it is documented that he's has some. He denies being on any psychiatric medications. The patient denies any illicit drug use, alcohol or nicotine. The patient says he lives with his sister. I asked the patient if I could call his sister, he says "for what. I'm good." PAST PSYCHIATRIC HISTORY Diagnoses: Denies, but documented Schizophrenia Suicide attempts or Self-harm behavior: None reported Prior psychiatric hospitalizations: Denies Substance Abuse history: none reported Previous psychiatric medications tried: Denies, but has been on meds in the past Outpatient treatment: none reported PAST MEDICAL HISTORY: unknown Family Psychiatric History: None reported or documented SOCIAL HISTORY Marital Status: single Living Arrangements: Lives with sister Employment Status: On [employer] Access to guns/weapons: none reported Education: High school History of Abuse: none Legal History: none reported REVIEW OF SYSTEMS Constitutional: Negative for weight loss ENT: Negative for stridor Respiratory: Negative for cough or hemoptysis All other systems reviewed and are negative MENTAL STATUS EXAMINATION General Appearance and Behavior: Age appropriate, good hygiene, wearing appropriate clothes, good eye contact, cooperative polite with questioning. Cooperation: Participating/engaged Psychomotor Behavior: unremarkable and within normal limits Mood: Good now Affect and affective range: congruent with mood Thought Process: goal directed Thought Content: Within reality, Speech: Normal volume, Regular rate and rhythm, Intellectual Functioning: Average Suicidal Ideation: Denies SI Homicidal Ideation: Denies HI Hallucinations: Denies Delusions: None elicited Impulse Control: Unimpaired Insight and Judgment: Limited insight and judgment, Memory: Attentive Orientation: Alert, oriented, Assessment and Plan (1) History of schizophrenia Current Visit: Yes Status: Acute Treatment Plan d/c 1013 Patient noncompliant with outpatient treatment, increase aggressive behavior recommended patient. Risks, benefits and alternatives of medications discussed with the patient, questions answered and consent obtained from patient. PSYCHOTHERAPY: Supportive psychotherapy provided MEDICAL: Per primary team DELIRIUM PRECAUTIONS: Please re-orient patient frequently, keep lights on during the day, and minimize benzodiazepines and opiates as these medications could worsen patient's confusion. 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 Safety discharge FOLLOW-UP: Will sign off Thank you for the consult. Please contact with any questions and/or concerns. Case Staffed with Dr. Bruno Medications and Allergies Allergies Allergy/AdvReac Type Severity Reaction Status Date / Time peanut Allergy Swelling Verified 05/27/21 11:05 pork derived (porcine) Allergy Hives Verified 05/27/21 11:05 shellfish derived AdvReac Unknown Verified 05/27/21 11:05 dairy AdvReac Swelling Uncoded 05/27/21 11:05 Home Medications Medication Instructions Recorded Confirmed Last Taken Type Propranolol HCl 20 mg PO PRN PRN 01/09/18 01/14/21 01/08/18 History traZODone [Desyrel] 50 mg PO QHS 06/16/20 01/14/21 Unknown History Benztropine [Cogentin] 0.5 mg PO DAILY #30 tab 08/30/20 01/14/21 Unknown Rx risperiDONE [RisperDAL] 3 mg PO BID #60 tablet 08/30/20 01/14/21 Unknown Rx Active Meds: Active Medications Acetaminophen (Acetaminophen 325 Mg Tab) 650 mg PO Q6HR PRN PRN Reason: PAIN Diphenhydramine HCl (Diphenhydramine 25 Mg Cap) 50 mg PO QHS PRN PRN Reason: Insomnia Haloperidol Lactate (Haloperidol Lactate 5 Mg/1 Ml Inj) 5 mg IM Q6HR PRN PRN Reason: Agitation Ibuprofen (Ibuprofen 600 Mg Tab) 600 mg PO Q6HR PRN PRN Reason: Pain , Severe (7-10) Lorazepam (Lorazepam 2 Mg/Ml Vial) 2 mg IM Q4HR PRN PRN Reason: Agitation Mental Status Exam - Vital signs Last Vital Signs Temp 97.5 F L 08/21/21 08:41 Pulse 85 08/21/21 08:41 Resp 15 08/21/21 08:41 BP 118/72 08/21/21 08:41 Pulse Ox 100 08/21/21 08:41 Results Result Diagrams: 08/21/21 10:11 08/21/21 10:11 Abnormal lab results 08/21/21 08/21/21 08/21/21 Range/Units 10:11 10:11 10:11 WBC 3.0 L (4.5-11.0) K/mm3 Lymph % (Auto) 44.5 H (13.4-35.0) % Seg Neutrophils # 1.3 L (1.8-7.7) K/mm3 Glucose 64 L (75-100) mg/dL Total Creatine Kinase (55-170) units/L Salicylates < 0.3 L (2.8-20.0) mg/dL Acetaminophen (10.0-30.0) ug/mL 08/21/21 08/21/21 Range/Units 10:11 10:11 WBC (4.5-11.0) K/mm3 Lymph % (Auto) (13.4-35.0) % Seg Neutrophils # (1.8-7.7) K/mm3 Glucose (75-100) mg/dL Total Creatine Kinase 657 H (55-170) units/L Salicylates (2.8-20.0) mg/dL Acetaminophen 5.0 L (10.0-30.0) ug/mL All other labs normal.
[2021-08-21] MEDS ORDERED: DEXTROSE 50% IN WATER (25GM) 50 ML SYRINGE IV PRN (12:05)
--- NOTE | 2021-08-21 14:44 | Electrocardiograph Report ---
[facility] Test Date: 2021-08-21 Test Time: 10:31:40 Pat Name: IAN SAL Department: Room: Gender: M Clinical Psychology Teacher: ROGELIO : 1995 Requested By: EVITA LANDON Order Number: [id number] Reading MD: Miranda Curry Measurements Intervals [place] Rate: 67 P: 54 OK: 139 QRS: 56 QRSD: 98 T: 46 QT: 392 QTc: 414 Interpretive Statements Sinus rhythm Probable left atrial enlargement Compared to ECG 08/05/2021 15:11:09 No significant changes Electronically Signed On 08-21-2021 14:43:35 EST by Miranda Curry
== END 2021-08-21 16:29 | disposition home or self-care (01) ==
LOC: ED 08:34
DX: F20.9 Schizophrenia, unspecified (principal); M79.18 Myalgia, other site; J45.909 Unspecified asthma, uncomplicated; Z20.822 Contact with and (suspected) exposure to COVID-19; Z91.013 Allergy to seafood; Z91.018 Allergy to other foods
CPT/HCPCS: 36415; 80048; 80307; 81001; 82550; 84443; 84484; 85025; 93005; 99283; U0003; 80320; G0480

== ENCOUNTER 2021-08-25 00:20 | Emergency (ER) | payer MEDICARE ==
[2021-08-25 01:24] LABS: Bilirubin,Urine NEG (Negative); Blood,Urine NEG (Negative); Color,Urine Yellow (Yellow); Mucus,Urine FEW /HPF; Protein,Urine <15 mg/dL mg/dL (Negative); RBC,Urine < 1.0 /HPF (0.0-6.0); Urobilinogen,Urine < 2.0 mg/dL (<2.0)
[2021-08-25 01:33] LABS: Benzodiazepines Screen,Urine PRESUMPTIVE NEGATIVE; Cannabinoid Screen,Urine PRESUMPTIVE NEGATIVE; Cocaine Screen,Urine PRESUMPTIVE NEGATIVE; Methadone Screen,Urine PRESUMPTIVE NEGATIVE; Opiate Screen,Urine PRESUMPTIVE NEGATIVE
[2021-08-25 01:35] LABS: Amphetamine Screen,Urine PRESUMPTIVE NEGATIVE
--- NOTE | 2021-08-25 01:39 | Emergency Department Report ---
ED Psych HPI - General Chief Complaint: Psych Stated Complaint: HI/SI Time Seen by Provider: 08/25/21 01:04 Source: patient Mode of arrival: Ambulatory - History of Present Illness Initial Comments: 25-year-old male, schizoaffective disorder, presents to ED for mental health evaluation. Patient is reporting suicidal and homicidal ideations. Patient states he is homicidal against "certain people." Patient is not forthcoming with any persons in particular. Patient has no plan for suicide or homicide. He denies any hallucinations. MD Complaint: suicidal ideation -: This evening Associated Psychiatric Symptoms: suicidal ideation, homicidal ideation Quality: constant Improves With: none Worsens With: none Associated Symptoms: other (Heart palpitations) Treatments Prior to Arrival: none If Self Harm: admits thoughts of - Related Data Home Medications Medication Instructions Recorded Confirmed Last Taken Propranolol HCl 20 mg PO PRN PRN 01/09/18 01/14/21 01/08/18 traZODone [Desyrel] 50 mg PO QHS 06/16/20 01/14/21 Unknown Previous Rx's Medication Instructions Recorded Last Taken Type Benztropine [Cogentin] 0.5 mg PO DAILY #30 tab 08/30/20 Unknown Rx risperiDONE [RisperDAL] 3 mg PO BID #60 tablet 08/30/20 Unknown Rx risperiDONE [RisperDAL] 1 mg PO QHS 30 Days #30 tablet 08/25/21 Unknown Rx Allergies Allergy/AdvReac Type Severity Reaction Status Date / Time peanut Allergy Swelling Verified 05/27/21 11:05 pork derived (porcine) Allergy Hives Verified 05/27/21 11:05 shellfish derived AdvReac Unknown Verified 05/27/21 11:05 dairy AdvReac Swelling Uncoded 05/27/21 11:05 ED Review of Systems ROS: Stated complaint: HI/SI Other details as noted in HPI Comment: All other systems reviewed and negative Psychiatric: homicidal thoughts, suicidal thoughts. denies: auditory hallucinations, visual hallucinations ED Past Medical Hx - Past Medical History Hx Psychiatric Treatment: Yes (SCHIZOPHRENIA/anxiety) Hx Asthma: Yes Additional medical history: ECZEMA - Social History Smoking Status: Never Smoker Substance Use Type: None - Medications Home Medications: Home Medications Medication Instructions Recorded Confirmed Last Taken Type Propranolol HCl 20 mg PO PRN PRN 01/09/18 01/14/21 01/08/18 History traZODone [Desyrel] 50 mg PO QHS 06/16/20 01/14/21 Unknown History Benztropine [Cogentin] 0.5 mg PO DAILY #30 tab 08/30/20 01/14/21 Unknown Rx risperiDONE [RisperDAL] 3 mg PO BID #60 tablet 08/30/20 01/14/21 Unknown Rx risperiDONE [RisperDAL] 1 mg PO QHS 30 Days #30 tablet 08/25/21 Unknown Rx ED Physical Exam - General Limitations: No Limitations General appearance: alert, in no apparent distress - Head Head exam: Present: atraumatic, normocephalic - Eye Eye exam: Present: normal appearance, EOMI - ENT ENT exam: Present: mucous membranes moist - Neck Neck exam: Present: normal inspection - Respiratory Respiratory exam: Present: normal lung sounds bilaterally. Absent: respiratory distress - Cardiovascular Cardiovascular Exam: Present: regular rate, normal rhythm - GI/Abdominal GI/Abdominal exam: Absent: distended - Extremities Exam Extremities exam: Present: normal inspection - Neurological Exam Neurological exam: Present: alert, oriented X3 - Psychiatric Psychiatric exam: Present: anxious, homicidal ideation, suicidal ideation - Skin Skin exam: Present: warm, dry, intact, normal color ED Course Vital Signs 08/25/21 08/25/21 08/25/21 00:24 08:40 09:30 Temperature 97.7 F 98.2 F Pulse Rate 84 70 Respiratory 16 15 Rate Blood Pressure 113/63 110/64 [Right] O2 Sat by Pulse 97 99 99 Oximetry ED Medical Decision Making - Lab Data Result diagrams: 08/25/21 01:39 08/25/21 01:39 - EKG Data -: EKG Interpreted by [facility] EKG shows normal: sinus rhythm, axis, intervals, QRS complexes, ST-T waves Rate: normal - EKG Data Interpretation: no acute changes - Medical Decision Making Patient is medically clear for mental health evaluation. Will dispo per psych. Critical care attestation.: If time is entered above; I have spent that time in minutes in the direct care of this critically ill patient, excluding procedure time. ED Disposition Clinical Impression: Suicidal ideations, Homicidal ideation, Schizophrenia Disposition: 01 HOME / SELF CARE / HOMELESS Is pt being admited?: No Condition: Stable Instructions: Suicidal Feelings: How to Help Yourself, Managing Schizophrenia Additional Instructions: Professional and Agency Contacts To help Resolve Crises(20/04) [place] Crisis Line: Suicide Prevention Line: Crisis [place]: [place] [address] Emergency: 911 Outpatient [facility] Behavioral Health Resources: GINETTEB: [facility] [address] [place], [place] [address] AS[place]: [facility] [address] [place] [address] [place]: [facility] - [address] [place] [address] Thursday thru Thursday - 8am - 5pm AMAR[place]: [facility] Address: [address], [place] [address] DAY: [facility] Address: [address] [place] [address] Thursday thru Thursday- 7am-2pm [facility] Address: [address] [place] [address] Thursday thru Thursday: 8:30AM-5PM Prescriptions: risperiDONE [RisperDAL] 1 mg PO QHS 30 Days #30 tablet Referrals: [facility] [Provider Group] - 3-5 Days [facility], [Primary Care Provider] - 3-5 Days
[2021-08-25 01:52] LABS: Hematocrit 42.4 % (35.5-45.6); Hemoglobin 13.5 gm/dl (11.8-15.2); Mean Corpuscular HGB Conc 32 % (32-34); Mean Corpuscular Volume 88 fl (84-94); Platelet Count 214 K/mm3 (140-440); Red Cell Distribution Width 13.5 % (13.2-15.2)
[2021-08-25 02:41] LABS: Total Cells Counted 100
[2021-08-25 02:45] LABS: Large Platelets Few; Platelet Estimate Consistent w Auto; RBC Morphology Normal
[2021-08-25 02:59] LABS: BUN/Creatinine Ratio 15; Blood Urea Nitrogen 15 mg/dL (9-20); Calcium 9.4 mg/dL (8.4-10.2); Hemolysis Index 8
[2021-08-25 08:41] VITALS: BP 110/64
--- NOTE | 2021-08-25 10:16 | Consultation ---
History of Present Illness - Reason for Consult Consult date: 08/25/21 Reason for consult: Mental health eval - History of Present Psychiatric Illness The patient is a 25 year old male with history of Schizophrenia. In my interview with the patient, he denies having any psychiatric history. he said he came to the Ed because he was having generalized pain. He denies any current suicidal/homicidal ideation and denies hallucinations. PAST PSYCHIATRIC HISTORY Diagnoses: Denies, but documented Schizophrenia Suicide attempts or Self-harm behavior: None reported Prior psychiatric hospitalizations: Denies Substance Abuse history: none reported Previous psychiatric medications tried: Denies, but has been on meds in the past Outpatient treatment: none reported PAST MEDICAL HISTORY: unknown Family Psychiatric History: None reported or documented SOCIAL HISTORY Marital Status: single Living Arrangements: Lives with sister Employment Status: [employer] Access to guns/weapons: none reported Education: High school History of Abuse: none Legal History: none reported REVIEW OF SYSTEMS Constitutional: Negative for weight loss ENT: Negative for stridor Respiratory: Negative for cough or hemoptysis All other systems reviewed and are negative MENTAL STATUS EXAMINATION General Appearance and Behavior: Age appropriate, good hygiene, wearing appropriate clothes, good eye contact, cooperative polite with questioning. Cooperation: Participating/engaged Psychomotor Behavior: unremarkable and within normal limits Mood: "OK" Affect and affective range: congruent with mood Thought Process: goal directed Thought Content: Within reality, Speech: Normal volume, Regular rate and rhythm, Intellectual Functioning: Average Suicidal Ideation: Denies SI Homicidal Ideation: Denies HI Hallucinations: Denies Delusions: None elicited Impulse Control: Unimpaired Insight and Judgment: Limited insight and judgment, Memory: Attentive Orientation: Alert, oriented, Assessment and Plan (1) History of schizophrenia Current Visit: Yes Status: Acute Treatment Plan d/c 1013 Risperidone 1mg po QHS Patient noncompliant with outpatient treatment, increase aggressive behavior recommended patient. Risks, benefits and alternatives of medications discussed with the patient, questions answered and consent obtained from patient. PSYCHOTHERAPY: Supportive psychotherapy provided MEDICAL: Per primary team DELIRIUM PRECAUTIONS: Please re-orient patient frequently, keep lights on during the day, and minimize benzodiazepines and opiates as these medications could worsen patient's confusion. ECOLOGICAL MODELER: DISPOSITION: Do not recommend acute inpatient psychiatric hospitalization at this time. Safety discharge FOLLOW-UP: Will sign off Thank you for the consult. Please contact with any questions and/or concerns. Case Staffed with Dr. Bruno Medications and Allergies Allergies Allergy/AdvReac Type Severity Reaction Status Date / Time peanut Allergy Swelling Verified 05/27/21 11:05 pork derived (porcine) Allergy Hives Verified 05/27/21 11:05 shellfish derived AdvReac Unknown Verified 05/27/21 11:05 dairy AdvReac Swelling Uncoded 05/27/21 11:05 Home Medications Medication Instructions Recorded Confirmed Last Taken Type Propranolol HCl 20 mg PO PRN PRN 01/09/18 01/14/21 01/08/18 History traZODone [Desyrel] 50 mg PO QHS 06/16/20 01/14/21 Unknown History Benztropine [Cogentin] 0.5 mg PO DAILY #30 tab 08/30/20 01/14/21 Unknown Rx risperiDONE [RisperDAL] 3 mg PO BID #60 tablet 08/30/20 01/14/21 Unknown Rx risperiDONE [RisperDAL] 1 mg PO QHS 30 Days #30 tablet 08/25/21 Unknown Rx Mental Status Exam - Vital signs Last Vital Signs Temp 98.2 F 08/25/21 08:40 Pulse 70 08/25/21 08:40 Resp 15 08/25/21 08:40 BP 110/64 08/25/21 08:40 Pulse Ox 99 08/25/21 09:30 Results Result Diagrams: 08/25/21 01:39 08/25/21 01:39 Abnormal lab results 08/25/21 08/25/21 08/25/21 Range/Units 01:39 01:39 01:39 Lymphocytes % (Manual) 44.0 H (13.4-35.0) % Glucose 124 H (75-100) mg/dL Salicylates < 0.3 L (2.8-20.0) mg/dL Acetaminophen (10.0-30.0) ug/mL 08/25/21 Range/Units 01:39 Lymphocytes % (Manual) (13.4-35.0) % Glucose (75-100) mg/dL Salicylates (2.8-20.0) mg/dL Acetaminophen 5.0 L (10.0-30.0) ug/mL All other labs normal.
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
== END 2021-08-25 12:41 | disposition home or self-care (01) ==
LOC: ED 00:20
DX: R45.851 Suicidal ideations (principal); R45.850 Homicidal ideations; F20.9 Schizophrenia, unspecified; Z20.822 Contact with and (suspected) exposure to COVID-19; Z91.010 Allergy to peanuts; Z91.018 Allergy to other foods; Z91.013 Allergy to seafood; Z91.011 Allergy to milk products; J45.909 Unspecified asthma, uncomplicated
CPT/HCPCS: 36415; 80048; 80307; 81001; 84484; 85007; 85025; 93005; 99284; U0003; 80320; G0480

== ENCOUNTER 2021-09-09 06:48 | Emergency (ER) | payer MEDICARE ==
[2021-09-09 08:21] LABS: Basophils % (Auto) 0.6 % (0.0-1.8); Eosinophils # (Auto) 0.2 K/mm3 (0.0-0.4); Eosinophils % (Auto) 5.4 % (0.0-4.3); Hematocrit 44.1 % (35.5-45.6); Hemoglobin 13.7 gm/dl (11.8-15.2); Lymphocytes # (Auto) 1.2 K/mm3 (1.2-5.4); Mean Corpuscular HGB Conc 31 % (32-34); Mean Corpuscular Volume 88 fl (84-94); Monocytes # (Auto) 0.2 K/mm3 (0.0-0.8); Monocytes % (Auto) 6.3 % (0.0-7.3); Platelet Count 226 K/mm3 (140-440); Red Blood Count 4.99 M/mm3 (3.65-5.03); Red Cell Distribution Width 13.9 % (13.2-15.2)
[2021-09-09 08:40] LABS: BUN/Creatinine Ratio 15; Blood Urea Nitrogen 12 mg/dL (9-20); Calcium 8.9 mg/dL (8.4-10.2); Hemolysis Index 6
--- NOTE | 2021-09-09 08:40 | Emergency Department Report ---
ED Psych HPI - General Chief Complaint: Psych Stated Complaint: PSYCH Time Seen by Provider: 09/09/21 07:17 Source: patient Mode of arrival: Ambulatory - History of Present Illness Initial Comments: Patient is 26 years old male with history of schizophrenia. Patient presented to the ER stating that he is suicidal. Patient stated that he does not have a plan. He denied any auditory or visual hallucination. MD Complaint: suicidal ideation - Related Data Home Medications Medication Instructions Recorded Confirmed Last Taken No Known Home Medications [No 09/09/21 09/09/21 Unknown Reported Home Medications] Allergies Allergy/AdvReac Type Severity Reaction Status Date / Time peanut Allergy Swelling Verified 09/09/21 06:56 pork derived (porcine) Allergy Hives Verified 09/09/21 06:56 shellfish derived AdvReac Unknown Verified 09/09/21 06:56 dairy AdvReac Swelling Uncoded 05/27/21 11:05 ED Review of Systems ROS: Stated complaint: PSYCH Other details as noted in HPI Comment: All other systems reviewed and negative Constitutional: denies: chills, fever Respiratory: denies: cough, shortness of breath, SOB with exertion, SOB at rest Cardiovascular: denies: chest pain, palpitations Gastrointestinal: denies: abdominal pain, nausea, vomiting Musculoskeletal: denies: back pain Neurological: denies: headache, weakness, numbness, paresthesias, confusion, abnormal gait ED Past Medical Hx - Past Medical History Hx Psychiatric Treatment: Yes (SCHIZOPHRENIA/anxiety) Hx Asthma: Yes Additional medical history: ECZEMA - Surgical History Past Surgical History?: No - Social History Smoking Status: Never Smoker Substance Use Type: None - Medications Home Medications: Home Medications Medication Instructions Recorded Confirmed Last Taken Type No Known Home Medications [No 09/09/21 09/09/21 Unknown History Reported Home Medications] ED Physical Exam - General Limitations: No Limitations General appearance: alert, in no apparent distress - Head Head exam: Present: atraumatic, normal inspection - Eye Eye exam: Present: normal appearance - Neck Neck exam: Present: normal inspection - Respiratory Respiratory exam: Present: normal lung sounds bilaterally - Cardiovascular Cardiovascular Exam: Present: regular rate, normal rhythm, normal heart sounds - GI/Abdominal GI/Abdominal exam: Present: soft. Absent: distended, tenderness, guarding, rebound, rigid - Extremities Exam Extremities exam: Present: normal inspection - Back Exam Back exam: Present: normal inspection. Absent: CVA tenderness (R), CVA tenderness (L) - Neurological Exam Neurological exam: Present: alert, oriented X3, CN II-XII intact - Psychiatric Psychiatric exam: Present: normal mood, suicidal ideation. Absent: homicidal ideation - Skin Skin exam: Present: warm, intact, normal color ED Course Vital Signs 09/09/21 09/09/21 09/09/21 06:50 08:03 08:39 Temperature 97.6 F 97.9 F Pulse Rate 87 72 Respiratory 18 18 Rate Blood Pressure 107/65 120/64 [Right] O2 Sat by Pulse 100 100 100 Oximetry ED Medical Decision Making - Lab Data Result diagrams: 09/09/21 07:57 09/09/21 07:57 - Medical Decision Making Patient is 26 years old male with history of schizophrenia. Patient presented to the ER stating that he is suicidal. Patient stated that he does not have a plan. He denied any auditory or visual hallucination. Labs reviewed and is unremarkable. Patient is medically cleared to be evaluated by our psychiatric team. Critical care attestation.: If time is entered above; I have spent that time in minutes in the direct care of this critically ill patient, excluding procedure time. ED Disposition Clinical Impression: Schizophrenia, Suicidal ideation Disposition: [address] [place] [address] Is pt being admited?: No Condition: Stable Referrals: ALINA NUNEZ MD [Primary Care Provider] - 3-5 Days
[2021-09-09 09:17] LABS: Bilirubin,Urine NEG (Negative); Blood,Urine NEG (Negative); Color,Urine Yellow (Yellow); Protein,Urine <15 mg/dL mg/dL (Negative); RBC,Urine < 1.0 /HPF (0.0-6.0)
[2021-09-09 09:20] LABS: Amphetamine Screen,Urine Negative; Benzodiazepines Screen,Urine Negative; Cannabinoid Screen,Urine Negative; Cocaine Screen,Urine Negative; Methadone Screen,Urine Negative; Opiate Screen,Urine Negative
--- NOTE | 2021-09-09 11:41 | Consultation ---
History of Present Illness - Reason for Consult Consult date: 09/09/21 Reason for consult: mental health evaluation - History of Present Psychiatric Illness The patient is seen this morning. He is responding to internal stimuli, was also seen pacing and looking through the trash. The patient states "I just need pain medicine, if I get pain medicine everything will go away." PAST PSYCHIATRIC HISTORY Diagnoses: Denies, but documented Schizophrenia Suicide attempts or Self-harm behavior: None reported Prior psychiatric hospitalizations: Denies Substance Abuse history: none reported Previous psychiatric medications tried: unable to recall Outpatient treatment: none reported PAST MEDICAL HISTORY: unknown Family Psychiatric History: None reported or documented SOCIAL HISTORY Marital Status: single Living Arrangements: Lives with sister Employment Status: On [employer] Access to guns/weapons: none reported Education: High school History of Abuse: none Legal History: none reported REVIEW OF SYSTEMS Constitutional: Negative for weight loss ENT: Negative for stridor Respiratory: Negative for cough or hemoptysis All other systems reviewed and are negative MENTAL STATUS EXAMINATION General Appearance and Behavior: Age appropriate, good hygiene, wearing appropriate clothes, good eye contact, cooperative polite with questioning. Cooperation: Participating/engaged Psychomotor Behavior: unremarkable and within normal limits Mood: "ok" Affect and affective range: Incongruent with mood Thought Process: Disorganized Thought Content: Impoverished Speech: Normal volume, Regular rate and rhythm, Intellectual Functioning: Average Suicidal Ideation: Denies SI Homicidal Ideation: Denies HI Hallucinations: Denies Delusions: None elicited Impulse Control: Unimpaired Insight and Judgment: Limited insight and poor judgment, Memory: Attentive Orientation: Alert, oriented, Assessment and Plan (1) History of schizophrenia Current Visit: Yes Status: Acute Treatment Plan 1013 Patient noncompliant with outpatient treatment, increase aggressive behavior recommended patient. Risks, benefits and alternatives of medications discussed with the patient, questions answered and consent obtained from patient. PSYCHOTHERAPY: Supportive psychotherapy provided MEDICAL: Per primary team DELIRIUM PRECAUTIONS: Please re-orient patient frequently, keep lights on during the day, and minimize benzodiazepines and opiates as these medications could worsen patient's confusion. REHABILITATION NURSE: DISPOSITION: Recommend acute inpatient psychiatric hospitalization at this time. FOLLOW-UP: Will follow Thank you for the consult. Please contact with any questions and/or concerns. Case Staffed with Dr. Bruno Medications and Allergies Allergies Allergy/AdvReac Type Severity Reaction Status Date / Time peanut Allergy Swelling Verified 09/09/21 06:56 pork derived (porcine) Allergy Hives Verified 09/09/21 06:56 shellfish derived AdvReac Unknown Verified 09/09/21 06:56 dairy AdvReac Swelling Uncoded 05/27/21 11:05 Home Medications Medication Instructions Recorded Confirmed Last Taken Type No Known Home Medications [No 09/09/21 09/09/21 Unknown History Reported Home Medications] Mental Status Exam - Vital signs Last Vital Signs Temp 97.9 F 09/09/21 08:39 Pulse 72 09/09/21 08:39 Resp 18 09/09/21 08:39 BP 120/64 09/09/21 08:39 Pulse Ox 100 09/09/21 08:39 Results Result Diagrams: 09/09/21 07:57 09/09/21 07:57 Abnormal lab results 09/09/21 09/09/21 09/09/21 Range/Units 07:57 07:57 07:57 WBC 3.4 L (4.5-11.0) K/mm3 MCHC 31 L (32-34) % Eos % (Auto) 5.4 H (0.0-4.3) % Salicylates < 0.3 L (2.8-20.0) mg/dL Acetaminophen 5.0 L (10.0-30.0) ug/mL All other labs normal.
[2021-09-09] MEDS ORDERED: traZODone 50 MG TAB PO ONE (13:00)
[2021-09-09 15:05] VITALS: BP 119/78
--- NOTE | 2021-09-10 10:16 | Electrocardiograph Report ---
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
== END 2021-09-09 15:08 ==
LOC: ED 06:48
DX: F20.9 Schizophrenia, unspecified (principal); R45.851 Suicidal ideations; F41.9 Anxiety disorder, unspecified; J45.909 Unspecified asthma, uncomplicated; Z91.010 Allergy to peanuts; Z91.011 Allergy to milk products; Z91.013 Allergy to seafood; Z91.018 Allergy to other foods
CPT/HCPCS: 36415; 80048; 80307; 80320; 81001; 85025; 93005; 99284; 99285; G0480

== ENCOUNTER 2021-11-14 03:55 | Emergency (ER) | payer MEDICARE ==
[2021-11-14 04:15] VITALS: BP 112/61
--- NOTE | 2021-11-14 07:21 | Emergency Department Report ---
ED Rash HPI - HPI Chief Complaint: Skin Rash Stated Complaint: EXTREME ITCHING Time Seen by Provider: 11/14/21 07:09 Duration: Today Location: Other (All over ) Rash Symptoms: Yes Itching, No Facial Swelling, No Tongue/Oral Swelling, No Breathing Difficulties, No Choking Sensation, No Wheezing/Dyspnea, No Peeling, No Blistering, No Fever, No Lightheaded, No Malaise, No Myalgias Severity: mild Other History: Patient with pmhx of schizophrenia/schizoaffective disorder, malingering presents to ED with c/o itching all over. Onset this morning. He denies any known triggers. He denies rash. He reports no other symptoms. He denies significant pmhx. ED Review of Systems ROS: Stated complaint: EXTREME ITCHING Other details as noted in HPI Comment: All other systems reviewed and negative Constitutional: denies: chills, fever Eyes: denies: eye pain, eye discharge, vision change ENT: denies: ear pain, throat pain Respiratory: denies: cough, shortness of breath, wheezing Cardiovascular: denies: chest pain, palpitations Skin: pruritus. denies: rash, lesions Neurological: denies: headache, weakness, paresthesias Psychiatric: denies: anxiety, depression ED Past Medical Hx - Past Medical History Hx Psychiatric Treatment: Yes (SCHIZOPHRENIA/anxiety) Hx Asthma: Yes Additional medical history: ECZEMA - Social History Smoking Status: Never Smoker Substance Use Type: None - Medications Home Medications: Home Medications Medication Instructions Recorded Confirmed Last Taken Type diphenhydrAMINE [Benadryl CAP] 25 mg PO Q8HR PRN #30 capsule 11/14/21 Unknown Rx Rash Exam - Exam General: Vital signs noted. No distress. Alert and acting appropriately. HEENT: No Periorbital Edema, No Conjuctival Injection, No Chemosis, No Perioral Edema, No Tongue Edema, No Uvular Edema, No Compromised Airway, No Drooling Lungs: Yes Good Air Exchange, No Wheezes, No Ronchi, No Stridor, No Cough, No Labored Respirations, No Retractions, No Use of Accessory Muscles, No Other Abnormal Lung Sounds Heart: Yes Regular Skin: No Urticarial Rash, No Maculopapular Rash, No Morbilliform rash, No Bulla(e), No Excoriations, No Weeping, No Tenderness, No Erythema, No Edema, No Encrustations, No Other Other: Positive: Abdomen Normal, Neurologic Normal, Musculoskeletal Normal ED Course Vital Signs 11/14/21 04:12 Temperature 98.0 F Pulse Rate 97 H Respiratory 16 Rate Blood Pressure 112/61 [Right] O2 Sat by Pulse 95 Oximetry Critical care attestation.: If time is entered above; I have spent that time in minutes in the direct care of this critically ill patient, excluding procedure time. ED Disposition Clinical Impression: Pruritic disorder Disposition: HOME / SELF CARE / HOMELESS Is pt being admited?: No Does the pt Need Aspirin: No Condition: Stable Instructions: Pruritus Additional Instructions: Take the benadryl as prescribed to help with itching. Follow up with your PCP. Return if worse. Prescriptions: diphenhydrAMINE [Benadryl CAP] 25 mg PO Q8HR PRN #30 capsule PRN Reason: Itching Referrals: PRIMARY CARE, [Referring] - 3-5 Days Time of Disposition: 07:20
== END 2021-11-14 07:44 | disposition home or self-care (01) ==
LOC: ED 03:55
DX: L29.9 Pruritus, unspecified (principal); F20.9 Schizophrenia, unspecified; J45.909 Unspecified asthma, uncomplicated
CPT/HCPCS: 99282

== ENCOUNTER 2022-01-05 05:31 | Emergency (ER) | payer MEDICARE ==
[2022-01-05 07:34] VITALS: BP 100/48
[2022-01-05] MEDS ORDERED: diphenhydrAMINE 25 MG CAP PO ONE (07:44)
--- NOTE | 2022-01-05 07:44 | Emergency Department Report ---
ED General Adult HPI - General Chief complaint: Allergic Reaction Stated complaint: EXTREME ITCHING Time Seen by Provider: 01/05/22 07:37 Source: patient Mode of arrival: Ambulatory Limitations: No Limitations - History of Present Illness Initial comments: 26-year-old -[place] male with a past medical history of asthma, bipolar disorder, schizophrenia, chronic eczema and chronic itching presents to the ER today with complaints of generalized itching. This is a recurrent current time for patient. He states that his symptoms flared up yesterday. He states that he has nothing at home to take for itching not even Benadryl. He denies any associated worsening rash, swelling, difficulty breathing, or any additional symptoms. MD Complaint: Generalized itching -: days(s) (This is a chronic recurrent problem for patient) - Related Data Previous Rx's Medication Instructions Recorded Last Taken Type diphenhydrAMINE [Benadryl CAP] 25 mg PO Q8HR PRN #30 capsule 01/05/22 Unknown Rx Allergies Allergy/AdvReac Type Severity Reaction Status Date / Time peanut Allergy Swelling Verified 09/09/21 06:56 pork derived (porcine) Allergy Hives Verified 09/09/21 06:56 shellfish derived AdvReac Unknown Verified 09/09/21 06:56 dairy AdvReac Swelling Uncoded 05/27/21 11:05 ED Review of Systems ROS: Stated complaint: EXTREME ITCHING Other details as noted in HPI Comment: All other systems reviewed and negative Constitutional: denies: chills, fever Eyes: denies: eye pain, eye discharge, vision change ENT: denies: ear pain, throat pain, dental pain, hearing loss, epistaxis, congestion Respiratory: denies: cough, shortness of breath, SOB with exertion, SOB at rest, wheezing Skin: pruritus Neurological: as per HPI Psychiatric: denies: anxiety, depression Hematological/Lymphatic: denies: easy bleeding, easy bruising ED Past Medical Hx - Past Medical History Hx Psychiatric Treatment: Yes (SCHIZOPHRENIA/anxiety) Hx Asthma: Yes Additional medical history: ECZEMA - Social History Smoking Status: Never Smoker Substance Use Type: None - Medications Home Medications: Home Medications Medication Instructions Recorded Confirmed Last Taken Type diphenhydrAMINE [Benadryl CAP] 25 mg PO Q8HR PRN #30 capsule 01/05/22 Unknown Rx ED Physical Exam - General Limitations: No Limitations General appearance: alert, in no apparent distress - Head Head exam: Present: atraumatic, normocephalic, normal inspection - Neck Neck exam: Present: normal inspection, full ROM - Respiratory Respiratory exam: Present: normal lung sounds bilaterally. Absent: respiratory distress, wheezes, rales, rhonchi, chest wall tenderness - Cardiovascular Cardiovascular Exam: Present: regular rate, normal rhythm, normal heart sounds - GI/Abdominal GI/Abdominal exam: Present: soft. Absent: distended, tenderness, guarding, rebound - Neurological Exam Neurological exam: Present: alert, oriented X3, CN II-XII intact, normal gait - Psychiatric Psychiatric exam: Present: normal affect, normal mood - Skin Skin exam: Present: intact. Absent: rash ED Course Vital Signs 01/05/22 07:32 Temperature 97.5 F L Pulse Rate 72 Respiratory 16 Rate Blood Pressure 100/48 O2 Sat by Pulse 98 Oximetry Critical care attestation.: If time is entered above; I have spent that time in minutes in the direct care of this critically ill patient, excluding procedure time. ED Disposition Clinical Impression: Pruritus Disposition: 01 HOME / SELF CARE / HOMELESS Is pt being admited?: No Does the pt Need Aspirin: No Condition: Stable Instructions: Pruritus Additional Instructions: Recommend a take Benadryl every 6 hours as needed to help with your itching. Follow-up with your primary care doctor for referral to dermatology or graphic manager. Return if worse. Prescriptions: diphenhydrAMINE [Benadryl CAP] 25 mg PO Q8HR PRN #30 capsule PRN Reason: Itching Referrals: PRIMARY CARE, [Referring] - 3-5 Days Time of Disposition: 07:44
== END 2022-01-05 08:03 | disposition home or self-care (01) ==
LOC: ED 05:31
DX: L29.9 Pruritus, unspecified (principal); J45.909 Unspecified asthma, uncomplicated
CPT/HCPCS: 99282

== ENCOUNTER 2022-01-09 04:35 | Emergency (ER) | payer MEDICARE ==
[2022-01-09 09:20] VITALS: BP 127/55
--- NOTE | 2022-01-09 09:45 | Emergency Department Report ---
ED Rash HPI - HPI Chief Complaint: Skin Rash Stated Complaint: EXTREME ITCHING Duration: Months Location: Other (Generalized) Suspected Cause: Other (Chronic eczema) Rash Symptoms: Yes Itching, No Facial Swelling, No Tongue/Oral Swelling, No Breathing Difficulties, No Choking Sensation, No Wheezing/Dyspnea, No Peeling, No Blistering, No Fever, No Lightheaded, No Malaise, No Myalgias Severity: mild Other History: Patient is a 26-year-old male that comes to the ER with itching. He states his whole body itches. He states is related to his eczema. He states that he does not use any creams, he states that they do not work. There is no rash appreciable on his body. He is asking for carolyn crackers and juice. Patient denies any fever or chills. He has no oral or ocular lesions. Patient has no chest pain, shortness of breath, abdominal pain. Patient was seen here for the same on January 05. He was sent home with Benadryl. He was also given a referral. Patient is ambulatory, [id number], nontoxic and taking p.o. on exam. Vital signs are normal. Patient has no medical emergency: MSE to registration. ED Review of Systems ROS: Stated complaint: EXTREME ITCHING Other details as noted in HPI Comment: All other systems reviewed and negative ED Past Medical Hx - Past Medical History Previous Medical History?: Yes Hx Psychiatric Treatment: Yes (SCHIZOPHRENIA/anxiety) Hx Asthma: Yes Additional medical history: ECZEMA - Surgical History Past Surgical History?: No - Family History Family history: no significant - Social History Smoking Status: Never Smoker Substance Use Type: None - Medications Home Medications: Home Medications Medication Instructions Recorded Confirmed Last Taken Type diphenhydrAMINE [Benadryl CAP] 25 mg PO Q8HR PRN #30 capsule 01/05/22 Unknown Rx Rash Exam - Exam General: Vital signs noted. No distress. Alert and acting appropriately. HEENT: No Periorbital Edema, No Conjuctival Injection, No Chemosis, No Perioral Edema, No Tongue Edema, No Uvular Edema, No Compromised Airway, No Drooling Lungs: Yes Good Air Exchange (Normal Breath Sounds), No Wheezes, No Ronchi, No Stridor, No Cough, No Labored Respirations, No Retractions, No Use of Accessory Muscles, No Other Abnormal Lung Sounds Heart: Yes Regular, No Murmur Skin: Yes Other (No rash or scratch thompson suggestive of itching noted on exam) Other: Positive: Abdomen Normal, Neurologic Normal, Musculoskeletal Normal ED Course Vital Signs 01/09/22 09:13 Temperature 98.7 F Pulse Rate 66 Respiratory 15 Rate Blood Pressure 127/55 [Right] O2 Sat by Pulse 95 Oximetry ED Medical Decision Making - Medical Decision Making Vital Signs 01/09/22 09:13 Temperature 98.7 F Pulse Rate 66 Respiratory 15 Rate Blood Pressure 127/55 [Right] O2 Sat by Pulse 95 Oximetry Patient is asking for food. Patient has no systemic signs or symptoms. He has no oral or eye lesions. No rash noted on exam. Vital signs are normal. Patient seen here 4 days ago for the same. He was sent home on Benadryl. LFTs were normal in 2020. He has no jaundice or other indications of liver dysfunction. Patient was medicated with IM Decadron for his itching. Patient will be discharged home with Benadryl for his itching. I encouraged him to follow-up with dermatology so that they can get him on the right combination of medications for his eczema. Given that I do not see any active outbreaks of eczema/rash I am not prescribing steroids or even any topical creams at this point. The patient says he has topicals at home but they do not work. - Differential Diagnosis Rash Critical care attestation.: If time is entered above; I have spent that time in minutes in the direct care of this critically ill patient, excluding procedure time. ED Disposition Clinical Impression: History of eczema, Pruritus, Malingering, History of schizoaffective disorder Disposition: HOME / SELF CARE / HOMELESS Is pt being admited?: No Does the pt Need Aspirin: No Condition: Stable Instructions: Eczema Additional Instructions: Follow-up with PCP or dermatology for your rash/eczema. Continue your home medications. Continue [id number] Benadryl as needed for your itching. Diet and activity as tolerated. Stay well-hydrated with water Referrals: VIPIN WU MD [Primary Care Provider] - 3-5 Days ABHINAV MCCAIN MD [Referring] - 3-5 Days Time of Disposition: 09:45
[2022-01-09] MEDS ORDERED: dexAMETHasone 4 MG/ML VIAL IM ONE (10:31)
== END 2022-01-09 11:04 | disposition home or self-care (01) ==
LOC: ED 04:35
DX: L30.9 Dermatitis, unspecified (principal); L29.9 Pruritus, unspecified; Z76.5 Malingerer [conscious simulation]; F25.9 Schizoaffective disorder, unspecified; J45.909 Unspecified asthma, uncomplicated
CPT/HCPCS: 96372; 99282; J1100

== ENCOUNTER 2022-01-18 00:54 | Emergency (ER) | payer MEDICARE | END 2022-01-18 02:15 | disposition left against medical advice (07) | LOC: ED 00:54 | DX: L29.9 Pruritus, unspecified (principal); Z53.21 Procedure and treatment not carried out due to patient leaving prior to being seen by health care provider ==

== ENCOUNTER 2022-01-18 21:29 | Emergency (ER) | payer MEDICARE ==
[2022-01-19] MEDS ORDERED: predniSONE 20 MG TAB PO ONE (05:21)
[2022-01-19] MEDS ORDERED: hydrOXYzine PAMOATE 25 MG CAP PO ONE (05:21)
[2022-01-19] MEDS ORDERED: FAMOTIDINE 20 MG TAB PO ONE (05:21)
--- NOTE | 2022-01-19 05:26 | Emergency Department Report ---
ED General Adult HPI - General Chief complaint: Skin Rash Stated complaint: EXTREME ITCHING Source: patient Mode of arrival: Ambulatory Limitations: No Limitations - History of Present Illness Initial comments: Patient is a 26-year-old -Trist[place] male with a history of schizoaffective schizophrenia who presents to the ED with complaint of persistent diffuse itchy rashes for the last 1 week, worse in the last 3 days. Patient stated that he is unsure as to the etiology of the rashes and that he has not taken any medication since the onset of these itchy rashes. Patient denies dizziness, syncope, fever, chills, swollen lips or tongue, swollen face, chest pain or shortness of breath, nausea, vomiting, diarrhea, abdominal pain, chest pain, shortness of breath, wheezing or cough. MD Complaint: Diffuse itchy rashes -: Sudden, week(s) (1) Location: back, abdomen, upper extremity, lower extremity Radiation: non-radiation Severity scale (0 -10): 4 Quality: other (Itchy) Consistency: constant Improves with: none Worsens with: none Associated Symptoms: denies other symptoms, rash (Diffuse itchy urticarial rashes). denies: confusion, chest pain, cough, diaphoresis, fever/chills, headaches, loss of appetite, malaise, nausea/vomiting, shortness of breath, syncope, weakness Treatments Prior to Arrival: none - Related Data Previous Rx's Medication Instructions Recorded Last Taken Type diphenhydrAMINE [Benadryl CAP] 25 mg PO Q8HR PRN #30 capsule 01/05/22 Unknown Rx Famotidine [Pepcid] 20 mg PO BID #60 tablet 01/19/22 Unknown Rx Prednisone [predniSONE 10 mg 10 mg PO .TAPER #21 tab 01/19/22 Unknown Rx (6-Day Pack, 21 Tabs)] hydrOXYzine PAMOATE [Vistaril] 50 mg PO Q6HR PRN #30 capsule 01/19/22 Unknown Rx Allergies Allergy/AdvReac Type Severity Reaction Status Date / Time peanut Allergy Swelling Verified 09/09/21 06:56 pork derived (porcine) Allergy Hives Verified 09/09/21 06:56 shellfish derived AdvReac Unknown Verified 09/09/21 06:56 dairy AdvReac Swelling Uncoded 05/27/21 11:05 ED Review of Systems ROS: Stated complaint: EXTREME ITCHING Other details as noted in HPI Constitutional: denies: chills, fever Eyes: denies: eye pain, eye discharge, vision change ENT: denies: ear pain, throat pain Respiratory: denies: cough, shortness of breath, wheezing Cardiovascular: denies: chest pain, palpitations Endocrine: no symptoms reported Gastrointestinal: denies: abdominal pain, nausea, diarrhea Genitourinary: denies: urgency, dysuria Musculoskeletal: denies: back pain, joint swelling, arthralgia Skin: rash (Diffuse itchy urticarial rashes), pruritus. denies: lesions, change in color, change in hair/nails Neurological: denies: headache, weakness, paresthesias Psychiatric: anxiety. denies: depression, auditory hallucinations, visual hallucinations, homicidal thoughts, suicidal thoughts Hematological/Lymphatic: denies: easy bleeding, easy bruising ED Past Medical Hx - Past Medical History Hx Psychiatric Treatment: Yes (SCHIZOPHRENIA/anxiety) Hx Asthma: Yes Additional medical history: ECZEMA - Social History Smoking Status: Never Smoker Substance Use Type: None - Medications Home Medications: Home Medications Medication Instructions Recorded Confirmed Last Taken Type diphenhydrAMINE [Benadryl CAP] 25 mg PO Q8HR PRN #30 capsule 01/05/22 Unknown Rx Famotidine [Pepcid] 20 mg PO BID #60 tablet 01/19/22 Unknown Rx Prednisone [predniSONE 10 mg 10 mg PO .TAPER #21 tab 01/19/22 Unknown Rx (6-Day Pack, 21 Tabs)] hydrOXYzine PAMOATE [Vistaril] 50 mg PO Q6HR PRN #30 capsule 01/19/22 Unknown Rx ED Physical Exam - General Limitations: No Limitations General appearance: alert, in no apparent distress - Head Head exam: Present: atraumatic, normocephalic, normal inspection - Eye Eye exam: Present: normal appearance, PERRL, EOMI Pupils: Present: normal accommodation - ENT ENT exam: Present: normal exam, normal orophraynx, mucous membranes moist, TM's normal bilaterally, normal external ear exam - Neck Neck exam: Present: normal inspection, full ROM. Absent: tenderness - Respiratory Respiratory exam: Present: normal lung sounds bilaterally. Absent: respiratory distress, wheezes, rales, rhonchi, chest wall tenderness, accessory muscle use, prolonged expiratory - Cardiovascular Cardiovascular Exam: Present: regular rate, normal rhythm, normal heart sounds. Absent: systolic murmur, diastolic murmur, rubs, gallop - GI/Abdominal GI/Abdominal exam: Present: soft, normal bowel sounds. Absent: tenderness, guarding, rebound, hyperactive bowel sounds, hypoactive bowel sounds, organomegaly, mass - Extremities Exam Extremities exam: Present: normal inspection, full ROM, normal capillary refill. Absent: tenderness, pedal edema, joint swelling, calf tenderness - Back Exam Back exam: Present: normal inspection, full ROM. Absent: tenderness, CVA tenderness (R), CVA tenderness (L), muscle spasm, paraspinal tenderness, vertebral tenderness - Neurological Exam Neurological exam: Present: alert, oriented X3, CN II-XII intact, normal gait, reflexes normal - Psychiatric Psychiatric exam: Present: normal affect, normal mood, anxious - Skin Skin exam: Present: warm, dry, intact, rash (Mild erythematous maculopapular urticarial rashes), erythema, urticaria. Absent: normal color ED Course Vital Signs 01/18/22 22:05 Temperature 98.3 F Pulse Rate 87 Respiratory 16 Rate Blood Pressure 134/55 O2 Sat by Pulse 99 Oximetry ED Medical Decision Making - Medical Decision Making This is a 26-year-old -[place] male with a history of schizoaffective schizophrenia who presents to the ED with complaint of persistent diffuse itchy rashes for the last 1 week, worse in the last 3 days. Patient stated that he is unsure as to the etiology of the rashes and that he has not taken any medication since the onset of these itchy rashes. In the ED, patient is alert and oriented x3 and is not in any distress. Patient was treated in the ED for itching and was discharged home on medication prescriptions. Patient was advised to follow-up with his primary care physician in 7 to 10 days for reevaluation or return to the ED immediately if symptoms get worse. - Differential Diagnosis Allergic reaction; chronic eczema; hives; urticaria; hallucination Critical care attestation.: If time is entered above; I have spent that time in minutes in the direct care of this critically ill patient, excluding procedure time. ED Disposition Clinical Impression: Itching with irritation, Acute urticaria, Continuous tactile hallucinations Acute allergic reaction Qualifiers: Encounter type: initial encounter Qualified Code(s): T78.40XA - Allergy, unspecified, initial encounter Disposition: HOME / SELF CARE / HOMELESS Is pt being admited?: No Does the pt Need Aspirin: No Condition: Stable Instructions: Hives, [id number]-[id number], Rash, Adult, Xyoc-[id number], Allergies, Adult, [id number]-[id number] Additional Instructions: Take medication with food, drink plenty of fluids and follow-up with your primary care physician in 7 to 10 days for reevaluation. Return to the ED immediately if symptoms get worse. Prescriptions: Famotidine [Pepcid] 20 mg PO BID #60 tablet Prednisone [predniSONE 10 mg (6-Day Pack, 21 Tabs)] 10 mg PO .TAPER #21 tab hydrOXYzine PAMOATE [Vistaril] 50 mg PO Q6HR PRN #30 capsule PRN Reason: Itching Referrals: [facility] [Provider Group] - 7-10 days Time of Disposition: 05:27 Print Language: FAROESE
[2022-01-19 05:42] VITALS: BP 130/55
== END 2022-01-19 05:42 | disposition home or self-care (01) ==
LOC: ED 21:29
DX: L29.9 Pruritus, unspecified (principal); L50.9 Urticaria, unspecified; R44.2 Other hallucinations; T78.49XA Other allergy, initial encounter; X58.XXXA Exposure to other specified factors, initial encounter; Z91.010 Allergy to peanuts; Z91.013 Allergy to seafood; Z91.018 Allergy to other foods
CPT/HCPCS: 99282

== ENCOUNTER 2022-02-04 16:39 | Emergency (ER) | payer MEDICARE | END 2022-02-04 16:45 | disposition left against medical advice (07) | LOC: ED 16:39 | DX: L29.9 Pruritus, unspecified (principal); Z53.21 Procedure and treatment not carried out due to patient leaving prior to being seen by health care provider ==

== ENCOUNTER 2022-02-05 10:34 | Emergency (ER) | payer MEDICARE | END 2022-02-05 12:30 | LOC: ED 10:34 | DX: L29.9 Pruritus, unspecified (principal); Z53.21 Procedure and treatment not carried out due to patient leaving prior to being seen by health care provider ==

== ENCOUNTER 2022-02-07 19:19 | Emergency (ER) | payer MEDICARE ==
[2022-02-07 19:38] VITALS: BP 108/57
== END 2022-02-08 02:20 | disposition left against medical advice (07) ==
LOC: ED 19:19
DX: L29.9 Pruritus, unspecified (principal); Z53.21 Procedure and treatment not carried out due to patient leaving prior to being seen by health care provider

== ENCOUNTER 2022-02-17 22:04 | Emergency (ER) | payer MEDICARE ==
[2022-02-18] MEDS ORDERED: ACETAMINOPHEN 500 MG TAB PO ONE (04:46)
--- NOTE | 2022-02-18 04:52 | Emergency Department Report ---
ED General Adult HPI - General Chief complaint: Pain General Stated complaint: GENERAL ILLNESS/BODY PAIN Source: patient Mode of arrival: Stretcher Limitations: No Limitations - History of Present Illness Initial comments: Patient is a 26-year-old -F[place] male with a history of paranoid schizophrenia, anxiety, depression and asthma who presents to the ED with complaint of diffuse body aches and pains after walking all over the city for over 24 hours. Patient states that he was brought to the ED for evaluation by the EMS and in route to the ED he received 1 L normal saline IV x1 and felt better. Patient now states that all he needs is pain medications for his muscle aches. Patient denies dizziness, syncope, chest pain, shortness of breath, nausea and vomiting, fall, traumatic injury, abdominal pain, cough, headache, numbness and tingling or weakness of lower and upper extremities bilaterally. MD Complaint: Diffuse body aches and pains -: Sudden, hour(s) (24) Location: upper extremity, lower extremity Radiation: non-radiation Severity scale (0 -10): 4 Quality: aching, sharp Consistency: constant Improves with: none Worsens with: movement Associated Symptoms: denies other symptoms. denies: confusion, chest pain, cough, diaphoresis, headaches, loss of appetite, malaise, nausea/vomiting, rash, shortness of breath, syncope, weakness Treatments Prior to Arrival: none - Related Data Previous Rx's Medication Instructions Recorded Last Taken Type diphenhydrAMINE [Benadryl CAP] 25 mg PO Q8HR PRN #30 capsule 01/05/22 Unknown Rx Famotidine [Pepcid] 20 mg PO BID #60 tablet 01/19/22 Unknown Rx Prednisone [predniSONE 10 mg 10 mg PO .TAPER #21 tab 01/19/22 Unknown Rx (6-Day Pack, 21 Tabs)] hydrOXYzine PAMOATE [Vistaril] 50 mg PO Q6HR PRN #30 capsule 01/19/22 Unknown Rx Allergies Allergy/AdvReac Type Severity Reaction Status Date / Time peanut Allergy Swelling Verified 09/09/21 06:56 pork derived (porcine) Allergy Hives Verified 09/09/21 06:56 shellfish derived AdvReac Unknown Verified 09/09/21 06:56 dairy AdvReac Swelling Uncoded 05/27/21 11:05 ED Review of Systems ROS: Stated complaint: GENERAL ILLNESS/BODY PAIN Other details as noted in HPI Constitutional: denies: chills, fever Eyes: denies: eye pain, eye discharge, vision change ENT: denies: ear pain, throat pain Respiratory: denies: cough, shortness of breath, wheezing Cardiovascular: denies: chest pain, palpitations Endocrine: no symptoms reported Gastrointestinal: denies: abdominal pain, nausea, diarrhea Genitourinary: denies: urgency, dysuria Musculoskeletal: back pain (lower), arthralgia (diffuse body aches and pains). denies: joint swelling Skin: denies: rash, lesions Neurological: denies: headache, weakness, paresthesias Psychiatric: denies: anxiety, depression Hematological/Lymphatic: denies: easy bleeding, easy bruising ED Past Medical Hx - Past Medical History Previous Medical History?: Yes Hx Psychiatric Treatment: Yes (SCHIZOPHRENIA/anxiety) Hx Asthma: Yes Additional medical history: ECZEMA - Surgical History Past Surgical History?: No - Social History Smoking Status: Never Smoker Substance Use Type: None - Medications Home Medications: Home Medications Medication Instructions Recorded Confirmed Last Taken Type diphenhydrAMINE [Benadryl CAP] 25 mg PO Q8HR PRN #30 capsule 01/05/22 Unknown Rx Famotidine [Pepcid] 20 mg PO BID #60 tablet 01/19/22 Unknown Rx Prednisone [predniSONE 10 mg 10 mg PO .TAPER #21 tab 01/19/22 Unknown Rx (6-Day Pack, 21 Tabs)] hydrOXYzine PAMOATE [Vistaril] 50 mg PO Q6HR PRN #30 capsule 01/19/22 Unknown Rx ED Physical Exam - General Limitations: No Limitations General appearance: alert, in no apparent distress - Head Head exam: Present: atraumatic, normocephalic, normal inspection - Eye Eye exam: Present: normal appearance, PERRL, EOMI Pupils: Present: normal accommodation - ENT ENT exam: Present: normal exam, normal orophraynx, mucous membranes moist, TM's normal bilaterally, normal external ear exam - Neck Neck exam: Present: normal inspection, full ROM. Absent: tenderness - Respiratory Respiratory exam: Present: normal lung sounds bilaterally. Absent: respiratory distress, wheezes, rales, rhonchi, chest wall tenderness, accessory muscle use, decreased breath sounds - Cardiovascular Cardiovascular Exam: Present: regular rate, normal rhythm, normal heart sounds. Absent: systolic murmur, diastolic murmur, rubs, gallop - GI/Abdominal GI/Abdominal exam: Present: soft, normal bowel sounds. Absent: tenderness, guarding, rebound, hyperactive bowel sounds, hypoactive bowel sounds - Extremities Exam Extremities exam: Present: normal inspection, full ROM, normal capillary refill. Absent: tenderness - Back Exam Back exam: Present: normal inspection, full ROM. Absent: tenderness, CVA tenderness (R), CVA tenderness (L), muscle spasm, vertebral tenderness - Neurological Exam Neurological exam: Present: alert, oriented X3, CN II-XII intact, normal gait, reflexes normal - Psychiatric Psychiatric exam: Present: normal affect, normal mood - Skin Skin exam: Present: warm, dry, intact, normal color. Absent: rash ED Course Vital Signs 02/17/22 22:41 Temperature 98 F Pulse Rate 65 Respiratory 18 Rate Blood Pressure 124/78 O2 Sat by Pulse 100 Oximetry ED Medical Decision Making - Medical Decision Making This is a 26-year-old -[place] male with a history of paranoid schizophrenia, anxiety, depression and asthma who presents to the ED with complaint of diffuse body aches and pains after walking all over the city for over 24 hours. Patient states that he was brought to the ED for evaluation by the EMS and in route to the ED he received 1 L normal saline IV x1 and felt better. Patient now states that all he needs is pain medications for his muscle aches. In the ED, patient is alert and oriented x3 and is not in any distress. Patient is hemodynamically stable. Patient was treated for pain in the ED with Tylenol and discharged home and advised to follow-up with his primary care physician in 5 to 7 days for reevaluation or return to the ED immediately if symptoms get worse. - Differential Diagnosis Muscle spasm; muscle strain Critical care attestation.: If time is entered above; I have spent that time in minutes in the direct care of this critically ill patient, excluding procedure time. ED Disposition Clinical Impression: Muscle strain of lower extremity Qualifiers: Encounter type: initial encounter Laterality: unspecified laterality Qualified Code(s): S86.919A - Strain of unspecified muscle(s) and tendon(s) at lower leg level, unspecified leg, initial encounter Muscle spasms of lower extremity Qualifiers: Laterality: bilateral Qualified Code(s): M62.838 - Other muscle spasm Disposition: 01 HOME / SELF CARE / HOMELESS Is pt being admited?: No Does the pt Need Aspirin: No Condition: Stable Instructions: Muscle Cramps and Spasms, [id number]-[id number], Muscle Strain, Ksnl-dv-[id number] Additional Instructions: Your symptoms are likely due to muscle spasm or muscle strain following walking on the street. Take [id number] Tylenol or ibuprofen as needed for pain and follow-up with your primary care physician in 7 to 10 days for reevaluation. Return to the ED immediately if symptoms get worse. Referrals: [facility] [Outside] - 7-10 days Time of Disposition: 04:52 Print Language: MAORI
[2022-02-18 05:30] VITALS: BP 118/74
== END 2022-02-18 06:10 | disposition home or self-care (01) ==
LOC: ED 22:04
DX: S86.919A Strain of unspecified muscle(s) and tendon(s) at lower leg level, unspecified leg, initial encounter (principal); M62.838 Other muscle spasm; F41.9 Anxiety disorder, unspecified; J45.909 Unspecified asthma, uncomplicated; Z91.011 Allergy to milk products; Z91.010 Allergy to peanuts; Z91.013 Allergy to seafood; Z91.09 Other allergy status, other than to drugs and biological substances; Z79.899 Other long term (current) drug therapy; X58.XXXA Exposure to other specified factors, initial encounter; Y93.89 Activity, other specified; Y92.89 Other specified places as the place of occurrence of the external cause; Y99.8 Other external cause status
CPT/HCPCS: 99283

== ENCOUNTER 2022-03-01 01:45 | Emergency (ER) | payer MEDICARE ==
[2022-03-01 03:41] VITALS: BP 126/78
== END 2022-03-01 16:46 | disposition left against medical advice (07) ==
LOC: ED 01:45
DX: L29.9 Pruritus, unspecified (principal); Z53.21 Procedure and treatment not carried out due to patient leaving prior to being seen by health care provider

== ENCOUNTER 2022-03-26 07:46 | Emergency (ER) | payer MEDICARE ==
[2022-03-26 08:03] VITALS: BP 119/74
[2022-03-26] MEDS ORDERED: KETOROLAC 10 MG TAB PO ONE (09:07)
--- NOTE | 2022-03-26 09:09 | Emergency Department Report ---
ED General Adult HPI - General Chief complaint: Pain General Stated complaint: MALAISE Time Seen by Provider: 03/26/22 08:52 Source: EMS Mode of arrival: Stretcher Limitations: No Limitations - History of Present Illness Initial comments: 26-year-old black male with a past medical history of asthma, schizophrenia, and anxiety presents to the emergency department for evaluation of body aches. He states that he started having body aches this morning, did not take any medications for his symptoms, and decided to come here for further evaluation. Complaint: Body aches -: Gradual, hour(s) Quality: aching Consistency: constant Associated Symptoms: denies other symptoms Treatments Prior to Arrival: none - Related Data Home Medications Medication Instructions Recorded Confirmed Last Taken No Known Home Medications [No 03/26/22 03/26/22 Unknown Reported Home Medications] Allergies Allergy/AdvReac Type Severity Reaction Status Date / Time peanut Allergy Swelling Verified 03/26/22 08:48 pork derived (porcine) Allergy Hives Verified 03/26/22 08:48 shellfish derived AdvReac Unknown Verified 03/26/22 08:48 dairy AdvReac Swelling Uncoded 03/26/22 08:48 ED Review of Systems ROS: Stated complaint: MALAISE Other details as noted in HPI Comment: All other systems reviewed and negative Constitutional: denies: chills, fever Eyes: denies: vision change ENT: denies: ear pain, congestion Respiratory: denies: shortness of breath Cardiovascular: denies: chest pain, palpitations Gastrointestinal: denies: abdominal pain, nausea, vomiting Musculoskeletal: myalgia Neurological: denies: headache, weakness Psychiatric: denies: auditory hallucinations, visual hallucinations, homicidal thoughts, suicidal thoughts ED Past Medical Hx - Past Medical History Hx Psychiatric Treatment: Yes (SCHIZOPHRENIA/anxiety) Hx Asthma: Yes Additional medical history: ECZEMA - Surgical History Past Surgical History?: No - Social History Smoking Status: Unknown if ever smoked - Medications Home Medications: Home Medications Medication Instructions Recorded Confirmed Last Taken Type No Known Home Medications [No 03/26/22 03/26/22 Unknown History Reported Home Medications] ED Physical Exam - General Limitations: No Limitations General appearance: alert, in no apparent distress - Head Head exam: Present: atraumatic, normocephalic - Eye Eye exam: Present: normal appearance. Absent: conjunctival injection, federico orbital swelling, periorbital tenderness - Neck Neck exam: Present: normal inspection. Absent: lymphadenopathy - Respiratory Respiratory exam: Present: normal lung sounds bilaterally. Absent: respiratory distress, wheezes, rales, rhonchi, stridor, chest wall tenderness - Cardiovascular Cardiovascular Exam: Present: regular rate, normal heart sounds - GI/Abdominal GI/Abdominal exam: Present: soft, normal bowel sounds. Absent: distended, t enderness, guarding, rebound, rigid - Extremities Exam Extremities exam: Present: normal inspection, normal capillary refill. Absent: pedal edema, joint swelling, calf tenderness - Back Exam Back exam: Present: normal inspection. Absent: CVA tenderness (R), CVA tenderness (L), vertebral tenderness - Neurological Exam Neurological exam: Present: alert, oriented X3 - Psychiatric Psychiatric exam: Present: normal affect, normal mood. Absent: homicidal ideation, suicidal ideation - Skin Skin exam: Present: warm, dry, intact, normal color ED Course Vital Signs 03/26/22 08:02 Pulse Rate 87 Respiratory 18 Rate Blood Pressure 119/74 [Left] O2 Sat by Pulse 99 Oximetry ED Medical Decision Making - Medical Decision Making 26-year-old black male with a past medical history of asthma, schizophrenia, and anxiety presents to the emergency department for evaluation of body aches. He states that he started having body aches this morning, did not take any medications for his symptoms, and decided to come here for further evaluation Physical exam unremarkable, NAD noted. Patient will be treated with one time dose of Toradol and discharged home to use tylenol and ibuprofen as needed for pain and follow up with pcp for further evaluation and management. He is advised to return to ED as needed. He verbalized understanding of and agreement with plan of care. Critical care attestation.: If time is entered above; I have spent that time in minutes in the direct care of this critically ill patient, excluding procedure time. ED Disposition Clinical Impression: Body aches Disposition: HOME / SELF CARE / HOMELESS Is pt being admited?: No Does the pt Need Aspirin: No Condition: Stable Instructions: Musculoskeletal Pain Additional Instructions: Take Tylenol and ibuprofen as needed for pain. Follow-up with your primary care provider if no improvement or worsening symptoms. Return to the emergency department as needed. Referrals: VIPIN WU MD [Staff Physician] - 3-5 Days Time of Disposition: :09
== END 2022-03-26 09:41 | disposition home or self-care (01) ==
LOC: ED 07:46
DX: R52 Pain, unspecified (principal); Z91.010 Allergy to peanuts; Z91.013 Allergy to seafood; Z91.018 Allergy to other foods; J45.901 Unspecified asthma with (acute) exacerbation
CPT/HCPCS: 99283

== ENCOUNTER 2022-03-29 21:44 | Emergency (ER) | payer MEDICARE ==
[2022-03-29 22:25] VITALS: BP 119/78
--- NOTE | 2022-03-30 01:42 | Emergency Department Report ---
ED Rash HPI - HPI Chief Complaint: Skin Rash Stated Complaint: ITCHING Time Seen by Provider: 03/30/22 01:35 Duration: 5 Days Location: Neck, Chest, Back, Abdomen, Upper Extremities Suspected Cause: Unknown Rash Symptoms: Yes Itching, Yes Facial Swelling, Yes Tongue/Oral Swelling, Yes Breathing Difficulties, Yes Choking Sensation, Yes Wheezing/Dyspnea, Yes Blistering, Yes Fever, Yes Lightheaded, Yes Malaise Severity: mild, moderate ED Review of Systems ROS: Stated complaint: ITCHING Other details as noted in HPI Comment: All other systems reviewed and negative ED Past Medical Hx - Past Medical History Hx Psychiatric Treatment: Yes (SCHIZOPHRENIA/anxiety) Hx Asthma: Yes Additional medical history: ECZEMA - Social History Smoking Status: Unknown if ever smoked - Medications Home Medications: Home Medications Medication Instructions Recorded Confirmed Last Taken Type No Known Home Medications [No 03/26/22 03/26/22 Unknown History Reported Home Medications] Rash Exam - Exam General: Vital signs noted. No distress. Alert and acting appropriately. HEENT: Yes Tongue Edema, Yes Uvular Edema, No Periorbital Edema, No Conjuctival Injection, No Chemosis, No Perioral Edema, No Compromised Airway, No Drooling Lungs: Yes Good Air Exchange (Normal Breath Sounds), No Wheezes, No Ronchi, No Stridor, No Cough, No Labored Respirations, No Retractions, No Use of Accessory Muscles, No Other Abnormal Lung Sounds Heart: Yes Regular, No Murmur Skin: Yes Urticarial Rash, Yes Maculopapular Rash, Yes Morbilliform rash, Yes Bulla(e), Yes Excoriations, Yes Weeping, Yes Tenderness, Yes Erythema (Erythematous papules with some burrowing to the skin as well), Yes Other (Scaly rash to the creases of the bottom) Other: Positive: Abdomen Normal, Neurologic Normal, Musculoskeletal Normal ED Course Vital Signs 03/29/22 22:18 Temperature 97.8 F Pulse Rate 77 Respiratory 18 Rate Blood Pressure 119/78 O2 Sat by Pulse 100 Oximetry Critical care attestation.: If time is entered above; I have spent that time in minutes in the direct care of this critically ill patient, excluding procedure time. ED Disposition Clinical Impression: Rash and nonspecific skin eruption Disposition: HOME / SELF CARE / HOMELESS Is pt being admited?: No Does the pt Need Aspirin: No Condition: Stable Instructions: Rash, Adult, [id number]
== END 2022-03-30 02:00 | disposition home or self-care (01) ==
LOC: ED 21:44
DX: R21 Rash and other nonspecific skin eruption (principal); J45.909 Unspecified asthma, uncomplicated
CPT/HCPCS: 99282

== ENCOUNTER 2022-05-07 07:03 | Emergency (ER) | payer MEDICARE ==
[2022-05-07 07:06] VITALS: BP 117/78
== END 2022-05-07 19:00 | disposition left against medical advice (07) ==
LOC: ED 07:03
DX: R07.89 Other chest pain (principal); Z53.21 Procedure and treatment not carried out due to patient leaving prior to being seen by health care provider

== ENCOUNTER 2022-05-19 17:00 | Emergency (ER) | payer MEDICARE ==
[2022-05-19 17:14] VITALS: BP 134/70
== END 2022-05-20 12:01 | disposition left against medical advice (07) ==
LOC: ED 17:00
DX: R52 Pain, unspecified (principal); Z53.21 Procedure and treatment not carried out due to patient leaving prior to being seen by health care provider

== ENCOUNTER 2022-06-21 15:29 | Emergency (ER) | payer MEDICARE ==
[2022-06-21 15:57] VITALS: BP 119/69
== END 2022-06-21 20:00 | disposition left against medical advice (07) ==
LOC: ED 15:29
DX: R52 Pain, unspecified (principal); Z53.21 Procedure and treatment not carried out due to patient leaving prior to being seen by health care provider

== ENCOUNTER 2022-06-27 00:15 | Emergency (ER) | payer MEDICARE ==
[2022-06-27] MEDS ORDERED: ACETAMINOPHEN W/CODEINE 300-30 MG TAB PO ONE (08:01)
--- NOTE | 2022-06-27 08:51 | Emergency Department Report ---
ED General Adult HPI - General Chief complaint: Pain General Stated complaint: BODY PAIN Time Seen by Provider: 06/27/22 07:06 Source: EMS Mode of arrival: Stretcher Limitations: No Limitations - History of Present Illness Initial comments: 26-year-old black male with a past medical history of schizophrenia, anxiety, and eczema presents to the emergency department for evaluation of generalized body aches. He states that for the last couple days he has had generalized body aches but denies any injury or trauma. He states that he is just aching the past few days after walking around a lot. He denies fever, chest pain, shortness of breath, nausea, vomiting, and abdominal pain. He denies SI and HI. MD Complaint: Body aches -: Gradual, days(s) (2) Radiation: non-radiation Severity scale (0 -10): 10 Quality: aching Consistency: constant Associated Symptoms: denies: confusion, chest pain, cough, diaphoresis, fever/chills, headaches, loss of appetite, malaise, nausea/vomiting, rash, seizure, shortness of breath, syncope, weakness Treatments Prior to Arrival: none - Related Data Previous Rx's Medication Instructions Recorded Last Taken Type Permethrin 5% [Acticin 5% CREAM] 60 gm TP ONCE #1 tube 03/30/22 Unknown Rx hydrOXYzine HCL [Atarax] 25 mg PO Q6HR PRN #20 tablet 03/30/22 Unknown Rx Allergies Allergy/AdvReac Type Severity Reaction Status Date / Time peanut Allergy Swelling Verified 03/26/22 08:48 pork derived (porcine) Allergy Hives Verified 03/26/22 08:48 shellfish derived AdvReac Unknown Verified 03/26/22 08:48 dairy AdvReac Swelling Uncoded 03/26/22 08:48 ED Review of Systems ROS: Stated complaint: BODY PAIN Other details as noted in HPI Comment: All other systems reviewed and negative Constitutional: denies: chills, fever Eyes: denies: vision change ENT: denies: congestion Respiratory: denies: cough, orthopnea, shortness of breath, SOB with exertion, SOB at rest, wheezing Cardiovascular: denies: chest pain, palpitations Gastrointestinal: denies: abdominal pain, nausea, vomiting, diarrhea, hematemesis, melena, hematochezia Genitourinary: denies: urgency, dysuria, frequency, hematuria, discharge, testicular pain, testicular mass Musculoskeletal: myalgia. denies: back pain Skin: denies: rash, lesions Neurological: denies: headache, weakness Psychiatric: denies: anxiety, depression ED Past Medical Hx - Past Medical History Previous Medical History?: Yes Hx Psychiatric Treatment: Yes (SCHIZOPHRENIA/anxiety) Hx Asthma: Yes Additional medical history: ECZEMA - Surgical History Past Surgical History?: No - Social History Smoking Status: Unknown if ever smoked - Medications Home Medications: Home Medications Medication Instructions Recorded Confirmed Last Taken Type Permethrin 5% [Acticin 5% CREAM] 60 gm TP ONCE #1 tube 03/30/22 Unknown Rx hydrOXYzine HCL [Atarax] 25 mg PO Q6HR PRN #20 tablet 03/30/22 Unknown Rx ED Physical Exam - General Limitations: No Limitations General appearance: alert, in no apparent distress - Head Head exam: Present: atraumatic, normocephalic - Eye Eye exam: Present: normal appearance. Absent: conjunctival injection, periorbital swelling, periorbital tenderness - ENT ENT exam: Present: normal exam - Neck Neck exam: Present: normal inspection, full ROM. Absent: tenderness, lymphadenopathy - Respiratory Respiratory exam: Present: normal lung sounds bilaterally. Absent: respiratory distress, wheezes, rales, rhonchi, stridor, chest wall tenderness - Cardiovascular Cardiovascular Exam: Present: regular rate, normal heart sounds - GI/Abdominal GI/Abdominal exam: Present: soft, normal bowel sounds. Absent: distended, tenderness, guarding, rebound, rigid - Extremities Exam Extremities exam: Present: normal inspection, full ROM, normal capillary refill. Absent: tenderness, pedal edema, joint swelling, calf tenderness - Back Exam Back exam: Present: normal inspection. Absent: CVA tenderness (R), CVA tenderness (L) - Neurological Exam Neurological exam: Present: alert, oriented X3, normal gait - Psychiatric Psychiatric exam: Present: normal affect, normal mood - Skin Skin exam: Present: warm, dry, intact, normal color ED Course Vital Signs 06/27/22 00:44 Temperature 98.6 F Pulse Rate 91 H Respiratory 18 Rate Blood Pressure 118/74 O2 Sat by Pulse 98 Oximetry ED Medical Decision Making - Medical Decision Making 26-year-old black male with a past medical history of schizophrenia, anxiety, and eczema presents to the emergency department for evaluation of generalized body aches. He states that for the last couple days he has had generalized body aches but denies any injury or trauma. He states that he is just aching the past few days after walking around a lot. He denies fever, chest pain, shortness of breath, nausea, vomiting, and abdominal pain. He denies SI and HI. Physical exam unremarkable. Patient be discharged home to follow-up with his primary care provider for further evaluation and management to the emergency department as needed. He verbalizes agreement with Critical care attestation.: If time is entered above; I have spent that time in minutes in the direct care of this critically ill patient, excluding procedure time. ED Disposition Clinical Impression: Myalgia Disposition: 01 HOME / SELF CARE / HOMELESS Is pt being admited?: No Does the pt Need Aspirin: No Condition: Stable Instructions: Musculoskeletal Pain Additional Instructions: Use ibuprofen and Tylenol as needed for pain. Follow-up with your primary care provider for further evaluation and management. Return to the emergency depar tment as needed. Referrals: VIPIN WU MD [Staff Physician] - 3-5 Days Time of Disposition: 08:52
[2022-06-27 09:50] VITALS: BP 130/88
== END 2022-06-27 09:50 | disposition home or self-care (01) ==
LOC: ED 00:15
DX: M79.10 Myalgia, unspecified site (principal); F41.9 Anxiety disorder, unspecified; J45.909 Unspecified asthma, uncomplicated; Z91.011 Allergy to milk products; Z91.010 Allergy to peanuts; Z91.013 Allergy to seafood
CPT/HCPCS: 99283